=== PATIENT | female | born 1955 | race African-American/Black ===

== ENCOUNTER 2016-09-30 08:41 | Inpatient (IN) | payer MEDICARE, MEDICAID ==
[~2016-09-30] VITALS: Ht 165.1 cm; Wt 77.1 kg
[~2016-09-30 08:41] MED LIST: ABILIFY15 MG ORAL; ABILIFY30 MG ORAL; ACETAMINOPHEN325 M1 ORAL; AMLODIPINE BESYL5 MG ORAL; ATORVASTATIN CA40 MG ORAL; BENADRYL25 MG ORAL; CARBAMAZEPINE200 MG ORAL; COLACE100 MG ORAL; DESYREL100 MG ORAL; IBUPROFEN600 MG ORAL; LEVOTHYROXINE100 MCG ORAL; LIPITOR40 MG ORAL; LOVENOX10 MG SUBQ; NORCO 5-325 TA1 EACH ORAL; NORVASC5 MG ORAL; OXYCONTIN20 MG ORAL; QUETIAPINE FUMA50 MG ORAL; SEROQUEL25 MG ORAL; TEGRETOL200 MG ORAL; TRAZODONE HCL150 MG ORAL
[2016-09-30 09:00] VITALS: BP 132/73
[2016-09-30 09:32] LABS: BASOPHILS % (AUTO) 1.9 % (0.0-2.0); EOSINOPHILS % (AUTO) 5.8 % (0.0-3.0); LYMPHOCYTES % (AUTO) 39.4 % (20.0-45.0); MEAN CORPUSCULAR HEMOGLOBIN 31.8 PG (27.0-31.0); MEAN CORPUSCULAR HGB CONC 29.8 G/DL (32.0-36.0); MEAN CORPUSCULAR VOLUME 107 FL (80-99); MEAN PLATELET VOLUME 6.8 FL (6.5-10.1); MONOCYTES % (AUTO) 7.7 % (1.0-10.0); NEUTROPHILS % (AUTO) 45.2 % (45.0-75.0); PLATELET COUNT 141 K/UL (150-450); RED BLOOD COUNT 4.23 M/UL (4.20-5.40); RED CELL DISTRIBUTION WIDTH 14.9 % (11.6-14.8); WHITE BLOOD COUNT 4.9 K/UL (4.8-10.8)
--- NOTE | 2016-09-30 09:45 | Diagnostic Imaging Report ---
Indications: Chest pain Technique: Portable AP chest Findings: Comparison: 11/02/2014 Right lung volume loss, elevation of the apparent right hemidiaphragm persists. Right costophrenic angle now mildly blunted. Left lung and pleura remain clear. Heart size and pulmonary vasculature remain within normal limits. Right-sided hemodialysis catheter now in place. Left upper extremity intravascular stents and surgical clips now noted. IMPRESSION: Suggestion of development versus better visualization of small right pleural effusion versus thickening No other evidence of acute cardiopulmonary disease, unchanged Persistent right lung volume loss, nonspecific Interval hemodialysis catheter placement right chest wall Interval left upper extremity surgical clips and intravascular stent placements, likely relating to hemodialysis access, patency indeterminate
[2016-09-30 09:52] LABS: ALANINE AMINOTRANSFERASE 18 U/L (3-33); ALBUMIN/GLOBULIN RATIO 1.3 (1.0-2.7); ANION GAP 19 (5-15); ASPARTATE AMINO TRANSFERASE 36 U/L (5-40); CALCIUM 10.1 mg/dL (8.6-10.2); CARBON DIOXIDE 24 mEQ/L (20-30); CHLORIDE 101 mEQ/L (98-107); CREATININE 3.9 mg/dL (0.5-0.9); GLOMERULAR FILTRATION RATE 14.1 mL/min (>60); HEMOLYSIS 101; POTASSIUM 5.2 mEQ/L (3.4-4.9); SODIUM 144 mEQ/L (135-145); TOTAL PROTEIN 7.6 g/dL (6.6-8.7)
[2016-09-30 09:56] LABS: TROPONIN I < 0.30 ng/mL (<=0.30)
[2016-09-30] MEDS ORDERED: LACTULOSE20 GM/301 ORAL (10:07)
[2016-09-30] MEDS ORDERED: MILK OF MA400 MG/51 ORAL (10:07)
[2016-09-30] MEDS ORDERED: DEX4 GLUCO15 GM/59 M PO (10:07)
[2016-09-30] MEDS ORDERED: B COMPLEX WITH1 EACH ORAL (10:07)
[2016-09-30] MEDS ORDERED: INSULIN ASPART (10:07)
[2016-09-30] MEDS ORDERED: GLUCAGEN1 M1 IJ (10:07)
[2016-09-30] MEDS ORDERED: AMLODIPINE BESY10 MG ORAL (10:07)
[2016-09-30] MEDS ORDERED: MELATONIN 3 MG1 EAC1 PO (10:07)
[2016-09-30] MEDS ORDERED: CARBAMAZEPINE200 MG ORAL (10:07)
--- NOTE | 2016-09-30 10:26 | Emergency Room Report ---
History of Present Illness General Chief Complaint: Altered Mental Status Source: EMS Present Illness HPI 61-year-old female presents to ED for evaluation. Patient resides in complex at home. Per nursing staff patient is more altered and usual x1 day. However patient does have history of dementia and extensive psychiatric history. Patient is unable to provide any additional history at this time. No reported fevers or chills. No reported cough. No reported nausea or vomiting. PMD is Dr. Hanks. No other aggravating or relieving factors. No other associated symptoms Allergies: Coded Allergies: No Known Allergies (Unverified , 11/02/14) Patient History Past Medical History: DM, HTN, asthma, dementia, psych hx, renal disease, dialysis Past Surgical History: none Pertinent Family History: none Social History: Denies: alcohol use, drug use, smoking Now: No Immunizations: UTD Reviewed Nursing Documentation: PMH: Agreed, PSxH: Agreed Nursing Documentation-PMH Past Medical History Deferred: Pt Cognitively Impaired Past Medical History: No History, Except For Hx Hypertension: Yes Hx Pacemaker: No Hx Asthma: Yes Hx COPD: No Hx Diabetes: Yes Hx Cancer: No Hx Gastrointestinal Problems: No Hx Dialysis: Yes - MWF History Of Psychiatric Problem: Yes - schizophrenia depression anxiety Hx Neurological Problems: Yes - dementia Hx Cerebrovascular Accident: No Hx Seizures: No Review of Systems All Other Systems: negative except mentioned in HPI Physical Exam Vital Signs Date Time Temp Pulse Resp B/P Pulse Ox O2 Delivery O2 Flow Rate FiO2 09/30/16 08:43 97.0 86 16 121/79 96 Room Air Sp02 EP Interpretation: reviewed, normal General Appearance: no apparent distress, GCS 15, non-toxic, other - dementia Head: normocephalic, atraumatic Eyes: bilateral eye PERRL, bilateral eye normal inspection ENT: hearing grossly normal, normal pharynx, no angioedema, normal voice Neck: full range of motion, supple/symm/no masses Respiratory: chest non-tender, lungs clear, normal breath sounds, speaking full sentences, other - permacath in R chest Cardiovascular #1: regular rate, rhythm, no edema Cardiovascular #2: 2+ carotid (R), 2+ carotid (L), 2+ radial (R), 2+ radial (L) , 2+ dorsalis pedis (R), 2+ dorsalis pedis (L) Gastrointestinal: normal bowel sounds, non tender, soft, non-distended, no guarding, no rebound Rectal: deferred Genitourinary: normal inspection, no CVA tenderness Musculoskeletal: back normal, gait/station normal, normal range of motion, non- tender Neurologic: alert, motor strength/tone normal, sensory intact Psychiatric: other - dementia Reflexes: 3+ bicep (R), 3+ bicep (L), 3+ tricep (R), 3+ tricep (L), 3+ knee (R) , 3+ knee (L) Skin: normal color, no rash, warm/dry, well hydrated Lymphatic: no adenopathy Medical Decision Making Diagnostic Impression: Primary Impression: ESRD (end stage renal disease) on dialysis Additional Impression: Acute encephalopathy ER Course Hospital Course 61-year-old female presenting to ED with AMS. h/o ESRD Differential diagnoses include: Pneumonia, UTI, sepsis, dehydration, MT/ unstable angina Clinical course Patient placed on stretcher. On quality assurance monitor with stable vitals are ED course. After initial history and physical, I ordered labs, IV fluids, EKG, chest x-ray, blood cultures, UA. Labs - BUN/Cr elevated, K 5.2, no leukocytosis, troponins negative CXR - small R effusion, permacath in place EKG- sinus merlene, no ischemic changes Case discussed with Dr Hanks and they agreed to admit patient to their service for further care and support. Patient will be receiving dialysis today as per her schedule I feel this is a highly complex case requiring extensive working including EKG/ Rhythm strip, Xray/CT/US, Blood/urine lab work, repeat exams while in ED, and administration of strong opiates/narcotics for pain control, admission to hospital or close patient follow up. Diagnosis - acute encephalopathy, ESRD on dialysis Patient admitted to floor in serious condition Labs Test 09/30/16 07:40 09/30/16 07:50 White Blood Count 4.9 K/UL (4.8-10.8) Red Blood Count 4.23 M/UL (4.20-5.40) Hemoglobin 13.5 G/DL (12.0-16.0) Hematocrit 45.1 % (37.0-47.0) Mean Corpuscular Volume 107 FL (80-99) Mean Corpuscular Hemoglobin 31.8 PG (27.0-31.0) Mean Corpuscular Hemoglobin Concent 29.8 G/DL (32.0-36.0) Red Cell Distribution Width 14.9 % (11.6-14.8) Platelet Count 141 K/UL (150-450) Mean Platelet Volume 6.8 FL (6.5-10.1) Neutrophils (%) (Auto) 45.2 % (45.0-75.0) Lymphocytes (%) (Auto) 39.4 % (20.0-45.0) Monocytes (%) (Auto) 7.7 % (1.0-10.0) Eosinophils (%) (Auto) 5.8 % (0.0-3.0) Basophils (%) (Auto) 1.9 % (0.0-2.0) Sodium Level 144 mEQ/L (135-145) Potassium Level 5.2 mEQ/L (3.4-4.9) Chloride Level 101 mEQ/L (98-107) Carbon Dioxide Level 24 mEQ/L (20-30) Anion Gap 19 (5-15) Blood Urea Nitrogen 25 mg/dL (7-23) Creatinine 3.9 mg/dL (0.5-0.9) Estimat Glomerular Filtration Rate 14.1 mL/min (>60) Glucose Level 81 mg/dL (74-106) Lactic Acid Level 1.10 mmol/L (0.66-2.22) Calcium Level 10.1 mg/dL (8.6-10.2) Total Bilirubin 0.4 mg/dL (0.0-1.2) Aspartate Amino Transf (AST/SGOT) 36 U/L (5-40) Alanine Aminotransferase (ALT/SGPT) 18 U/L (3-33) Alkaline Phosphatase 74 U/L (35-104) Total Creatine Kinase 42 U/L (26-140) Total Protein 7.6 g/dL (6.6-8.7) Albumin 4.3 g/dL (3.5-5.2) Globulin 3.3 g/dL Albumin/Globulin Ratio 1.3 (1.0-2.7) Troponin I < 0.30 ng/mL (<=0.30) EKG Diagnostic Results Rate: bradycardiac Rhythm: NSR ST Segments: no acute changes ASA given to the pt in ED: No Rhythm Strip Diag. Results EP Interpretation: yes Rhythm: NSR, no PVC's, no ectopy Chest X-Ray Diagnostic Results EP Interpretation: No Findings: no consolidation, no effusion, no pneumothorax, no acute cardiopulmonary disease, other - permacath. R effusion Number of Views: 1 Last Vital Signs Date Time Temp Pulse Resp B/P Pulse Ox O2 Delivery O2 Flow Rate FiO2 09/30/16 09:00 98.5 53 16 132/73 100 Room Air Status: improved Disposition: ADMITTED INPATIENT Condition: Serious Referrals: PAULA JIANG (PCP) KENNEDY LONG M.D. Sep 30, 2016 10:26
[2016-09-30 10:58] LABS: CKMB < 1.5 ng/mL (< 3.8)
[2016-09-30 12:00] VITALS: BP 123/74
[2016-09-30] MEDS ORDERED: carBAMazepine 200mg tab ORAL ONE (13:00)
[2016-09-30] MEDS ORDERED: Lactulose 20gm/30ml UDC ORAL PRN (13:00)
[2016-09-30] MEDS ORDERED: Norco 5mg/325mg tab ORAL PRN (13:00)
[2016-09-30] MEDS: Enoxaparin 30mg Inj SUBQ SCH (13:00)
[2016-09-30] MEDS: TraZODone 50mg tab ORAL SCH ×2 (13:28→18:16)
[2016-09-30] MEDS: NovoLOG Insulin Flexpen SUBQ SCH ×2 (16:30→20:21)
[2016-09-30 17:00] VITALS: BP 139/81
[2016-09-30] MEDS: carBAMazepine 200mg tab ORAL SCH (18:16)
[2016-09-30 20:00] VITALS: BP 125/53
[2016-09-30] MEDS: Docusate 100mg cap ORAL SCH (20:24)
[2016-09-30] MEDS: oxyCONTIN 20mg tab ORAL SCH (20:25)
--- NOTE | 2016-09-30 20:38 | History and Physical Report ---
DATE OF ADMISSION: 09/30/2016 CHIEF COMPLAINT: Right flank pain and altered level of consciousness. HISTORY OF PRESENT ILLNESS: The patient is a 61-year-old female, who is on dialysis every Friday, Friday, and Friday. The patient was transferred by 911 to this hospital emergency department due to right flank pain. The nurse called me after the transfer. I saw the patient in the emergency department. The patient is demented and unable to give any further information. The patient cannot give any history. Due to the transfer to the emergency department, the patient missed her dialysis once a day. PAST MEDICAL HISTORY: 1. Organic brain syndrome. 2. End-stage renal failure. 3. Bipolar disorder. 4. Type 2 diabetes mellitus. 5. Hypertensive cardiovascular disease. 6. Chronic obstructive pulmonary disease. MEDICATIONS: Tylenol, amlodipine, Benadryl as needed, sodium docusate as needed, [place] as needed, NovoLog sliding scale, lactulose as needed, melatonin as needed, milk of magnesia as needed. FAMILY HISTORY: Unable to obtain due to the patient's confusion. SOCIAL HISTORY: Unable to obtain due to the patient's confusion. REVIEW OF SYSTEMS: Unable to obtain due to the patient's confusion. PHYSICAL EXAMINATION: GENERAL: This is an elderly female, who is in no acute distress. VITAL SIGNS: Blood pressure 123/74, respirations 18, pulse 59 regular, temperature 98.5, O2 saturation 100%. on room air. HEENT: The head is normocephalic and atraumatic. Pupils are equal, round, and reactive to light accommodation consensually. NECK: Supple. Trachea midline. There was no lymphadenopathy or thyromegaly. She has a right internal jugular PermCath. LUNGS: Clear to auscultation and percussion. HEART: Regular rate and rhythm without rubs, murmurs, or gallops. ABDOMEN: Soft. Bowel sounds are active. EXTREMITIES: No clubbing, cyanosis, or edema. NEUROLOGICAL: He is confused. There were no gross focal findings. The patient does recognize me, my name. LABORATORY AND ANCILLARY DATA: CBC within normal limits. Serum chemistry, potassium 5.2, sodium 144, BUN 25, creatinine 3.9. Troponin level is less than 0.3. Chest x-ray, small right pleural effusion otherwise no acute disease. Interval hemodialysis catheter placement of right chest wall. ASSESSMENT: 1. Organic brain syndrome. 2. End-stage renal failure. 3. Bipolar disorder. 4. Type 2 diabetes mellitus. 5. Hypertensive cardiovascular disease. 6. Chronic obstructive pulmonary disease. PLAN: 1. Hemodialysis today. 2. Possible discharge if the patient's condition improved mentally. Mely Rincon M.D. DR: Evie JOB#: [id number] CC:
[2016-09-30] MEDS ORDERED: Milk of Magnesia 30ml Ud ORAL PRN (21:00)
[2016-09-30 23:58] VITALS: BP 105/64
[2016-10-01] VITALS (18 sets, daily range): BP systolic 82–126; BP diastolic 41–75
[2016-10-01] MEDS: carBAMazepine 200mg tab ORAL SCH ×4 (00:06→18:38)
[2016-10-01] MEDS ORDERED: Heparin Sod 1000 units/ml 10ml IV SCH (06:00)
[2016-10-01] MEDS ORDERED: Heparin 5000 units/ml inj INJ SCH (06:00)
[2016-10-01] MEDS: NovoLOG Insulin Flexpen SUBQ SCH ×3 (06:30→16:30)
[2016-10-01 06:38] LABS: BASOPHILS % (AUTO) 1.8 % (0.0-2.0); EOSINOPHILS % (AUTO) 5.3 % (0.0-3.0); LYMPHOCYTES % (AUTO) 42.6 % (20.0-45.0); MEAN CORPUSCULAR HEMOGLOBIN 31.9 PG (27.0-31.0); MEAN CORPUSCULAR HGB CONC 29.9 G/DL (32.0-36.0); MEAN CORPUSCULAR VOLUME 107 FL (80-99); MEAN PLATELET VOLUME 5.2 FL (6.5-10.1); MONOCYTES % (AUTO) 6.5 % (1.0-10.0); NEUTROPHILS % (AUTO) 43.9 % (45.0-75.0); PLATELET COUNT 142 K/UL (150-450); RED BLOOD COUNT 4.48 M/UL (4.20-5.40); RED CELL DISTRIBUTION WIDTH 14.5 % (11.6-14.8); WHITE BLOOD COUNT 5.4 K/UL (4.8-10.8)
[2016-10-01 07:06] LABS: CALCIUM 9.8 mg/dL (8.6-10.2); CREATININE 2.1 mg/dL (0.5-0.9); GLOMERULAR FILTRATION RATE 28.8 mL/min (>60); POTASSIUM 2.9 mEQ/L (3.4-4.9)
[2016-10-01] MEDS: Docusate 100mg cap ORAL SCH (08:44)
[2016-10-01] MEDS: oxyCONTIN 20mg tab ORAL SCH (08:44)
[2016-10-01] MEDS: TraZODone 50mg tab ORAL SCH ×2 (08:45→18:38)
[2016-10-01] MEDS: Enoxaparin 30mg Inj SUBQ SCH (08:48)
--- NOTE | 2016-10-01 15:26 | Nephrology Progress Note ---
Assessment/Plan Plan AMS improving post HD. DC to SNF. Subjective Subjective More Alert. No c/o Objective Objective Last 24 Hour Vital Signs Date Time Temp Pulse Resp B/P Pulse Ox O2 Delivery O2 Flow Rate FiO2 10/01/16 12:38 97.9 51 19 98/68 95 Room Air 10/01/16 08:45 78 96/64 10/01/16 07:13 91 96/64 10/01/16 05:50 116 24 82/41 Room Air 10/01/16 05:35 111 24 96/64 Room Air 10/01/16 05:20 108 24 90/72 Room Air 10/01/16 05:05 102 24 90/69 Room Air 10/01/16 04:50 105 24 90/70 Room Air 10/01/16 04:35 104 24 95/69 Room Air 10/01/16 04:20 101 24 97/72 Room Air 10/01/16 04:05 82 24 97/68 Room Air 10/01/16 04:00 97.1 82 20 97/68 95 Room Air 10/01/16 03:50 78 96/64 Room Air 10/01/16 03:35 62 24 101/70 Room Air 10/01/16 03:20 55 24 105/71 Room Air 10/01/16 03:05 55 24 110/72 Room Air 10/01/16 02:50 98.3 55 24 126/75 Room Air 09/30/16 23:58 97.0 64 18 105/64 97 Room Air 09/30/16 20:00 97.7 61 20 125/53 96 Room Air 09/30/16 17:00 97.5 57 18 139/81 97 Room Air Intake and Output 09/30/16 10/01/16 19:00 07:00 Intake Total 0 ml Balance 0 ml Intake Oral 0 ml Laboratory Tests 10/01/16 05:00: White Blood Count 5.4, Red Blood Count 4.48, Hemoglobin 14.3, Hematocrit 47.8H, Mean Corpuscular Volume 107H, Mean Corpuscular Hemoglobin 31.9H, Mean Corpuscular Hemoglobin Concent 29.9L, Red Cell Distribution Width 14.5, Platelet Count 142L, Mean Platelet Volume 5.2L, Neutrophils (%) (Auto) 43.9L, Lymphocytes (%) (Auto) 42.6, Monocytes (%) (Auto) 6.5, Eosinophils (%) (Auto) 5.3H, Basophils (%) (Auto) 1.8, Sodium Level 137, Potassium Level 2.9L, Chloride Level 92L, Carbon Dioxide Level 22, Anion Gap 23H, Blood Urea Nitrogen 13, Creatinine 2.1H, Estimat Glomerular Filtration Rate 28.8, Glucose Level 75, Calcium Level 9.8 Height (Feet): 5 Height (Inches): 5.00 Weight (Pounds): 170 Objective Cv Rr Lungs CTA Abd SNT. BS+ E No CCE PAULA JIANG Oct 01, 2016 15:26
--- NOTE | 2016-10-02 23:38 | Cardiology Report ---
APPROVED REPORT EKG Measurement Heart [id number] Sinus bradycardia Otherwise normal ECG
--- NOTE | 2016-10-03 23:01 | Discharge Summary 2 SIG ---
DATE OF ADMISSION: 09/30/2016 DATE OF DISCHARGE: 10/01/2016 BRIEF HOSPITAL COURSE: The patient is a 61-year-old female, who is on dialysis every Friday, Friday, and Friday, was transferred via 911 to emergency department due to right flank pain. She has missed her dialysis and on x-ray showed small right pleural effusion. Creatinine was 3.9 and BUN was 25. She was given inpatient hemodialysis and was resumed on [facility] medications. Cultures were negative. Altered mental status improved post hemodialysis and the patient [facility]. FINAL DIAGNOSES: 1. Altered mental status/acute metabolic encephalopathy, improved post hemodialysis. 2. End-stage renal failure. 3. Organic brain syndrome. 4. Bipolar disorder. 5. Diabetes mellitus type 2. 6. Hypertensive cardiovascular disease. 7. Chronic obstructive pulmonary disease. Mely Rincon M.D. I have been assigned to dictate discharge summary on this account and I was not involved in the patient's management. Rosio Alvarado N.P. DR: CAROLA JOB#: [id number] CC:
== END 2016-10-01 21:15 | DRG 70 ==
LOC: EDBD 08:41 → EMR 09:07 → EDBEDREQ 09:20 → 4W 09:22 → EDBEDREQ 10:15
PROC: 5A1D00Z (ICD-10-PCS; principal; 2016-09-30)
DX: G93.40 Encephalopathy, unspecified (principal); N18.6 End stage renal disease; F03.90 Unspecified dementia, unspecified severity, without behavioral disturbance, psychotic disturbance, mood disturbance, and anxiety; I13.11 Hypertensive heart and chronic kidney disease without heart failure, with stage 5 chronic kidney disease, or end stage renal disease; Z99.2 Dependence on renal dialysis; J45.909 Unspecified asthma, uncomplicated; E11.9 Type 2 diabetes mellitus without complications; F20.9 Schizophrenia, unspecified; F41.9 Anxiety disorder, unspecified; F31.9 Bipolar disorder, unspecified; F09 Unspecified mental disorder due to known physiological condition; J44.9 Chronic obstructive pulmonary disease, unspecified; Z79.899 Other long term (current) drug therapy
CPT/HCPCS: 36415; 71010; 80048; 80053; 82550; 82553; 82962; 83605; 84484; 85025; 87040; 87081; 93005; J1815

== ENCOUNTER 2018-04-23 21:59 | Inpatient (IN) | payer MEDICARE, OTHER, MEDICAID ==
[~2018-04-23] VITALS: Ht 165.1 cm; Wt 77.1 kg
[~2018-04-23 21:59] MED LIST changes: +AMLODIPINE BESY10 MG ORAL; +B COMPLEX WITH1 EACH ORAL; +DEX4 GLUCO15 GM/59 M PO; +GLUCAGEN1 M1 IJ; +INSULIN ASPART; +LACTULOSE20 GM/301 ORAL; +MELATONIN 3 MG1 EAC1 PO; +MILK OF MA400 MG/51 ORAL
[2018-04-23 22:00] VITALS: BP 112/57
[2018-04-23] MEDS ORDERED: Vancomycin 1.5gm/D5W 250ml 250 ML IVPB ONE (22:00)
[2018-04-23] MEDS ORDERED: DEPAKOTE500 MG PO (22:42)
[2018-04-23] MEDS ORDERED: ELIQUIS2.5 MG PO (22:42)
[2018-04-23] MEDS ORDERED: Lidocaine 1% 10mg/ml/Epi 0.005mg/ml 30ml vial INJ ONE (22:45)
--- NOTE | 2018-04-23 22:46 | Emergency Room Report ---
History of Present Illness General Chief Complaint: Skin Rash/Abscess Source: EMS Present Illness HPI Patient is a 62-year-old female sent in by senior care after increased swelling to her right vulvarr area. Patient was noted to have some spontaneous drainage from the area. The patient was noted to have allergy to penicillin. Patient is chronically debilitated. She is noted to be nonverbal. Allergies: Coded Allergies: PENICILLINS (Unverified Allergy, Unknown, 04/23/18) Patient History Past Medical History: see triage record Reviewed Nursing Documentation: PMH: Agreed; PSxH: Agreed Nursing Documentation-PMH Past Medical History: No History, Except For Hx Hypertension: Yes Hx Pacemaker: No Hx Asthma: Yes Hx COPD: No Hx Diabetes: Yes - Type 2 Hx Cancer: No Hx Gastrointestinal Problems: No Hx Dialysis: Yes - AV fistula (left arm) - M, W, F; ESRD History Of Psychiatric Problem: Yes - Schizophrenia Hx Neurological Problems: Yes - dementia Hx Cerebrovascular Accident: No Hx Dementia: Yes Hx Seizures: Yes Hx Weakness: Yes Review of Systems All Other Systems: limited - by mental status Physical Exam Vital Signs Date Time Temp Pulse Resp B/P (MAP) Pulse Ox O2 Delivery O2 Flow Rate FiO2 04/23/18 21:27 97.2 71 20 112/57 Room Air 97.2 General Appearance: alert, Chronically Ill Head: normocephalic ENT: dry mucus membranes Neck: limited range of motion Respiratory: lungs clear Cardiovascular #1: edema Genitourinary: other - vulvar abscess with purulent drainage to right vulvar area Medical Decision Making Diagnostic Impression: Primary Impression: Abscess Additional Impressions: ESRD (end stage renal disease) Dementia ER Course Patient presented for skin rash. Differential diagnosis included was not limited to abscess, cellulitis, folliculitis, Fourniere's gangrene. Because of complexity of patient's case laboratory testing and imaging studies were ordered. Laboratory testing was notable for normal white count. The patient was noted to have abscess to the right lower abdomen. The this was incised and drained after sterile prep and drape. The patient had some purulent drainage. Patient was given IV antibiotics. Dr. Hanks was contacted for inpatient management due to primary care physician. Labs Test 04/23/18 22:30 White Blood Count 10.4 K/UL (4.8-10.8) Red Blood Count 3.44 M/UL (4.20-5.40) Hemoglobin 10.4 G/DL (12.0-16.0) Hematocrit 33.6 % (37.0-47.0) Mean Corpuscular Volume 98 FL (80-99) Mean Corpuscular Hemoglobin 30.2 PG (27.0-31.0) Mean Corpuscular Hemoglobin Concent 30.9 G/DL (32.0-36.0) Red Cell Distribution Width 12.3 % (11.6-14.8) Platelet Count 123 K/UL (150-450) Mean Platelet Volume 5.4 FL (6.5-10.1) Neutrophils (%) (Auto) 69.1 % (45.0-75.0) Lymphocytes (%) (Auto) 17.1 % (20.0-45.0) Monocytes (%) (Auto) 9.8 % (1.0-10.0) Eosinophils (%) (Auto) 3.3 % (0.0-3.0) Basophils (%) (Auto) 0.7 % (0.0-2.0) Sodium Level 140 MMOL/L (136-145) Potassium Level 4.8 MMOL/L (3.5-5.1) Chloride Level 104 MMOL/L (98-107) Carbon Dioxide Level 29 MMOL/L (21-32) Anion Gap 7 mmol/L (5-15) Blood Urea Nitrogen 28 mg/dL (7-18) Creatinine 3.8 MG/DL (0.55-1.30) Estimat Glomerular Filtration Rate 14.4 mL/min (>60) Glucose Level 92 MG/DL (74-106) Lactic Acid Level 1.80 mmol/L (0.4-2.0) Calcium Level 8.9 MG/DL (8.5-10.1) Total Bilirubin 0.3 MG/DL (0.2-1.0) Aspartate Amino Transf (AST/SGOT) 8 U/L (15-37) Alanine Aminotransferase (ALT/SGPT) 9 U/L (12-78) Alkaline Phosphatase 81 U/L (46-116) Total Creatine Kinase 25 U/L (26-308) Creatine Kinase MB < 0.5 NG/ML (0.0-3.6) Creatine Kinase MB Relative Index 2.0 Troponin I 0.000 ng/mL (0.000-0.056) Total Protein 6.8 G/DL (6.4-8.2) Albumin 2.5 G/DL (3.4-5.0) Globulin 4.3 g/dL Albumin/Globulin Ratio 0.6 (1.0-2.7) EKG Diagnostic Results Rate: normal - 87 Rhythm: NSR ST Segments: no acute changes Last Vital Signs Date Time Temp Pulse Resp B/P (MAP) Pulse Ox O2 Delivery O2 Flow Rate FiO2 04/23/18 21:27 97.2 71 20 112/57 Room Air 97.2 Status: improved Disposition: HOME, SELF-CARE Condition: Stable Dmitriy Ragland MD Apr 23, 2018 22:46
[2018-04-23] MEDS ORDERED: INSULIN LISPRO SUBQ (22:48)
[2018-04-23] MEDS ORDERED: GERI-KOT8.6 MG PO (22:48)
[2018-04-23] MEDS ORDERED: DOCUSATE SODIU250 MG ORAL (22:48)
[2018-04-23] MEDS ORDERED: LACTULOSE10 GM/153 PO (22:48)
[2018-04-23] MEDS ORDERED: RENVELA800 MG ORAL (22:51)
[2018-04-23] MEDS ORDERED: NEPHRO AID PO (22:51)
[2018-04-23 22:54] LABS: BASOPHILS % (AUTO) 0.7 % (0.0-2.0); EOSINOPHILS % (AUTO) 3.3 % (0.0-3.0); HEMATOCRIT 33.6 % (37.0-47.0); HEMOGLOBIN 10.4 G/DL (12.0-16.0); LYMPHOCYTES % (AUTO) 17.1 % (20.0-45.0); MEAN CORPUSCULAR VOLUME 98 FL (80-99); MONOCYTES % (AUTO) 9.8 % (1.0-10.0); NEUTROPHILS % (AUTO) 69.1 % (45.0-75.0); PLATELET COUNT 123 K/UL (150-450); RED BLOOD COUNT 3.44 M/UL (4.20-5.40); RED CELL DISTRIBUTION WIDTH 12.3 % (11.6-14.8); WHITE BLOOD COUNT 10.4 K/UL (4.8-10.8)
[2018-04-23 23:05] LABS: ANION GAP 7 mmol/L (5-15); BLOOD UREA NITROGEN 28 mg/dL (7-18); CALCIUM 8.9 MG/DL (8.5-10.1); CARBON DIOXIDE 29 MMOL/L (21-32); CHLORIDE 104 MMOL/L (98-107); CREATININE 3.8 MG/DL (0.55-1.30); POTASSIUM 4.8 MMOL/L (3.5-5.1); SODIUM 140 MMOL/L (136-145)
[2018-04-23 23:18] LABS: ALANINE AMINOTRANSFERASE 9 U/L (12-78); ALBUMIN 2.5 G/DL (3.4-5.0); ALBUMIN/GLOBULIN RATIO 0.6 (1.0-2.7); ALKALINE PHOSPHATASE 81 U/L (46-116); ASPARTATE AMINO TRANSFERASE 8 U/L (15-37); BILIRUBIN,TOTAL 0.3 MG/DL (0.2-1.0); CKMB < 0.5 NG/ML (0.0-3.6); CREATINE KINASE 25 U/L (26-308)
[2018-04-24] VITALS (15 sets, daily range): BP systolic 89–126; BP diastolic 67–90
[2018-04-24] MEDS ORDERED: Milk of Magnesia 30ml Ud ORAL PRN (04:00)
[2018-04-24] MEDS: NovoLOG Insulin Flexpen SUBQ SCH ×4 (06:30→21:00)
[2018-04-24] MEDS: Lactulose 20gm/30ml UDC ORAL SCH (08:37)
[2018-04-24] MEDS: Depakote 500mg tab ORAL SCH ×2 (08:38→22:42)
[2018-04-24] MEDS: carBAMazepine 200mg tab ORAL SCH (08:38)
[2018-04-24] MEDS: Nephrovite tab (Rena-Vite) ORAL SCH (08:39)
[2018-04-24] MEDS: Docusate 250mg cap ORAL SCH ×2 (08:39→18:00)
[2018-04-24] MEDS: Sennosides 8.6mg ORAL SCH ×2 (08:39→18:00)
[2018-04-24] MEDS: Eliquis 2.5mg tablet ORAL SCH ×2 (09:00→22:42)
--- NOTE | 2018-04-24 10:35 | Diagnostic Imaging Report ---
Indication: Dyspnea Comparison: 09/30/2016 A single view chest radiograph was obtained. Findings: Left upper extremity stent extending into the axillary vein noted. Cardiomegaly is present and stable. Lungs are clear. The bones are osteopenic. IMPRESSION: No acute cardiopulmonary disease
[2018-04-24 11:31] LABS: INR 0.9 (0.9-1.1)
[2018-04-24] MEDS ORDERED: LORazepam Inj 2mg/ml 1ml IV SCH (12:45)
--- NOTE | 2018-04-24 12:52 | Consultation ---
History of Present Illness General Date patient seen: Apr 24, 2018 Chief Complaint: Skin Rash/Abscess Present Illness HPI 62-year-old female sent in by retirement after increased swelling to her right vulvar area. The pt is severely agitated and confused. the pt refused the procedure and was combative. the pt unable to provide hx and unable to understand any info given about his medical condition. Allergies: Coded Allergies: PENICILLINS (Unverified Allergy, Unknown, 04/23/18) Medication History Scheduled Amlodipine Besylate (Norvasc), 5 MG ORAL DAILY Amlodipine Besylate* (Amlodipine Besylate*), 10 MG ORAL DAILY, (Reported) Apixaban (Eliquis), 2.5 MG PO EVERY 12 HOURS, (Reported) Aripiprazole* (Abilify*), 30 MG ORAL DAILY Atorvastatin Calcium* (Lipitor*), 40 MG ORAL BEDTIME Carbamazepine (Tegretol*), 200 MG ORAL FOUR TIMES A DAY Carbamazepine* (Carbamazepine*), 300 MG ORAL DAILY, (Reported) Divalproex Sodium (Depakote), 500 MG PO BID, (Reported) Docusate Sodium* (Colace*), 100 MG ORAL THREE TIMES A DAY Docusate Sodium* (Docusate Sodium*), 250 MG ORAL TWICE A DAY, (Reported) Enoxaparin* (Lovenox*), 30 MG SUBQ Q24H Lactulose (Lactulose), 30 GM PO DAILY, (Reported) Levothyroxine Sodium* (Levothyroxine Sodium*), 100 MCG ORAL DAILY@0630 Oxycodone Hcl Er* (Oxycontin*), 20 MG ORAL EVERY 12 HOURS Quetiapine Fumarate* (Seroquel*), 50 MG ORAL DAILY Sennosides (Jelena-Flora), 2 TAB PO TWICE A DAY, (Reported) Sevelamer Carbonate (Renvela), 800 MG ORAL THREE TIMES A DAY, (Reported) Trazodone Hcl (Desyrel), 150 MG ORAL BID Vitamin B Complex & Vit C No.3 (B Complex With Vitamin C), 1 TAB ORAL DAILY, ( Reported) [Nephro Aid], 1 TAB PO DAILY, (Reported) Scheduled PRN Acetaminophen* (Acetaminophen 325MG Tablet*), 650 MG ORAL EVERY 6 HOURS PRN for Mild Pain/Temp > 100.5 Dextrose (Dex4 Glucose), 15 GM PO for Hypoglycemia, (Reported) Diphenhydramine Hcl* (Benadryl*), 25 MG ORAL Q6H PRN for Itching Glucagon,Human Recombinant (Glucagen), 1 MG IJ for Hypoglycemia, (Reported) Hydrocodone Bit/Acetaminophen 5-325* ([place] 5-325*), 1 TAB ORAL Q4H PRN for Moderate Pain (Pain Scale 4-6) Lactulose (Lactulose*), 30 ML ORAL DAILY PRN for Constipation, (Reported) Magnesium Hydroxide* (Milk Of Magnesia*), 5 ML ORAL Q8HR PRN for Constipation, ( Reported) Melatonin/Pyridoxine HCl (B6) (Melatonin 3 mg Tablet), 1 EACH PO HS PRN for Insomnia, (Reported) Miscellaneous Medications [Insulin Lispro Soln], Unknown Dose SUBQ, (Reported) [Insulin asparte ss], (Reported) Patient History Limited by: medical condition History Provided By: Patient, Medical Record, PMD Healthcare decision maker Resuscitation status Full Code Advanced Directive on File Past Medical/Surgical History Past Medical/Surgical History: (1) Multiple injuries due to trauma (2) Fracture of left ankle (3) Altered mental status (4) Dementia (5) ESRD (end stage renal disease) (6) Abscess Review of Systems Psychiatric: Reports: prior hx, anxiety, depressed feelings, emotional problems Physical Exam General Appearance: alert, confused, agitated Last 24 Hour Vital Signs Date Time Temp Pulse Resp B/P (MAP) Pulse Ox O2 Delivery O2 Flow Rate FiO2 04/24/18 12:00 97.7 96 18 126/88 (101) 97 97.7 04/24/18 09:00 Room Air 04/24/18 08:58 96.8 83 18 121/90 (100) 98 96.8 04/24/18 08:00 90 04/24/18 04:00 81 04/24/18 04:00 98.4 88 20 102/77 (85) 98 98.4 04/24/18 01:47 Room Air 04/24/18 00:45 99.1 89 20 107/74 100 Room Air 99.1 04/24/18 00:45 99.1 92 20 107/74 100 Room Air 210.4 04/24/18 00:40 97.9 83 20 108/84 (92) 98 97.9 04/23/18 22:00 97.2 89 20 112/57 100 Room Air 97.2 04/23/18 21:27 97.2 71 20 112/57 Room Air 97.2 Intake and Output 04/23/18 04/24/18 19:00 07:00 Intake Total 250 ml Output Total 0 ml Balance 250 ml Intake Oral 0 ml IV Total 250 ml Output Urine Total 0 ml Laboratory Tests Test 04/23/18 22:30 04/24/18 10:30 White Blood Count 10.4 K/UL (4.8-10.8) Red Blood Count 3.44 M/UL (4.20-5.40) L Hemoglobin 10.4 G/DL (12.0-16.0) L Hematocrit 33.6 % (37.0-47.0) L Mean Corpuscular Volume 98 FL (80-99) Mean Corpuscular Hemoglobin 30.2 PG (27.0-31.0) Mean Corpuscular Hemoglobin Concent 30.9 G/DL (32.0-36.0) L Red Cell Distribution Width 12.3 % (11.6-14.8) Platelet Count 123 K/UL (150-450) L Mean Platelet Volume 5.4 FL (6.5-10.1) L Neutrophils (%) (Auto) 69.1 % (45.0-75.0) Lymphocytes (%) (Auto) 17.1 % (20.0-45.0) L Monocytes (%) (Auto) 9.8 % (1.0-10.0) Eosinophils (%) (Auto) 3.3 % (0.0-3.0) H Basophils (%) (Auto) 0.7 % (0.0-2.0) Sodium Level 140 MMOL/L (136-145) Potassium Level 4.8 MMOL/L (3.5-5.1) Chloride Level 104 MMOL/L (98-107) Carbon Dioxide Level 29 MMOL/L (21-32) Anion Gap 7 mmol/L (5-15) Blood Urea Nitrogen 28 mg/dL (7-18) H Creatinine 3.8 MG/DL (0.55-1.30) H Estimat Glomerular Filtration Rate 14.4 mL/min (>60) Glucose Level 92 MG/DL (74-106) Lactic Acid Level 1.80 mmol/L (0.4-2.0) Calcium Level 8.9 MG/DL (8.5-10.1) Total Bilirubin 0.3 MG/DL (0.2-1.0) Aspartate Amino Transf (AST/SGOT) 8 U/L (15-37) L Alanine Aminotransferase (ALT/SGPT) 9 U/L (12-78) L Alkaline Phosphatase 81 U/L (46-116) Total Creatine Kinase 25 U/L (26-308) L Creatine Kinase MB < 0.5 NG/ML (0.0-3.6) Creatine Kinase MB Relative Index 2.0 Troponin I 0.000 ng/mL (0.000-0.056) Total Protein 6.8 G/DL (6.4-8.2) Albumin 2.5 G/DL (3.4-5.0) L Globulin 4.3 g/dL Albumin/Globulin Ratio 0.6 (1.0-2.7) L Prothrombin Time 10.0 SEC (9.30-11.50) Prothromb Time International Ratio 0.9 (0.9-1.1) Activated Partial Thromboplast Time 30 SEC (23-33) Microbiology Date/Time Source Procedure Growth Status 04/24/18 00:00 Rectum Received Height (Feet): 5 Height (Inches): 5.00 Weight (Pounds): 144 Medications Current Medications Medications (Trade) Dose Ordered Sig/Kaleigh Route PRN Reason Start Time Stop Time Status Last Admin Dose Admin Acetaminophen (Tylenol) 650 mg Q6H PRN ORAL Mild Pain/Temp > 100.5 04/24/18 04:00 05/24/18 03:59 Apixaban (Eliquis) 2.5 mg Q12HR ORAL 04/24/18 09:00 05/24/18 08:59 Carbamazepine (TEGretol) 300 mg DAILY ORAL 04/24/18 09:00 05/24/18 08:59 04/24/18 08:38 Dextrose (Dextrose 50%) 25 ml Q1H PRN IV Hypoglycemia 04/24/18 04:15 Dextrose (Dextrose 50%) 50 ml Q1H PRN IV Hypoglycemia 04/24/18 04:15 Divalproex Sodium (Depakote) 500 mg EVERY 12 HOURS ORAL 9/21/18 09:00 05/24/18 08:59 04/24/18 08:38 Docusate Sodium (Colace) 250 mg BID ORAL 04/24/18 09:00 05/24/18 08:59 04/24/18 08:39 Heparin Sodium (Porcine) (Heparin Sod 1000 units/ml 10ml) 2,000 unit ONCE ONCE IV 04/24/18 23:15 04/24/18 23:16 Insulin Aspart (NovoLOG) BEFORE MEALS AND HS SUBQ 04/24/18 06:30 05/24/18 06:29 Lactulose (Cephulac) 30 gm DAILY ORAL 04/24/18 09:00 05/24/18 08:59 04/24/18 08:37 Magnesium Hydroxide (Mom) 30 ml HSPRN PRN ORAL Constipation 04/24/18 04:00 05/24/18 03:59 Sennosides (Senokot) 2 tab BID ORAL 04/24/18 09:00 05/24/18 08:59 04/24/18 08:39 Sevelamer Carbonate (Renvela) 800 mg THREE TIMES A DAY ORAL 04/24/18 09:00 05/24/18 08:59 04/24/18 08:38 Sodium Chloride 1,000 ml @ 500 mls/hr Q2H PRN IVLG sbp<90 during hd 04/24/18 23:09 05/24/18 23:08 Vancomycin HCl (Vanco rx to dose) 1 ea DAILY PRN MISC Per rx protocol 04/24/18 04:00 05/24/18 03:59 Vitamin B Complex/ Vit C/Folic Acid (Nephrovite) 1 tab DAILY ORAL 04/24/18 09:00 05/24/18 08:59 04/24/18 08:39 Assessment/Plan Problem List: (1) Encephalopathy due to metabolic factor or toxin SNOMED: 739222052 (2) Dementia ICD Codes: F03.90 - Unspecified dementia without behavioral disturbance SNOMED: 82643874 Assessment/Plan cont depakote ativan 2mg prior to procedure seroquel Jaguar Dominguez MD Apr 24, 2018 12:52
[2018-04-24] MEDS ORDERED: Lidocaine 1% Plain 30 ml INJ ONE (12:58)
[2018-04-24] MEDS ORDERED: Heparin 2000 units/Ns 1000ml 1,000 ML ONE (12:59)
--- NOTE | 2018-04-24 13:11 | Infectious Diseases Prog Note ---
Assessment/Plan Assessment/Plan Full consult dictated: A) 1) right inguinal/groin abscess 2) s/p I/D in ER 3) pmh noted 4) allergies - pcn P) 1) vancomycin and ciprofloxacin 2) check wound culture results 3) thank you Subjective Allergies: Coded Allergies: PENICILLINS (Unverified Allergy, Unknown, 04/23/18) Objective Vital Signs Last 24 Hour Vital Signs Date Time Temp Pulse Resp B/P (MAP) Pulse Ox O2 Delivery O2 Flow Rate FiO2 04/24/18 12:00 97.7 96 18 126/88 (101) 97 97.7 04/24/18 09:00 Room Air 04/24/18 08:58 96.8 83 18 121/90 (100) 98 96.8 04/24/18 08:00 90 04/24/18 04:00 81 04/24/18 04:00 98.4 88 20 102/77 (85) 98 98.4 04/24/18 01:47 Room Air 04/24/18 00:45 99.1 89 20 107/74 100 Room Air 99.1 04/24/18 00:45 99.1 92 20 107/74 100 Room Air 210.4 04/24/18 00:40 97.9 83 20 108/84 (92) 98 97.9 04/23/18 22:00 97.2 89 20 112/57 100 Room Air 97.2 04/23/18 21:27 97.2 71 20 112/57 Room Air 97.2 Height (Feet): 5 Height (Inches): 5.00 Weight (Pounds): 150 Microbiology Date/Time Source Procedure Growth Status 04/24/18 00:00 Rectum Received Laboratory Tests Test 04/23/18 22:30 04/24/18 10:30 White Blood Count 10.4 K/UL (4.8-10.8) Red Blood Count 3.44 M/UL (4.20-5.40) L Hemoglobin 10.4 G/DL (12.0-16.0) L Hematocrit 33.6 % (37.0-47.0) L Mean Corpuscular Volume 98 FL (80-99) Mean Corpuscular Hemoglobin 30.2 PG (27.0-31.0) Mean Corpuscular Hemoglobin Concent 30.9 G/DL (32.0-36.0) L Red Cell Distribution Width 12.3 % (11.6-14.8) Platelet Count 123 K/UL (150-450) L Mean Platelet Volume 5.4 FL (6.5-10.1) L Neutrophils (%) (Auto) 69.1 % (45.0-75.0) Lymphocytes (%) (Auto) 17.1 % (20.0-45.0) L Monocytes (%) (Auto) 9.8 % (1.0-10.0) Eosinophils (%) (Auto) 3.3 % (0.0-3.0) H Basophils (%) (Auto) 0.7 % (0.0-2.0) Sodium Level 140 MMOL/L (136-145) Potassium Level 4.8 MMOL/L (3.5-5.1) Chloride Level 104 MMOL/L (98-107) Carbon Dioxide Level 29 MMOL/L (21-32) Anion Gap 7 mmol/L (5-15) Blood Urea Nitrogen 28 mg/dL (7-18) H Creatinine 3.8 MG/DL (0.55-1.30) H Estimat Glomerular Filtration Rate 14.4 mL/min (>60) Glucose Level 92 MG/DL (74-106) Lactic Acid Level 1.80 mmol/L (0.4-2.0) Calcium Level 8.9 MG/DL (8.5-10.1) Total Bilirubin 0.3 MG/DL (0.2-1.0) Aspartate Amino Transf (AST/SGOT) 8 U/L (15-37) L Alanine Aminotransferase (ALT/SGPT) 9 U/L (12-78) L Alkaline Phosphatase 81 U/L (46-116) Total Creatine Kinase 25 U/L (26-308) L Creatine Kinase MB < 0.5 NG/ML (0.0-3.6) Creatine Kinase MB Relative Index 2.0 Troponin I 0.000 ng/mL (0.000-0.056) Total Protein 6.8 G/DL (6.4-8.2) Albumin 2.5 G/DL (3.4-5.0) L Globulin 4.3 g/dL Albumin/Globulin Ratio 0.6 (1.0-2.7) L Prothrombin Time 10.0 SEC (9.30-11.50) Prothromb Time International Ratio 0.9 (0.9-1.1) Activated Partial Thromboplast Time 30 SEC (23-33) Current Medications Medications (Trade) Dose Ordered Sig/Kaleigh Route PRN Reason Start Time Stop Time Status Last Admin Dose Admin Acetaminophen (Tylenol) 650 mg Q6H PRN ORAL Mild Pain/Temp > 100.5 04/24/18 04:00 05/24/18 03:59 Apixaban (Eliquis) 2.5 mg Q12HR ORAL 04/24/18 09:00 05/24/18 08:59 Carbamazepine (TEGretol) 300 mg DAILY ORAL 04/24/18 09:00 05/24/18 08:59 04/24/18 08:38 Dextrose (Dextrose 50%) 25 ml Q1H PRN IV Hypoglycemia 04/24/18 04:15 Dextrose (Dextrose 50%) 50 ml Q1H PRN IV Hypoglycemia 04/24/18 04:15 Divalproex Sodium (Depakote) 500 mg EVERY 12 HOURS ORAL 04/24/18 09:00 05/24/18 08:59 04/24/18 08:38 Docusate Sodium (Colace) 250 mg BID ORAL 04/24/18 09:00 05/24/18 08:59 04/24/18 08:39 Heparin Sodium (Porcine) (Heparin Sod 1000 units/ml 10ml) 2,000 unit ONCE ONCE IV 04/24/18 23:15 04/24/18 23:16 Insulin Aspart (NovoLOG) BEFORE MEALS AND HS SUBQ 04/24/18 06:30 05/24/18 06:29 Lactulose (Cephulac) 30 gm DAILY ORAL 04/24/18 09:00 05/24/18 08:59 04/24/18 08:37 Lorazepam (Ativan 2mg/ml 1ml) 2 mg ONCE IV 04/24/18 12:45 04/24/18 13:45 04/24/18 12:49 Magnesium Hydroxide (Mom) 30 ml HSPRN PRN ORAL Constipation 04/24/18 04:00 05/24/18 03:59 Quetiapine Fumarate (SEROquel) 25 mg Q6H PRN ORAL For Anxiety 04/24/18 13:00 05/24/18 12:59 Sennosides (Senokot) 2 tab BID ORAL 04/24/18 09:00 05/24/18 08:59 04/24/18 08:39 Sevelamer Carbonate (Renvela) 800 mg THREE TIMES A DAY ORAL 04/24/18 09:00 05/24/18 08:59 04/24/18 12:49 Sodium Chloride 1,000 ml @ 500 mls/hr Q2H PRN IVLG sbp<90 during hd 04/24/18 23:09 05/24/18 23:08 Vancomycin HCl (Vanco rx to dose) 1 ea DAILY PRN MISC Per rx protocol 04/24/18 04:00 05/24/18 03:59 Vitamin B Complex/ Vit C/Folic Acid (Nephrovite) 1 tab DAILY ORAL 04/24/18 09:00 05/24/18 08:59 04/24/18 08:39 Vanessa Davis MD Apr 24, 2018 13:11
--- NOTE | 2018-04-24 13:30 | Pre-Procedure Note/Attestation ---
Pre-Procedure Note/Attestation Complete Prior to Procedure Planned Procedure: right Procedure Narrative: right jugular vincent catheter for dialysis today Indications for Procedure Pre-Operative Diagnosis: requires immediate hemodialysis Attestation I attest that I discussed the nature of the procedure; its benefits; risks and complications; and alternatives (and the risks and benefits of such alternatives ), prior to the procedure, with the patient (or the patient's legal corporate representative). I attest that, if there was a reasonable possibility of needing a blood transfusion, the patient (or the patient's legal corporate representative) was given the [facility] standardized written summary, pursuant to the [place] Blood Safety Act ([place] Health and Safety Code # 1645, as amended). I attest that I re-evaluated the patient just prior to the surgery and that there has been no change in the patient's H&P, except as documented below: Herbert Lock MD Apr 24, 2018 13:30
--- NOTE | 2018-04-24 13:30 | History and Physical Report ---
DATE OF ADMISSION: 04/23/2018 CHIEF COMPLAINT: Pubic abscess. HISTORY OF PRESENT ILLNESS: This is a 62-year-old female who has a pubic abscess. The abscess was incised and drained in the ED by the ED physician and the patient is admitted for IV antibiotics. The patient is a very poor historian due to organic brain syndrome. PAST MEDICAL HISTORY: 1. End-stage renal failure. 2. Organic brain syndrome. 3. Type 2 diabetes mellitus. 4. Schizophrenia. 5. Seizure disorder. MEDICATIONS: Epogen on dialysis, Tylenol p.r.n., apixaban, Tegretol, Depakote, sodium docusate, insulin sliding scale, lactulose, melatonin, milk of magnesia, and Renvela. ALLERGIES: No known drug allergies. FAMILY HISTORY: Unable to obtain as the patient is very confused. SOCIAL HISTORY: Unable to obtain as the patient is very confused. REVIEW OF SYSTEMS: Unable to obtain as the patient is very confused. PHYSICAL EXAMINATION: GENERAL: This is an elderly female, who is in no acute distress. VITAL SIGNS: Blood pressure 102/77, pulse 80 and regular, respirations 18, and temperature 98.4, axillary. HEENT: Head is normocephalic and atraumatic. Pupils are equal, round, and reactive to light and accommodation consensually. NECK: Supple. Trachea midline. There was no lymphadenopathy or thyromegaly. LUNGS: Clear to auscultation and percussion. HEART: Regular rate and rhythm without rubs, murmurs, or gallops. ABDOMEN: Soft and nontender. Bowel sounds were active. There was a drain in the right vulvar area. EXTREMITIES: No clubbing, cyanosis, or edema. Left upper arm AV fistula has no thrill or bruit. NEUROLOGIC: She is confused. There were no gross focal findings. LABORATORY AND ANCILLARY DATA: CBC, hemoglobin 10.4 and platelet count 123,000. Serum chemistry and electrolytes within normal limits. BUN 28 and creatinine 3.8. ASSESSMENT: 1. Vulvar abscess, status post drainage. 2. Clotted hemodialysis access. 3. End-stage renal failure. 4. Organic brain syndrome. 5. Type 2 diabetes mellitus. 6. Schizophrenia. 7. Seizure disorder. PLAN: 1. Awaiting the vulvar drained abscess cultures. 1. Broad-spectrum IV antibiotics. 2. A temporary hemodialysis access to be done by Vascular Surgery. 3. Hemodialysis on her schedule Friday, Friday, Friday. 4. ID consult. Mely Rincon M.D. DR: EDISON JOB#: [id number] CC: [email or web address]
--- NOTE | 2018-04-24 13:50 | Consultation ---
History of Present Illness General Date patient seen: Apr 24, 2018 Chief Complaint: Skin Rash/Abscess Reason for Consultation: right pelvic abscess Present Illness HPI 62 year old female with multiple medical comorbidities who is a poor historian presented with pelvic abscess. I&D performed by ER physician. Significant surrounding cellulitis. Patient admitted for care and management. Surgery called to evaluate and assist with management. patient seen, chart reviewed, patient examined. labs reviewed. unsure of duration or prior episodes. Allergies: Coded Allergies: PENICILLINS (Unverified Allergy, Unknown, 04/23/18) Medication History Scheduled Amlodipine Besylate (Norvasc), 5 MG ORAL DAILY Amlodipine Besylate* (Amlodipine Besylate*), 10 MG ORAL DAILY, (Reported) Apixaban (Eliquis), 2.5 MG PO EVERY 12 HOURS, (Reported) Aripiprazole* (Abilify*), 30 MG ORAL DAILY Atorvastatin Calcium* (Lipitor*), 40 MG ORAL BEDTIME Carbamazepine (Tegretol*), 200 MG ORAL FOUR TIMES A DAY Carbamazepine* (Carbamazepine*), 300 MG ORAL DAILY, (Reported) Divalproex Sodium (Depakote), 500 MG PO BID, (Reported) Docusate Sodium* (Colace*), 100 MG ORAL THREE TIMES A DAY Docusate Sodium* (Docusate Sodium*), 250 MG ORAL TWICE A DAY, (Reported) Enoxaparin* (Lovenox*), 30 MG SUBQ Q24H Lactulose (Lactulose), 30 GM PO DAILY, (Reported) Levothyroxine Sodium* (Levothyroxine Sodium*), 100 MCG ORAL DAILY@0630 Oxycodone Hcl Er* (Oxycontin*), 20 MG ORAL EVERY 12 HOURS Quetiapine Fumarate* (Seroquel*), 50 MG ORAL DAILY Sennosides (Jelena-Flora), 2 TAB PO TWICE A DAY, (Reported) Sevelamer Carbonate (Renvela), 800 MG ORAL THREE TIMES A DAY, (Reported) Trazodone Hcl (Desyrel), 150 MG ORAL BID Vitamin B Complex & Vit C No.3 (B Complex With Vitamin C), 1 TAB ORAL DAILY, ( Reported) [Nephro Aid], 1 TAB PO DAILY, (Reported) Scheduled PRN Acetaminophen* (Acetaminophen 325MG Tablet*), 650 MG ORAL EVERY 6 HOURS PRN for Mild Pain/Temp > 100.5 Dextrose (Dex4 Glucose), 15 GM PO for Hypoglycemia, (Reported) Diphenhydramine Hcl* (Benadryl*), 25 MG ORAL Q6H PRN for Itching Glucagon,Human Recombinant (Glucagen), 1 MG IJ for Hypoglycemia, (Reported) Hydrocodone Bit/Acetaminophen 5-325* ([place] 5-325*), 1 TAB ORAL Q4H PRN for Moderate Pain (Pain Scale 4-6) Lactulose (Lactulose*), 30 ML ORAL DAILY PRN for Constipation, (Reported) Magnesium Hydroxide* (Milk Of Magnesia*), 5 ML ORAL Q8HR PRN for Constipation, ( Reported) Melatonin/Pyridoxine HCl (B6) (Melatonin 3 mg Tablet), 1 EACH PO HS PRN for Insomnia, (Reported) Miscellaneous Medications [Insulin Lispro Soln], Unknown Dose SUBQ, (Reported) [Insulin asparte ss], (Reported) Patient History Limited by: medical condition History Provided By: Medical Record, PMD Healthcare decision maker Resuscitation status Full Code Advanced Directive on File Past Medical/Surgical History Past Medical/Surgical History: (1) Dementia (2) ESRD (end stage renal disease) (3) Abscess (4) Altered mental status (5) Fracture of left ankle (6) Multiple injuries due to trauma (7) Encephalopathy due to metabolic factor or toxin Review of Systems All Other Systems: negative except mentioned in HPI Physical Exam General Appearance: no apparent distress Lines, tubes and drains: peripheral HEENT: mucous membranes moist Neck: normal inspection Respiratory/Chest: normal breath sounds, no respiratory distress, no accessory muscle use Cardiovascular/Chest: normal rate, regular rhythm Abdomen: soft, no organomegaly, no mass Extremities: normal inspection Skin Exam: other - cellulitis and prior I&D site of right pelvic abscess noted. see photos Neurologic: alert Last 24 Hour Vital Signs Date Time Temp Pulse Resp B/P (MAP) Pulse Ox O2 Delivery O2 Flow Rate FiO2 04/24/18 13:39 97.7 96 18 04/24/18 13:35 79 21 105/73 (84) 99 04/24/18 12:00 97.7 96 18 126/88 (101) 97 97.7 04/24/18 09:00 Room Air 04/24/18 08:58 96.8 83 18 121/90 (100) 98 96.8 04/24/18 08:00 90 04/24/18 04:00 81 04/24/18 04:00 98.4 88 20 102/77 (85) 98 98.4 04/24/18 01:47 Room Air 04/24/18 00:45 99.1 89 20 107/74 100 Room Air 99.1 04/24/18 00:45 99.1 92 20 107/74 100 Room Air 210.4 04/24/18 00:40 97.9 83 20 108/84 (92) 98 97.9 04/23/18 22:00 97.2 89 20 112/57 100 Room Air 97.2 04/23/18 21:27 97.2 71 20 112/57 Room Air 97.2 Intake and Output 04/23/18 04/24/18 19:00 07:00 Intake Total 250 ml Output Total 0 ml Balance 250 ml Intake Oral 0 ml IV Total 250 ml Output Urine Total 0 ml Laboratory Tests Test 04/23/18 22:30 04/24/18 10:30 White Blood Count 10.4 K/UL (4.8-10.8) Red Blood Count 3.44 M/UL (4.20-5.40) L Hemoglobin 10.4 G/DL (12.0-16.0) L Hematocrit 33.6 % (37.0-47.0) L Mean Corpuscular Volume 98 FL (80-99) Mean Corpuscular Hemoglobin 30.2 PG (27.0-31.0) Mean Corpuscular Hemoglobin Concent 30.9 G/DL (32.0-36.0) L Red Cell Distribution Width 12.3 % (11.6-14.8) Platelet Count 123 K/UL (150-450) L Mean Platelet Volume 5.4 FL (6.5-10.1) L Neutrophils (%) (Auto) 69.1 % (45.0-75.0) Lymphocytes (%) (Auto) 17.1 % (20.0-45.0) L Monocytes (%) (Auto) 9.8 % (1.0-10.0) Eosinophils (%) (Auto) 3.3 % (0.0-3.0) H Basophils (%) (Auto) 0.7 % (0.0-2.0) Sodium Level 140 MMOL/L (136-145) Potassium Level 4.8 MMOL/L (3.5-5.1) Chloride Level 104 MMOL/L (98-107) Carbon Dioxide Level 29 MMOL/L (21-32) Anion Gap 7 mmol/L (5-15) Blood Urea Nitrogen 28 mg/dL (7-18) H Creatinine 3.8 MG/DL (0.55-1.30) H Estimat Glomerular Filtration Rate 14.4 mL/min (>60) Glucose Level 92 MG/DL (74-106) Lactic Acid Level 1.80 mmol/L (0.4-2.0) Calcium Level 8.9 MG/DL (8.5-10.1) Total Bilirubin 0.3 MG/DL (0.2-1.0) Aspartate Amino Transf (AST/SGOT) 8 U/L (15-37) L Alanine Aminotransferase (ALT/SGPT) 9 U/L (12-78) L Alkaline Phosphatase 81 U/L (46-116) Total Creatine Kinase 25 U/L (26-308) L Creatine Kinase MB < 0.5 NG/ML (0.0-3.6) Creatine Kinase MB Relative Index 2.0 Troponin I 0.000 ng/mL (0.000-0.056) Total Protein 6.8 G/DL (6.4-8.2) Albumin 2.5 G/DL (3.4-5.0) L Globulin 4.3 g/dL Albumin/Globulin Ratio 0.6 (1.0-2.7) L Prothrombin Time 10.0 SEC (9.30-11.50) Prothromb Time International Ratio 0.9 (0.9-1.1) Activated Partial Thromboplast Time 30 SEC (23-33) Microbiology Date/Time Source Procedure Growth Status 04/24/18 00:00 Rectum Received Height (Feet): 5 Height (Inches): 5.00 Weight (Pounds): 150 Medications Current Medications Medications (Trade) Dose Ordered Sig/Kaleigh Route PRN Reason Start Time Stop Time Status Last Admin Dose Admin Acetaminophen (Tylenol) 650 mg Q6H PRN ORAL Mild Pain/Temp > 100.5 04/24/18 04:00 05/24/18 03:59 Apixaban (Eliquis) 2.5 mg Q12HR ORAL 04/24/18 09:00 05/24/18 08:59 Carbamazepine (TEGretol) 300 mg DAILY ORAL 04/24/18 09:00 05/24/18 08:59 04/24/18 08:38 Ciprofloxacin 100 ml @ 100 mls/hr Q12HR IV 04/24/18 14:30 05/01/18 14:29 Dextrose (Dextrose 50%) 25 ml Q1H PRN IV Hypoglycemia 04/24/18 04:15 Dextrose (Dextrose 50%) 50 ml Q1H PRN IV Hypoglycemia 04/24/18 04:15 Divalproex Sodium (Depakote) 500 mg EVERY 12 HOURS ORAL 04/24/18 09:00 05/24/18 08:59 04/24/18 08:38 Docusate Sodium (Colace) 250 mg BID ORAL 04/24/18 09:00 05/24/18 08:59 04/24/18 08:39 Heparin Sodium (Porcine) (Heparin Sod 1000 units/ml 10ml) 2,000 unit ONCE ONCE IV 04/24/18 23:15 04/24/18 23:16 Insulin Aspart (NovoLOG) BEFORE MEALS AND HS SUBQ 04/24/18 06:30 05/24/18 06:29 Lactulose (Cephulac) 30 gm DAILY ORAL 04/24/18 09:00 05/24/18 08:59 04/24/18 08:37 Magnesium Hydroxide (Mom) 30 ml HSPRN PRN ORAL Constipation 04/24/18 04:00 05/24/18 03:59 Quetiapine Fumarate (SEROquel) 25 mg Q6H PRN ORAL For Anxiety 04/24/18 13:00 05/24/18 12:59 Sennosides (Senokot) 2 tab BID ORAL 04/24/18 09:00 05/24/18 08:59 04/24/18 08:39 Sevelamer Carbonate (Renvela) 800 mg THREE TIMES A DAY ORAL 04/24/18 09:00 05/24/18 08:59 04/24/18 12:49 Sodium Chloride 1,000 ml @ 500 mls/hr Q2H PRN IVLG sbp<90 during hd 04/24/18 23:09 05/24/18 23:08 Vancomycin HCl (Vanco rx to dose) 1 ea DAILY PRN MISC Per rx protocol 04/24/18 04:00 05/24/18 03:59 Vitamin B Complex/ Vit C/Folic Acid (Nephrovite) 1 tab DAILY ORAL 04/24/18 09:00 05/24/18 08:59 04/24/18 08:39 Assessment/Plan Problem List: (1) Abscess Assessment & Plan: pelvic abscess around perineum/ labia with surrounding cellulitis. seems chronic. s/p I&D. cultures taken -ABX as per ID -trend labs -f/u cultures currently does not need further drainage or debridement. unlikely necrotizing infection. will monitor and assist with care. if worsening or another abscess develops will need more formal I&D. thank you ICD Codes: L02.91 - Cutaneous abscess, unspecified SNOMED: [id number] Status: stable [email or web address] bairesya Apr 24, 2018 13:50
[2018-04-24] MEDS ORDERED: Heparin Sod 1000 units/ml 10ml ONE (13:51)
--- NOTE | 2018-04-24 15:02 | Cardiology Report ---
APPROVED REPORT EKG Measurement Heart [id number] Normal sinus rhythm Nonspecific ST abnormality Abnormal ECG
--- NOTE | 2018-04-24 16:13 | Diagnostic Imaging Report ---
Indication: Patient requires hemodialysis. Findings: After the indications, procedure, risks, complications, and alternatives of the procedure were explained, written informed consent was obtained. The neck was prepped with alcohol. All elements of maximal sterile barrier technique were followed including usage of a cap, mask, sterile gown, sterile gloves, hand hygiene and a large sterile sheet. 1% lidocaine was used to anesthetize the skin. Sonographic evaluation was performed demonstrating a patent and compressible right jugular vein. Access was obtained under real-time ultrasound guidance using an 18 gauge needle and a digital image was saved in archive. An 0.035 wire was then advanced into the vein. Needle exchanged for a dilator. A temporary hemodialysis catheter was then advanced over the wire. Wire was removed. Catheter was secured to the skin using 2-0 Prolene suture. Both ports aspirate and flush easily. Fluoroscopic imaging was utilized to negotiate the 035 wire into position. Final position of the hemodialysis catheter was confirmed by fluoroscopy. Total fluoroscopic time 0.2 minutes The catheter is cleared for use. Impression: Successful placement of right jugular hemodialysis catheter.
[2018-04-24] MEDS ORDERED: Heparin Sod 1000 units/ml 10ml IV SCH (22:00)
[2018-04-25] VITALS: BP 111/73
[2018-04-25 04:00] VITALS: BP 109/72
[2018-04-25] MEDS: NovoLOG Insulin Flexpen SUBQ SCH ×4 (06:30→21:00)
[2018-04-25 07:37] LABS: BASOPHILS % (AUTO) 0.5 % (0.0-2.0); EOSINOPHILS % (AUTO) 5.2 % (0.0-3.0); HEMATOCRIT 29.6 % (37.0-47.0); HEMOGLOBIN 9.2 G/DL (12.0-16.0); LYMPHOCYTES % (AUTO) 23.8 % (20.0-45.0); MEAN CORPUSCULAR VOLUME 98 FL (80-99); MONOCYTES % (AUTO) 8.9 % (1.0-10.0); NEUTROPHILS % (AUTO) 61.6 % (45.0-75.0); PLATELET COUNT 159 K/UL (150-450); RED BLOOD COUNT 3.02 M/UL (4.20-5.40); RED CELL DISTRIBUTION WIDTH 12.5 % (11.6-14.8); WHITE BLOOD COUNT 6.9 K/UL (4.8-10.8)
[2018-04-25 07:56] LABS: ANION GAP 9 mmol/L (5-15); BLOOD UREA NITROGEN 27 mg/dL (7-18); CALCIUM 8.7 MG/DL (8.5-10.1); CARBON DIOXIDE 25 MMOL/L (21-32); CHLORIDE 105 MMOL/L (98-107); CREATININE 3.5 MG/DL (0.55-1.30); POTASSIUM 4.7 MMOL/L (3.5-5.1); SODIUM 139 MMOL/L (136-145)
[2018-04-25 08:00] VITALS: BP 74/52
[2018-04-25] MEDS: Docusate 250mg cap ORAL SCH ×2 (09:26→18:00)
[2018-04-25] MEDS: Eliquis 2.5mg tablet ORAL SCH ×2 (09:26→22:09)
[2018-04-25] MEDS: Nephrovite tab (Rena-Vite) ORAL SCH (09:26)
[2018-04-25] MEDS: Depakote 500mg tab ORAL SCH ×2 (09:26→22:09)
[2018-04-25] MEDS: Sennosides 8.6mg ORAL SCH ×2 (09:27→18:00)
[2018-04-25] MEDS: Lactulose 20gm/30ml UDC ORAL SCH ×2 (09:28→09:30)
[2018-04-25] MEDS: carBAMazepine 200mg tab ORAL SCH (09:28)
--- NOTE | 2018-04-25 11:12 | General Surgery Progress Note ---
General Surgery-Progress Note Subjective Additional Comments no acute events. doing well. right IJ HD cath placed. no n/v/f/c. Objective Last 24 Hour Vital Signs Date Time Temp Pulse Resp B/P (MAP) Pulse Ox O2 Delivery O2 Flow Rate FiO2 04/25/18 09:00 Room Air 04/25/18 08:00 98.2 63 18 74/52 (59) 96 98.2 04/25/18 08:00 58 04/25/18 04:00 67 04/25/18 04:00 98.8 61 17 109/72 (84) 97 98.8 04/25/18 00:00 86 04/25/18 00:00 98.5 82 18 111/73 (86) 97 98.5 04/24/18 21:00 Room Air 04/24/18 20:00 98.4 71 18 119/81 (94) 98 98.4 04/24/18 20:00 82 04/24/18 16:00 72 04/24/18 16:00 96.8 82 17 121/84 (96) 100 96.8 04/24/18 14:04 83 19 98/74 (82) 99 04/24/18 14:00 83 19 89/67 (74) 99 04/24/18 13:55 83 19 104/77 (86) 98 04/24/18 13:50 83 19 98/71 (80) 99 04/24/18 13:45 84 21 91/67 (75) 99 04/24/18 13:40 85 21 98/73 (81) 99 04/24/18 13:39 97.7 96 18 04/24/18 13:35 79 21 105/73 (84) 99 04/24/18 12:00 93 04/24/18 12:00 97.7 96 18 126/88 (101) 97 97.7 I&O Intake and Output 04/24/18 04/25/18 19:00 07:00 Intake Total 840 ml 100 ml Balance 840 ml 100 ml Intake Oral 840 ml IV Total 100 ml # Voids 2 1 Dressing: saturated Wound: clean Drains: none Cardiovascular: RSR Respiratory: clear Abdomen: soft, flat, non-tender, present bowel sounds Extremities: no tenderness, no cyanosis Laboratory Tests Test 04/24/18 19:45 04/25/18 06:05 Random Vancomycin Level 19.1 ug/mL White Blood Count 6.9 K/UL (4.8-10.8) Red Blood Count 3.02 M/UL (4.20-5.40) L Hemoglobin 9.2 G/DL (12.0-16.0) L Hematocrit 29.6 % (37.0-47.0) L Mean Corpuscular Volume 98 FL (80-99) Mean Corpuscular Hemoglobin 30.5 PG (27.0-31.0) Mean Corpuscular Hemoglobin Concent 31.1 G/DL (32.0-36.0) L Red Cell Distribution Width 12.5 % (11.6-14.8) Platelet Count 159 K/UL (150-450) Mean Platelet Volume 5.6 FL (6.5-10.1) L Neutrophils (%) (Auto) 61.6 % (45.0-75.0) Lymphocytes (%) (Auto) 23.8 % (20.0-45.0) Monocytes (%) (Auto) 8.9 % (1.0-10.0) Eosinophils (%) (Auto) 5.2 % (0.0-3.0) H Basophils (%) (Auto) 0.5 % (0.0-2.0) Sodium Level 139 MMOL/L (136-145) Potassium Level 4.7 MMOL/L (3.5-5.1) Chloride Level 105 MMOL/L (98-107) Carbon Dioxide Level 25 MMOL/L (21-32) Anion Gap 9 mmol/L (5-15) Blood Urea Nitrogen 27 mg/dL (7-18) H Creatinine 3.5 MG/DL (0.55-1.30) H Estimat Glomerular Filtration Rate 15.9 mL/min (>60) Glucose Level 71 MG/DL (74-106) L Calcium Level 8.7 MG/DL (8.5-10.1) Plan Problems: (1) Abscess Assessment & Plan: pelvic abscess around perineum/ labia with surrounding cellulitis. seems chronic. s/p I&D. cultures taken wound seems improved today. minimal serous drainage from I&D site. no further fluctuance noted. cellulitis improved -ABX as per ID -f/u cultures currently does not need further drainage or debridement. unlikely necrotizing infection. will monitor and assist with care. if worsening or another abscess develops will need more formal I&D. thank you Herson Walter Apr 25, 2018 11:12
--- NOTE | 2018-04-25 11:59 | Nephrology Progress Note ---
Assessment/Plan Plan s/p Pelvic Abscess I+ D + on IV Abx. ID following. GS folowing. Clotted HD AVF. s/p Rt. EZ Cooley. Needs CRISTI AVF thrombectomy. ESRD HD MWF. Subjective Subjective No new c/o Objective Objective Last 24 Hour Vital Signs Date Time Temp Pulse Resp B/P (MAP) Pulse Ox O2 Delivery O2 Flow Rate FiO2 04/25/18 09:00 Room Air 04/25/18 08:00 98.2 63 18 74/52 (59) 96 98.2 04/25/18 08:00 58 04/25/18 04:00 67 04/25/18 04:00 98.8 61 17 109/72 (84) 97 98.8 04/25/18 00:00 86 04/25/18 00:00 98.5 82 18 111/73 (86) 97 98.5 04/24/18 21:00 Room Air 04/24/18 20:00 98.4 71 18 119/81 (94) 98 98.4 04/24/18 20:00 82 04/24/18 16:00 72 04/24/18 16:00 96.8 82 17 121/84 (96) 100 96.8 04/24/18 14:04 83 19 98/74 (82) 99 04/24/18 14:00 83 19 89/67 (74) 99 04/24/18 13:55 83 19 104/77 (86) 98 04/24/18 13:50 83 19 98/71 (80) 99 04/24/18 13:45 84 21 91/67 (75) 99 04/24/18 13:40 85 21 98/73 (81) 99 04/24/18 13:39 97.7 96 18 04/24/18 13:35 79 21 105/73 (84) 99 04/24/18 12:00 93 04/24/18 12:00 97.7 96 18 126/88 (101) 97 97.7 Intake and Output 04/24/18 04/25/18 19:00 07:00 Intake Total 840 ml 100 ml Balance 840 ml 100 ml Intake Oral 840 ml IV Total 100 ml # Voids 2 1 Laboratory Tests 04/24/18 19:45: Random Vancomycin Level 19.1 04/25/18 06:05: White Blood Count 6.9, Red Blood Count 3.02L, Hemoglobin 9.2L, Hematocrit 29.6L , Mean Corpuscular Volume 98, Mean Corpuscular Hemoglobin 30.5, Mean Corpuscular Hemoglobin Concent 31.1L, Red Cell Distribution Width 12.5, Platelet Count 159, Mean Platelet Volume 5.6L, Neutrophils (%) (Auto) 61.6, Lymphocytes (%) (Auto) 23.8, Monocytes (%) (Auto) 8.9, Eosinophils (%) (Auto) 5.2H, Basophils (%) (Auto) 0.5, Sodium Level 139, Potassium Level 4.7, Chloride Level 105, Carbon Dioxide Level 25, Anion Gap 9, Blood Urea Nitrogen 27H, Creatinine 3.5H, Estimat Glomerular Filtration Rate 15.9, Glucose Level 71L, Calcium Level 8.7 Height (Feet): 5 Height (Inches): 5.00 Weight (Pounds): 160 Objective Confused. Rt. IJ Yasir in. CV RR Lungs CTA ABD SNT. BS + E No CCE Mely Rincon MD Apr 25, 2018 11:59
[2018-04-25 12:00] VITALS: BP 93/66
[2018-04-25 16:00] VITALS: BP 90/59
[2018-04-25 20:00] VITALS: BP 102/67
--- NOTE | 2018-04-25 22:50 | Infectious Diseases Prog Note ---
Assessment/Plan Assessment/Plan Full consult dictated: A) 1) right inguinal/groin abscess 2) s/p I/D in ER 3) pmh noted 4) allergies - pcn P) 1) vancomycin and ciprofloxacin 2) check wound culture results 3) surgery f/u Subjective Allergies: Coded Allergies: PENICILLINS (Unverified Allergy, Unknown, 04/23/18) Objective Vital Signs Last 24 Hour Vital Signs Date Time Temp Pulse Resp B/P (MAP) Pulse Ox O2 Delivery O2 Flow Rate FiO2 04/25/18 20:00 97.9 57 20 102/67 (79) 99 97.9 04/25/18 16:00 98.3 85 18 90/59 (69) 95 98.3 04/25/18 15:16 58 04/25/18 12:00 98.3 59 18 93/66 (75) 94 98.3 04/25/18 12:00 60 04/25/18 09:00 Room Air 04/25/18 08:00 98.2 63 18 74/52 (59) 96 98.2 04/25/18 08:00 58 04/25/18 04:00 67 04/25/18 04:00 98.8 61 17 109/72 (84) 97 98.8 04/25/18 00:00 86 04/25/18 00:00 98.5 82 18 111/73 (86) 97 98.5 Height (Feet): 5 Height (Inches): 5.00 Weight (Pounds): 160 Microbiology Date/Time Source Procedure Growth Status 04/23/18 22:35 Blood Blood Culture - Preliminary NO GROWTH AFTER 24 HOURS Resulted 04/23/18 22:20 Blood Blood Culture - Preliminary NO GROWTH AFTER 24 HOURS Resulted 04/24/18 15:00 Wound Gram Stain - Final Resulted 04/24/18 15:00 Wound Wound Culture - Preliminary NO GROWTH Resulted 04/24/18 00:00 Rectum Received Laboratory Tests Test 04/25/18 06:05 White Blood Count 6.9 K/UL (4.8-10.8) Red Blood Count 3.02 M/UL (4.20-5.40) L Hemoglobin 9.2 G/DL (12.0-16.0) L Hematocrit 29.6 % (37.0-47.0) L Mean Corpuscular Volume 98 FL (80-99) Mean Corpuscular Hemoglobin 30.5 PG (27.0-31.0) Mean Corpuscular Hemoglobin Concent 31.1 G/DL (32.0-36.0) L Red Cell Distribution Width 12.5 % (11.6-14.8) Platelet Count 159 K/UL (150-450) Mean Platelet Volume 5.6 FL (6.5-10.1) L Neutrophils (%) (Auto) 61.6 % (45.0-75.0) Lymphocytes (%) (Auto) 23.8 % (20.0-45.0) Monocytes (%) (Auto) 8.9 % (1.0-10.0) Eosinophils (%) (Auto) 5.2 % (0.0-3.0) H Basophils (%) (Auto) 0.5 % (0.0-2.0) Sodium Level 139 MMOL/L (136-145) Potassium Level 4.7 MMOL/L (3.5-5.1) Chloride Level 105 MMOL/L (98-107) Carbon Dioxide Level 25 MMOL/L (21-32) Anion Gap 9 mmol/L (5-15) Blood Urea Nitrogen 27 mg/dL (7-18) H Creatinine 3.5 MG/DL (0.55-1.30) H Estimat Glomerular Filtration Rate 15.9 mL/min (>60) Glucose Level 71 MG/DL (74-106) L Calcium Level 8.7 MG/DL (8.5-10.1) Current Medications Medications (Trade) Dose Ordered Sig/Kaleigh Route PRN Reason Start Time Stop Time Status Last Admin Dose Admin Acetaminophen (Tylenol) 650 mg Q6H PRN ORAL Mild Pain/Temp > 100.5 04/24/18 04:00 05/24/18 03:59 Apixaban (Eliquis) 2.5 mg Q12HR ORAL 04/24/18 09:00 05/24/18 08:59 04/25/18 22:09 Carbamazepine (TEGretol) 300 mg DAILY ORAL 04/24/18 09:00 05/24/18 08:59 04/25/18 09:28 Ciprofloxacin 100 ml @ 100 mls/hr Q24H IV 04/25/18 21:00 05/02/18 20:59 04/25/18 22:09 Dextrose (Dextrose 50%) 25 ml Q1H PRN IV Hypoglycemia 04/24/18 04:15 Dextrose (Dextrose 50%) 50 ml Q1H PRN IV Hypoglycemia 04/24/18 04:15 Divalproex Sodium (Depakote) 500 mg EVERY 12 HOURS ORAL 04/24/18 09:00 05/24/18 08:59 04/25/18 22:09 Docusate Sodium (Colace) 250 mg BID ORAL 04/24/18 09:00 05/24/18 08:59 04/25/18 09:26 Epoetin Allan (Procrit (for ESRD on dialysis)) 3,000 units FRI-FRI-FRI SUBQ 04/27/18 21:00 05/27/18 20:59 Insulin Aspart (NovoLOG) BEFORE MEALS AND HS SUBQ 04/24/18 06:30 05/24/18 06:29 Lactulose (Cephulac) 30 gm DAILY ORAL 04/24/18 09:00 05/24/18 08:59 04/24/18 08:37 Magnesium Hydroxide (Mom) 30 ml HSPRN PRN ORAL Constipation 04/24/18 04:00 05/24/18 03:59 Quetiapine Fumarate (SEROquel) 25 mg Q6H PRN ORAL For Anxiety 04/24/18 13:00 05/24/18 12:59 Sennosides (Senokot) 2 tab BID ORAL 04/24/18 09:00 05/24/18 08:59 04/25/18 09:27 Sevelamer Carbonate (Renvela) 800 mg THREE TIMES A DAY ORAL 04/24/18 09:00 05/24/18 08:59 04/25/18 09:27 Sodium Chloride 1,000 ml @ 500 mls/hr Q2H PRN IVLG sbp<90 during hd 04/24/18 23:09 05/24/18 23:08 Vancomycin HCl (Vanco rx to dose) 1 ea DAILY PRN MISC Per rx protocol 04/24/18 04:00 05/24/18 03:59 Vitamin B Complex/ Vit C/Folic Acid (Nephrovite) 1 tab DAILY ORAL 04/24/18 09:00 05/24/18 08:59 04/25/18 09:26 Vanessa Davis MD Apr 25, 2018 22:50
[2018-04-26] VITALS: BP 122/64
--- NOTE | 2018-04-26 02:15 | Consultation ---
DATE OF CONSULTATION: 04/25/2018 INFECTIOUS DISEASE CONSULTATION CONSULTING PHYSICIAN: Vanessa Davis M.D. ATTENDING PHYSICIAN: Mely Rincon M.D. REFERRING PHYSICIAN: Mely Rincon M.D. REASON FOR CONSULTATION: Right inguinal/groin labia, perineal pelvic abscess, and cellulitis. CHIEF COMPLAINT: The patient's chief complaint coming into the hospital is right inguinal/groin/perineal/labia pelvic abscess. HISTORY OF PRESENT ILLNESS: This is a 62-year-old female, who has a history of end-stage renal disease, on hemodialysis. The patient had an abscess in the right inguinal groin area. The patient had incision and drainage done in the emergency room. Wound culture was obtained. The patient also has cellulitis surrounding the abscess. Infectious Disease consultation is requested for antibiotic management. I saw the patient and placed her on Cipro and vancomycin. Wound cultures are negative to date. The patient is also being followed by surgery. The patient will be continued on vancomycin and Cipro for the abscess in the right inguinal groin area. MAR was noted. Orders were noted. Notes and records were reviewed. The patient is nonverbal. She has history of organic brain syndrome and is not a very good historian at this time and also history of schizophrenia. At this point, she is not a good historian, mostly nonverbal. PAST MEDICAL HISTORY: The patient has a past medical history of the following: The patient has a past medical history of end-stage renal disease, history of hemodialysis, history of anemia, history or organic brain syndrome, history of schizophrenia, history of type 2 diabetes, history of seizure disorder, and questionable history of hypertension. She has history of AV fistula, dementia also, and seizures. No history of CVA however. History of asthma. It looks like, she does have history of hypertension. MEDICATIONS: Upon reviewing the MAR, she is on the following medications: She is on Epogen, ciprofloxacin, vancomycin, Seroquel, Eliquis, carbamazepine, divalproex, docusate, Senokot, Colace, lactulose, Cipro, Renvela, Nephro-Edita, NovoLog, insulin, acetaminophen, and magnesium hydroxide. Other medications prior to admission include apixaban, Tegretol, Depakote, sodium docusate, insulin, lactose, melatonin, milk of magnesium, and Renvela. ALLERGIES: Include penicillin antibiotics. SOCIAL HISTORY: Per the records, there is no mention of smoking, alcohol, or drug abuse. FAMILY HISTORY: Noncontributory. Per the records, there is no mention of exposure to tuberculosis or cancer. REVIEW OF SYSTEMS: CONSTITUTIONAL: The patient has generalized fatigue and weakness. Opens her eyes, but is nonverbal. No fevers. No pressors. HEAD AND NECK: No obvious head pain or neck pain. PULMONARY: No congestion or shortness of breath. CARDIAC: No chest pain or pressors. GASTROINTESTINAL: No nausea, vomiting, or diarrhea. GENITOURINARY: She has no White. She is on hemodialysis. SKIN: No rashes. EXTREMITY: No extremity pain. NEUROLOGIC: No seizures. Otherwise, review of systems is limited. No mention of night sweats or weight loss or pressors. PHYSICAL EXAMINATION: VITAL SIGNS: Temperature is 97.9, pulse rate is 67, respiratory rate 20, blood pressure 102/67, and saturation is 99%. GENERAL: Alert and nonverbal. HEAD AND NECK: Oral exam, no thrush. Eye exam, no icterus. NECK: Supple. Normocephalic. LUNGS: Clear bilaterally. No rhonchi or rales. HEART: Regular. No gallop or murmur. ABDOMEN: Soft. Positive bowel sounds. Nontender. SKIN: No rash. MUSCULOSKELETAL: No effusion. Legs are without cellulitis. PERIPHERAL VASCULAR: No cyanosis or gangrene. GENITOURINARY: No White. Hemodialysis patient. Her right inguinal and groin area had an abscess status post drainage with surrounding cellulitis noted and some swelling noted. This is in the right pelvic, inguinal, perineal, possible pubic area, but mostly I would describe groin inguinal area and also perineal and possible labia area. LINE SITES: Without phlebitis. NEUROLOGIC: Weakness and responsive. Opens eyes, nonverbal. LABORATORY AND DIAGNOSTIC DATA: Laboratory data is as follows: White count 6.9, hemoglobin 9.2, and platelet count is 159,000. Creatinine is 3.5. LFTs were noted. Wound culture of the right groin is negative to date. Blood cultures are negative to date. Chest x-ray showed no acute disease. No acute cardiopulmonary disease. ASSESSMENT/PLAN: 1. The patient has a right inguinal/groin/perineal/labia and pelvic abscess. The patient is status post incision and drainage of the abscess. The patient has cellulitis. Continue vancomycin and Cipro. The patient is being followed by surgery. At this time, no further intervention. Continue vancomycin and Cipro for now. Check final wound culture. 2. End-stage renal disease, on hemodialysis. 3. Organic brain syndrome. 4. Schizophrenia. 5. Diabetes type 2. 6. Hypertension. 7. Blood pressure and blood sugar treatment per primary. 8. Seizure disorder. 9. Nonverbal. 10. AV fistula, on hemodialysis and end-stage renal disease. 11. Dementia. 12. Weakness. 13. Asthma. 14. Past medical history is as noted. 15. No known drug allergies. 16. Allergies to penicillin. 17. Family history is noncontributory. 18. Social history is negative. 19. MAR is noted. 20. Case was discussed with RN. 21. Continue treatment per primary consultants. 22. Notes and records were noted. Orders were entered. 23. Continue treatment per Dr. Rincon and surgery. Vanessa Davis M.D. DR: MIRI JOB#: [id number] CC:
[2018-04-26 03:51] VITALS: BP 118/71
[2018-04-26] MEDS: NovoLOG Insulin Flexpen SUBQ SCH ×4 (06:09→21:00)
[2018-04-26 08:00] VITALS: BP 90/64
[2018-04-26 08:10] LABS: BASOPHILS % (AUTO) 0.7 % (0.0-2.0); HEMATOCRIT 30.9 % (37.0-47.0); HEMOGLOBIN 9.9 G/DL (12.0-16.0); LYMPHOCYTES % (AUTO) 25.1 % (20.0-45.0); MEAN CORPUSCULAR VOLUME 98 FL (80-99); MONOCYTES % (AUTO) 9.2 % (1.0-10.0); NEUTROPHILS % (AUTO) 58.9 % (45.0-75.0); PLATELET COUNT 171 K/UL (150-450); RED BLOOD COUNT 3.15 M/UL (4.20-5.40); RED CELL DISTRIBUTION WIDTH 13.3 % (11.6-14.8); WHITE BLOOD COUNT 6.6 K/UL (4.8-10.8)
[2018-04-26] MEDS: Depakote 500mg tab ORAL SCH ×2 (08:23→22:57)
[2018-04-26] MEDS: Nephrovite tab (Rena-Vite) ORAL SCH (08:23)
[2018-04-26] MEDS: carBAMazepine 200mg tab ORAL SCH (08:24)
[2018-04-26] MEDS: Eliquis 2.5mg tablet ORAL SCH ×2 (08:24→22:57)
[2018-04-26] MEDS: Lactulose 20gm/30ml UDC ORAL SCH (08:33)
[2018-04-26] MEDS: Sennosides 8.6mg ORAL SCH ×2 (08:34→17:56)
[2018-04-26] MEDS: Docusate 250mg cap ORAL SCH ×2 (08:34→17:56)
[2018-04-26 08:35] LABS: ANION GAP 9 mmol/L (5-15); BLOOD UREA NITROGEN 44 mg/dL (7-18); CALCIUM 8.5 MG/DL (8.5-10.1); CARBON DIOXIDE 24 MMOL/L (21-32); CHLORIDE 105 MMOL/L (98-107); CREATININE 4.4 MG/DL (0.55-1.30); POTASSIUM 5.1 MMOL/L (3.5-5.1); SODIUM 138 MMOL/L (136-145)
--- NOTE | 2018-04-26 09:03 | Nephrology Progress Note ---
Assessment/Plan Plan s/p Pelvic Abscess I+ D + on IV Abx. ID following. GS folowing. Clotted HD AVF. s/p Rt. EZ Cooley. Needs CRISTI AVF thrombectomy. ESRD HD MWF. Subjective Subjective No new c/o. Very poor appetite. Objective Objective Last 24 Hour Vital Signs Date Time Temp Pulse Resp B/P (MAP) Pulse Ox O2 Delivery O2 Flow Rate FiO2 04/26/18 08:00 97.5 64 18 90/64 (73) 99 97.5 04/26/18 04:00 57 04/26/18 03:51 97.3 83 28 118/71 (87) 100 97.3 04/26/18 00:00 97.2 52 20 122/64 (83) 100 97.2 04/26/18 00:00 53 04/25/18 21:00 Room Air 04/25/18 20:00 97.9 57 20 102/67 (79) 99 97.9 04/25/18 20:00 56 04/25/18 16:00 98.3 85 18 90/59 (69) 95 98.3 04/25/18 15:16 58 04/25/18 12:00 98.3 59 18 93/66 (75) 94 98.3 04/25/18 12:00 60 Intake and Output 04/25/18 04/26/18 19:00 07:00 # Voids 4 Laboratory Tests 04/26/18 06:40: White Blood Count 6.6, Red Blood Count 3.15L, Hemoglobin 9.9L, Hematocrit 30.9L , Mean Corpuscular Volume 98, Mean Corpuscular Hemoglobin 31.4H, Mean Corpuscular Hemoglobin Concent 31.9L, Red Cell Distribution Width 13.3, Platelet Count 171, Mean Platelet Volume 6.1L, Neutrophils (%) (Auto) 58.9, Lymphocytes (%) (Auto) 25.1, Monocytes (%) (Auto) 9.2, Eosinophils (%) (Auto) 6.0H, Basophils (%) (Auto) 0.7, Sodium Level 138, Potassium Level 5.1, Chloride Level 105, Carbon Dioxide Level 24, Anion Gap 9, Blood Urea Nitrogen 44H, Creatinine 4.4H, Estimat Glomerular Filtration Rate 12.2, Glucose Level 74, Calcium Level 8.5 Height (Feet): 5 Height (Inches): 5.00 Weight (Pounds): 160 Objective Confused. Rt. IJ Yasir in. CV RR Lungs CTA ABD SNT. BS + E No CCE Mely Rincon MD Apr 26, 2018 09:03
--- NOTE | 2018-04-26 11:47 | General Surgery Progress Note ---
General Surgery-Progress Note Subjective Symptoms: improved Additional Comments wound improved. cellulitis improved. overall improving. Objective Last 24 Hour Vital Signs Date Time Temp Pulse Resp B/P (MAP) Pulse Ox O2 Delivery O2 Flow Rate FiO2 04/26/18 08:00 97.5 64 18 90/64 (73) 99 97.5 04/26/18 08:00 64 04/26/18 04:00 57 04/26/18 03:51 97.3 83 28 118/71 (87) 100 97.3 04/26/18 00:00 97.2 52 20 122/64 (83) 100 97.2 04/26/18 00:00 53 04/25/18 21:00 Room Air 04/25/18 20:00 97.9 57 20 102/67 (79) 99 97.9 04/25/18 20:00 56 04/25/18 16:00 98.3 85 18 90/59 (69) 95 98.3 04/25/18 15:16 58 04/25/18 12:00 98.3 59 18 93/66 (75) 94 98.3 04/25/18 12:00 60 I&O Intake and Output 04/25/18 04/26/18 19:00 07:00 # Voids 4 Dressing: saturated Wound: clean Drains: none Cardiovascular: RSR Respiratory: clear Abdomen: soft, flat, non-tender, present bowel sounds Extremities: other Laboratory Tests Test 04/26/18 06:40 White Blood Count 6.6 K/UL (4.8-10.8) Red Blood Count 3.15 M/UL (4.20-5.40) L Hemoglobin 9.9 G/DL (12.0-16.0) L Hematocrit 30.9 % (37.0-47.0) L Mean Corpuscular Volume 98 FL (80-99) Mean Corpuscular Hemoglobin 31.4 PG (27.0-31.0) H Mean Corpuscular Hemoglobin Concent 31.9 G/DL (32.0-36.0) L Red Cell Distribution Width 13.3 % (11.6-14.8) Platelet Count 171 K/UL (150-450) Mean Platelet Volume 6.1 FL (6.5-10.1) L Neutrophils (%) (Auto) 58.9 % (45.0-75.0) Lymphocytes (%) (Auto) 25.1 % (20.0-45.0) Monocytes (%) (Auto) 9.2 % (1.0-10.0) Eosinophils (%) (Auto) 6.0 % (0.0-3.0) H Basophils (%) (Auto) 0.7 % (0.0-2.0) Sodium Level 138 MMOL/L (136-145) Potassium Level 5.1 MMOL/L (3.5-5.1) Chloride Level 105 MMOL/L (98-107) Carbon Dioxide Level 24 MMOL/L (21-32) Anion Gap 9 mmol/L (5-15) Blood Urea Nitrogen 44 mg/dL (7-18) H Creatinine 4.4 MG/DL (0.55-1.30) H Estimat Glomerular Filtration Rate 12.2 mL/min (>60) Glucose Level 74 MG/DL (74-106) Calcium Level 8.5 MG/DL (8.5-10.1) Plan Problems: (1) Abscess Assessment & Plan: pelvic abscess around perineum/ labia with surrounding cellulitis. seems chronic. s/p I&D. cultures taken wound improved. minimal serous drainage from I&D site. no further fluctuance noted. cellulitis much improved -ABX as per ID -f/u cultures currently does not need further drainage or debridement. unlikely necrotizing infection. will monitor and assist with care. if worsening or another abscess develops will need more formal I&D. thank you Herson Walter Apr 26, 2018 11:47
[2018-04-26 12:00] VITALS: BP 93/63
[2018-04-26 16:00] VITALS: BP 99/63
--- NOTE | 2018-04-26 19:48 | General Progress Note ---
Progress Note Progress Note Patient seen and examined Consult dictated # [id number] Jaya Plunkett MD Apr 26, 2018 19:48
[2018-04-26 20:00] VITALS: BP 117/80
[2018-04-27] VITALS: BP 113/54
[2018-04-27 04:00] VITALS: BP 124/86
[2018-04-27] MEDS: NovoLOG Insulin Flexpen SUBQ SCH ×4 (06:09→21:00)
[2018-04-27 08:00] VITALS: BP 135/84
[2018-04-27] MEDS: Lactulose 20gm/30ml UDC ORAL SCH ×2 (08:15→08:35)
[2018-04-27] MEDS: Nephrovite tab (Rena-Vite) ORAL SCH ×2 (08:15→08:35)
[2018-04-27] MEDS: Sennosides 8.6mg ORAL SCH ×4 (08:15→17:26)
[2018-04-27] MEDS: Docusate 250mg cap ORAL SCH ×3 (08:16→17:26)
[2018-04-27] MEDS: carBAMazepine 200mg tab ORAL SCH ×2 (08:16→08:36)
[2018-04-27] MEDS: Depakote 500mg tab ORAL SCH ×3 (08:28→20:31)
[2018-04-27] MEDS: Eliquis 2.5mg tablet ORAL SCH ×2 (08:29→20:32)
[2018-04-27 09:09] LABS: ANION GAP 11 mmol/L (5-15); BLOOD UREA NITROGEN 66 mg/dL (7-18); CALCIUM 8.4 MG/DL (8.5-10.1); CARBON DIOXIDE 22 MMOL/L (21-32); CHLORIDE 105 MMOL/L (98-107); POTASSIUM 4.9 MMOL/L (3.5-5.1); SODIUM 138 MMOL/L (136-145)
[2018-04-27] MEDS ORDERED: Heparin 1000 units/ml 1ml Vial INJ PRN (09:15)
[2018-04-27] MEDS ORDERED: Heparin Sod 1000 units/ml 10ml IV PRN (09:15)
--- NOTE | 2018-04-27 10:03 | Nephrology Progress Note ---
Assessment/Plan Plan s/p Pelvic Abscess I+ D + on IV Abx. ID following. GS folowing. Clotted HD AVF. To get a PermCath today. Needs CRISTI AVF thrombectomy. Has left arm blisters. AVF will be done as an outpatient. PRERNA Plunkett. ESRD HD MWF. Hope to DC to SNF tomorrow. Subjective Subjective No new c/o. Very poor appetite. On HD now. Stable run. Using Rt. EZ Cooley. Objective Objective Last 24 Hour Vital Signs Date Time Temp Pulse Resp B/P (MAP) Pulse Ox O2 Delivery O2 Flow Rate FiO2 04/27/18 09:00 Room Air 04/27/18 08:00 97.6 74 18 135/84 (101) 100 97.6 04/27/18 04:00 99 04/27/18 04:00 97.7 90 20 124/86 (99) 98 97.7 04/27/18 00:00 66 04/27/18 00:00 97.3 67 20 113/54 (73) 94 97.3 04/26/18 21:00 Room Air 04/26/18 20:00 98.2 80 20 117/80 (92) 94 98.2 04/26/18 20:00 76 04/26/18 16:00 97.5 87 18 99/63 (75) 98 97.5 04/26/18 16:00 75 04/26/18 12:00 98.5 70 18 93/63 (73) 100 98.5 04/26/18 12:00 65 Intake and Output 04/26/18 04/27/18 19:00 07:00 Intake Total 840 ml Output Total 850 ml Balance 840 ml -850 ml Intake Oral 840 ml Output Urine Total 850 ml # Voids 1 Laboratory Tests 04/27/18 06:25: Prothrombin Time 10.4, Prothromb Time International Ratio 1.0, Activated Partial Thromboplast Time 30, Sodium Level 138, Potassium Level 4.9, Chloride Level 105, Carbon Dioxide Level 22, Anion Gap 11, Blood Urea Nitrogen 66H, Creatinine 5.0H, Estimat Glomerular Filtration Rate 10.5, Glucose Level 79, Calcium Level 8.4L Height (Feet): 5 Height (Inches): 5.00 Weight (Pounds): 172 Objective Confused. Rt. EZ Cooley in. CV RR Lungs CTA ABD SNT. BS + E No CCE. CRISTI old AVF area blisters noted! Mely Rincon MD Apr 27, 2018 10:03
[2018-04-27 11:55] VITALS: BP 148/96
--- NOTE | 2018-04-27 12:55 | General Surgery Progress Note ---
General Surgery-Progress Note Subjective Symptoms: improved Additional Comments looking well. receiving HD Objective Last 24 Hour Vital Signs Date Time Temp Pulse Resp B/P (MAP) Pulse Ox O2 Delivery O2 Flow Rate FiO2 04/27/18 11:55 97.9 116 20 148/96 (113) 100 97.9 04/27/18 09:00 Room Air 04/27/18 08:00 79 04/27/18 08:00 97.6 74 18 135/84 (101) 100 97.6 04/27/18 04:00 99 04/27/18 04:00 97.7 90 20 124/86 (99) 98 97.7 04/27/18 00:00 66 04/27/18 00:00 97.3 67 20 113/54 (73) 94 97.3 04/26/18 21:00 Room Air 04/26/18 20:00 98.2 80 20 117/80 (92) 94 98.2 04/26/18 20:00 76 04/26/18 16:00 97.5 87 18 99/63 (75) 98 97.5 04/26/18 16:00 75 I&O Intake and Output 04/26/18 04/27/18 19:00 07:00 Intake Total 840 ml Output Total 850 ml Balance 840 ml -850 ml Intake Oral 840 ml Output Urine Total 850 ml # Voids 1 Dressing: saturated Wound: clean Drains: none Cardiovascular: RSR Respiratory: clear Abdomen: soft, flat, present bowel sounds Extremities: no cyanosis Laboratory Tests Test 04/27/18 06:25 Prothrombin Time 10.4 SEC (9.30-11.50) Prothromb Time International Ratio 1.0 (0.9-1.1) Activated Partial Thromboplast Time 30 SEC (23-33) Sodium Level 138 MMOL/L (136-145) Potassium Level 4.9 MMOL/L (3.5-5.1) Chloride Level 105 MMOL/L (98-107) Carbon Dioxide Level 22 MMOL/L (21-32) Anion Gap 11 mmol/L (5-15) Blood Urea Nitrogen 66 mg/dL (7-18) H Creatinine 5.0 MG/DL (0.55-1.30) H Estimat Glomerular Filtration Rate 10.5 mL/min (>60) Glucose Level 79 MG/DL (74-106) Calcium Level 8.4 MG/DL (8.5-10.1) L Plan Problems: (1) Abscess Assessment & Plan: pelvic abscess around perineum/ labia with surrounding cellulitis. seems chronic. s/p I&D. cultures taken wound improved. minimal serous drainage from I&D site. no further fluctuance noted. cellulitis much improved -ABX as per ID -f/u cultures currently does not need further drainage or debridement. unlikely necrotizing infection. will monitor and assist with care. if worsening or another abscess develops will need more formal I&D. thank you Herson Walter Apr 27, 2018 12:55
[2018-04-27 16:00] VITALS: BP 137/97
--- NOTE | 2018-04-27 19:00 | Consultation ---
DATE OF CONSULTATION: 04/26/2018 VASCULAR SURGERY CONSULT CONSULTING PHYSICIAN: Baldev Walker M.D. REFERRING PHYSICIAN: Mely Rincon M.D. REASON FOR CONSULTATION: Thrombosed left arm AV graft. HISTORY OF PRESENT ILLNESS: The patient is a 62-year-old female who presented with right inguinal, perineum and pelvic swelling and abscess, status post drainage by General Surgery. The patient is demented with schizophrenia, psychosis, has been on dialysis through left arm AV graft. Her AV graft has been thrombosed. She is currently on dialysis through the right IJ temporary Yasir catheter. All the history is obtained from the medical records. PAST MEDICAL HISTORY: As above. History of end-stage renal disease, on hemodialysis, anemia, organic brain syndrome, schizophrenia, dementia, diabetes mellitus, seizure disorder, hypertension, stroke, nonambulatory, and left arm AV graft. MEDICATIONS: See attached MAR. ALLERGIES: Penicillin. SOCIAL HISTORY: Unobtainable. FAMILY HISTORY: Unobtainable. REVIEW OF SYSTEMS: Unobtainable due to altered mental status and nonverbal. PHYSICAL EXAMINATION: VITAL SIGNS: She is afebrile at 97 degrees, heart rate is 67, blood pressure is 102/67, respirations 20, and saturation 99%. GENERAL: She is nonverbal. She has a left arm AV graft with excellent thrill. There is some dry skin lesions over her shunt. There is no erythema. She has a right internal jugular vein Yasir catheter. LUNGS: Clear to auscultation. HEART: Regular rate and rhythm. ABDOMEN: Soft non tender EXTREMITIES: Feet are warm. She has intact femoralpulses and absent pop and pedal pulses. LABORATORY AND DIAGNOSTIC DATA: Lab is reviewed. WBC of 6.9, hemoglobin 9.2, and platelet count 169,000. . Blood cultures are negative. IMPRESSION: 1. Thrombosed left arm AV graft with skin lesions overlying her thrombosed shunt. 2. Hx of right groin wound, status post drainage. 3. Nonambulatory. 4. Dementia. 5. Organic brain syndrome. 6. Schizophrenia. 7. Diabetes mellitus. 8. Hypertension. 9. assisted resident. PLAN AND RECOMMENDATION: 1. The patient will need a tunneled [id number] for hemodialysis access therapy. 2. Antibiotics per ID Service. 3. Right groin inguinal wound. Follow up per General Surgery. 4. We will schedule the patient for a left arm AV shunt thrombectomy in about 2 to 3 weeks' time as an outpatient once her skin lesion has healed. The above was discussed at length with the patient's nurse. Baldev Walker M.D. DR: CHRISTOPHER JOB#: [id number] CC: Mely Rincon M.D.; Fax#: [phone] BALDEV WALKER M.D. ; FAX#: [phone] [facility]ITALMaria Elena
--- NOTE | 2018-04-27 19:03 | Infectious Diseases Prog Note ---
Assessment/Plan Assessment/Plan ASSESSMENT/PLAN: 1. right inguinal/groin/perineum/labia/pelvic abscess and cellulitis - vancomycin and ciprofloxacin x one week - s/p I/D - clinically improved - surgery f/u - wound culture with stack matcher/nf - c/w contaminant/colonizer - blood cultures negative - stable for HD catheter if needed - can use oral doxy plus cipro for remainder of antibiotic course abscess. The patient is status post incision and drainage of the abscess. The patient has cellulitis. Continue vancomycin and Cipro. The patient is being followed by surgery. At this time, no further intervention. Continue vancomycin and Cipro for now. Check final wound culture. 2. End-stage renal disease, on hemodialysis. 3. Organic brain syndrome. 4. Schizophrenia. 5. Diabetes type 2. 6. Hypertension. 7. Blood pressure and blood sugar treatment per primary. 8. Seizure disorder. 9. Nonverbal. 10. AV fistula, on hemodialysis and end-stage renal disease. 11. Dementia. 12. Weakness. 13. Asthma. 14. Past medical history is as noted. 15. No known drug allergies. 16. Allergies to penicillin. 17. Family history is noncontributory. 18. Social history is negative. 19. MAR is noted. 20. Case was discussed with RN. 21. Continue treatment per primary consultants. 22. Notes and records were noted. Orders were entered. 23. Continue treatment per Dr. Rincon and surgery. Subjective Constitutional: Denies: fever HEENT: Denies: congestion Respiratory: Denies: shortness of breath Cardiovascular: Denies: chest pain Gastrointestinal/Abdominal: Denies: nausea, vomiting, diarrhea Genitourinary: Reports: other - no vega Neurologic: Denies: headache Psychiatric: Denies: depression Skin: Denies: rash Hematologic: Denies: bleeding Musculoskeletal: Denies: pain Allergies: Coded Allergies: PENICILLINS (Unverified Allergy, Unknown, 04/23/18) Objective Vital Signs Last 24 Hour Vital Signs Date Time Temp Pulse Resp B/P (MAP) Pulse Ox O2 Delivery O2 Flow Rate FiO2 04/27/18 16:00 71 04/27/18 16:00 98.4 87 18 137/97 (110) 97 98.4 04/27/18 12:00 75 04/27/18 11:55 97.9 116 20 148/96 (113) 100 97.9 04/27/18 09:00 Room Air 04/27/18 08:00 79 04/27/18 08:00 97.6 74 18 135/84 (101) 100 97.6 04/27/18 04:00 99 04/27/18 04:00 97.7 90 20 124/86 (99) 98 97.7 04/27/18 00:00 66 04/27/18 00:00 97.3 67 20 113/54 (73) 94 97.3 04/26/18 21:00 Room Air 04/26/18 20:00 98.2 80 20 117/80 (92) 94 98.2 04/26/18 20:00 76 Height (Feet): 5 Height (Inches): 5.00 Weight (Pounds): 172 General Appearance: no acute distress, other - alert, non-verbal HEENT: normocephalic, atraumatic, anicteric, mucous membranes moist Respiratory/Chest: lungs clear, normal breath sounds, no respiratory distress, no accessory muscle use Cardiovascular: normal rate, regular rhythm, no gallop/murmur, no JVD Abdomen: normal bowel sounds, soft, non tender, no organomegaly, non distended Genitourinary: other - no vega, right inguinal/perineum with less cellulitis and no drainage noted Extremities: no cyanosis Skin: no rash Neurologic/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 Complete 04/24/18 00:00 Rectum - Final NO CARBAPENEM-RESISTANT ENTEROBACTERI... Complete Labs Test 04/24/18 19:45 04/25/18 06:05 04/26/18 06:40 04/27/18 06:25 Random Vancomycin Level 19.1 ug/mL White Blood Count 6.9 K/UL (4.8-10.8) 6.6 K/UL (4.8-10.8) Red Blood Count 3.02 M/UL (4.20-5.40) 3.15 M/UL (4.20-5.40) Hemoglobin 9.2 G/DL (12.0-16.0) 9.9 G/DL (12.0-16.0) Hematocrit 29.6 % (37.0-47.0) 30.9 % (37.0-47.0) Mean Corpuscular Volume 98 FL (80-99) 98 FL (80-99) Mean Corpuscular Hemoglobin 30.5 PG (27.0-31.0) 31.4 PG (27.0-31.0) Mean Corpuscular Hemoglobin Concent 31.1 G/DL (32.0-36.0) 31.9 G/DL (32.0-36.0) Red Cell Distribution Width 12.5 % (11.6-14.8) 13.3 % (11.6-14.8) Platelet Count 159 K/UL (150-450) 171 K/UL (150-450) Mean Platelet Volume 5.6 FL (6.5-10.1) 6.1 FL (6.5-10.1) Neutrophils (%) (Auto) 61.6 % (45.0-75.0) 58.9 % (45.0-75.0) Lymphocytes (%) (Auto) 23.8 % (20.0-45.0) 25.1 % (20.0-45.0) Monocytes (%) (Auto) 8.9 % (1.0-10.0) 9.2 % (1.0-10.0) Eosinophils (%) (Auto) 5.2 % (0.0-3.0) 6.0 % (0.0-3.0) Basophils (%) (Auto) 0.5 % (0.0-2.0) 0.7 % (0.0-2.0) Sodium Level 139 MMOL/L (136-145) 138 MMOL/L (136-145) 138 MMOL/L (136-145) Potassium Level 4.7 MMOL/L (3.5-5.1) 5.1 MMOL/L (3.5-5.1) 4.9 MMOL/L (3.5-5.1) Chloride Level 105 MMOL/L (98-107) 105 MMOL/L (98-107) 105 MMOL/L (98-107) Carbon Dioxide Level 25 MMOL/L (21-32) 24 MMOL/L (21-32) 22 MMOL/L (21-32) Anion Gap 9 mmol/L (5-15) 9 mmol/L (5-15) 11 mmol/L (5-15) Blood Urea Nitrogen 27 mg/dL (7-18) 44 mg/dL (7-18) 66 mg/dL (7-18) Creatinine 3.5 MG/DL (0.55-1.30) 4.4 MG/DL (0.55-1.30) 5.0 MG/DL (0.55-1.30) Estimat Glomerular Filtration Rate 15.9 mL/min (>60) 12.2 mL/min (>60) 10.5 mL/min (>60) Glucose Level 71 MG/DL (74-106) 74 MG/DL (74-106) 79 MG/DL (74-106) Calcium Level 8.7 MG/DL (8.5-10.1) 8.5 MG/DL (8.5-10.1) 8.4 MG/DL (8.5-10.1) Prothrombin Time 10.4 SEC (9.30-11.50) Prothromb Time International Ratio 1.0 (0.9-1.1) Activated Partial Thromboplast Time 30 SEC (23-33) Laboratory Tests Test 04/27/18 06:25 Prothrombin Time 10.4 SEC (9.30-11.50) Prothromb Time International Ratio 1.0 (0.9-1.1) Activated Partial Thromboplast Time 30 SEC (23-33) Sodium Level 138 MMOL/L (136-145) Potassium Level 4.9 MMOL/L (3.5-5.1) Chloride Level 105 MMOL/L (98-107) Carbon Dioxide Level 22 MMOL/L (21-32) Anion Gap 11 mmol/L (5-15) Blood Urea Nitrogen 66 mg/dL (7-18) H Creatinine 5.0 MG/DL (0.55-1.30) H Estimat Glomerular Filtration Rate 10.5 mL/min (>60) Glucose Level 79 MG/DL (74-106) Calcium Level 8.4 MG/DL (8.5-10.1) L Current Medications Medications (Trade) Dose Ordered Sig/Kaleigh Route PRN Reason Start Time Stop Time Status Last Admin Dose Admin Acetaminophen (Tylenol) 650 mg Q6H PRN ORAL Mild Pain/Temp > 100.5 04/24/18 04:00 05/24/18 03:59 Apixaban (Eliquis) 2.5 mg Q12HR ORAL 04/24/18 09:00 05/24/18 08:59 04/26/18 22:57 Carbamazepine (TEGretol) 300 mg DAILY ORAL 04/24/18 09:00 05/24/18 08:59 04/26/18 08:24 Ciprofloxacin 100 ml @ 100 mls/hr Q24H IV 04/25/18 21:00 05/02/18 20:59 04/26/18 23:02 Dextrose (Dextrose 50%) 25 ml Q1H PRN IV Hypoglycemia 04/24/18 04:15 Dextrose (Dextrose 50%) 50 ml Q1H PRN IV Hypoglycemia 04/24/18 04:15 Divalproex Sodium (Depakote) 500 mg EVERY 12 HOURS ORAL 04/24/18 09:00 05/24/18 08:59 04/26/18 22:57 Docusate Sodium (Colace) 250 mg BID ORAL 04/24/18 09:00 05/24/18 08:59 04/27/18 17:26 Epoetin Allan (Procrit (for ESRD on dialysis)) 3,000 units FRI-FRI-FRI SUBQ 04/27/18 21:00 05/27/18 20:59 Heparin Sodium (Porcine) (Heparin Sod 1000 units/ml 10ml) 2,000 unit ONCE PRN IV DIALYSIS 04/27/18 09:15 04/27/18 23:59 Heparin Sodium (Porcine) (Heparin) 1,000 unit POSTHD PRN INJ DIALYSIS 04/27/18 09:15 04/27/18 23:59 Insulin Aspart (NovoLOG) BEFORE MEALS AND HS SUBQ 04/24/18 06:30 05/24/18 06:29 Lactulose (Cephulac) 30 gm DAILY ORAL 04/24/18 09:00 05/24/18 08:59 04/24/18 08:37 Magnesium Hydroxide (Mom) 30 ml HSPRN PRN ORAL Constipation 04/24/18 04:00 05/24/18 03:59 Quetiapine Fumarate (SEROquel) 25 mg Q6H PRN ORAL For Anxiety 04/24/18 13:00 05/24/18 12:59 Sennosides (Senokot) 2 tab BID ORAL 04/24/18 09:00 05/24/18 08:59 04/27/18 17:26 Sevelamer Carbonate (Renvela) 800 mg THREE TIMES A DAY ORAL 04/24/18 09:00 05/24/18 08:59 04/27/18 17:26 Sodium Chloride 1,000 ml @ 500 mls/hr Q2H PRN IVLG sbp<90 during hd 04/27/18 09:03 05/27/18 09:02 Vancomycin HCl (Vanco rx to dose) 1 ea DAILY PRN MISC Per rx protocol 04/24/18 04:00 05/24/18 03:59 Vitamin B Complex/ Vit C/Folic Acid (Nephrovite) 1 tab DAILY ORAL 04/24/18 09:00 05/24/18 08:59 04/26/18 08:23 Vanessa Davis MD Apr 27, 2018 19:03
[2018-04-27 20:00] VITALS: BP 141/102
[2018-04-27] MEDS ORDERED: Epogen (for ESRD on dialysis) SUBQ SCH (21:00)
[2018-04-28] VITALS (18 sets, daily range): BP systolic 117–145; BP diastolic 88–108
[2018-04-28] MEDS: NovoLOG Insulin Flexpen SUBQ SCH ×3 (06:30→16:30)
[2018-04-28 07:18] LABS: BASOPHILS % (AUTO) 1.2 % (0.0-2.0); EOSINOPHILS % (AUTO) 1.8 % (0.0-3.0); HEMATOCRIT 36.8 % (37.0-47.0); HEMOGLOBIN 11.8 G/DL (12.0-16.0); LYMPHOCYTES % (AUTO) 17.1 % (20.0-45.0); MEAN CORPUSCULAR VOLUME 97 FL (80-99); MONOCYTES % (AUTO) 9.6 % (1.0-10.0); NEUTROPHILS % (AUTO) 70.3 % (45.0-75.0); PLATELET COUNT 204 K/UL (150-450); RED CELL DISTRIBUTION WIDTH 12.9 % (11.6-14.8); WHITE BLOOD COUNT 9.1 K/UL (4.8-10.8)
[2018-04-28 07:49] LABS: ANION GAP 14 mmol/L (5-15); BLOOD UREA NITROGEN 51 mg/dL (7-18); CALCIUM 9.2 MG/DL (8.5-10.1); CARBON DIOXIDE 21 MMOL/L (21-32); CHLORIDE 108 MMOL/L (98-107); CREATININE 4.5 MG/DL (0.55-1.30); POTASSIUM 4.8 MMOL/L (3.5-5.1); SODIUM 143 MMOL/L (136-145)
--- NOTE | 2018-04-28 08:53 | General Surgery Progress Note ---
General Surgery-Progress Note Subjective Symptoms: improved Additional Comments no acute events. cellulitis improving Objective Last 24 Hour Vital Signs Date Time Temp Pulse Resp B/P (MAP) Pulse Ox O2 Delivery O2 Flow Rate FiO2 04/28/18 08:00 98.6 94 18 135/100 (112) 97 98.6 04/28/18 04:00 106 04/28/18 04:00 97.8 11 20 138/100 (113) 97 97.8 04/28/18 00:00 98.2 114 20 133/96 (108) 96 98.2 04/28/18 00:00 110 04/27/18 21:00 Room Air 04/27/18 20:00 97.5 104 20 141/102 (115) 96 97.5 04/27/18 20:00 104 04/27/18 16:00 71 04/27/18 16:00 98.4 87 18 137/97 (110) 97 98.4 04/27/18 12:00 75 04/27/18 11:55 97.9 116 20 148/96 (113) 100 97.9 04/27/18 09:00 Room Air I&O Intake and Output 04/27/18 04/28/18 19:00 07:00 Intake Total 100 ml Output Total 500 ml Balance -500 ml 100 ml IV Total 100 ml Output Urine Total 500 ml # Bowel Movements 1 Dressing: saturated Wound: clean Drains: none Cardiovascular: RSR Respiratory: clear Abdomen: soft, flat, present bowel sounds Extremities: no cyanosis Laboratory Tests Test 04/28/18 05:35 White Blood Count 9.1 K/UL (4.8-10.8) Red Blood Count 3.80 M/UL (4.20-5.40) L Hemoglobin 11.8 G/DL (12.0-16.0) L Hematocrit 36.8 % (37.0-47.0) L Mean Corpuscular Volume 97 FL (80-99) Mean Corpuscular Hemoglobin 31.0 PG (27.0-31.0) Mean Corpuscular Hemoglobin Concent 32.0 G/DL (32.0-36.0) Red Cell Distribution Width 12.9 % (11.6-14.8) Platelet Count 204 K/UL (150-450) Mean Platelet Volume 5.4 FL (6.5-10.1) L Neutrophils (%) (Auto) 70.3 % (45.0-75.0) Lymphocytes (%) (Auto) 17.1 % (20.0-45.0) L Monocytes (%) (Auto) 9.6 % (1.0-10.0) Eosinophils (%) (Auto) 1.8 % (0.0-3.0) Basophils (%) (Auto) 1.2 % (0.0-2.0) Sodium Level 143 MMOL/L (136-145) Potassium Level 4.8 MMOL/L (3.5-5.1) Chloride Level 108 MMOL/L (98-107) H Carbon Dioxide Level 21 MMOL/L (21-32) Anion Gap 14 mmol/L (5-15) Blood Urea Nitrogen 51 mg/dL (7-18) H Creatinine 4.5 MG/DL (0.55-1.30) H Estimat Glomerular Filtration Rate 12.0 mL/min (>60) Glucose Level 102 MG/DL (74-106) Calcium Level 9.2 MG/DL (8.5-10.1) Random Vancomycin Level 9.4 ug/mL Plan Problems: (1) Abscess Assessment & Plan: pelvic abscess around perineum/ labia with surrounding cellulitis. s/p I&D. cultures taken wound improved. minimal serous drainage from I&D site. no further fluctuance noted. cellulitis much improved GRAM STAIN Final GRAM STAIN RESULT FEW WHITE BLOOD CELLS NO ORGANISMS SEEN WOUND CULTURE Final Organism 1 STAPHYLOCOCCUS SP COAG NEG GROWTH: 1+ SENSITIVITY NOT INDICATED Organism 2 USUAL SKIN JOHNATHAN GROWTH: 1+ -ABX as per ID -dressings prn -keep site clean currently does not need further drainage or debridement. unlikely necrotizing infection. will monitor and assist with care. if worsening or another abscess develops will need more formal I&D. thank you Herson Walter Apr 28, 2018 08:53
[2018-04-28] MEDS: Lactulose 20gm/30ml UDC ORAL SCH (09:21)
[2018-04-28] MEDS: Nephrovite tab (Rena-Vite) ORAL SCH (09:24)
[2018-04-28] MEDS: Sennosides 8.6mg ORAL SCH ×2 (09:24→18:00)
[2018-04-28] MEDS: Docusate 250mg cap ORAL SCH ×2 (09:24→18:00)
[2018-04-28] MEDS: Depakote 500mg tab ORAL SCH (09:25)
[2018-04-28] MEDS: Eliquis 2.5mg tablet ORAL SCH (09:26)
[2018-04-28] MEDS: carBAMazepine 200mg tab ORAL SCH (09:26)
--- NOTE | 2018-04-28 10:56 | Nephrology Progress Note ---
Assessment/Plan Plan s/p Pelvic Abscess I+ D + on IV Abx. ID following. GS following. Clotted HD AVF. To get a PermCath today. Needs CRISTI AVF thrombectomy. Has left arm blisters. AVF will be done as an outpatient. PRERNA Plunkett. ESRD HD MWF. Hope to DC to SNF today after PermCath. Subjective Subjective No new c/o. Very poor appetite. On HD now. Stable run. Using Rt. EZ Cooley. Objective Objective Last 24 Hour Vital Signs Date Time Temp Pulse Resp B/P (MAP) Pulse Ox O2 Delivery O2 Flow Rate FiO2 04/28/18 08:00 98.6 94 18 135/100 (112) 97 98.6 04/28/18 04:00 106 04/28/18 04:00 97.8 11 20 138/100 (113) 97 97.8 04/28/18 00:00 98.2 114 20 133/96 (108) 96 98.2 04/28/18 00:00 110 04/27/18 21:00 Room Air 04/27/18 20:00 97.5 104 20 141/102 (115) 96 97.5 04/27/18 20:00 104 04/27/18 16:00 71 04/27/18 16:00 98.4 87 18 137/97 (110) 97 98.4 04/27/18 12:00 75 04/27/18 11:55 97.9 116 20 148/96 (113) 100 97.9 Intake and Output 04/27/18 04/28/18 19:00 07:00 Intake Total 100 ml Output Total 500 ml Balance -500 ml 100 ml IV Total 100 ml Output Urine Total 500 ml # Bowel Movements 1 Laboratory Tests 04/28/18 05:35: White Blood Count 9.1, Red Blood Count 3.80L, Hemoglobin 11.8L, Hematocrit 36.8L , Mean Corpuscular Volume 97, Mean Corpuscular Hemoglobin 31.0, Mean Corpuscular Hemoglobin Concent 32.0, Red Cell Distribution Width 12.9, Platelet Count 204, Mean Platelet Volume 5.4L, Neutrophils (%) (Auto) 70.3, Lymphocytes ( %) (Auto) 17.1L, Monocytes (%) (Auto) 9.6, Eosinophils (%) (Auto) 1.8, Basophils (%) (Auto) 1.2, Sodium Level 143, Potassium Level 4.8, Chloride Level 108H, Carbon Dioxide Level 21, Anion Gap 14, Blood Urea Nitrogen 51H, Creatinine 4.5H, Estimat Glomerular Filtration Rate 12.0, Glucose Level 102, Calcium Level 9.2, Random Vancomycin Level 9.4 Height (Feet): 5 Height (Inches): 5.00 Weight (Pounds): 170 Objective Confused. Rt. IJ Yasir in. CV RR Lungs CTA ABD SNT. BS + E No CCE. CRISTI old AVF area blisters noted! Mely Rincon MD Apr 28, 2018 10:56
[2018-04-28] MEDS ORDERED: Vancomycin 1250mg/D5W 250ml IVPB SCH (11:00)
[2018-04-28] MEDS ORDERED: Lidocaine 2% 20mg/ml/Epi 0.005mg/ml 20ml vial INJ PRN (13:30)
[2018-04-28] MEDS ORDERED: Heparin 2000 units/Ns 1000ml IV PRN (13:30)
--- NOTE | 2018-04-28 13:59 | Pre-Procedure Note/Attestation ---
Pre-Procedure Note/Attestation Complete Prior to Procedure Planned Procedure: not applicable Procedure Narrative: Permacath Indications for Procedure Pre-Operative Diagnosis: ESRD Attestation I attest that I discussed the nature of the procedure; its benefits; risks and complications; and alternatives (and the risks and benefits of such alternatives ), prior to the procedure, with the patient (or the patient's legal medical field representative). I attest that, if there was a reasonable possibility of needing a blood transfusion, the patient (or the patient's legal medical field representative) was given the [facility] standardized written summary, pursuant to the Rhett Minburn Blood Safety Act ([place] Health and Safety Code # 1645, as amended). I attest that I re-evaluated the patient just prior to the surgery and that there has been no change in the patient's H&P, except as documented below: Discussed by phone with pt's. brother at [id number] Anders Kapoor MD Apr 28, 2018 13:59
[2018-04-28] MEDS ORDERED: Heparin Sod 1000 units/ml 10ml ONE (14:21)
--- NOTE | 2018-04-28 15:50 | Brief Operative Note ---
Immediate Post Operative Note Operative Note Pre-op Diagnosis: ESRD Procedure: R IJV PERMACATH Post-op Diagnosis: same as pre-op Findings: consistent w/pre-op dx studies Surgeon: Manuela KAPOOR Anesthesia: local Specimen: none Complications: none Condition: stable Fluids: none Implant(s) used?: Yes - BioFlo tunneled catheter Anders Kapoor MD Apr 28, 2018 15:50
--- NOTE | 2018-04-28 16:44 | Diagnostic Imaging Report ---
Indications: Needs long-term dialysis access Technique: Total sterile technique, including sterile probe cover and sterile gel, sterile gloves, hand hygiene, hat, mask,, sterile gown, large sterile drape, and preparation with 2% chlorhexidine utilized. Local anesthesia with 1% lidocaine. Ultrasound documented thrombosed right internal jugular vein. Attempts made at accessing the external jugular vein, but this vessel is too small. It was elected not to access the left side, due to the presence of a functioning fistula on the left. Therefore, it was elected to access the occluded internal jugular vein, as the thrombosis was presumably acute. Under real-time ultrasound guidance, puncture right internal jugular vein using 21-gauge micropuncture needle, passage 0.018 guidewire, exchange for 4 Romansh micropuncture introducer. The guidewire was used to measure the appropriate catheter length, and was removed. The sheath was left in place. The subcutaneous tract was then anesthetized with 1% lidocaine. A chest dermatotomy was made . The tunneling device was used to pull a 14.5 Romansh 19 cm BioFlo catheter through the subcutaneous tunnel to the neck dermatotomy. A guidewire was passed through the neck introducer into the inferior vena cava, and serial dilators were passed over it, followed by the introduction of a 14.5 Romansh peel-away sheath. The catheter was then introduced into the sheath, the peel-away sheath was removed. Digital radiograph documents satisfactory catheter tip position in the high right atrium, no kinking at the insertion site. Both catheter ports aspirated and flushed. Catheter was fixed to the skin. Patient tolerated procedure well without immediate complication. Total fluoroscopy time 0.9 minutes. Total dose area product 30 dGycm2 Total number of images-one Comparison: None. Findings: Completion radiograph documents satisfactory position and course of the catheter, catheter tip at the high right atrium. Impression: Successful placement of right transjugular tunneled dialysis catheter, as described above
--- NOTE | 2018-05-01 10:37 | Discharge Summary ---
Discharge Summary Discharge Summary _ DATE OF ADMISSION: 04/23/2018 DATE OF DISCHARGE: 04/28/2018 REASON FOR ADMISSION: 62 years old female, resident of senior living [facility], with past medical history of hypertension, diabetes mellitus, seizure disorder, dementia, schizophrenia, organic brain syndrome, end-stage renal disease, on hemodialysis , was sent from the [facility] for evaluation due to pubic abscess. Upon evaluation vital signs were stable, no fever. Noted clotted hemodialysis access. WBC 10.4, hemoglobin 10.4 hematocrit 33.6 . Lactic acid 1.8. Troponin negative . EKG revealed normal sinus rhythm. BUN 28 , creatinine 3.8, consistent with known history of end-stage renal disease. Chest x-ray revealed no acute cardiopulmonary pathology. The abscess was incised and drained in emergency department by emergency room physician. Patient admitted with diagnoses of vulvar abscess, status post incision and drainage, clotted hemodialysis access, end-stage renal failure on hemodialysis, organic brain syndrome, type 2 diabetes mellitus, schizophrenia, seizure disorder. CONSULTANTS: ID specialist Dr. Davis surgery Dr. Walter psychiatrist Dr. Palmer Vascular surgeon dr Plunkett [facility] COURSE: Patient admitted and started on empiric antibiotics. Infectious disease doctor closely followed. Blood culture were negative. Wound culture revealed Staphylococcus coagulase-negative. Patient undergone on 04/24 placement of non-tunneled temporally right jugular hemodialysis catheter by interventional radiology. Hemodialysis was provided as per supervisor powder and primer canning orders with close monitoring of volumes and enal parameters. Surgeon closely followed. Wound care provided as per surgeon recommendations. According to surgeon, no need for further drainage or debridement, unlikely necrotizing infection. Continue with wound care at the facility. Antibiotic continued. No fever no leukocytosis. Vascular surgeon seen and evaluated patient. patient undergone on 04/28 placement of right permanent transjugular hemodialysis catheter. Per vascular surgeon patient will need in 2-3 weeks left arm AV shunt thrombectomy as outpatient. Seizure precaution maintained. Antiseizure medication with Depakote and Tegretol were continued. No seizure activity while in the hospital. Psychiatrist seen and evaluated patient, and diagnosed patient with encephalopathy secondary to metabolic factor or toxin and dementia. Psychiatric medication regimen was optimized as per psychiatrist recommendations. Supportive care provided. Bowel regimen instituted. Pain management was addressed as needed. Blood sugar was managed with sliding scale of insulin as needed. Patient clinically improved and was stable for transfer back to senior living facility for continuation of care FINAL DIAGNOSES: Pelvic abscess around perineum/labia with surrounding cellulitis Status post incision and drainage Clotted hemodialysis catheter Status post insertion of permanent tunneled right transjugular hemodialysis catheter End-stage renal disease , on hemodialysis Encephalopathy , secondary to metabolic factors or toxemia Organic brain syndrome Dementia Type 2 diabetes mellitus Seizure disorder Schizophrenia DISCHARGE MEDICATIONS: See Medication Reconciliation list. DISCHARGE INSTRUCTIONS: Patient was discharged to the senior living facility. Follow up with medical doctor at the facility. I have been assigned to dictate discharge summary for this account. I was not involved in the patient's management. Rosa Brambila NP May 01, 2018 10:37
== END 2018-04-28 19:30 | DRG 746 ==
LOC: EDBD 21:59 → EMR 22:30 → 2E 23:37 → EDBEDREQ 23:53
PROC: 0U9MXZZ Drainage of Vulva, External Approach (ICD-10-PCS; principal; 2018-04-23)
PROC: 5A1D70Z Performance of Urinary Filtration, Intermittent, Less than 6 Hours Per Day (ICD-10-PCS; 2018-04-24)
PROC: 05HM33Z Insertion of Infusion Device into Right Internal Jugular Vein, Percutaneous Approach (ICD-10-PCS; 2018-04-24)
PROC: 02H633Z Insertion of Infusion Device into Right Atrium, Percutaneous Approach (ICD-10-PCS; 2018-04-28)
PROC: 0JH63XZ Insertion of Tunneled Vascular Access Device into Chest Subcutaneous Tissue and Fascia, Percutaneous Approach (ICD-10-PCS; 2018-04-28)
DX: N76.4 Abscess of vulva (principal); N18.6 End stage renal disease; G93.49 Other encephalopathy; L03.315 Cellulitis of perineum; I12.0 Hypertensive chronic kidney disease with stage 5 chronic kidney disease or end stage renal disease; T82.868A Thrombosis due to vascular prosthetic devices, implants and grafts, initial encounter; Y84.8 Other medical procedures as the cause of abnormal reaction of the patient, or of later complication, without mention of misadventure at the time of the procedure; E11.22 Type 2 diabetes mellitus with diabetic chronic kidney disease; Z99.2 Dependence on renal dialysis; F09 Unspecified mental disorder due to known physiological condition; F03.90 Unspecified dementia, unspecified severity, without behavioral disturbance, psychotic disturbance, mood disturbance, and anxiety; G40.909 Epilepsy, unspecified, not intractable, without status epilepticus; F20.9 Schizophrenia, unspecified; Z88.0 Allergy status to penicillin; Z79.01 Long term (current) use of anticoagulants; Y83.8 Other surgical procedures as the cause of abnormal reaction of the patient, or of later complication, without mention of misadventure at the time of the procedure; J45.909 Unspecified asthma, uncomplicated; Z79.4 Long term (current) use of insulin
CPT/HCPCS: 10060; 36415; 36569; 71045; 76000; 76937; 80048; 80053; 80202; 82550; 82553; 82962; 83605; 84484; 85025; 85610; 85730; 87040; 87070; 87081; 87205; 93005; 96365; 99285; J1815

== ENCOUNTER 2018-09-22 22:00 | Inpatient (IN) | payer MEDICARE, MEDICAID ==
[~2018-09-22] VITALS: Ht 165.1 cm; Wt 72.1 kg
[~2018-09-22 22:00] MED LIST changes: +DEPAKOTE500 MG PO; +DOCUSATE SODIU250 MG ORAL; +ELIQUIS2.5 MG PO; +GERI-KOT8.6 MG PO; +INSULIN LISPRO SUBQ; +LACTULOSE10 GM/153 PO; +NEPHRO AID PO; +RENVELA800 MG ORAL
[2018-09-22 22:24] VITALS: BP 118/76
--- NOTE | 2018-09-22 22:30 | NUR ---
ED Nurse Note: pt was brought in by apa c/o of weight loss of 6lbs x 2 weeks, per ems. per has failure to thrive x 2 weeks. pt is alert and oriented times 1. pt is non verbal. pt is non ambulatory. skin is intact. pt pupiles are round and reactive to light and accomodating. stapples noted upper R arm. pt fistula is located on upper R arm. bruit and thrill noted. vital signs are stable.
--- NOTE | 2018-09-22 22:30 | NUR ---
ED Nurse Note: Dialysis access located on R upper chest.
--- NOTE | 2018-09-22 22:48 | Emergency Room Report ---
History of Present Illness General Chief Complaint: General Complaint Source: Medical Record, EMS Present Illness HPI Is a 63-year-old female with multiple medical problem including renal failure on hemodialysis. She presents with chief complaint of abnormal lab and failure to thrive. Per fci, patient is not eating and has weight loss in the last couple weeks. No nausea no vomiting. No fever chills. History is limited because patient is nonverbal. Is no focal deficit. No bleeding. Allergies: Coded Allergies: PENICILLINS (Unverified Allergy, Unknown, 04/23/18) Patient History Past Medical History: see triage record, old chart reviewed, HTN, renal disease , dialysis Past Surgical History: other Pertinent Family History: none Social History: Denies: smoking Last Menstrual Period: unable to determine Now: No Immunizations: other Reviewed Nursing Documentation: PMH: Agreed; PSxH: Agreed Nursing Documentation-PMH Hx Cardiac Problems: Yes - Disorder of Phosphorus metabolism Hx Hypertension: Yes Hx Pacemaker: No Hx Asthma: Yes Hx COPD: No Hx Diabetes: Yes Hx Cancer: No Hx Gastrointestinal Problems: Yes - Constipation Hx Dialysis: Yes - AV fistula (left arm) - M, W, F; ESRD Hx Neurological Problems: Yes - dementia Hx Cerebrovascular Accident: No Hx Dementia: Yes Hx Seizures: Yes Hx Weakness: Yes Review of Systems Constitutional: Reports: malaise, weakness Eye: Denies: eye pain, blurred vision ENT: Denies: ear pain, nose congestion, throat swelling Respiratory: Denies: cough, shortness of breath Cardiovascular: Denies: chest pain, palpitations Gastrointestinal: Denies: abdominal pain, diarrhea, nausea, vomiting Musculoskeletal: Denies: back pain, joint pain Skin: Denies: rash Neurological: Denies: headache, numbness Endocrine: Denies: increased thirst, increased urine Hematologic/Lymphatic: Denies: easy bruising All Other Systems: limited - Secondary to patient condition Physical Exam Vital Signs Date Time Temp Pulse Resp B/P (MAP) Pulse Ox O2 Delivery O2 Flow Rate FiO2 09/22/18 22:05 98.4 73 18 118/76 98 Room Air vitals normal Sp02 EP Interpretation: reviewed, normal General Appearance: well appearing, no apparent distress, alert Head: normocephalic, atraumatic Eyes: bilateral eye PERRL, bilateral eye EOMI ENT: hearing grossly normal, normal pharynx Neck: full range of motion, supple, no meningismus Respiratory: chest non-tender, lungs clear, normal breath sounds Cardiovascular #1: regular rate, rhythm, no murmur Gastrointestinal: normal bowel sounds, non tender, no mass, no organomegaly, no bruit, non-distended Musculoskeletal: back normal, normal range of motion Neurologic: grossly normal Psychiatric: mood/affect normal Skin: warm/dry Medical Decision Making Diagnostic Impression: Primary Impression: Failure to thrive in adult Additional Impression: Weakness generalized ER Course Patient presents with jaw is weakness and failure to thrive. She has a 10 pound weight loss in the last couple weeks. She will be admitted for further workup and may be a feeding tube. I discussed the case with who will admit. Lab Results Impression labs unremarkable EKG Diagnostic Results Rate: normal Rhythm: NSR ST Segments: no acute changes Rhythm Strip Diag. Results EP Interpretation: yes Rate: 70 Rhythm: NSR, no PVC's, no ectopy Chest X-Ray Diagnostic Results Chest X-Ray Diagnostic Results : Chest X-Ray Ordered: Yes # of Views/Limited/Complete: 1 View Indication: Other - Weakness Interpretation: no consolidation, no effusion, no pneumothorax, no acute cardiopulmonary disease Impression: No acute disease Electronically Signed by: Aly Gutierrez MD Last Vital Signs Date Time Temp Pulse Resp B/P (MAP) Pulse Ox O2 Delivery O2 Flow Rate FiO2 09/22/18 22:05 98.4 73 18 118/76 98 Room Air Status: improved Disposition: ADMITTED INPATIENT Condition: Serious Aly Gutierrez MD Sep 22, 2018 22:48
[2018-09-22 23:01] LABS: BASOPHILS % (AUTO) 1.4 % (0.0-2.0); EOSINOPHILS % (AUTO) 5.6 % (0.0-3.0); HEMATOCRIT 32.2 % (37.0-47.0); HEMOGLOBIN 9.7 G/DL (12.0-16.0); LYMPHOCYTES % (AUTO) 30.9 % (20.0-45.0); MEAN CORPUSCULAR VOLUME 104 FL (80-99); MONOCYTES % (AUTO) 7.2 % (1.0-10.0); NEUTROPHILS % (AUTO) 54.9 % (45.0-75.0); PLATELET COUNT 200 K/UL (150-450); RED BLOOD COUNT 3.11 M/UL (4.20-5.40); RED CELL DISTRIBUTION WIDTH 15.2 % (11.6-14.8)
[2018-09-22 23:21] LABS: ANION GAP 9 mmol/L (5-15); BLOOD UREA NITROGEN 21 mg/dL (7-18); CALCIUM 8.9 MG/DL (8.5-10.1); CARBON DIOXIDE 30 MMOL/L (21-32); CHLORIDE 108 MMOL/L (98-107); CREATININE 4.2 MG/DL (0.55-1.30); SODIUM 147 MMOL/L (136-145)
[2018-09-22 23:26] LABS: ALANINE AMINOTRANSFERASE 15 U/L (12-78); ALBUMIN 3.1 G/DL (3.4-5.0); ALBUMIN/GLOBULIN RATIO 0.8 (1.0-2.7); ALKALINE PHOSPHATASE 84 U/L (46-116); ASPARTATE AMINO TRANSFERASE 13 U/L (15-37); BILIRUBIN,TOTAL 0.2 MG/DL (0.2-1.0)
[2018-09-23] VITALS (7 sets, daily range): BP systolic 105–129; BP diastolic 66–84
--- NOTE | 2018-09-23 01:12 | NUR ---
ED Nurse Note: pt report given to LAMONT MCDONALD from med surg. all pertinant information is reported such as vital signs , pt stats and condition. vital signs are stable. pt is stable for transfer. pt transfered with all belongings.
[2018-09-23] MEDS ORDERED: Norco 5mg/325mg tab ORAL PRN (02:30)
--- NOTE | 2018-09-23 02:30 | NUR ---
NURSE NOTES: Pt is lying supine in stable condition, in no acute distress VSS. Bed locked in lowest position, side rails up x3, fall precautions and seizure precautions in place. IV site intact, left AC, healed sacral ulcer. fistula R posterior upper arm with burton, Right chest dialysis cath. Call light in reach with patient.
--- NOTE | 2018-09-23 02:55 | NUR ---
NURSE NOTES: Called Dr Rincon to receive admission orders. Med recon done. Pt is lying supine in stable condition, in no acute distress VSS. Bed locked in lowest position, side rails up x3, fall precautions and seizure precautions in place. IV site intact, left AC, healed sacral ulcer. fistula R posterior upper arm with burton, Right chest dialysis cath.
[2018-09-23] MEDS: NovoLOG Insulin Flexpen SUBQ SCH ×4 (06:30→21:00)
--- NOTE | 2018-09-23 07:41 | NUR ---
NURSE NOTES: Patient alert x1, non verbal; on room air, no sign of distress and shortness of breath; no sign of chest pain; patient scheduled fo dialysis with [facility], will follow up on that; dialysis port on the Right Upper chest; fistula on right back wedger; bed alarm on, side rails padded; patient on [facility], nursing assistants teacher Emily aware; IV LAC flushes well. Call light within reach; will keep monitoring.
--- NOTE | 2018-09-23 07:42 | NUR ---
HAND-OFF: Report given to HARRY Fish.
[2018-09-23] MEDS: Depakote 500mg tab ORAL SCH (08:54)
[2018-09-23] MEDS: Docusate 250mg cap ORAL SCH ×2 (08:55→17:18)
[2018-09-23] MEDS: carBAMazepine 200mg tab ORAL SCH (08:55)
[2018-09-23] MEDS: Eliquis 2.5mg tablet ORAL SCH ×2 (08:55→21:54)
[2018-09-23] MEDS: Vitamin D 1000 IU Tab ORAL SCH (08:56)
--- NOTE | 2018-09-23 09:34 | NUR ---
SWALLOW/SPEECH THERAPY NOTE: SEE SWALLOW EVAL IN ST CARE ACTIVITY SECTION. REFERRED BY DR JIANG FOR SWALLOW EVAL DYSPHAGIA RISK FACTORS FOR THIS 63 Y.O. AA FEMALE: ADMITTED YESTERDAY WITH FTT, POOR EATING FOR COUPLE OF WEEKS AND 10 LB WT LOSS ? FEEDING TUBE NEEDED PER ER MD, GEN WEAKNESS, LUNGS ARE CLEAR (RECENT CXR AND PRIOR BUT IS SOB), RELEVANT MEDS: INSULIN (DM2), LORAZEPAM, TEGRETOL, PANTOPROZOLE) PER RN, NOT ON PSYCH MEDS NOW NO PSYCH CONSULT EITHER HAS ESRD FROM CHRONIC LITHIUM INTAKE H/O GERD (ON PROTONIX AT SNF), OBS, DEMENTIA, SZ D/O, PSYCH (MENTAL D/O, SCHIZOPHRENIA, BIPOLAR, DEPRESSION, ANXIETY), RESP D/O, MULTIPLE INJURY SECONDARY TO TRAUMA 11/2014,CKD, ESRD WITH HD DUE TO CHRONIC LITHIUM INTAKE, CARDIAC D/O,L ORIF. PER POLST OK TO HAVE LT FEEDING TUBE IF NEEDS AT SNF ON A RENAL REG TEXTURE DIET AND THIN LIQUIDS AND ON THIS TYPE OF DIET NOW (NO INTAKE RECORDED). NO RD REPORT TO DATE BUT ON A CALORIE COUNT INTAKE VARIABLY POOR AND VERY SLOW. SOME SELF-FEEDING. PER RN NO OVERT S/S OF ASP WITH MEALS AND CRUSHED MEDS. PATIENT ALERT BUT NOT SPEAKING, WILL SMILE. ON ROOM AIR WITH GOOD SATS AND RR. PUREED TSP, CUP/STRAW SEQUENTIAL WITH WATER, AND BITE OF HARD SCRAMBLED EGG. INITIAL IMPRESSIONS: S/S OF AT LEAST A MILD TO POSSIBLY MODERATE ORAL PREP AND OROPHARYNGEAL DYSPHAGIA WITH MILD-MOD INCREASE IN ORAL PREP AND OROPHARYNGEAL TRANSIT TIMES (MILD WITH LIQUID/PUREED AND MOD WITH CHEWABLE SOFT SOLID). COULD NOT ASSESS LIP/TONGUE/VOLUNTARY COUGH WELL DUE TO POOR FOLLOWING DIRECTIONS. NO SPONTANEOUS COUGH OBSERVED. L LABIAL ASYMMETRY AT REST AND TONGUE TREMOR SEEN AT REST. L UPPER LIP TWITCHING NOTED. TAKES LONGER 15 SECONDS WITH MASTICATED SOFT SOLID. DIFFICULT TO INSPECT ORAL CAVITY (HAS GOOD DENTITION) BUT WON'T OPEN MOUTH (GIVEN LIQUID WASH TO MAKE SURE FOOD CLEARED). FAIR HYOLARYNGEAL EXCURSION ON MOST SWALLOWS AND SOMETIMES HAS DELAYED SECOND SWALLOWS FOR LIQUIDS VIA CUP/STRAW AND PUREED. NO S/S OF OVERT ASPIRATION WITH THIN LIQUIDS (SEQUENTIAL SIPS VIA CUP/STRAW) ON ANA SWALLOW PROTOCOL BUT DID NOT SWALLOW ENTIRE 3 OUNCES REQUESTED (LIKELY DUE TO NOT FOLLOWING COMMANDS). SILENT ASPIRATION RISK PRESENT DUE TO OBS DEMENTIA BUT LUNGS CLEAR (NOW AND ON PRIOR CXR) AND HAS BEEN ON THIN LIQUIDS FOR A LONG TIME. POOR INTAKE 25-50% MAY BENEFIT FROM FEEDING MAY HAVE POOR INITIATION. RECOMMENDATIONS: CONSIDER MOD BARIUM SWALLOW STUDY IP OR OP IF DC TO FURTHER ASSESS SWALLOW, DETERMINE SILENT ASP RISK/ETIOLOGY, AND ATTEMPT TRIAL TX TECHNIQUES IF PO GIVEN FOR QUALITY OF LIFE, CONSIDER CONTINUING WITH PO BUT DOWNGRADING HER TO [facility] SOFT GROUND DIET AND THIN LIQUIDS WITH POSTED ASP AND REFLUX PRECAUTIONS WITH 1 TO 1 FEEDING. EDUCATED/TRAINED STAFF (CONNIE MCDONALD) IN POSTED ASP PREC. CONTINUE WITH DYSPHAGIA MANAGEMENT AND TX COG-COM EVAL/TX REGARDING OBS COM TIPS FOR HOSPITAL SETTING CONSIDER PSYCH EVAL SINCE PT HAS A LOT OF PSYCH ISSUES AND NOT CURRENTLY ON ANY PSYCH MEDS. Addendum: 09/23/18 at 0941 by LALITA DAHL LIME BURNER CONSIDER HIGH DARÍO SUP PER RD AND REC FOR DIET TYPE. WILL DISCUSS WITH MD AND FAMILY IF NONORAL FEEDINGS ARE CONSIDERED. PATIENT DOES HAVE DEMENTIA AND SHOULD ALSO BE CONSIDERED FOR CONTINUING WITH AT LEAST SOME PO FOR AT COMFORT FEEDING AND QUALITY OF LIFE. Addendum: 09/23/18 at 0956 by LALITA ENZMANN LIME BURNER PER HER BROTHER, HE DOES NOT WANT ANY NONORAL FEEDINGS AND HE WANTS HER TO EAT/DRINK FOR QUALITY OF LIFE, DOES WANT A PSYCH CONSULT REGARDING MEDICATIONS Addendum: 09/23/18 at 1009 by LALITA DAHL LIME BURNER SPOKE WITH DR JIANG ABOUT BROTHER NOT WANTING A PEG AND NEED FOR PSYCH CONSULT AND VIDEO. WILL TALK WITH HIM LATER TODAY.
--- NOTE | 2018-09-23 10:44 | Diagnostic Imaging Report ---
Indication: Shortness of Technique: One view of the chest Comparison: 04/23/2018 Findings: The lungs and pleural spaces are clear. Surgical skin burton are seen in the right arm. Interim placement of a tunneled dialysis catheter via the right internal jugular vein. Venous stents are seen in the left axilla and subclavian vein. Impression: No acute process. Findings as noted
--- NOTE | 2018-09-23 11:04 | GI Initial Consult Note ---
History of Present Illness General Date patient seen: Sep 23, 2018 Time patient seen: 11:01 Reason for Hospitalization: General Complaint Referring physician: SATNAM Reason for Consultation: PEG evaluation Present Illness HPI Is a 63-year-old female with multiple medical problem including renal failure on hemodialysis. She presents with chief complaint of abnormal lab and failure to thrive. Per shelter, patient is not eating and has weight loss in the last couple weeks. No nausea no vomiting. No fever chills. History is limited because patient is nonverbal. Is no focal deficit. No bleeding. GI consulted for PEG evaluation. ROS limited, patient is nonverbal. Patient seen, awake alert without any signs of apparent distress no active nausea or vomiting nor diarrhea reported. The patient is currently undergoing a calorie count to see if nutritional needs are met. Per RN report, the son is refusing PEG placement at this time. Labs reviewed, the patient presents with macrocytic anemia and elevated creatinine levels. Unknown history of endoscopic colonoscopy. Home Meds Active Scripts Trazodone Hcl (DESYREL) 100 Mg Tab, 150 MG ORAL BID for 30 Days, TAB Prov:Mely Rincon MD 11/07/14 Quetiapine Fumarate* (SEROQUEL*) 25 Mg Tab, 50 MG ORAL DAILY for 30 Days, TAB Prov:Mely Rincon MD 11/07/14 Oxycodone Hcl Er* (OXYCONTIN*) 20 Mg Tabcr, 20 MG ORAL EVERY 12 HOURS for 30 Days, TAB Prov:Mely Rincon MD 11/07/14 Levothyroxine Sodium* (LEVOTHYROXINE SODIUM*) 100 Mcg Tab, 100 MCG ORAL DAILY@ 0630 for 30 Days, TAB Prov:Mely Rincon MD 11/07/14 Hydrocodone Bit/Acetaminophen 5-325* (NORCO 5-325*) 1 Tab Tab, 1 TAB ORAL Q4H PRN for Moderate Pain (Pain Scale 4-6) for 30 Days, TAB Prov:Mely Rincon MD 11/07/14 Enoxaparin* (LOVENOX*) 30 Mg/0.3 Ml Inj, 30 MG SUBQ Q24H for 30 Days, AMP Prov:Mely Rincon MD 11/07/14 Docusate Sodium* (COLACE*) 100 Mg Cap, 100 MG ORAL THREE TIMES A DAY for 30 Days , CAP Prov:Mely Rincon MD 11/07/14 Diphenhydramine Hcl* (BENADRYL*) 25 Mg Cap, 25 MG ORAL Q6H PRN for Itching for 30 Days, CAP Prov:Mely Rincon MD 11/07/14 Carbamazepine (TEGRETOL*) 200 Mg Tab, 200 MG ORAL FOUR TIMES A DAY for 30 Days, TAB Prov:Mely Rincon MD 11/07/14 Atorvastatin Calcium* (LIPITOR*) 40 Mg Tablet, 40 MG ORAL BEDTIME for 30 Days, TAB Prov:Mely Rincon MD 11/07/14 Aripiprazole* (ABILIFY*) 15 Mg Tab, 30 MG ORAL DAILY for 30 Days, TAB Prov:Mely Rincon MD 11/07/14 Amlodipine Besylate (Norvasc) 5 Mg Tab, 5 MG ORAL DAILY for 30 Days, TAB Prov:Mely Rincon MD 11/07/14 Acetaminophen* (ACETAMINOPHEN 325MG TABLET*) 325 Mg Tab, 650 MG ORAL EVERY 6 HOURS PRN for Mild Pain/Temp > 100.5 for 30 Days, TAB Prov:Mely Rincon MD 11/07/14 Reported Medications Sevelamer Carbonate (Renvela) 800 Mg Tablet, 800 MG ORAL THREE TIMES A DAY, TAB 04/23/18 [Nephro Aid] No Conflict Check, 1 TAB PO DAILY 04/23/18 Lactulose (LACTULOSE) 10 Gm/15 Ml Solution, 30 GM PO DAILY 04/23/18 [Insulin Lispro Soln] No Conflict Check, SUBQ 04/23/18 Sennosides (Jelena-Flora) 8.6 Mg Tablet, 2 TAB PO TWICE A DAY, TAB 04/23/18 Docusate Sodium* (DOCUSATE SODIUM*) 250 Mg Capsule, 250 MG ORAL TWICE A DAY, CAP 04/23/18 Divalproex Sodium (Depakote) 500 Mg Tablet.dr, 500 MG PO DAILY, TAB 04/23/18 Apixaban (ELIQUIS) 2.5 Mg Tablet, 2.5 MG PO EVERY 12 HOURS, TAB 04/23/18 Magnesium Hydroxide* (MILK OF MAGNESIA*) 400 Mg/5 Ml Oral.susp, 5 ML ORAL Q8HR PRN for Constipation, ML 09/30/16 Melatonin/Pyridoxine HCl (B6) (Melatonin 3 mg Tablet) 1 Each Tablet, 1 EACH PO HS PRN for Insomnia, TAB 09/30/16 Lactulose (LACTULOSE*) 20 Gm/30 Ml Solution, 30 ML ORAL DAILY PRN for Constipation, ML 0 Refills 09/30/16 [Insulin asparte ss] No Conflict Check 09/30/16 Glucagon,Human Recombinant (Glucagen) 1 Mg Vial, 1 MG IJ PRN for Hypoglycemia, KIT 09/30/16 Dextrose (DEX4 GLUCOSE) 15 Gm/59 Ml Liquid, 15 GM PO PRN for Hypoglycemia, ML 09/30/16 Carbamazepine* (CARBAMAZEPINE*) 200 Mg Tablet, 300 MG ORAL DAILY, TAB 09/30/16 Vitamin B Complex & Vit C No.3 (B COMPLEX WITH VITAMIN C) 1 Each Capsule, 1 TAB ORAL DAILY, #30 TAB 0 Refills 09/30/16 Amlodipine Besylate* (AMLODIPINE BESYLATE*) 10 Mg Tablet, 10 MG ORAL DAILY, TAB 09/30/16 Med list reviewed/reconciled: Yes Allergies: Coded Allergies: PENICILLINS (Unverified Allergy, Unknown, 04/23/18) Patient History Limited by: medical condition History Provided By: Medical Record PMH Narrative Past Medical History: see triage record, old chart reviewed, HTN, renal disease , dialysis Past Surgical History: other Pertinent Family History: none Social History: Denies: smoking Last Menstrual Period: unable to determine Now: No Immunizations: other Reviewed Nursing Documentation: PMH: Agreed; PSxH: Agreed Nursing Documentation-PMH Hx Cardiac Problems: Yes - Disorder of Phosphorus metabolism Hx Hypertension: Yes Hx Pacemaker: No Hx Asthma: Yes Hx COPD: No Hx Diabetes: Yes Hx Cancer: No Hx Gastrointestinal Problems: Yes - Constipation Hx Dialysis: Yes - AV fistula (left arm) - M, W, F; ESRD Hx Neurological Problems: Yes - dementia Hx Cerebrovascular Accident: No Hx Dementia: Yes Hx Seizures: Yes Hx Weakness: Yes Review of Systems All Other Systems: limited Physical Exam Vital Signs Date Time Temp Pulse Resp B/P (MAP) Pulse Ox O2 Delivery O2 Flow Rate FiO2 09/22/18 22:05 98.4 73 18 118/76 98 Room Air 09/22/18 22:24 99 Sp02 EP Interpretation: reviewed, normal Labs Laboratory Tests Test 09/22/18 22:40 White Blood Count 8.0 K/UL (4.8-10.8) Red Blood Count 3.11 M/UL (4.20-5.40) L Hemoglobin 9.7 G/DL (12.0-16.0) L Hematocrit 32.2 % (37.0-47.0) L Mean Corpuscular Volume 104 FL (80-99) H Mean Corpuscular Hemoglobin 31.3 PG (27.0-31.0) H Mean Corpuscular Hemoglobin Concent 30.2 G/DL (32.0-36.0) L Red Cell Distribution Width 15.2 % (11.6-14.8) H Platelet Count 200 K/UL (150-450) Mean Platelet Volume 5.7 FL (6.5-10.1) L Neutrophils (%) (Auto) 54.9 % (45.0-75.0) Lymphocytes (%) (Auto) 30.9 % (20.0-45.0) Monocytes (%) (Auto) 7.2 % (1.0-10.0) Eosinophils (%) (Auto) 5.6 % (0.0-3.0) H Basophils (%) (Auto) 1.4 % (0.0-2.0) Sodium Level 147 MMOL/L (136-145) H Potassium Level 4.0 MMOL/L (3.5-5.1) Chloride Level 108 MMOL/L (98-107) H Carbon Dioxide Level 30 MMOL/L (21-32) Anion Gap 9 mmol/L (5-15) Blood Urea Nitrogen 21 mg/dL (7-18) H Creatinine 4.2 MG/DL (0.55-1.30) H Estimat Glomerular Filtration Rate 12.8 mL/min (>60) Glucose Level 100 MG/DL (74-106) Calcium Level 8.9 MG/DL (8.5-10.1) Total Bilirubin 0.2 MG/DL (0.2-1.0) Aspartate Amino Transf (AST/SGOT) 13 U/L (15-37) L Alanine Aminotransferase (ALT/SGPT) 15 U/L (12-78) Alkaline Phosphatase 84 U/L (46-116) Troponin I 0.000 ng/mL (0.000-0.056) Total Protein 7.2 G/DL (6.4-8.2) Albumin 3.1 G/DL (3.4-5.0) L Globulin 4.1 g/dL Albumin/Globulin Ratio 0.8 (1.0-2.7) L General Appearance: well appearing, no apparent distress, alert Head: normocephalic EENT: PERRL/EOMI, normal ENT inspection Neck: supple Respiratory: normal breath sounds, no respiratory distress Cardiovascular: normal rate Gastrointestinal: normal inspection, non tender, soft, normal bowel sounds, non -distended Rectal: deferred Genitourinary: no CVA tenderness Musculoskeletal: normal inspection, back normal Neurologic: alert, responsive Skin: normal inspection, normal color, no rash, warm/dry, palpation normal, well hydrated Lymphatic: normal inspection, no adenopathy Current Medications Current Medications Medications (Trade) Dose Ordered Sig/Kaleigh Route PRN Reason Start Time Stop Time Status Last Admin Dose Admin Acetaminophen (Tylenol) 650 mg Q6H PRN ORAL Mild Pain/Temp > 100.5 09/23/18 02:30 10/23/18 02:29 Acetaminophen/ Hydrocodone Bitart ([place] 5/325) 1 tab Q4H PRN ORAL Moderate Pain (Pain Scale 4-6) 09/23/18 02:30 09/30/18 02:29 Amlodipine Besylate (Norvasc) 10 mg DAILY ORAL 09/23/18 09:00 10/23/18 08:59 Apixaban (Eliquis) 2.5 mg EVERY 12 HOURS ORAL 09/23/18 09:00 10/23/18 08:59 09/23/18 08:55 Atorvastatin Calcium (Lipitor) 40 mg BEDTIME ORAL 09/23/18 21:00 10/23/18 20:59 Carbamazepine (TEGretol) 300 mg DAILY ORAL 09/23/18 09:00 10/23/18 08:59 09/23/18 08:55 Dextrose (Dextrose 50%) 25 ml Q30M PRN IV Hypoglycemia 09/23/18 02:30 10/23/18 02:29 Dextrose (Dextrose 50%) 50 ml Q30M PRN IV Hypoglycemia 09/23/18 02:30 10/23/18 02:29 Diphenhydramine HCl (Benadryl) 25 mg Q6H PRN ORAL Itching 09/23/18 02:30 10/23/18 02:29 Divalproex Sodium (Depakote) 500 mg DAILY ORAL 09/23/18 09:00 10/23/18 08:59 09/23/18 08:54 Docusate Sodium (Colace) 250 mg TWICE A DAY ORAL 09/23/18 09:00 10/23/18 08:59 09/23/18 08:55 Insulin Aspart (NovoLOG) BEFORE MEALS AND HS SUBQ 09/23/18 06:30 10/23/18 06:29 Levothyroxine Sodium (Synthroid) 100 mcg DAILY@0630 ORAL 09/23/18 06:30 10/23/18 06:29 09/23/18 06:53 Sevelamer Carbonate (Renvela) 800 mg THREE TIMES A DAY ORAL 09/23/18 09:00 10/23/18 08:59 Sodium Chloride 1,000 ml @ 500 mls/hr Q2H PRN IVLG sbp<90 during hd 09/23/18 07:48 09/23/18 23:59 Vitamin D (Vitamin D) 1,000 intlu DAILY ORAL 09/23/18 09:00 10/23/18 08:59 09/23/18 08:56 GI: Plan Problems: (1) Severe malnutrition (2) Dehydration (3) Failure to thrive in adult (4) Altered mental status (5) Weakness generalized Plan We will schedule PEG at son agrees. Follow-up speech therapy evaluation. Continue calorie count anemia work up OB stool r/o GI bleed monitor H&H, prn transfusions bowel regime ppi fu labs Discussed with Dr. Bates. Thank you for this patient referral, we will follow. The patient was seen and examined at bedside and all new and available data was reviewed in the patients chart. I agree with the above findings, impression and plan. (Patient seen earlier today. Signature stamp does not reflect patient encounter time.). - MD Bredna Roach,[facility] [employer] CONSULTANT Sep 23, 2018 11:04
--- NOTE | 2018-09-23 11:45 | NUR ---
NURSE NOTES: OB Stool ordered, sign posted at the bed side and container to collet stool at bed side. maintenance assistant Emily notified.
--- NOTE | 2018-09-23 12:23 | NUR ---
NURSE NOTES: I called Dr Mckinley regarding patient's sacral un-stageable pressure ulcer to get an order for wound care consult. Waiting for order.
--- NOTE | 2018-09-23 12:43 | NUR ---
NURSE NOTES: Patient getting dialysis, will keep monitoring.
--- NOTE | 2018-09-23 13:39 | NUR ---
RD ASSESSMENT & RECOMMENDATIONS SEE CARE ACTIVITY FOR COMPLETE ASSESSMENT DAILY ESTIMATED NEEDS: Needs based on ESRD+HD, wound/ 63.6kg 25-30 kcals/kg 2216-9760 total kcals 1.25-1.8 g protein/kg 79-114 g total protein 20-22 mL/kg 2279-5140 total fluid mLs NUTRITION DIAGNOSIS: * Increased kcal/prot needs R/T wound healing, renal dysfunction as evidenced by unstageable wound @ sacrum, ESRD dx, on HD, admitted w/ FTT dx. * Swallowing difficulty R/T dysphagia as evidenced by NURSE SANE recommends [facility] soft ground texture diet at this time. CURRENT DIET:RENAL, mech soft ground PO DIET RECOMMENDATIONS: RENAL/ texture per NURSE SANE ADDITIONAL RECOMMENDATIONS: * Re-calibrated bedscale wt for accurate CBW- w/ added SPR mattress * Wound healing: Add Nephrovite x 1, Orion 1pkt BID * Follow up w/ calorie count x 72 hrs (started 09/23 B) * Add Nepro 1 tetra mino BID w/ breakfast and dinner * Encourage PO intake @ all meals * Check A1C for eval of glycemic control- h/o DM
--- NOTE | 2018-09-23 15:10 | NUR ---
NURSE NOTES:Pt presents on admission with Unstageable pressure injury Sacrum.Wound indurated with dark center but unable to fully assess base of wound secondary to shape and epibole along borders (L)3.8cm x (W)1cm .Pt also verbalized tenderness when minimally palpated.An area of hyperpigmentation from previous wound L buttocks .Both heels are dry,Blanchable with scattered brown pigmentations. Recommendations:Apply Moisture Barrier to Sacrum .Cover with Optifoam drsg .Change every 3 days and prn. Apply Cavilon Skin Barrier to both heels.Cover with Optifoam drsg .Change every 7 days and prn. APM/JOHN mattress. Reposition at least every 2 hours or as tolerated. Off-load heels with pillow.
--- NOTE | 2018-09-23 15:51 | Cardiology Report ---
APPROVED REPORT EKG Measurement Heart [id number] MD [id number] Normal sinus rhythm Normal ECG
--- NOTE | 2018-09-23 16:42 | NUR ---
HEAVY FORGING MACHINE OPERATORCRM FUNCTIONAL ANALYST [address]ALE [facility]IB[facility] TO ER CC WEIGHT LOSS OF 6LBS SI: FAILURE TO THRIVE T. 98.5 HR 73 RR 18 B/P 118/76 RA 98% NA 147 BUN 21 CR 4.2 IS: H/L INSERTED ADMITTED TO MED/SURG @ 5602 MED/SURG STATUS DCP [facility]
--- NOTE | 2018-09-23 17:45 | History and Physical Report ---
DATE OF ADMISSION: 09/22/2018 CHIEF COMPLAINT: Failure to thrive, anorexia, and weight loss. HISTORY OF PRESENT ILLNESS: This is a 63-year-old female from [facility] who for the last several weeks has been losing more than 10 pound and developed hypoproteinemia. The patient admitted for further evaluation and management. PAST MEDICAL HISTORY: 1. End-stage renal failure. 2. Type 2 diabetes mellitus. 3. Hypothyroidism. 4. Psychosis. 5. Hypertension. 6. Seizure disorder. 7. Encephalopathy. 8. End-stage renal failure. 9. Hypertensive cardiovascular disease. MEDICATIONS: 1. Tylenol p.r.n. 2. Amlodipine. 3. Eliquis . 4. Abilify. 5. Atorvastatin. 6. Carbamazepine. 7. Benadryl. 8. Depakote. 9. Sodium docusate. 10. Lovenox. 11. Lactulose. 12. Synthroid. 13. Milk of magnesia. 14. Melatonin. 15. OxyContin. 16. Senna. ALLERGIES: No known allergies. REVIEW OF SYSTEMS: Unable to obtain. PHYSICAL EXAMINATION: GENERAL: This is an elderly female, who is in no acute distress. VITAL SIGNS: Blood pressure 125/66, pulse 70 and regular, respirations 20, and temperature 98. HEENT: Head is normocephalic and atraumatic. Pupils are equal, round, and reactive to light accommodation consensually. NECK: Supple. Trachea midline. There was no lymphadenopathy or thyromegaly. LUNGS: Clear to auscultation and percussion. HEART: Regular rate and rhythm without rubs, murmurs, or gallops. ABDOMEN: Soft and nontender. Bowel sounds were active. CHEST: Left internal jugular PermCath. NEUROLOGIC: She is alert, but confused. There were no gross focal findings. LABORATORY AND ANCILLARY DATA: Hemoglobin 9.7, otherwise CBC within normal limits. Chemistry, sodium 147, potassium 4, BUN 21, creatinine 4.2, albumin is 3.1. Chest x-ray, no acute cadiovascular disease. ASSESSMENT: 1. Failure to thrive. 2. Anorexia. 3. Protein-calorie malnutrition. PLAN: The patient failed all attempts to increase her calorie and protein intake. She needs to gastrostomy tube. I will discuss with the patient's brother. Mely Rincon M.D. DR: Evie JOB#: [id number] CC: [email or web address]
--- NOTE | 2018-09-23 19:43 | NUR ---
HAND-OFF: Report given to MikRN,HARRY Monroy.
--- NOTE | 2018-09-23 20:31 | NUR ---
NURSE NOTES: Pt received in no acute distress. resting in supine position. Bed was lowest position, wheels locked, side rails up x3. Seizure- siderails padded, fall and aspiration precautions in place- HOB elevated 40 degrees. Call light within reach. Pt advised to press call li Addendum: 09/23/18 at 2034 by Cherry Gordillo RN NURSE NOTES: Pt received in no acute distress. resting in supine position. Bed was lowest position, wheels locked, side rails up x3. Seizure- side rails padded, fall and aspiration precautions in place- HOB elevated 40 degrees. Call light within reach. Pt advised to press call light if she needs assistance.
--- NOTE | 2018-09-23 21:35 | Consultation ---
History of Present Illness General Chief Complaint: General Complaint Referring physician: SATNAM Reason for Consultation: PEG evaluation Present Illness HPI 63-year-old female with hx of mmp and paranoid thoughts from [facility] who for the last several weeks has been losing more than 10 pound. the pt is paranoid and uncooperative and yelling. the pt is delusional and has hx of schizophrenia. The pt is refusing meds and not eating. Allergies: Coded Allergies: PENICILLINS (Unverified Allergy, Unknown, 04/23/18) Medication History Scheduled Amlodipine Besylate (Norvasc), 5 MG ORAL DAILY Amlodipine Besylate* (Amlodipine Besylate*), 10 MG ORAL DAILY, (Reported) Apixaban (Eliquis), 2.5 MG PO EVERY 12 HOURS, (Reported) Aripiprazole* (Abilify*), 30 MG ORAL DAILY Atorvastatin Calcium* (Lipitor*), 40 MG ORAL BEDTIME Carbamazepine (Tegretol*), 200 MG ORAL FOUR TIMES A DAY Carbamazepine* (Carbamazepine*), 300 MG ORAL DAILY, (Reported) Divalproex Sodium (Depakote), 500 MG PO DAILY, (Reported) Docusate Sodium* (Colace*), 100 MG ORAL THREE TIMES A DAY Docusate Sodium* (Docusate Sodium*), 250 MG ORAL TWICE A DAY, (Reported) Enoxaparin* (Lovenox*), 30 MG SUBQ Q24H Lactulose (Lactulose), 30 GM PO DAILY, (Reported) Levothyroxine Sodium* (Levothyroxine Sodium*), 100 MCG ORAL DAILY@0630 Oxycodone Hcl Er* (Oxycontin*), 20 MG ORAL EVERY 12 HOURS Quetiapine Fumarate* (Seroquel*), 50 MG ORAL DAILY Sennosides (Jelena-Flora), 2 TAB PO TWICE A DAY, (Reported) Sevelamer Carbonate (Renvela), 800 MG ORAL THREE TIMES A DAY, (Reported) Trazodone Hcl (Desyrel), 150 MG ORAL BID Vitamin B Complex & Vit C No.3 (B Complex With Vitamin C), 1 TAB ORAL DAILY, ( Reported) [Nephro Aid], 1 TAB PO DAILY, (Reported) Scheduled PRN Acetaminophen* (Acetaminophen 325MG Tablet*), 650 MG ORAL EVERY 6 HOURS PRN for Mild Pain/Temp > 100.5 Dextrose (Dex4 Glucose), 15 GM PO for Hypoglycemia, (Reported) Diphenhydramine Hcl* (Benadryl*), 25 MG ORAL Q6H PRN for Itching Glucagon,Human Recombinant (Glucagen), 1 MG IJ for Hypoglycemia, (Reported) Hydrocodone Bit/Acetaminophen 5-325* ([place] 5-325*), 1 TAB ORAL Q4H PRN for Moderate Pain (Pain Scale 4-6) Lactulose (Lactulose*), 30 ML ORAL DAILY PRN for Constipation, (Reported) Magnesium Hydroxide* (Milk Of Magnesia*), 5 ML ORAL Q8HR PRN for Constipation, ( Reported) Melatonin/Pyridoxine HCl (B6) (Melatonin 3 mg Tablet), 1 EACH PO HS PRN for Insomnia, (Reported) Miscellaneous Medications [Insulin Lispro Soln], Unknown Dose SUBQ, (Reported) [Insulin asparte ss], (Reported) Patient History Healthcare decision maker Resuscitation status Advanced Directive on File Review of Systems Psychiatric: Reports: prior hx, anxiety, depressed feelings, emotional problems , hallucinations Physical Exam General Appearance: WD/WN, no apparent distress, alert, confused, agitated Last 24 Hour Vital Signs Date Time Temp Pulse Resp B/P (MAP) Pulse Ox O2 Delivery O2 Flow Rate FiO2 09/23/18 20:00 97.7 86 18 129/84 (99) 98 09/23/18 16:00 98.7 82 19 105/70 (82) 100 09/23/18 12:00 98.0 70 18 125/66 (85) 98 09/23/18 11:00 Room Air 09/23/18 10:12 Room Air 09/23/18 08:00 98.5 66 19 117/70 (86) 98 09/23/18 04:00 97.3 65 16 122/72 (89) 99 09/23/18 03:07 Room Air 09/23/18 01:10 98.4 65 14 112/69 99 Room Air 99 71 09/23/18 01:01 98.4 65 14 112/69 99 Room Air 99 09/23/18 00:07 98.4 67 15 111/67 98 Room Air 99 09/22/18 22:24 73 18 Room Air 99 09/22/18 22:24 98.4 71 18 118/76 98 Room Air 99 09/22/18 22:05 98.4 73 18 118/76 98 Room Air Intake and Output 09/22/18 09/23/18 19:00 07:00 Intake Total 100 ml Balance 100 ml Intake Oral 100 ml Laboratory Tests Test 09/22/18 22:40 White Blood Count 8.0 K/UL (4.8-10.8) Red Blood Count 3.11 M/UL (4.20-5.40) L Hemoglobin 9.7 G/DL (12.0-16.0) L Hematocrit 32.2 % (37.0-47.0) L Mean Corpuscular Volume 104 FL (80-99) H Mean Corpuscular Hemoglobin 31.3 PG (27.0-31.0) H Mean Corpuscular Hemoglobin Concent 30.2 G/DL (32.0-36.0) L Red Cell Distribution Width 15.2 % (11.6-14.8) H Platelet Count 200 K/UL (150-450) Mean Platelet Volume 5.7 FL (6.5-10.1) L Neutrophils (%) (Auto) 54.9 % (45.0-75.0) Lymphocytes (%) (Auto) 30.9 % (20.0-45.0) Monocytes (%) (Auto) 7.2 % (1.0-10.0) Eosinophils (%) (Auto) 5.6 % (0.0-3.0) H Basophils (%) (Auto) 1.4 % (0.0-2.0) Sodium Level 147 MMOL/L (136-145) H Potassium Level 4.0 MMOL/L (3.5-5.1) Chloride Level 108 MMOL/L (98-107) H Carbon Dioxide Level 30 MMOL/L (21-32) Anion Gap 9 mmol/L (5-15) Blood Urea Nitrogen 21 mg/dL (7-18) H Creatinine 4.2 MG/DL (0.55-1.30) H Estimat Glomerular Filtration Rate 12.8 mL/min (>60) Glucose Level 100 MG/DL (74-106) Calcium Level 8.9 MG/DL (8.5-10.1) Total Bilirubin 0.2 MG/DL (0.2-1.0) Aspartate Amino Transf (AST/SGOT) 13 U/L (15-37) L Alanine Aminotransferase (ALT/SGPT) 15 U/L (12-78) Alkaline Phosphatase 84 U/L (46-116) Troponin I 0.000 ng/mL (0.000-0.056) Total Protein 7.2 G/DL (6.4-8.2) Albumin 3.1 G/DL (3.4-5.0) L Globulin 4.1 g/dL Albumin/Globulin Ratio 0.8 (1.0-2.7) L Microbiology Date/Time Source Procedure Growth Status 09/23/18 00:44 Rectum Received Height (Feet): 5 Height (Inches): 5.00 Weight (Pounds): 160 Medications Current Medications Medications (Trade) Dose Ordered Sig/Kaleigh Route PRN Reason Start Time Stop Time Status Last Admin Dose Admin Acetaminophen (Tylenol) 650 mg Q6H PRN ORAL Mild Pain/Temp > 100.5 09/23/18 02:30 10/23/18 02:29 Acetaminophen/ Hydrocodone Bitart ([place] 5/325) 1 tab Q4H PRN ORAL Moderate Pain (Pain Scale 4-6) 09/23/18 02:30 09/30/18 02:29 Amlodipine Besylate (Norvasc) 10 mg DAILY ORAL 09/23/18 09:00 10/23/18 08:59 Apixaban (Eliquis) 2.5 mg EVERY 12 HOURS ORAL 09/23/18 09:00 10/23/18 08:59 09/23/18 08:55 Atorvastatin Calcium (Lipitor) 40 mg BEDTIME ORAL 09/23/18 21:00 10/23/18 20:59 Carbamazepine (TEGretol) 300 mg DAILY ORAL 09/23/18 09:00 10/23/18 08:59 09/23/18 08:55 Dextrose (Dextrose 50%) 25 ml Q30M PRN IV Hypoglycemia 09/23/18 02:30 10/23/18 02:29 Dextrose (Dextrose 50%) 50 ml Q30M PRN IV Hypoglycemia 09/23/18 02:30 10/23/18 02:29 Diphenhydramine HCl (Benadryl) 25 mg Q6H PRN ORAL Itching 09/23/18 02:30 10/23/18 02:29 Divalproex Sodium (Depakote) 500 mg DAILY ORAL 09/23/18 09:00 10/23/18 08:59 09/23/18 08:54 Docusate Sodium (Colace) 250 mg TWICE A DAY ORAL 09/23/18 09:00 10/23/18 08:59 09/23/18 17:18 Insulin Aspart (NovoLOG) BEFORE MEALS AND HS SUBQ 09/23/18 06:30 10/23/18 06:29 Levothyroxine Sodium (Synthroid) 100 mcg DAILY@0630 ORAL 09/23/18 06:30 10/23/18 06:29 09/23/18 06:53 Sevelamer Carbonate (Renvela) 800 mg THREE TIMES A DAY ORAL 09/23/18 09:00 10/23/18 08:59 09/23/18 17:18 Sodium Chloride 1,000 ml @ 500 mls/hr Q2H PRN IVLG sbp<90 during hd 09/23/18 07:48 09/23/18 23:59 Vitamin D (Vitamin D) 1,000 intlu DAILY ORAL 09/23/18 09:00 10/23/18 08:59 09/23/18 08:56 Assessment/Plan Problem List: (1) MDD (major depressive disorder), recurrent episode, moderate ICD Codes: F33.1 - Major depressive disorder, recurrent, moderate SNOMED: 30825268, 968597244 (2) Psychotic disorder ICD Codes: F29 - Unspecified psychosis not due to a substance or known physiological condition SNOMED: 55400936 (3) Encephalopathy due to metabolic factor or toxin SNOMED: 424242008 (4) Failure to thrive in adult ICD Codes: R62.7 - Adult failure to thrive SNOMED: 509458270 Assessment/Plan resume psych meds the pt lacks capacity to make decisions. provided ro/Jaguar Munguia MD Sep 23, 2018 21:35
[2018-09-23] MEDS: Atorvastatin 20mg tab ORAL SCH (21:53)
--- NOTE | 2018-09-23 23:38 | NUR ---
NURSE NOTES: For pt daily weight must subtract 10 kg for the weight of SCD and other machines attached. Otherwise appears to be a 20 lb difference from yesterday. Please correct.
[2018-09-24] VITALS: BP 108/63
[2018-09-24 04:08] VITALS: BP 110/73
[2018-09-24] MEDS: NovoLOG Insulin Flexpen SUBQ SCH ×4 (05:45→21:41)
--- NOTE | 2018-09-24 05:54 | NUR ---
NURSE NOTES: Pt refused synthroid after med was opened and crushed. She clenched her teeth and refused to open her mouth.
--- NOTE | 2018-09-24 07:30 | NUR ---
NURSE NOTES: Patient awake, confused; on room air, no sign of shortness of breath and no sign of chest pain; fistula on the upper right inner hand and also on the left upper hand; patient on SP mattress; dressing dry and intact on sacral and both heels; dialysis port on the right upper chest, dressing dry and intact; OB stool collected by PM nurse, will follow up on the result; patient refused SCD. Will check blood sugar as scheduled and will give insulin as ordered. Bed at lowest position, side rails padded for seizure percussion, breaks engaged. Will keep monitoring.
--- NOTE | 2018-09-24 07:32 | NUR ---
HAND-OFF: Report given to HARRY Fish.
[2018-09-24 08:00] VITALS: BP 116/84
[2018-09-24 08:05] LABS: BASOPHILS % (AUTO) 0.9 % (0.0-2.0); EOSINOPHILS % (AUTO) 5.4 % (0.0-3.0); HEMATOCRIT 31.1 % (37.0-47.0); HEMOGLOBIN 9.7 G/DL (12.0-16.0); LYMPHOCYTES % (AUTO) 24.7 % (20.0-45.0); MEAN CORPUSCULAR VOLUME 102 FL (80-99); MONOCYTES % (AUTO) 7.5 % (1.0-10.0); NEUTROPHILS % (AUTO) 61.6 % (45.0-75.0); PLATELET COUNT 185 K/UL (150-450); RED BLOOD COUNT 3.06 M/UL (4.20-5.40); RED CELL DISTRIBUTION WIDTH 14.9 % (11.6-14.8); WHITE BLOOD COUNT 7.8 K/UL (4.8-10.8)
[2018-09-24 08:58] LABS: ANION GAP 9 mmol/L (5-15); BLOOD UREA NITROGEN 16 mg/dL (7-18); CALCIUM 8.9 MG/DL (8.5-10.1); CARBON DIOXIDE 28 MMOL/L (21-32); CHLORIDE 103 MMOL/L (98-107); CREATININE 3.5 MG/DL (0.55-1.30); POTASSIUM 4.1 MMOL/L (3.5-5.1); SODIUM 140 MMOL/L (136-145)
[2018-09-24] MEDS: Docusate 250mg cap ORAL SCH ×3 (09:00→17:12)
[2018-09-24] MEDS: carBAMazepine 200mg tab ORAL SCH ×2 (09:00→09:01)
[2018-09-24] MEDS: Eliquis 2.5mg tablet ORAL SCH ×3 (09:00→21:00)
[2018-09-24] MEDS: Vitamin D 1000 IU Tab ORAL SCH ×2 (09:00→09:01)
[2018-09-24] MEDS: Depakote 500mg tab ORAL SCH ×2 (09:00→09:02)
--- NOTE | 2018-09-24 09:14 | NUR ---
NURSE NOTES: Patient refused all her moring medication after meds were opened and crushed and prepared.
[2018-09-24 09:56] LABS: % IRON SATURATION 62 % (15-50); IRON 77 ug/dL (50-175); TOTAL IRON BINDING CAPACITY 124 ug/dL (250-450)
--- NOTE | 2018-09-24 10:16 | Nephrology Progress Note ---
Assessment/Plan Plan PEG today. DW pt's brother. HD tomorrow. Subjective Subjective Confused, nonverbal. Objective Objective Last 24 Hour Vital Signs Date Time Temp Pulse Resp B/P (MAP) Pulse Ox O2 Delivery O2 Flow Rate FiO2 09/24/18 09:00 Room Air 09/24/18 08:00 98.8 94 18 116/84 (95) 97 09/24/18 04:08 98.6 78 19 110/73 (85) 100 09/24/18 00:00 97.9 72 19 108/63 (78) 100 09/23/18 21:00 Room Air 09/23/18 20:00 97.7 86 18 129/84 (99) 98 09/23/18 16:00 98.7 82 19 105/70 (82) 100 09/23/18 12:00 98.0 70 18 125/66 (85) 98 09/23/18 11:00 Room Air Intake and Output 09/23/18 09/24/18 19:00 07:00 Intake Total 290 ml 240 ml Output Total 100 ml Balance 190 ml 240 ml Intake Oral 290 ml 240 ml Output Urine Total 100 ml # Voids 3 2 # Bowel Movements 2 1 Laboratory Tests 09/24/18 05:43: White Blood Count 7.8, Red Blood Count 3.06L, Hemoglobin 9.7L, Hematocrit 31.1L , Mean Corpuscular Volume 102H, Mean Corpuscular Hemoglobin 31.7H, Mean Corpuscular Hemoglobin Concent 31.2L, Red Cell Distribution Width 14.9H, Platelet Count 185, Mean Platelet Volume 5.7L, Neutrophils (%) (Auto) 61.6, Lymphocytes (%) (Auto) 24.7, Monocytes (%) (Auto) 7.5, Eosinophils (%) (Auto) 5.4H, Basophils (%) (Auto) 0.9, Reticulocyte Count [Pending], Prothrombin Time 10.8, Prothromb Time International Ratio 1.0, Activated Partial Thromboplast Time 27, Sodium Level 140, Potassium Level 4.1, Chloride Level 103, Carbon Dioxide Level 28, Anion Gap 9, Blood Urea Nitrogen 16, Creatinine 3.5H, Estimat Glomerular Filtration Rate 15.9, Glucose Level 74, Calcium Level 8.9, Iron Level 77, Total Iron Binding Capacity 124L, Percent Iron Saturation 62H, Unsaturated Iron Binding 47L, Ferritin [Pending], Carcinoembryonic Antigen [ Pending], Vitamin B12 Level 563, Folate 23.8, Thyroid Stimulating Hormone (TSH) 1.148, Free Thyroxine 0.95 09/24/18 06:00: Stool Occult Blood [Pending] Height (Feet): 5 Height (Inches): 5.00 Weight (Pounds): 140 Objective CV RR Lungs CTA LIJ PermCath PARKER AVF + bruit Abd SNT BS + E no CCE Mely Rincon MD Sep 24, 2018 10:16
[2018-09-24 10:35] LABS: FERRITIN < 2000 NG/ML (8-388)
--- NOTE | 2018-09-24 10:59 | NUR ---
NURSE NOTES: Patient scheduled to get dialysis for 09/25/18 with [facility]. I called and spoke with Mita.
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
[2018-09-24 12:00] VITALS: BP 108/61
--- NOTE | 2018-09-24 12:52 | General Progress Note ---
Assessment/Plan Problem List: (1) MDD (major depressive disorder), recurrent episode, moderate ICD Codes: F33.1 - Major depressive disorder, recurrent, moderate SNOMED: 67029293, 223487610 (2) Psychotic disorder ICD Codes: F29 - Unspecified psychosis not due to a substance or known physiological condition SNOMED: 81247510 Status: unchanged Assessment/Plan Risperdal 2mg po qhs Prozac 20mg qam provided ro/st Subjective Allergies: Coded Allergies: PENICILLINS (Unverified Allergy, Unknown, 04/23/18) Objective Last 24 Hour Vital Signs Date Time Temp Pulse Resp B/P (MAP) Pulse Ox O2 Delivery O2 Flow Rate FiO2 09/24/18 09:00 Room Air 09/24/18 08:00 98.8 94 18 116/84 (95) 97 09/24/18 04:08 98.6 78 19 110/73 (85) 100 09/24/18 00:00 97.9 72 19 108/63 (78) 100 09/23/18 21:00 Room Air 09/23/18 20:00 97.7 86 18 129/84 (99) 98 09/23/18 16:00 98.7 82 19 105/70 (82) 100 Intake and Output 09/23/18 09/24/18 19:00 07:00 Intake Total 290 ml 240 ml Output Total 100 ml Balance 190 ml 240 ml Intake Oral 290 ml 240 ml Output Urine Total 100 ml # Voids 3 2 # Bowel Movements 2 1 Laboratory Tests 09/24/18 05:43: White Blood Count 7.8, Red Blood Count 3.06L, Hemoglobin 9.7L, Hematocrit 31.1L , Mean Corpuscular Volume 102H, Mean Corpuscular Hemoglobin 31.7H, Mean Corpuscular Hemoglobin Concent 31.2L, Red Cell Distribution Width 14.9H, Platelet Count 185, Mean Platelet Volume 5.7L, Neutrophils (%) (Auto) 61.6, Lymphocytes (%) (Auto) 24.7, Monocytes (%) (Auto) 7.5, Eosinophils (%) (Auto) 5.4H, Basophils (%) (Auto) 0.9, Reticulocyte Count 1.3, Prothrombin Time 10.8, Prothromb Time International Ratio 1.0, Activated Partial Thromboplast Time 27, Sodium Level 140, Potassium Level 4.1, Chloride Level 103, Carbon Dioxide Level 28, Anion Gap 9, Blood Urea Nitrogen 16, Creatinine 3.5H, Estimat Glomerular Filtration Rate 15.9, Glucose Level 74, Calcium Level 8.9, Iron Level 77, Total Iron Binding Capacity 124L, Percent Iron Saturation 62H, Unsaturated Iron Binding 47L, Ferritin < 2000H, Carcinoembryonic Antigen [Pending], Vitamin B12 Level 563, Folate 23.8, Thyroid Stimulating Hormone (TSH) 1.148, Free Thyroxine 0.95 09/24/18 06:00: Stool Occult Blood Positive Height (Feet): 5 Height (Inches): 5.00 Weight (Pounds): 140 Jaguar Palmer MD Sep 24, 2018 12:52
--- NOTE | 2018-09-24 13:55 | NUR ---
NURSE NOTES: Consent received over the phone from the patient's brother Rolo Quintero, for the EGD with possible biopsy and/or percutaneous Endoscopic Gastrostomy on file.
--- NOTE | 2018-09-24 14:34 | Consultation ---
History of Present Illness General Date patient seen: Sep 24, 2018 Reason for Hospitalization: General Complaint Present Illness HPI 63 year old pleasant female currently admitted for medical care and management. on admission noted to have abnormal sacral decubitus wound. surgery called to evaluate and assist with care / management. patient seen, chart reviewed, patient examined. states she is doing okay. Allergies: Coded Allergies: PENICILLINS (Unverified Allergy, Unknown, 04/23/18) Medication History Scheduled Amlodipine Besylate (Norvasc), 5 MG ORAL DAILY Amlodipine Besylate* (Amlodipine Besylate*), 10 MG ORAL DAILY, (Reported) Apixaban (Eliquis), 2.5 MG PO EVERY 12 HOURS, (Reported) Aripiprazole* (Abilify*), 30 MG ORAL DAILY Atorvastatin Calcium* (Lipitor*), 40 MG ORAL BEDTIME Carbamazepine (Tegretol*), 200 MG ORAL FOUR TIMES A DAY Carbamazepine* (Carbamazepine*), 300 MG ORAL DAILY, (Reported) Divalproex Sodium (Depakote), 500 MG PO DAILY, (Reported) Docusate Sodium* (Colace*), 100 MG ORAL THREE TIMES A DAY Docusate Sodium* (Docusate Sodium*), 250 MG ORAL TWICE A DAY, (Reported) Enoxaparin* (Lovenox*), 30 MG SUBQ Q24H Lactulose (Lactulose), 30 GM PO DAILY, (Reported) Levothyroxine Sodium* (Levothyroxine Sodium*), 100 MCG ORAL DAILY@0630 Oxycodone Hcl Er* (Oxycontin*), 20 MG ORAL EVERY 12 HOURS Quetiapine Fumarate* (Seroquel*), 50 MG ORAL DAILY Sennosides (Jelena-Flora), 2 TAB PO TWICE A DAY, (Reported) Sevelamer Carbonate (Renvela), 800 MG ORAL THREE TIMES A DAY, (Reported) Trazodone Hcl (Desyrel), 150 MG ORAL BID Vitamin B Complex & Vit C No.3 (B Complex With Vitamin C), 1 TAB ORAL DAILY, ( Reported) [Nephro Aid], 1 TAB PO DAILY, (Reported) Scheduled PRN Acetaminophen* (Acetaminophen 325MG Tablet*), 650 MG ORAL EVERY 6 HOURS PRN for Mild Pain/Temp > 100.5 Dextrose (Dex4 Glucose), 15 GM PO for Hypoglycemia, (Reported) Diphenhydramine Hcl* (Benadryl*), 25 MG ORAL Q6H PRN for Itching Glucagon,Human Recombinant (Glucagen), 1 MG IJ for Hypoglycemia, (Reported) Hydrocodone Bit/Acetaminophen 5-325* ([place] 5-325*), 1 TAB ORAL Q4H PRN for Moderate Pain (Pain Scale 4-6) Lactulose (Lactulose*), 30 ML ORAL DAILY PRN for Constipation, (Reported) Magnesium Hydroxide* (Milk Of Magnesia*), 5 ML ORAL Q8HR PRN for Constipation, ( Reported) Melatonin/Pyridoxine HCl (B6) (Melatonin 3 mg Tablet), 1 EACH PO HS PRN for Insomnia, (Reported) Miscellaneous Medications [Insulin Lispro Soln], Unknown Dose SUBQ, (Reported) [Insulin asparte ss], (Reported) Patient History Limited by: medical condition History Provided By: Patient, Medical Record, PMD Healthcare decision maker Resuscitation status Advanced Directive on File Past Medical/Surgical History Past Medical/Surgical History: (1) Abscess (2) Fracture of left ankle (3) Dehydration (4) Weakness generalized (5) Altered mental status (6) Severe malnutrition (7) Failure to thrive in adult (8) Encephalopathy due to metabolic factor or toxin (9) Multiple injuries due to trauma (10) Psychotic disorder (11) MDD (major depressive disorder), recurrent episode, moderate Review of Systems Review of Symptoms General ROS: no weight loss or fever Psychological ROS: no depression or mood changes, no memory loss Ophthalmic ROS: no visual changes or eye irritation ENT ROS: no nasal congestion, hearing loss, dizziness Allergy and Immunology ROS: no allergic symptoms or urticaria Hematological and Lymphatic ROS: no swollen glands, unusual bleeding or bruising Endocrine ROS: no polyuria, polydipsia, weight changes, temperature intolerance Respiratory ROS: no cough, shortness of breath, or wheezing Cardiovascular ROS: no chest pain or dyspnea on exertion Gastrointestinal ROS: denies abdominal pain, bright red blood in stool. Musculoskeletal ROS: no myalgias or arthralgias Neurological ROS: no TIA or stroke symptoms Dermatological ROS: no new or changing skin lesions, rashes or pruritis Physical Exam Physical Exam General appearance: alert, cooperative, no distress, appears stated age Head: Normocephalic, without obvious abnormality, atraumatic Eyes: conjunctivae/corneas clear. PERRL, EOM's intact. Fundi benign Throat: Lips, mucosa, and tongue normal. Teeth and gums normal Neck: supple, symmetrical, trachea midline, no adenopathy, thyroid: not enlarged, symmetric, no tenderness/mass/nodules, no carotid bruit and no JVD Lungs: clear to auscultation bilaterally Heart: regular rate and rhythm, S1, S2 normal, no murmur, click, rub or gallop Abdomen: soft, non-tender. Bowel sounds normal. No masses, no organomegaly Extremities: extremities normal, atraumatic, no cyanosis or edema Pulses: 2+ and symmetric Skin: Skin color, texture, turgor normal. No rashes or lesions Neurologic: Grossly normal Last 24 Hour Vital Signs Date Time Temp Pulse Resp B/P (MAP) Pulse Ox O2 Delivery O2 Flow Rate FiO2 09/24/18 12:00 97.9 80 18 108/61 (77) 99 09/24/18 09:00 Room Air 09/24/18 08:00 98.8 94 18 116/84 (95) 97 09/24/18 04:08 98.6 78 19 110/73 (85) 100 09/24/18 00:00 97.9 72 19 108/63 (78) 100 09/23/18 21:00 Room Air 09/23/18 20:00 97.7 86 18 129/84 (99) 98 09/23/18 16:00 98.7 82 19 105/70 (82) 100 Intake and Output 09/23/18 09/24/18 19:00 07:00 Intake Total 290 ml 240 ml Output Total 100 ml Balance 190 ml 240 ml Intake Oral 290 ml 240 ml Output Urine Total 100 ml # Voids 3 2 # Bowel Movements 2 1 Laboratory Tests Test 09/24/18 05:43 09/24/18 06:00 White Blood Count 7.8 K/UL (4.8-10.8) Red Blood Count 3.06 M/UL (4.20-5.40) L Hemoglobin 9.7 G/DL (12.0-16.0) L Hematocrit 31.1 % (37.0-47.0) L Mean Corpuscular Volume 102 FL (80-99) H Mean Corpuscular Hemoglobin 31.7 PG (27.0-31.0) H Mean Corpuscular Hemoglobin Concent 31.2 G/DL (32.0-36.0) L Red Cell Distribution Width 14.9 % (11.6-14.8) H Platelet Count 185 K/UL (150-450) Mean Platelet Volume 5.7 FL (6.5-10.1) L Neutrophils (%) (Auto) 61.6 % (45.0-75.0) Lymphocytes (%) (Auto) 24.7 % (20.0-45.0) Monocytes (%) (Auto) 7.5 % (1.0-10.0) Eosinophils (%) (Auto) 5.4 % (0.0-3.0) H Basophils (%) (Auto) 0.9 % (0.0-2.0) Reticulocyte Count 1.3 % (0.0-2.0) Prothrombin Time 10.8 SEC (9.30-11.50) Prothromb Time International Ratio 1.0 (0.9-1.1) Activated Partial Thromboplast Time 27 SEC (23-33) Sodium Level 140 MMOL/L (136-145) Potassium Level 4.1 MMOL/L (3.5-5.1) Chloride Level 103 MMOL/L (98-107) Carbon Dioxide Level 28 MMOL/L (21-32) Anion Gap 9 mmol/L (5-15) Blood Urea Nitrogen 16 mg/dL (7-18) Creatinine 3.5 MG/DL (0.55-1.30) H Estimat Glomerular Filtration Rate 15.9 mL/min (>60) Glucose Level 74 MG/DL (74-106) Calcium Level 8.9 MG/DL (8.5-10.1) Iron Level 77 ug/dL (50-175) Total Iron Binding Capacity 124 ug/dL (250-450) L Percent Iron Saturation 62 % (15-50) H Unsaturated Iron Binding 47 ug/dL (112-346) L Ferritin < 2000 NG/ML (8-388) H Carcinoembryonic Antigen Pending Vitamin B12 Level 563 PG/ML (193-986) Folate 23.8 NG/ML (8.6-58.9) Thyroid Stimulating Hormone (TSH) 1.148 uiU/mL (0.358-3.740) Free Thyroxine 0.95 NG/DL (0.76-1.46) Stool Occult Blood Positive (NEGATIVE) Height (Feet): 5 Height (Inches): 5.00 Weight (Pounds): 140 Medications Current Medications Medications (Trade) Dose Ordered Sig/Kaleigh Route PRN Reason Start Time Stop Time Status Last Admin Dose Admin Acetaminophen (Tylenol) 650 mg Q6H PRN ORAL Mild Pain/Temp > 100.5 09/23/18 02:30 10/23/18 02:29 Acetaminophen/ Hydrocodone Bitart ([place] 5/325) 1 tab Q4H PRN ORAL Moderate Pain (Pain Scale 4-6) 09/23/18 02:30 09/30/18 02:29 Amlodipine Besylate (Norvasc) 10 mg DAILY ORAL 09/23/18 09:00 10/23/18 08:59 Apixaban (Eliquis) 2.5 mg EVERY 12 HOURS ORAL 09/23/18 09:00 10/23/18 08:59 09/23/18 21:54 Atorvastatin Calcium (Lipitor) 40 mg BEDTIME ORAL 09/23/18 21:00 10/23/18 20:59 09/23/18 21:53 Carbamazepine (TEGretol) 300 mg DAILY ORAL 09/23/18 09:00 10/23/18 08:59 09/23/18 08:55 Ciprofloxacin 200 ml @ 200 mls/hr ONCE PRN IV 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 CARPET 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 TO GI 09/25/18 08:00 09/25/18 18:00 Dextrose (Dextrose 50%) 25 ml Q30M PRN IV Hypoglycemia 09/23/18 02:30 10/23/18 02:29 Dextrose (Dextrose 50%) 50 ml Q30M PRN IV Hypoglycemia 09/23/18 02:30 10/23/18 02:29 Diphenhydramine HCl (Benadryl) 25 mg Q6H PRN ORAL Itching 09/23/18 02:30 10/23/18 02:29 Divalproex Sodium (Depakote) 500 mg DAILY ORAL 09/23/18 09:00 10/23/18 08:59 09/23/18 08:54 Docusate Sodium (Colace) 250 mg TWICE A DAY ORAL 09/23/18 09:00 10/23/18 08:59 09/23/18 17:18 Escitalopram Oxalate (Lexapro) 10 mg DAILY ORAL 09/25/18 09:00 10/25/18 08:59 Heparin Sodium (Porcine) (Heparin) 1,000 unit POSTHD INJ 09/25/18 08:00 09/25/18 18:00 Insulin Aspart (NovoLOG) BEFORE MEALS AND HS SUBQ 09/23/18 06:30 10/23/18 06:29 Levothyroxine Sodium (Synthroid) 100 mcg DAILY@0630 ORAL 09/23/18 06:30 10/23/18 06:29 09/23/18 06:53 Risperidone (RisperDAL) 2 mg BEDTIME ORAL 09/24/18 21:00 10/24/18 20:59 Sevelamer Carbonate (Renvela) 800 mg THREE TIMES A DAY ORAL 09/23/18 09:00 10/23/18 08:59 09/24/18 12:13 Sodium Chloride 1,000 ml @ 500 mls/hr Q2H PRN IVLG sbp<90 during hd 09/25/18 08:00 09/25/18 18:00 Vitamin D (Vitamin D) 1,000 intlu DAILY ORAL 09/23/18 09:00 10/23/18 08:59 09/23/18 08:56 Assessment/Plan Problem List: (1) Sacral decubitus ulcer Assessment & Plan: Pt presents on admission with Unstageable pressure injury Sacrum. Wound indurated with dark center but unable to fully assess base of wound secondary to shape and epibole along borders (L)3.8cm x (W)1cm . Pt also verbalized tenderness when minimally palpated. An area of hyperpigmentation from previous wound L buttocks. Both heels are dry, Blanchable with scattered brown pigmentations. Tx Plan: Apply Moisture Barrier to Sacrum .Cover with Optifoam drsg .Change every 3 days and prn. Apply Cavilon Skin Barrier to both heels.Cover with Optifoam drsg .Change every 7 days and prn. APM/JOHN mattress. Reposition at least every 2 hours or as tolerated. Off-load heels with pillow. ICD Codes: L89.159 - Pressure ulcer of sacral region, unspecified stage SNOMED: 322810730 (2) Failure to thrive in adult Assessment & Plan: recommend feeding access as she is not taking enough po intake to meet caloric needs wounds need nutritional optimization to heal PEG per GI thank you ICD Codes: R62.7 - Adult failure to thrive SNOMED: 287753040 (3) Severe malnutrition Assessment & Plan: feeding access tube feeds nutritional optimization nutrition consult ICD Codes: E43 - Unspecified severe protein-calorie malnutrition SNOMED: 56489249 Herson Walter Sep 24, 2018 14:34
[2018-09-24 16:00] VITALS: BP 126/78
--- NOTE | 2018-09-24 19:19 | NUR ---
HAND-OFF: Report given to HARRY Houser.
--- NOTE | 2018-09-24 19:27 | NUR ---
NURSE NOTES: Patient in bed, awake, unable to make needs known. Alert x 1 to name. Skin is warm and dry to touch. Noted with sacral dressing. Bed in low and locked position. Provided safe environment. No s/s of pain or discomfort at the moment. Noted with IV site. Respiration is even and unlabored. Abdomen is soft and non distended. Call light is at bedside. Will continue plan of care.
[2018-09-24 20:00] VITALS: BP 153/81
[2018-09-24] MEDS: Atorvastatin 20mg tab ORAL SCH (21:00)
--- NOTE | 2018-09-24 21:42 | NUR ---
NURSE NOTES: Patient in bed, refusing to take any apple sauce. attempted to reorient patient. Patient refused PO medication.
[2018-09-25] VITALS (12 sets, daily range): BP systolic 74–142; BP diastolic 62–88
[2018-09-25] MEDS: NovoLOG Insulin Flexpen SUBQ SCH ×4 (05:48→21:44)
--- NOTE | 2018-09-25 06:58 | NUR ---
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 INformed charge nurse.
--- NOTE | 2018-09-25 07:09 | NUR ---
HAND-OFF: Report given to HARRY Renteria.
[2018-09-25 07:13] LABS: BASOPHILS % (AUTO) 1.2 % (0.0-2.0); EOSINOPHILS % (AUTO) 4.2 % (0.0-3.0); HEMATOCRIT 31.1 % (37.0-47.0); HEMOGLOBIN 9.6 G/DL (12.0-16.0); LYMPHOCYTES % (AUTO) 20.8 % (20.0-45.0); MEAN CORPUSCULAR VOLUME 102 FL (80-99); MONOCYTES % (AUTO) 7.4 % (1.0-10.0); NEUTROPHILS % (AUTO) 66.4 % (45.0-75.0); PLATELET COUNT 196 K/UL (150-450); RED BLOOD COUNT 3.05 M/UL (4.20-5.40); RED CELL DISTRIBUTION WIDTH 15.3 % (11.6-14.8); WHITE BLOOD COUNT 8.3 K/UL (4.8-10.8)
--- NOTE | 2018-09-25 07:30 | NUR ---
NURSE NOTES: Received pt from HARRY HERRERA. Pt is awake and nonverbal .pt is in RA. No SOB or acute respiratory distress noted. Pt has intact iv access LAC 20G SL. Pt is NPO due to EGD. pt is in seizure precautions. all needs attended, bed is locked and is in the lowest position. call light within easy reach. will continue to monitor.
[2018-09-25] MEDS ORDERED: Heparin 1000 units/ml 1ml Vial INJ SCH (08:00)
[2018-09-25 08:02] LABS: ANION GAP 8 mmol/L (5-15); BLOOD UREA NITROGEN 33 mg/dL (7-18); CALCIUM 9.4 MG/DL (8.5-10.1); CARBON DIOXIDE 27 MMOL/L (21-32); CHLORIDE 104 MMOL/L (98-107); CREATININE 4.5 MG/DL (0.55-1.30); PHOSPHORUS 3.9 MG/DL (2.5-4.9); POTASSIUM 4.3 MMOL/L (3.5-5.1); SODIUM 139 MMOL/L (136-145)
--- NOTE | 2018-09-25 08:06 | NUR ---
NURSE NOTES: pt is positive for VRE rectum. called Dr cheung left massage waiting to call back. will continue to monitor.
[2018-09-25] MEDS ORDERED: NS 500ML IVPB ONE (08:52)
[2018-09-25] MEDS ORDERED: Propofol 200mg/20ml IV ONE (09:00)
--- NOTE | 2018-09-25 09:00 | Anethesia Preoperative Eval ---
Anesthesia Pre-op PMH/ROS General Date of Evaluation: Sep 25, 2018 Time of Evaluation: 08:51 Anesthesiologist: Renata Gómez CRNA ASA Score: ASA 3 Mallampati Score Class I : Soft palate, uvula, fauces, pillars visible Class II: Soft palate, uvula, fauces visible Class III: Soft palate, base of uvula visible Class IV: Only hard plate visible Mallampati Classification: Class II Surgeon: Paulo Diagnosis: Failure to thrive, dehydration Surgical Procedure: PEG placement Anesthesia History: none Family History: no anesthesia problems Allergies: Coded Allergies: PENICILLINS (Unverified Allergy, Unknown, 04/23/18) Medications: see eMAR Patient NPO?: Yes NPO Date: Sep 25, 2018 NPO Time: 00:00 Past Medical History Cardiovascular: Reports: HTN, CAD; Denies: UT, valve dz, arrhythmia, other Gastrointestinal/Genitourinary: Reports: GERD, ESRD; Denies: CRI, other Neurologic/Psychiatric: Reports: depression/anxiety, other - seizure disorder, encephalopathy Endocrine: Reports: hypothyroidism; Denies: DM, steroids, other HEENT: Denies: cataract (L), cataract (R), glaucoma, MI'KMAQ (L), MI'KMAQ (R), other Hematology/Immune: Reports: anemia; Denies: DVT, bleeding disorder, other Musculoskeletal/Integumentary: Reports: other - decubitus ulcer, LEFT ankle fracure; Denies: OA, RA, DJD, DDD, edema PMH Narrative: as above PSxH Narrative: see H & P Anesthesia Pre-op Phys. Exam Physician Exam Last Vital Signs Date Time Temp Pulse Resp B/P (MAP) Pulse Ox O2 Delivery O2 Flow Rate FiO2 09/25/18 08:00 98.4 88 17 120/74 (89) 98 09/24/18 20:17 Room Air 09/23/18 01:10 99 Constitutional: NAD Neurologic: CN 2-12 intact Cardiovascular: RRR Respiratory: CTA Gastrointestinal: S/NT/ND Airway Exam Mallampati Score: Class II MO: full Teeth: missing, intact Dentures: no upper, no lower Anesthesia Pre-op A/P Labs Hematology Test 09/25/18 06:40 White Blood Count 8.3 K/UL (4.8-10.8) Red Blood Count 3.05 M/UL (4.20-5.40) L Hemoglobin 9.6 G/DL (12.0-16.0) L Hematocrit 31.1 % (37.0-47.0) L Mean Corpuscular Volume 102 FL (80-99) H Mean Corpuscular Hemoglobin 31.6 PG (27.0-31.0) H Mean Corpuscular Hemoglobin Concent 31.0 G/DL (32.0-36.0) L Red Cell Distribution Width 15.3 % (11.6-14.8) H Platelet Count 196 K/UL (150-450) Mean Platelet Volume 5.9 FL (6.5-10.1) L Neutrophils (%) (Auto) 66.4 % (45.0-75.0) Lymphocytes (%) (Auto) 20.8 % (20.0-45.0) Monocytes (%) (Auto) 7.4 % (1.0-10.0) Eosinophils (%) (Auto) 4.2 % (0.0-3.0) H Basophils (%) (Auto) 1.2 % (0.0-2.0) Coagulation Test 09/25/18 06:40 Prothrombin Time 10.5 SEC (9.30-11.50) Prothromb Time International Ratio 1.0 (0.9-1.1) Activated Partial Thromboplast Time 20 SEC (23-33) L Chemistry Test 09/24/18 09:15 09/25/18 06:40 Carcinoembryonic Antigen Pending Sodium Level 139 MMOL/L (136-145) Potassium Level 4.3 MMOL/L (3.5-5.1) Chloride Level 104 MMOL/L (98-107) Carbon Dioxide Level 27 MMOL/L (21-32) Anion Gap 8 mmol/L (5-15) Blood Urea Nitrogen 33 mg/dL (7-18) H Creatinine 4.5 MG/DL (0.55-1.30) H Estimat Glomerular Filtration Rate 11.9 mL/min (>60) Glucose Level 80 MG/DL (74-106) Calcium Level 9.4 MG/DL (8.5-10.1) Phosphorus Level 3.9 MG/DL (2.5-4.9) Studies Pre-op Studies: EKG - NSR Risk Assessment & Plan Assessment: ASA 3, ok to proceed Plan: MAC Status Change Before Surgery: No Pre-Antibiotics Drug: Cipro by RN, see MAR Time Given: 09:00 Renata Gómez CRNA Sep 25, 2018 09:00
--- NOTE | 2018-09-25 09:03 | Pre-Procedure Note/Attestation ---
Pre-Procedure Note/Attestation Complete Prior to Procedure Planned Procedure: not applicable Procedure Narrative: egd/peg Indications for Procedure Pre-Operative Diagnosis: dysphagia, FTT Attestation I attest that I discussed the nature of the procedure; its benefits; risks and complications; and alternatives (and the risks and benefits of such alternatives ), prior to the procedure, with the patient (or the patient's legal customer contact representative). I attest that, if there was a reasonable possibility of needing a blood transfusion, the patient (or the patient's legal customer contact representative) was given the [facility] standardized written summary, pursuant to the Rhett Anna Blood Safety Act ([place] Health and Safety Code # 1645, as amended). I attest that I re-evaluated the patient just prior to the surgery and that there has been no change in the patient's H&P, except as documented below: Jerrell Bates MD Sep 25, 2018 09:03
--- NOTE | 2018-09-25 09:28 | Endoscopy Procedure Note ---
Endoscopy Procedure Note General Indication for Procedure: FTT Procedures Performed: EGD, PEG Operative Findings/Diagnosis: same Specimen: yes Pt Tolerated Procedure Well: Yes Estimated Blood Loss: none Anesthesia Anesthesiologist: diana Anesthesia: MAC Inserted Devices Implant(s) used?: No GI Core Measures 50 yrs or older w/o bx or poly: Not Applicable 10yrs. F/U not recommended: Not Applicable Jerrell Bates MD Sep 25, 2018 09:28
--- NOTE | 2018-09-25 09:39 | Immediate Post-Op Evaluation ---
Immediate Post-Op Evalulation Immediate Post-Op Evalulation Procedure: PEG insertion Date of Evaluation: Sep 25, 2018 Time of Evaluation: 09:31 IV Fluids: 0.9 NS 50 ml Blood Pressure Systolic: 119 Blood Pressure Diastolic: 73 Pulse Rate: 78 Respiratory Rate: 20 O2 Sat by Pulse Oximetry: 100 Temperature (Fahrenheit): 97.3 Pain Score (1-10): 0 Nausea: No Vomiting: No Complications none Patient Status: reacts, patent Hydration Status: adequate Drug: cipro by RN, see RACHEL Given Within 1 Hr of Incision: Yes Time Given: 09:00 Renata Gómez CRNA Sep 25, 2018 09:39
--- NOTE | 2018-09-25 11:00 | NUR ---
NURSE NOTES: pt left unit at 0930 for EGD and came back at 1045. pt is stable, pt has g tube, dressing is intact. will continue to monitor.
--- NOTE | 2018-09-25 11:30 | NUR ---
NURSE NOTES: Dr cheung visited pt , he is aware about VRE RECTUM no new order. g tube change dressing done. will continue to monitor.
--- NOTE | 2018-09-25 11:37 | Nephrology Progress Note ---
Assessment/Plan Plan Start using PEG. aWAITING hd. Subjective Subjective Confused, nonverbal. Post PEG. Objective Objective Last 24 Hour Vital Signs Date Time Temp Pulse Resp B/P (MAP) Pulse Ox O2 Delivery O2 Flow Rate FiO2 09/25/18 10:30 72 15 74/75 97 Room Air 09/25/18 10:05 97.0 73 16 126/75 98 Room Air 09/25/18 09:50 74 17 127/72 100 Room Air 09/25/18 09:40 76 18 131/73 100 Nasal Cannula 3 09/25/18 09:39 78 20 100 09/25/18 09:35 73 15 126/72 100 Nasal Cannula 3 09/25/18 09:31 97.3 74 16 123/76 100 Nasal Cannula 3 09/25/18 09:00 Room Air 09/25/18 08:00 98.4 88 17 120/74 (89) 98 09/25/18 04:00 98.6 90 16 124/77 (93) 97 09/25/18 00:00 98.4 100 18 142/78 (99) 97 09/24/18 20:17 Room Air 09/24/18 20:00 98.8 88 18 153/81 (105) 98 09/24/18 16:00 98.8 88 19 126/78 (94) 100 09/24/18 12:00 97.9 80 18 108/61 (77) 99 Intake and Output 09/24/18 09/25/18 19:00 07:00 Intake Total 480 ml Output Total 460 ml Balance 480 ml -460 ml Intake Oral 480 ml Output Urine Total 460 ml # Voids 1 # Bowel Movements 2 Laboratory Tests 09/25/18 06:40: White Blood Count 8.3, Red Blood Count 3.05L, Hemoglobin 9.6L, Hematocrit 31.1L , Mean Corpuscular Volume 102H, Mean Corpuscular Hemoglobin 31.6H, Mean Corpuscular Hemoglobin Concent 31.0L, Red Cell Distribution Width 15.3H, Platelet Count 196, Mean Platelet Volume 5.9L, Neutrophils (%) (Auto) 66.4, Lymphocytes (%) (Auto) 20.8, Monocytes (%) (Auto) 7.4, Eosinophils (%) (Auto) 4.2H, Basophils (%) (Auto) 1.2, Prothrombin Time 10.5, Prothromb Time International Ratio 1.0, Activated Partial Thromboplast Time 20L, Sodium Level 139, Potassium Level 4.3, Chloride Level 104, Carbon Dioxide Level 27, Anion Gap 8, Blood Urea Nitrogen 33H, Creatinine 4.5H, Estimat Glomerular Filtration Rate 11.9, Glucose Level 80, Calcium Level 9.4, Phosphorus Level 3.9 Height (Feet): 5 Height (Inches): 5.00 Weight (Pounds): 140 Objective CV RR Lungs CTA LIJ PermCath PARKER AVF + bruit Abd SNT BS +. New PEG in. E no CCE Mely Rincon MD Sep 25, 2018 11:37
--- NOTE | 2018-09-25 12:45 | General Progress Note ---
Assessment/Plan Problem List: (1) MDD (major depressive disorder), recurrent episode, moderate ICD Codes: F33.1 - Major depressive disorder, recurrent, moderate SNOMED: 79327968, [id number] (2) Psychotic disorder ICD Codes: F29 - Unspecified psychosis not due to a substance or known physiological condition SNOMED: [id number] Status: stable Assessment/Plan Risperdal 2mg po qhs Prozac 20mg qam provided ro/st Subjective Neurologic/Psychiatric: Reports: anxiety, depressed, emotional problems Allergies: Coded Allergies: PENICILLINS (Unverified Allergy, Unknown, 04/23/18) Subjective the pts daughter was in the room and still believes that her sister is poising her. per daughter the pt has paranoid thoughts and anxiety compliant with meds Objective Last 24 Hour Vital Signs Date Time Temp Pulse Resp B/P (MAP) Pulse Ox O2 Delivery O2 Flow Rate FiO2 09/25/18 11:30 97.8 71 18 138/88 (105) 99 09/25/18 10:30 72 15 74/75 97 Room Air 09/25/18 10:05 97.0 73 16 126/75 98 Room Air 09/25/18 09:50 74 17 127/72 100 Room Air 09/25/18 09:40 76 18 131/73 100 Nasal Cannula 3 09/25/18 09:39 78 20 100 09/25/18 09:35 73 15 126/72 100 Nasal Cannula 3 09/25/18 09:31 97.3 74 16 123/76 100 Nasal Cannula 3 09/25/18 09:00 Room Air 09/25/18 08:00 98.4 88 17 120/74 (89) 98 09/25/18 04:00 98.6 90 16 124/77 (93) 97 09/25/18 00:00 98.4 100 18 142/78 (99) 97 09/24/18 20:17 Room Air 09/24/18 20:00 98.8 88 18 153/81 (105) 98 09/24/18 16:00 98.8 88 19 126/78 (94) 100 Intake and Output 09/24/18 09/25/18 19:00 07:00 Intake Total 480 ml Output Total 460 ml Balance 480 ml -460 ml Intake Oral 480 ml Output Urine Total 460 ml # Voids 1 # Bowel Movements 2 Laboratory Tests 09/25/18 06:40: White Blood Count 8.3, Red Blood Count 3.05L, Hemoglobin 9.6L, Hematocrit 31.1L , Mean Corpuscular Volume 102H, Mean Corpuscular Hemoglobin 31.6H, Mean Corpuscular Hemoglobin Concent 31.0L, Red Cell Distribution Width 15.3H, Platelet Count 196, Mean Platelet Volume 5.9L, Neutrophils (%) (Auto) 66.4, Lymphocytes (%) (Auto) 20.8, Monocytes (%) (Auto) 7.4, Eosinophils (%) (Auto) 4.2H, Basophils (%) (Auto) 1.2, Prothrombin Time 10.5, Prothromb Time International Ratio 1.0, Activated Partial Thromboplast Time 20L, Sodium Level 139, Potassium Level 4.3, Chloride Level 104, Carbon Dioxide Level 27, Anion Gap 8, Blood Urea Nitrogen 33H, Creatinine 4.5H, Estimat Glomerular Filtration Rate 11.9, Glucose Level 80, Calcium Level 9.4, Phosphorus Level 3.9 Height (Feet): 5 Height (Inches): 5.00 Weight (Pounds): 140 General Appearance: WD/WN, no apparent distress, alert Neurologic: oriented x 3, responsive, depressed affect Jaguar Palmer MD Sep 25, 2018 12:45
[2018-09-25] MEDS: Docusate 250mg cap ORAL SCH ×2 (12:52→17:22)
[2018-09-25] MEDS: carBAMazepine 200mg tab ORAL SCH (12:53)
[2018-09-25] MEDS: Vitamin D 1000 IU Tab ORAL SCH (12:53)
[2018-09-25] MEDS: Depakote 500mg tab ORAL SCH (12:53)
[2018-09-25] MEDS: Eliquis 2.5mg tablet ORAL SCH ×2 (12:53→21:33)
--- NOTE | 2018-09-25 14:04 | 48 Hour Post Anesthesia Eval ---
Post Anesthesia Evaluation Procedure: PEG insertion Date of Evaluation: Sep 25, 2018 Time of Evaluation: 14:02 Blood Pressure Systolic: 133 0: 88 Pulse Rate: 71 Respiratory Rate: 18 Temperature (Fahrenheit): 97.8 O2 Sat by Pulse Oximetry: 99 Airway: patent Nausea: No Vomiting: No Pain Intensity: 0 Hydration Status: adequate Cardiopulmonary Status: stable Mental Status/LOC: patient returned to baseline Follow-up Care/Observations: per hospitalist Post-Anesthesia Complications: none Follow-up care needed: N/A Renata Gómez CRNA Sep 25, 2018 14:04
--- NOTE | 2018-09-25 15:15 | Procedure Note ---
DATE OF PROCEDURE: 09/25/2018 SURGEON: Jerrell Bates M.D. PROCEDURE: Upper endoscopy with PEG placement. ANESTHESIA: Per Renata NELSON. INSTRUMENT: Olympus adult flexible upper endoscope. INDICATION: Failure to thrive. REASON FOR PROCEDURE: The procedure, risks, benefits, and possible consequences, including hemorrhage, aspiration, perforation and infection, and alternative treatments, were explained to the patient/legal guardian by Dr. Jerrell Bates and the patient/legal guardian understood and accepted these risks. PROCEDURE IN DETAIL: After informed consent was obtained and the patient was adequately sedated, Olympus upper endoscope was advanced from the mouth into the second portion of duodenum and retroflexion was performed in the stomach. The patient has some diffuse gastritis. Random biopsy from antrum was obtained to rule out H. pylori infection. Then, under endoscopic guidance and under sterile condition, a 20-Beninese pull type of G-tube was successfully placed in the epigastric area. The distance from the tip of the tube to skin was about 2 cm in size. The patient tolerated the procedure very well without any complication. SUMMARY OF FINDINGS: 1. Gastritis, status post biopsy. 2. Status post successful PEG placement. RECOMMENDATION: 1. Abdominal binder. 2. Elevate the head of the bed at all times. 3. G-tube flush. 4. G-tube care. 5. Start tube feeding later today. 6. The patient received a dose of Cipro prior to this procedure. Jerrell Bates M.D. DR: MARK JOB#: [id number] CC:
--- NOTE | 2018-09-25 15:17 | Surgery Progress Note ---
Surgery Progress Note Subjective Symptoms: improved Objective Last 24 Hour Vital Signs Date Time Temp Pulse Resp B/P (MAP) Pulse Ox O2 Delivery O2 Flow Rate FiO2 09/25/18 14:04 71 18 99 09/25/18 12:53 71 138/88 09/25/18 11:30 97.8 71 18 138/88 (105) 99 09/25/18 10:30 72 15 74/75 97 Room Air 09/25/18 10:05 97.0 73 16 126/75 98 Room Air 09/25/18 09:50 74 17 127/72 100 Room Air 09/25/18 09:40 76 18 131/73 100 Nasal Cannula 3 09/25/18 09:39 78 20 100 09/25/18 09:35 73 15 126/72 100 Nasal Cannula 3 09/25/18 09:31 97.3 74 16 123/76 100 Nasal Cannula 3 09/25/18 09:00 Room Air 09/25/18 08:00 98.4 88 17 120/74 (89) 98 09/25/18 04:00 98.6 90 16 124/77 (93) 97 09/25/18 00:00 98.4 100 18 142/78 (99) 97 09/24/18 20:17 Room Air 09/24/18 20:00 98.8 88 18 153/81 (105) 98 09/24/18 16:00 98.8 88 19 126/78 (94) 100 I&O Intake and Output 09/24/18 09/25/18 19:00 07:00 Intake Total 480 ml Output Total 460 ml Balance 480 ml -460 ml Intake Oral 480 ml Output Urine Total 460 ml # Voids 1 # Bowel Movements 2 Dressing: other Wound: other Drains: other Cardiovascular: RSR Respiratory: clear Abdomen: soft, flat, present bowel sounds Extremities: other Laboratory Tests Test 09/25/18 06:40 White Blood Count 8.3 K/UL (4.8-10.8) Red Blood Count 3.05 M/UL (4.20-5.40) L Hemoglobin 9.6 G/DL (12.0-16.0) L Hematocrit 31.1 % (37.0-47.0) L Mean Corpuscular Volume 102 FL (80-99) H Mean Corpuscular Hemoglobin 31.6 PG (27.0-31.0) H Mean Corpuscular Hemoglobin Concent 31.0 G/DL (32.0-36.0) L Red Cell Distribution Width 15.3 % (11.6-14.8) H Platelet Count 196 K/UL (150-450) Mean Platelet Volume 5.9 FL (6.5-10.1) L Neutrophils (%) (Auto) 66.4 % (45.0-75.0) Lymphocytes (%) (Auto) 20.8 % (20.0-45.0) Monocytes (%) (Auto) 7.4 % (1.0-10.0) Eosinophils (%) (Auto) 4.2 % (0.0-3.0) H Basophils (%) (Auto) 1.2 % (0.0-2.0) Prothrombin Time 10.5 SEC (9.30-11.50) Prothromb Time International Ratio 1.0 (0.9-1.1) Activated Partial Thromboplast Time 20 SEC (23-33) L Sodium Level 139 MMOL/L (136-145) Potassium Level 4.3 MMOL/L (3.5-5.1) Chloride Level 104 MMOL/L (98-107) Carbon Dioxide Level 27 MMOL/L (21-32) Anion Gap 8 mmol/L (5-15) Blood Urea Nitrogen 33 mg/dL (7-18) H Creatinine 4.5 MG/DL (0.55-1.30) H Estimat Glomerular Filtration Rate 11.9 mL/min (>60) Glucose Level 80 MG/DL (74-106) Calcium Level 9.4 MG/DL (8.5-10.1) Phosphorus Level 3.9 MG/DL (2.5-4.9) Plan Problems: (1) Sacral decubitus ulcer Assessment & Plan: Pt presents on admission with Unstageable pressure injury Sacrum. Wound indurated with dark center but unable to fully assess base of wound secondary to shape and epibole along borders (L)3.8cm x (W)1cm . Pt also verbalized tenderness when minimally palpated. An area of hyperpigmentation from previous wound L buttocks. Both heels are dry, Blanchable with scattered brown pigmentations. Tx Plan: Apply Moisture Barrier to Sacrum .Cover with Optifoam drsg .Change every 3 days and prn. Apply Cavilon Skin Barrier to both heels.Cover with Optifoam drsg .Change every 7 days and prn. APM/JOHN mattress. Reposition at least every 2 hours or as tolerated. Off-load heels with pillow. (2) Failure to thrive in adult Assessment & Plan: recommend feeding access as she is not taking enough po intake to meet caloric needs wounds need nutritional optimization to heal PEG per GI thank you (3) Severe malnutrition Assessment & Plan: feeding access tube feeds nutritional optimization nutrition consult Herson Walter Sep 25, 2018 15:17
--- NOTE | 2018-09-25 18:00 | NUR ---
NURSE NOTES: Dialysis started at 1500 and finished at 1800 with 2lit out put. pt is stable. V/S stable. will continue to monitor.
--- NOTE | 2018-09-25 19:25 | NUR ---
HAND-OFF: Report given to OEI.
--- NOTE | 2018-09-25 19:51 | NUR ---
CASE MANAGEMENT: REVIEW SI: FAILURE TO THRIVE . DEHYDRATION . MALNUTRITION PEG PLACEMENT 09/25 T 97.4 HR 87 RR 18 BP 74/75 SAT 97% ROOM AIR H/H 9.6/31.1 BUN 33 CR 4.5 IS: NS IVF BOLUS X1 ELEQUIS PO Q12HR GT FEEDING NEPRO @40ML/HR MED/SURG STATUS DCP: PATIENT IS FROM [facility]
[2018-09-25] MEDS: Atorvastatin 20mg tab ORAL SCH (21:33)
--- NOTE | 2018-09-25 22:30 | NUR ---
NURSE NOTES: sacral wound care provided. Bilateral heels dressing dry, intact. On air mattress and pillows under bilateral lower legs to off-load heels. Patient being turned Q2hr, and HOB kept high to prevent aspiration, as pt receives G-tube feeding.
[2018-09-26] VITALS: BP 92/60
[2018-09-26 04:00] VITALS: BP 90/60
[2018-09-26] MEDS: NovoLOG Insulin Flexpen SUBQ SCH ×4 (06:06→20:41)
--- NOTE | 2018-09-26 06:06 | NUR ---
NURSE NOTES: accucheck = 135 mg/DL, not given coverage as it starts at 140 mg/DL.
[2018-09-26 06:57] LABS: BASOPHILS % (AUTO) 0.5 % (0.0-2.0); EOSINOPHILS % (AUTO) 1.1 % (0.0-3.0); HEMOGLOBIN 9.3 G/DL (12.0-16.0); MEAN CORPUSCULAR VOLUME 101 FL (80-99); MONOCYTES % (AUTO) 6.9 % (1.0-10.0); NEUTROPHILS % (AUTO) 80.6 % (45.0-75.0); PLATELET COUNT 165 K/UL (150-450); RED BLOOD COUNT 2.96 M/UL (4.20-5.40); RED CELL DISTRIBUTION WIDTH 14.7 % (11.6-14.8); WHITE BLOOD COUNT 14.7 K/UL (4.8-10.8)
[2018-09-26 07:00] LABS: ANION GAP 5 mmol/L (5-15); BLOOD UREA NITROGEN 29 mg/dL (7-18); CALCIUM 9.2 MG/DL (8.5-10.1); CARBON DIOXIDE 30 MMOL/L (21-32); CHLORIDE 101 MMOL/L (98-107); CREATININE 3.9 MG/DL (0.55-1.30); POTASSIUM 3.8 MMOL/L (3.5-5.1); SODIUM 136 MMOL/L (136-145)
--- NOTE | 2018-09-26 07:17 | NUR ---
HAND-OFF: Report given to HARRY Chaudhary.
--- NOTE | 2018-09-26 07:55 | NUR ---
NURSE NOTES: Received patient on bed, awake. Iv site intact and patent. Gtube intact and patent. Purewick in place. Bed in low and locked position, call light in reach. No signs of respiratory distress or pain. Room board updated, will continue to monitor.
[2018-09-26 08:00] VITALS: BP 89/59
[2018-09-26] MEDS ORDERED: Docusate 100mg/10ml Liq GT SCH (09:30)
[2018-09-26] MEDS: Eliquis 2.5mg tablet ORAL SCH ×2 (09:36→20:37)
[2018-09-26] MEDS: Vitamin D 1000 IU Tab ORAL SCH (09:36)
[2018-09-26] MEDS: carBAMazepine 200mg tab ORAL SCH (09:36)
[2018-09-26] MEDS: Depakote 500mg tab ORAL SCH (09:37)
--- NOTE | 2018-09-26 10:48 | NUR ---
RD ASSESSMENT & RECOMMENDATIONS SEE CARE ACTIVITY FOR COMPLETE ASSESSMENT DAILY ESTIMATED NEEDS: Needs based on ESRD+HD, wound/ 63.6kg 25-30 kcals/kg 6330-8513 total kcals 1.25-1.8 g protein/kg 79-114 g total protein 20-22 mL/kg 5528-3411 total fluid mLs NUTRITION DIAGNOSIS: * Increased kcal/prot needs R/T wound healing, renal dysfunction as evidenced by unstageable wound @ sacrum, ESRD dx, on HD. * Swallowing difficulty R/T dysphagia as evidenced by s/p PEG placement, on GT feeding. CURRENT DIET:NPO CURRENT TF:Nepro @ 40ml/hr x 22 hrs ENTERAL NUTRITION RECOMMENDATIONS: Nepro @ 45ml/hr x 22 hrs to provide 990ml, 1782kcal, 80g prot 720ml free water * Increase goal rate to 45ml/hr x 22 hrs * Hold 1 hr before and after Synthroid med * HOB over 30 degrees/ water flush per MD ADDITIONAL RECOMMENDATIONS: * Re-calibrated bedscale wt for accurate CBW- w/ added SPR mattress * Wound healing: Add Orion 1pkt BID * Check A1C for eval of glycemic control- h/o DM * Monitor BGs for need for hypoglycemic agents- h/o DM * Monitor lytes closely, replete as needed * Check A1C for eval of glycemic control- h/o DM
--- NOTE | 2018-09-26 10:53 | NUR ---
NURSE NOTES: Notified MD Rincon of low blood pressure this morning at 0800 vitals. Awaiting any new orders.
--- NOTE | 2018-09-26 11:03 | Nephrology Progress Note ---
Assessment/Plan Plan Hypotensive - check med list. See orders. Septic WBC elevated - started IVF. To [facility]. ID Consult. Start using PEG. Subjective Subjective More Confused!nonverbal. Post PEG. Objective Objective Last 24 Hour Vital Signs Date Time Temp Pulse Resp B/P (MAP) Pulse Ox O2 Delivery O2 Flow Rate FiO2 09/26/18 09:37 89 89/59 09/26/18 09:00 Room Air 09/26/18 08:00 97.3 89 18 89/59 (69) 99 09/26/18 04:00 98.5 93 16 90/60 (70) 96 09/26/18 00:00 98.2 71 18 92/60 (71) 97 09/25/18 21:00 Room Air 09/25/18 20:00 98.7 98 19 95/62 (73) 96 09/25/18 16:00 97.4 87 18 116/75 (89) 94 09/25/18 14:04 71 18 99 09/25/18 12:53 71 138/88 09/25/18 11:30 97.8 71 18 138/88 (105) 99 Intake and Output 09/25/18 09/26/18 18:59 06:59 Intake Total 3550 ml 520 ml Output Total 0 ml Balance 3550 ml 520 ml Intake Oral 3240 ml Free Water 100 ml IV Total 200 ml Tube Feeding 110 ml 420 ml Estimated Blood Loss 0 ml # Voids 18 # Bowel Movements 5 Laboratory Tests 09/26/18 05:45: White Blood Count 14.7#H, Red Blood Count 2.96L, Hemoglobin 9.3L, Hematocrit 30.0L, Mean Corpuscular Volume 101H, Mean Corpuscular Hemoglobin 31.5H, Mean Corpuscular Hemoglobin Concent 31.1L, Red Cell Distribution Width 14.7, Platelet Count 165, Mean Platelet Volume 5.6L, Neutrophils (%) (Auto) 80.6H, Lymphocytes (%) (Auto) 11.0L, Monocytes (%) (Auto) 6.9, Eosinophils (%) (Auto) 1.1, Basophils (%) (Auto) 0.5, Sodium Level 136, Potassium Level 3.8, Chloride Level 101, Carbon Dioxide Level 30, Anion Gap 5, Blood Urea Nitrogen 29H, Creatinine 3.9H, Estimat Glomerular Filtration Rate 14.1, Glucose Level 144H, Calcium Level 9.2 Height (Feet): 5 Height (Inches): 5.00 Weight (Pounds): 165 Objective CV RR Lungs CTA LIJ PermCath PARKER AVF + bruit Abd SNT BS +. New PEG in. E no CCE Mely Rincon MD Sep 26, 2018 11:03
--- NOTE | 2018-09-26 11:06 | NUR ---
NURSE NOTES: Notified dry house operator of transfer order. No signs of acute distress at this time, BP still low. MD made aware beds are full but they are working on securing one for patient.
--- NOTE | 2018-09-26 11:35 | NUR ---
CASE MANAGEMENT: REVIEW SI: FAILURE TO THRIVE . DEHYDRATION . MALNUTRITION PEG PLACEMENT 09/25 T 97.3 HR 89 RR 18 BP 89/59 SAT 96% ROOM AIR WBC 14.7 H/H 9.3/30.0 BUN 29 CR 3.9 IS: ELEQUIS PO Q12HR NS IVF @ 50ML/HR NOVOLOG SQ AC/HS GT FEEDING NEPRO @40ML/HR MED/SURG STATUS DCP: PATIENT IS FROM [facility]
--- NOTE | 2018-09-26 11:49 | Diagnostic Imaging Report ---
EXAM: XR Chest, 1 View CLINICAL HISTORY: Shortness of breath TECHNIQUE: Frontal view of the chest. COMPARISON: Chest x-ray dated 09/22/18 FINDINGS: Lungs: Mildly prominent interstitial markings. The lungs are otherwise clear without focal consolidation. Pleural space: Unremarkable. The costophrenic angles are sharp. No visible pneumothorax. Heart: Unremarkable. No cardiomegaly. Mediastinum: Unremarkable. Bones/joints: Unremarkable. Soft tissues: Radiodense burton present clips overlying the proximal right arm. Vasculature: Vascular stents again noted in the left axilla and subclavian vein regions. Tubes, lines and devices: Stable positioning of the right IJ dialysis catheter with its tip in the region of the right atrium. IMPRESSION: Mildly prominent interstitial markings. This is nonspecific but may suggest mild pulmonary vascular congestion or mild interstitial edema. No focal consolidation.
[2018-09-26 12:00] VITALS: BP 88/63
[2018-09-26] MEDS ORDERED: Cefepime HCl 1 GM in D5W 55 ML IVPB SCH (13:30)
[2018-09-26] MEDS ORDERED: Vancomycin 1250mg/D5W 275ml IVPB ONE ×2 (14:00→16:30)
--- NOTE | 2018-09-26 14:01 | Surgery Progress Note ---
Surgery Progress Note Subjective Additional Comments leukocytosis. labs noted. micro noted Objective Last 24 Hour Vital Signs Date Time Temp Pulse Resp B/P (MAP) Pulse Ox O2 Delivery O2 Flow Rate FiO2 09/26/18 12:00 98.4 92 18 88/63 (71) 100 09/26/18 09:37 89 89/59 09/26/18 09:00 Room Air 09/26/18 08:00 97.3 89 18 89/59 (69) 99 09/26/18 04:00 98.5 93 16 90/60 (70) 96 09/26/18 00:00 98.2 71 18 92/60 (71) 97 09/25/18 21:00 Room Air 09/25/18 20:00 98.7 98 19 95/62 (73) 96 09/25/18 16:00 97.4 87 18 116/75 (89) 94 09/25/18 14:04 71 18 99 I&O Intake and Output 09/25/18 09/26/18 19:00 07:00 Intake Total 3580 ml 490 ml Output Total 0 ml Balance 3580 ml 490 ml Intake Oral 3240 ml Free Water 100 ml IV Total 200 ml Tube Feeding 140 ml 390 ml Estimated Blood Loss 0 ml # Voids 18 # Bowel Movements 5 Dressing: other Wound: other Drains: other Cardiovascular: RSR Respiratory: clear Abdomen: soft, non-tender, non-distended Extremities: other Laboratory Tests Test 09/26/18 05:45 White Blood Count 14.7 K/UL (4.8-10.8) #H Red Blood Count 2.96 M/UL (4.20-5.40) L Hemoglobin 9.3 G/DL (12.0-16.0) L Hematocrit 30.0 % (37.0-47.0) L Mean Corpuscular Volume 101 FL (80-99) H Mean Corpuscular Hemoglobin 31.5 PG (27.0-31.0) H Mean Corpuscular Hemoglobin Concent 31.1 G/DL (32.0-36.0) L Red Cell Distribution Width 14.7 % (11.6-14.8) Platelet Count 165 K/UL (150-450) Mean Platelet Volume 5.6 FL (6.5-10.1) L Neutrophils (%) (Auto) 80.6 % (45.0-75.0) H Lymphocytes (%) (Auto) 11.0 % (20.0-45.0) L Monocytes (%) (Auto) 6.9 % (1.0-10.0) Eosinophils (%) (Auto) 1.1 % (0.0-3.0) Basophils (%) (Auto) 0.5 % (0.0-2.0) Sodium Level 136 MMOL/L (136-145) Potassium Level 3.8 MMOL/L (3.5-5.1) Chloride Level 101 MMOL/L (98-107) Carbon Dioxide Level 30 MMOL/L (21-32) Anion Gap 5 mmol/L (5-15) Blood Urea Nitrogen 29 mg/dL (7-18) H Creatinine 3.9 MG/DL (0.55-1.30) H Estimat Glomerular Filtration Rate 14.1 mL/min (>60) Glucose Level 144 MG/DL (74-106) H Calcium Level 9.2 MG/DL (8.5-10.1) Plan Problems: (1) Sacral decubitus ulcer Assessment & Plan: Pt presents on admission with Unstageable pressure injury Sacrum. Wound indurated with dark center but unable to fully assess base of wound secondary to shape and epibole along borders (L)3.8cm x (W)1cm . Pt also verbalized tenderness when minimally palpated. An area of hyperpigmentation from previous wound L buttocks. Both heels are dry, Blanchable with scattered brown pigmentations. Tx Plan: Apply Moisture Barrier to Sacrum .Cover with Optifoam drsg .Change every 3 days and prn. Apply Cavilon Skin Barrier to both heels.Cover with Optifoam drsg .Change every 7 days and prn. APM/JOHN mattress. Reposition at least every 2 hours or as tolerated. Off-load heels with pillow. (2) Failure to thrive in adult Assessment & Plan: recommend feeding access as she is not taking enough po intake to meet caloric needs wounds need nutritional optimization to heal okay to use peg nutritional consult cont feeds thank you (3) Severe malnutrition Assessment & Plan: feeding access tube feeds nutritional optimization nutrition consult Herson Walter Sep 26, 2018 14:01
--- NOTE | 2018-09-26 15:30 | Consultation ---
DATE OF CONSULTATION: 09/26/2018 INFECTIOUS DISEASES CONSULTATION CONSULTING PHYSICIAN: Tha Dalal M.D. REFERRING PHYSICIAN: Mely Rincon M.D. REASON FOR CONSULTATION: Aspiration pneumonia. HISTORY OF PRESENTING ILLNESS: This is a 63-year-old lady with history of diabetes, hypertension, renal failure, hypothyroidism, seizure disorder, who comes in with hyponatremia and now there is a concern for aspiration pneumonia and an Infectious Diseases consultation has been obtained for antibiotics. PAST MEDICAL HISTORY: 1. History of diabetes. 2. Hypertension. 3. Seizure disorder. 4. Renal failure. 5. Hypothyroidism. 6. Encephalopathy. SOCIAL HISTORY: Unknown. FAMILY HISTORY: Unknown. REVIEW OF SYSTEMS: Unable to obtain currently. MEDICATIONS: As an inpatient, the patient is on docusate, Lexapro, Risperdal, atorvastatin, Eliquis, Tegretol, Depakote, Renvela, vitamin D, Synthroid, insulin, Tylenol, Benadryl. ALLERGIES: She is allergic to penicillin. PHYSICAL EXAMINATION: VITAL SIGNS: Temperature of 97.3, T-max of 98.7, pulse of 89, respiratory rate of 18, blood pressure 89/59, O2 saturation of 99%. HEENT: Pupils equally reactive to light and accommodation. Mouth appears clean without thrush. NECK: Supple. No adenopathy. No JVD. CARDIOVASCULAR SYSTEM: Regular rate and rhythm. No murmurs. LUNGS: Clear to auscultation bilaterally. No crackles. No wheezes. ABDOMEN: Soft and nontender. G-tube site appears clean. EXTREMITIES: No cyanosis, no clubbing, no edema. SKIN: Right subclavian catheter noted. LABORATORY AND DIAGNOSTIC DATA: White count of 14.7, hemoglobin 9.3, hematocrit 30, MCV 101, platelet count of 165,000; neutrophils of 80%. Sodium 136, potassium 3.8, chloride 101, bicarbonate 30, BUN 29, creatinine 3.9, glucose 144, calcium 9.2. total bilirubin 0.2, AST 13, ALT 15, alkaline phosphatase 84. Total protein 7.2, albumin 3.1. Rectal swab was positive for VRE. Nasal swab was negative for MRSA. Blood cultures are negative. Chest x-ray is showing no acute process. ASSESSMENT: 1. This is a 63-year-old lady with history of diabetes, hypertension, and renal failure, on dialysis, who came in with hyponatremia and is now found to have elevated leukocytosis. We would be concerned regarding aspiration pneumonia or sepsis as a possibility. 2. Rule out sepsis as a possibility. 3. Increasing leukocytosis. 4. Diabetes. 5. Hypertension. 6. Renal failure. PLAN: 1. We will order blood cultures. 2. We will order sputum for Gram stain and culture. 3. We will start the patient on vancomycin and cefepime. 4. We will follow up cultures and adjust antibiotics accordingly. I would like to thank Dr. Rincon for this consultation. Tha Dalal M.D. DR: Alejo JOB#: [id number] CC: Mely Rincon M.D.
--- NOTE | 2018-09-26 15:45 | NUR ---
NURSE NOTES: patient transferred to [facility] room 239-1. Report given.
[2018-09-26 16:00] VITALS: BP 114/67
[2018-09-26] MEDS: Docusate 100mg/10ml Liq GT SCH (18:34)
--- NOTE | 2018-09-26 18:41 | General Progress Note ---
Assessment/Plan Assessment/Plan Assessment (1) Severe malnutrition (2) Dehydration (3) Failure to thrive in adult (4) Altered mental status (5) Weakness generalized Plan GT care GT feeds anemia work up OB stool r/o GI bleed monitor H&H, prn transfusions bowel regimen ppi fu labs Subjective Allergies: Coded Allergies: PENICILLINS (Unverified Allergy, Unknown, 04/23/18) Subjective seen earlier in am s/p PEG non communicative Objective Last 24 Hour Vital Signs Date Time Temp Pulse Resp B/P (MAP) Pulse Ox O2 Delivery O2 Flow Rate FiO2 09/26/18 16:00 Nasal Cannula 2.0 09/26/18 16:00 98.1 96 20 114/67 (83) 100 09/26/18 12:00 98.4 92 18 88/63 (71) 100 09/26/18 09:37 89 89/59 09/26/18 09:00 Room Air 09/26/18 08:00 97.3 89 18 89/59 (69) 99 09/26/18 04:00 98.5 93 16 90/60 (70) 96 09/26/18 00:00 98.2 71 18 92/60 (71) 97 09/25/18 21:00 Room Air 09/25/18 20:00 98.7 98 19 95/62 (73) 96 Intake and Output 09/25/18 09/26/18 19:00 07:00 Intake Total 3580 ml 490 ml Output Total 0 ml Balance 3580 ml 490 ml Intake Oral 3240 ml Free Water 100 ml IV Total 200 ml Tube Feeding 140 ml 390 ml Estimated Blood Loss 0 ml # Voids 18 # Bowel Movements 5 Laboratory Tests 09/26/18 05:45: White Blood Count 14.7#H, Red Blood Count 2.96L, Hemoglobin 9.3L, Hematocrit 30.0L, Mean Corpuscular Volume 101H, Mean Corpuscular Hemoglobin 31.5H, Mean Corpuscular Hemoglobin Concent 31.1L, Red Cell Distribution Width 14.7, Platelet Count 165, Mean Platelet Volume 5.6L, Neutrophils (%) (Auto) 80.6H, Lymphocytes (%) (Auto) 11.0L, Monocytes (%) (Auto) 6.9, Eosinophils (%) (Auto) 1.1, Basophils (%) (Auto) 0.5, Sodium Level 136, Potassium Level 3.8, Chloride Level 101, Carbon Dioxide Level 30, Anion Gap 5, Blood Urea Nitrogen 29H, Creatinine 3.9H, Estimat Glomerular Filtration Rate 14.1, Glucose Level 144H, Calcium Level 9.2 Height (Feet): 5 Height (Inches): 5.00 Weight (Pounds): 167 Objective Elderly AA woman non communicative NCAT supple CTA RR abd soft , (+) PEG no edema Dangelo Schrader MD Sep 26, 2018 18:41
--- NOTE | 2018-09-26 19:15 | NUR ---
NURSE NOTES: Received report from Karyn Kovacs RN. Patient is awake in bed, A/O x1. Sinus rhythm on water aerobics instructor. No s/s of acute distress noted. Saturating well on 2L O2 via nasal cannula. Receiving Nepro @ 40 cc/hr via GT and tolerating well. Purewick catheter in place and set to suction. Left AC 22g IV, intact and patent, running NS @ 50 cc/hr. Right permicath noted. Bed locked in lowest position with padded side rails up x3. Call light left within reach. Will continue to monitor.
[2018-09-26 20:00] VITALS: BP 102/68
[2018-09-26] MEDS: Atorvastatin 20mg tab ORAL SCH (20:36)
[2018-09-26] MEDS: Dyna-Hex 2% Top Sol 2oz TOPIC SCH (20:36)
[2018-09-27] VITALS: BP 100/56
[2018-09-27 04:00] VITALS: BP 100/65
[2018-09-27] MEDS: NovoLOG Insulin Flexpen SUBQ SCH ×4 (06:22→21:00)
--- NOTE | 2018-09-27 07:20 | NUR ---
HAND-OFF: Report given to Bessie Zeng RN.
--- NOTE | 2018-09-27 07:21 | NUR ---
NURSE NOTES: Received patient from HARRY Leggett. Patient VS stable at this time with no sign of acute distress. Patient nonverbal at this time. Patient reported to speak occasionally but only says "no". Patient opens eyes and tracks at this time but makes no effort to respond. Patient resting comfortably at this time. Patient showing SR on the monitor at this time. Patient on 3L NC at this time with oxygen saturation of 96%. patient has a right chest permicath at this time. Patient has a right upper arm AV shunt and a left upper arm old AV shunt. Patient has a L AC 22G PIV that is patent, asymptomatic, and running NS at 50mL/hr at this time. Patient has a newly inserted G tube that is patent, asymptomatic and clamped at this time. Patient received synthroid at 0630. Feeding to be resumed at 0730. Patient has Nepro at 40mL/hr at this time. Patient is tolerating feeding with no residual at this time. Patient is anuric at this time. Patient blood sugar is stable at this time. Patient has no current labs drawn this morning. Will follow up. Patient bed in low position with bed alarm on and call light in reach at this time.
[2018-09-27 08:00] VITALS: BP 103/69
[2018-09-27] MEDS ORDERED: Depakote 500mg tab ORAL SCH (09:00)
--- NOTE | 2018-09-27 09:00 | NUR ---
NURSE NOTES: Patient's daily weight was measured by taking the SCD pump and SPR mattress pump off of the end of the bed and subtracting the weight of the mattress and the pillows from the total bed-scale weight. The result is 144lb.
[2018-09-27] MEDS: Docusate 100mg/10ml Liq GT SCH ×2 (09:08→17:54)
[2018-09-27] MEDS: Vitamin D 1000 IU Tab ORAL SCH (09:08)
[2018-09-27] MEDS: Eliquis 2.5mg tablet ORAL SCH ×2 (09:08→20:45)
[2018-09-27] MEDS: carBAMazepine 200mg tab ORAL SCH (09:09)
[2018-09-27] MEDS: Renvela 800mg Pkt GT SCH ×3 (09:40→17:54)
[2018-09-27] MEDS: Depakote 125mg Sprinkles GT SCH (10:01)
--- NOTE | 2018-09-27 10:21 | Infectious Diseases Prog Note ---
Assessment/Plan Assessment/Plan A; Leukocytosis ESRD on HD DM HPN FTT s/p GT VRE colonization P: Continue Cefepime & Vancomycin F/U CBC Subjective ROS Limited/Unobtainable: Yes Constitutional: Reports: no symptoms Allergies: Coded Allergies: PENICILLINS (Unverified Allergy, Unknown, 04/23/18) Objective Vital Signs Last 24 Hour Vital Signs Date Time Temp Pulse Resp B/P (MAP) Pulse Ox O2 Delivery O2 Flow Rate FiO2 09/27/18 08:00 81 09/27/18 07:57 Nasal Cannula 2.0 09/27/18 04:00 Nasal Cannula 2.0 09/27/18 04:00 98.1 80 20 100/65 (77) 100 09/27/18 03:33 78 09/27/18 00:00 Nasal Cannula 2.0 09/27/18 00:00 97.5 82 20 100/56 (71) 100 09/26/18 23:41 83 09/26/18 20:00 Nasal Cannula 2.0 09/26/18 20:00 98.2 80 26 102/68 (79) 100 09/26/18 19:42 82 09/26/18 16:00 79 09/26/18 16:00 Nasal Cannula 2.0 09/26/18 16:00 98.1 96 20 114/67 (83) 100 09/26/18 12:00 98.4 92 18 88/63 (71) 100 Height (Feet): 5 Height (Inches): 5.00 Weight (Pounds): 167 General Appearance: no acute distress HEENT: mucous membranes moist Respiratory/Chest: lungs clear Cardiovascular: normal rate, other - Permacath Abdomen: soft, non tender, other - GT feeding Extremities: no edema Skin: ulcers, other - sacral Neurologic/Psychiatric: other - opens eyes Laboratory Tests Test 09/27/18 04:45 Random Vancomycin Level 20.1 ug/mL Current Medications Medications (Trade) Dose Ordered Sig/Kaleigh Route PRN Reason Start Time Stop Time Status Last Admin Dose Admin Acetaminophen (Tylenol) 650 mg Q6H PRN ORAL Mild Pain/Temp > 100.5 09/26/18 16:00 10/23/18 15:59 Apixaban (Eliquis) 2.5 mg EVERY 12 HOURS ORAL 09/26/18 21:00 10/23/18 08:59 09/27/18 09:08 Atorvastatin Calcium (Lipitor) 40 mg BEDTIME ORAL 09/26/18 21:00 10/23/18 20:59 09/26/18 20:36 Carbamazepine (TEGretol) 300 mg DAILY ORAL 09/27/18 09:00 10/23/18 08:59 09/27/18 09:09 Cefepime HCl 1 gm/ Dextrose 55 ml @ 110 mls/hr Q24H IVPB 09/27/18 13:30 10/03/18 13:29 Chlorhexidine Gluconate (Marilyn-Hex 2%) 1 applic DAILY@2000 TOPIC 09/26/18 20:00 10/26/18 19:59 09/26/18 20:36 Dextrose (Dextrose 50%) 25 ml Q30M PRN IV Hypoglycemia 09/26/18 16:30 10/23/18 02:29 Dextrose (Dextrose 50%) 50 ml Q30M PRN IV Hypoglycemia 09/26/18 16:30 10/23/18 02:29 Diphenhydramine HCl (Benadryl) 25 mg Q6H PRN ORAL Itching 09/26/18 16:00 10/23/18 15:59 Divalproex Sodium (Depakote Sprinkles) 500 mg DAILY GT 09/27/18 09:30 10/27/18 09:29 09/27/18 10:01 Docusate Sodium (Colace) 250 mg TWICE A DAY GT 09/26/18 18:00 10/26/18 09:29 09/27/18 09:08 Escitalopram Oxalate (Lexapro) 10 mg DAILY ORAL 09/27/18 09:00 10/25/18 08:59 09/27/18 09:10 Insulin Aspart (NovoLOG) BEFORE MEALS AND HS SUBQ 09/26/18 16:30 10/23/18 06:29 Levothyroxine Sodium (Synthroid) 100 mcg DAILY@0630 ORAL 09/27/18 06:30 10/23/18 06:29 09/27/18 06:23 Risperidone (RisperDAL) 2 mg BEDTIME ORAL 09/26/18 21:00 10/24/18 20:59 09/26/18 20:37 Sevelamer Carbonate (Renvela) 800 mg THREE TIMES A DAY GT 09/27/18 09:00 10/27/18 08:59 09/27/18 09:40 Sodium Chloride 1,000 ml @ 50 mls/hr Q20H IV 09/26/18 16:00 10/26/18 11:29 09/26/18 16:47 Vancomycin HCl (Vanco rx to dose) 1 ea DAILY PRN MISC Per rx protocol 09/27/18 09:00 10/26/18 11:44 Vitamin D (Vitamin D) 1,000 intlu DAILY ORAL 09/27/18 09:00 10/23/18 08:59 09/27/18 09:08 Jose Orona MD Sep 27, 2018 10:21
--- NOTE | 2018-09-27 11:09 | Nephrology Progress Note ---
Assessment/Plan Plan Less Hypotensive. Septic WBC elevated - started IVF. DC IVD. Start using PEG. ESRD HD MWF Subjective Subjective In ANDRES. Less confused. Objective Objective Last 24 Hour Vital Signs Date Time Temp Pulse Resp B/P (MAP) Pulse Ox O2 Delivery O2 Flow Rate FiO2 09/27/18 08:00 97.9 77 24 103/69 (80) 100 09/27/18 08:00 81 09/27/18 07:57 Nasal Cannula 2.0 09/27/18 04:00 Nasal Cannula 2.0 09/27/18 04:00 98.1 80 20 100/65 (77) 100 09/27/18 03:33 78 09/27/18 00:00 Nasal Cannula 2.0 09/27/18 00:00 97.5 82 20 100/56 (71) 100 09/26/18 23:41 83 09/26/18 20:00 Nasal Cannula 2.0 09/26/18 20:00 98.2 80 26 102/68 (79) 100 09/26/18 19:42 82 09/26/18 16:00 79 09/26/18 16:00 Nasal Cannula 2.0 09/26/18 16:00 98.1 96 20 114/67 (83) 100 09/26/18 12:00 98.4 92 18 88/63 (71) 100 Intake and Output 09/26/18 09/27/18 18:59 06:59 Intake Total 815 ml 1150 ml Balance 815 ml 1150 ml Free Water 150 ml 110 ml IV Total 425 ml 600 ml Tube Feeding 240 ml 440 ml Laboratory Tests 09/27/18 04:45: Random Vancomycin Level 20.1 Height (Feet): 5 Height (Inches): 5.00 Weight (Pounds): 144 Objective CV RR Lungs CTA LIJ PermCath PARKER AVF + bruit Abd SNT BS +. New PEG in. E no CCE Mely Rincon MD Sep 27, 2018 11:09
--- NOTE | 2018-09-27 11:45 | NUR ---
NURSE NOTES: Called [facility] to notify them of dialysis scheduled for 09/28/18 between 0600 and 1800.
[2018-09-27 12:00] VITALS: BP 120/64
[2018-09-27] MEDS ORDERED: Cefepime HCl 1 GM in D5W 55 ML IVPB SCH (13:30)
--- NOTE | 2018-09-27 13:53 | Surgery Progress Note ---
Surgery Progress Note Subjective Additional Comments no acute events. doing well. Objective Last 24 Hour Vital Signs Date Time Temp Pulse Resp B/P (MAP) Pulse Ox O2 Delivery O2 Flow Rate FiO2 09/27/18 12:00 Nasal Cannula 2.0 09/27/18 12:00 98.1 83 20 120/64 (82) 100 09/27/18 08:00 97.9 77 24 103/69 (80) 100 09/27/18 08:00 81 09/27/18 07:57 Nasal Cannula 2.0 09/27/18 04:00 Nasal Cannula 2.0 09/27/18 04:00 98.1 80 20 100/65 (77) 100 09/27/18 03:33 78 09/27/18 00:00 Nasal Cannula 2.0 09/27/18 00:00 97.5 82 20 100/56 (71) 100 09/26/18 23:41 83 09/26/18 20:00 Nasal Cannula 2.0 09/26/18 20:00 98.2 80 26 102/68 (79) 100 09/26/18 19:42 82 09/26/18 16:00 79 09/26/18 16:00 Nasal Cannula 2.0 09/26/18 16:00 98.1 96 20 114/67 (83) 100 I&O Intake and Output 09/26/18 09/27/18 18:59 06:59 Intake Total 815 ml 1150 ml Balance 815 ml 1150 ml Free Water 150 ml 110 ml IV Total 425 ml 600 ml Tube Feeding 240 ml 440 ml Dressing: other Wound: other Drains: other Cardiovascular: RSR Respiratory: clear, decreased breath sounds Abdomen: soft, present bowel sounds, non-distended Extremities: other Laboratory Tests Test 09/27/18 04:45 Random Vancomycin Level 20.1 ug/mL Plan Problems: (1) Sacral decubitus ulcer Assessment & Plan: Pt presents on admission with Unstageable pressure injury Sacrum. Wound indurated with dark center but unable to fully assess base of wound secondary to shape and epibole along borders (L)3.8cm x (W)1cm . Pt also verbalized tenderness when minimally palpated. An area of hyperpigmentation from previous wound L buttocks. Both heels are dry, Blanchable with scattered brown pigmentations. Tx Plan: Apply Moisture Barrier to Sacrum .Cover with Optifoam drsg .Change every 3 days and prn. Apply Cavilon Skin Barrier to both heels.Cover with Optifoam drsg .Change every 7 days and prn. APM/JOHN mattress. Reposition at least every 2 hours or as tolerated. Off-load heels with pillow. (2) Failure to thrive in adult Assessment & Plan: recommend feeding access as she is not taking enough po intake to meet caloric needs wounds need nutritional optimization to heal okay to use peg nutritional consult cont feeds thank you (3) Severe malnutrition Assessment & Plan: feeding access tube feeds nutritional optimization nutrition consult Herson Walter Sep 27, 2018 13:53
--- NOTE | 2018-09-27 15:13 | General Progress Note ---
Assessment/Plan Assessment/Plan Assessment (1) Severe malnutrition (2) Dehydration (3) Failure to thrive in adult (4) Altered mental status (5) Weakness generalized Plan GT care GT feeds anemia work up - OB (+) Stool per Dr Bates monitor H&H, prn transfusions bowel regimen ppi fu labs Subjective Allergies: Coded Allergies: PENICILLINS (Unverified Allergy, Unknown, 04/23/18) Subjective seen earlier in am s/p PEG non communicative Objective Last 24 Hour Vital Signs Date Time Temp Pulse Resp B/P (MAP) Pulse Ox O2 Delivery O2 Flow Rate FiO2 09/27/18 12:00 Nasal Cannula 2.0 09/27/18 12:00 98.1 83 20 120/64 (82) 100 09/27/18 12:00 84 09/27/18 08:00 97.9 77 24 103/69 (80) 100 09/27/18 08:00 81 09/27/18 07:57 Nasal Cannula 2.0 09/27/18 04:00 Nasal Cannula 2.0 09/27/18 04:00 98.1 80 20 100/65 (77) 100 09/27/18 03:33 78 09/27/18 00:00 Nasal Cannula 2.0 09/27/18 00:00 97.5 82 20 100/56 (71) 100 09/26/18 23:41 83 09/26/18 20:00 Nasal Cannula 2.0 09/26/18 20:00 98.2 80 26 102/68 (79) 100 09/26/18 19:42 82 09/26/18 16:00 79 09/26/18 16:00 Nasal Cannula 2.0 09/26/18 16:00 98.1 96 20 114/67 (83) 100 Intake and Output 09/26/18 09/27/18 18:59 06:59 Intake Total 815 ml 1150 ml Balance 815 ml 1150 ml Free Water 150 ml 110 ml IV Total 425 ml 600 ml Tube Feeding 240 ml 440 ml Laboratory Tests 09/27/18 04:45: Random Vancomycin Level 20.1 Height (Feet): 5 Height (Inches): 5.00 Weight (Pounds): 144 Objective Elderly AA woman non communicative NCAT supple CTA RR abd soft , (+) PEG no edema Dangelo Schrader MD Sep 27, 2018 15:13
[2018-09-27 16:00] VITALS: BP 129/81
--- NOTE | 2018-09-27 18:55 | NUR ---
HAND-OFF: Report given to HARRY Morales. Patient VS stable at this time with no sign of acute distress.
--- NOTE | 2018-09-27 19:30 | NUR ---
NURSE NOTES: Recvd.Awake quiet in Bed aphasic does'nt follows command with good eye contact.Resp.unlabored P.Ox-100% on 2L/NC inh.See V/S.Scope SR rare ectopy.Gt-Feeding in progress,HD Patient,AVF (R)upper arm Pos.thrill/Bruit.Perma Cath (R) SC intact.Kaleigh.For poss.HD am [facility] aware.Pos. chg.Made comfortable.
[2018-09-27] MEDS: Dyna-Hex 2% Top Sol 2oz TOPIC SCH (19:51)
[2018-09-27 20:00] VITALS: BP 96/60
[2018-09-27] MEDS: Atorvastatin 20mg tab ORAL SCH (20:45)
[2018-09-28] VITALS: BP 90/55
--- NOTE | 2018-09-28 00:10 | NUR ---
NURSE NOTES: Repositioned,Kept comfortable.See V/S.Scope rhythm same.No Distress.Cont.monitoring.
[2018-09-28] MEDS ORDERED: Heparin 1000 units/ml 1ml Vial INJ SCH (00:30)
[2018-09-28 04:00] VITALS: BP 96/56
--- NOTE | 2018-09-28 04:20 | NUR ---
NURSE NOTES: Pos.chg q2hrs.Tiara Downing chg.Blood drawn for cbc/bmp and phos.spec.to lab.Kevyn.GT-Feeding.Kaleigh.for Poss.HD this am.
[2018-09-28 04:45] LABS: HEMATOCRIT 24.5 % (37.0-47.0); HEMOGLOBIN 7.5 G/DL (12.0-16.0); MEAN CORPUSCULAR VOLUME 102 FL (80-99); PLATELET COUNT 148 K/UL (150-450); RED CELL DISTRIBUTION WIDTH 14.4 % (11.6-14.8); WHITE BLOOD COUNT 9.1 K/UL (4.8-10.8)
[2018-09-28 05:18] LABS: ANION GAP 6 mmol/L (5-15); BLOOD UREA NITROGEN 47 mg/dL (7-18); CALCIUM 8.8 MG/DL (8.5-10.1); CARBON DIOXIDE 30 MMOL/L (21-32); CHLORIDE 103 MMOL/L (98-107); CREATININE 4.9 MG/DL (0.55-1.30); PHOSPHORUS 3.2 MG/DL (2.5-4.9); POTASSIUM 3.7 MMOL/L (3.5-5.1); SODIUM 139 MMOL/L (136-145)
[2018-09-28] MEDS: NovoLOG Insulin Flexpen SUBQ SCH ×4 (06:30→20:51)
--- NOTE | 2018-09-28 07:30 | NUR ---
HAND-OFF: Report given to HARRY NICOLE.
--- NOTE | 2018-09-28 07:30 | NUR ---
NURSE NOTES: Received bedside report from HARRY arana.Patient stable ,nonverbal,no s/s of pain,no respiratory distress noted,SR on athletic monitor, 2 LN/C. GT running with Nepro @ 40 ml/hr,flush 50 ml q6 hrs. BS active in all quadrants,IV asymptomatic,intact on L f/arm 22G SL,bed secured,call light within a reach.Will continue to monitor.
[2018-09-28 08:00] VITALS: BP 101/61
[2018-09-28] MEDS: Vitamin D 1000 IU Tab ORAL SCH (09:00)
[2018-09-28] MEDS: Renvela 800mg Pkt GT SCH ×3 (09:00→17:26)
[2018-09-28] MEDS: Eliquis 2.5mg tablet ORAL SCH ×2 (09:00→20:50)
[2018-09-28] MEDS: carBAMazepine 200mg tab ORAL SCH (09:00)
[2018-09-28] MEDS: Docusate 100mg/10ml Liq GT SCH ×2 (09:00→17:26)
[2018-09-28] MEDS: Depakote 125mg Sprinkles GT SCH (09:00)
--- NOTE | 2018-09-28 09:30 | NUR ---
NURSE NOTES: CALLED MD JIANG REGARDING IF TRANSFUSION WAS WANTED DURING H.D TREATMENT. AWAITING CALL BACK.
--- NOTE | 2018-09-28 09:40 | NUR ---
NURSE NOTES: RECEIVED CALL FROM MD JIANG, H/H 7.5/24.5. NO NEED TO TRANSFUSE.
--- NOTE | 2018-09-28 09:41 | NUR ---
NURSE NOTES: Shanda RN HERE TO DO DIALYSIS. PT IN NO ACUTE DISTRESS
--- NOTE | 2018-09-28 11:17 | Nephrology Progress Note ---
Assessment/Plan Plan Normotensive. Septic WBC elevated - started IVF. DC IVF. Start using PEG. ESRD HD MWF. To Med Surg. Subjective Subjective In ANDRES. Less confused. On HD now. Stable run. Objective Objective Last 24 Hour Vital Signs Date Time Temp Pulse Resp B/P (MAP) Pulse Ox O2 Delivery O2 Flow Rate FiO2 09/28/18 08:00 Nasal Cannula 2.0 09/28/18 08:00 97.8 82 16 101/61 (74) 100 09/28/18 08:00 94 09/28/18 04:00 98.2 96 20 96/56 (69) 96 09/28/18 04:00 Nasal Cannula 2.0 09/28/18 04:00 94 09/28/18 00:00 99.1 99 22 90/55 (67) 100 09/28/18 00:00 Nasal Cannula 2.0 09/28/18 00:00 102 09/27/18 20:00 92 09/27/18 20:00 Nasal Cannula 2.0 09/27/18 20:00 98.2 92 24 96/60 (72) 100 09/27/18 16:00 Nasal Cannula 2.0 09/27/18 16:00 83 09/27/18 16:00 98.2 81 20 129/81 (97) 100 09/27/18 12:00 Nasal Cannula 2.0 09/27/18 12:00 98.1 83 20 120/64 (82) 100 09/27/18 12:00 84 Intake and Output 09/27/18 09/28/18 19:00 07:00 Intake Total 995 ml 610 ml Balance 995 ml 610 ml Free Water 300 ml 130 ml IV Total 255 ml Tube Feeding 440 ml 480 ml # Voids 2 Laboratory Tests 09/28/18 02:50: White Blood Count 9.1, Red Blood Count 2.40L, Hemoglobin 7.5L, Hematocrit 24.5L , Mean Corpuscular Volume 102H, Mean Corpuscular Hemoglobin 31.3H, Mean Corpuscular Hemoglobin Concent 30.6L, Red Cell Distribution Width 14.4, Platelet Count 148L, Mean Platelet Volume 5.6L, Neutrophils (%) (Auto) , Lymphocytes (%) (Auto) , Monocytes (%) (Auto) , Eosinophils (%) (Auto) , Basophils (%) (Auto) , Differential Total Cells Counted 100, Neutrophils % ( Manual) 79H, Lymphocytes % (Manual) 17L, Monocytes % (Manual) 4, Eosinophils % ( Manual) 0, Basophils % (Manual) 0, Band Neutrophils 0, Platelet Estimate DecreasedL, Platelet Morphology Normal, Hypochromasia 1+, Anisocytosis , Macrocytosis 1+, Sodium Level 139, Potassium Level 3.7, Chloride Level 103, Carbon Dioxide Level 30, Anion Gap 6, Blood Urea Nitrogen 47H, Creatinine 4.9H, Estimat Glomerular Filtration Rate 10.8, Glucose Level 100, Calcium Level 8.8, Phosphorus Level 3.2 Height (Feet): 5 Height (Inches): 5.00 Weight (Pounds): 144 Objective CV RR Lungs CTA LIJ PermCath PARKER AVF + bruit Abd SNT BS +. New PEG in. E no CCE Mely Rincon MD Sep 28, 2018 11:17
[2018-09-28] MEDS ORDERED: NOVOLOG100 UNITS1 SUBQ (11:28)
[2018-09-28] MEDS ORDERED: ACETAMINOPHEN325 M1 ORAL (11:28)
[2018-09-28] MEDS ORDERED: LIPITOR20 MG ORAL (11:28)
[2018-09-28] MEDS ORDERED: RISPERDAL2 MG ORAL (11:28)
[2018-09-28] MEDS ORDERED: HIBICLENS118 ML TOPIC (11:28)
[2018-09-28] MEDS ORDERED: SYNTHROID100 MCG ORAL (11:28)
[2018-09-28] MEDS ORDERED: DEPAKOTE SPRIN125 M1 GT (11:28)
[2018-09-28] MEDS ORDERED: VITAMIN D1000 UNI1 ORAL (11:28)
[2018-09-28] MEDS ORDERED: LEXAPRO10 MG ORAL (11:28)
[2018-09-28] MEDS ORDERED: ELIQUIS2.5 MG ORAL (11:28)
[2018-09-28] MEDS ORDERED: COLACE100 MG/10 GT (11:28)
--- NOTE | 2018-09-28 11:59 | General Progress Note ---
Assessment/Plan Problem List: (1) MDD (major depressive disorder), recurrent episode, moderate ICD Codes: F33.1 - Major depressive disorder, recurrent, moderate SNOMED: 23778729, 938465536 (2) Psychotic disorder ICD Codes: F29 - Unspecified psychosis not due to a substance or known physiological condition SNOMED: 19768448 (3) Encephalopathy due to metabolic factor or toxin SNOMED: 844844310 (4) Failure to thrive in adult ICD Codes: R62.7 - Adult failure to thrive SNOMED: 686225981 Assessment/Plan cont Risperdal the pt lacks capacity to make decisions. provided ro/st Subjective Neurologic/Psychiatric: Reports: anxiety Allergies: Coded Allergies: PENICILLINS (Unverified Allergy, Unknown, 04/23/18) Subjective the pt cont to be confuse and paranoid no agitation receiving her psych meds Objective Last 24 Hour Vital Signs Date Time Temp Pulse Resp B/P (MAP) Pulse Ox O2 Delivery O2 Flow Rate FiO2 09/28/18 08:00 Nasal Cannula 2.0 09/28/18 08:00 97.8 82 16 101/61 (74) 100 09/28/18 08:00 94 09/28/18 04:00 98.2 96 20 96/56 (69) 96 09/28/18 04:00 Nasal Cannula 2.0 09/28/18 04:00 94 09/28/18 00:00 99.1 99 22 90/55 (67) 100 09/28/18 00:00 Nasal Cannula 2.0 09/28/18 00:00 102 09/27/18 20:00 92 09/27/18 20:00 Nasal Cannula 2.0 09/27/18 20:00 98.2 92 24 96/60 (72) 100 09/27/18 16:00 Nasal Cannula 2.0 09/27/18 16:00 83 09/27/18 16:00 98.2 81 20 129/81 (97) 100 09/27/18 12:00 Nasal Cannula 2.0 09/27/18 12:00 98.1 83 20 120/64 (82) 100 09/27/18 12:00 84 Intake and Output 09/27/18 09/28/18 18:59 06:59 Intake Total 1045 ml 610 ml Balance 1045 ml 610 ml Free Water 300 ml 130 ml IV Total 305 ml Tube Feeding 440 ml 480 ml # Voids 2 Laboratory Tests 09/28/18 02:50: White Blood Count 9.1, Red Blood Count 2.40L, Hemoglobin 7.5L, Hematocrit 24.5L , Mean Corpuscular Volume 102H, Mean Corpuscular Hemoglobin 31.3H, Mean Corpuscular Hemoglobin Concent 30.6L, Red Cell Distribution Width 14.4, Platelet Count 148L, Mean Platelet Volume 5.6L, Neutrophils (%) (Auto) , Lymphocytes (%) (Auto) , Monocytes (%) (Auto) , Eosinophils (%) (Auto) , Basophils (%) (Auto) , Differential Total Cells Counted 100, Neutrophils % ( Manual) 79H, Lymphocytes % (Manual) 17L, Monocytes % (Manual) 4, Eosinophils % ( Manual) 0, Basophils % (Manual) 0, Band Neutrophils 0, Platelet Estimate DecreasedL, Platelet Morphology Normal, Hypochromasia 1+, Anisocytosis , Macrocytosis 1+, Sodium Level 139, Potassium Level 3.7, Chloride Level 103, Carbon Dioxide Level 30, Anion Gap 6, Blood Urea Nitrogen 47H, Creatinine 4.9H, Estimat Glomerular Filtration Rate 10.8, Glucose Level 100, Calcium Level 8.8, Phosphorus Level 3.2 Height (Feet): 5 Height (Inches): 5.00 Weight (Pounds): 144 General Appearance: WD/WN, no apparent distress, alert Neurologic: depressed affect Jaguar Palmer MD Sep 28, 2018 11:58
[2018-09-28 12:00] VITALS: BP 106/56
--- NOTE | 2018-09-28 12:17 | Infectious Diseases Prog Note ---
Assessment/Plan Assessment/Plan A; Leukocytosis resolved ESRD on HD DM HPN FTT s/p GT VRE colonization P: Discontinue Cefepime & Vancomycin Observe off antibiotic Subjective ROS Limited/Unobtainable: Yes Allergies: Coded Allergies: PENICILLINS (Unverified Allergy, Unknown, 04/23/18) Objective Vital Signs Last 24 Hour Vital Signs Date Time Temp Pulse Resp B/P (MAP) Pulse Ox O2 Delivery O2 Flow Rate FiO2 09/28/18 08:00 Nasal Cannula 2.0 09/28/18 08:00 97.8 82 16 101/61 (74) 100 09/28/18 08:00 94 09/28/18 04:00 98.2 96 20 96/56 (69) 96 09/28/18 04:00 Nasal Cannula 2.0 09/28/18 04:00 94 09/28/18 00:00 99.1 99 22 90/55 (67) 100 09/28/18 00:00 Nasal Cannula 2.0 09/28/18 00:00 102 09/27/18 20:00 92 09/27/18 20:00 Nasal Cannula 2.0 09/27/18 20:00 98.2 92 24 96/60 (72) 100 09/27/18 16:00 Nasal Cannula 2.0 09/27/18 16:00 83 09/27/18 16:00 98.2 81 20 129/81 (97) 100 Height (Feet): 5 Height (Inches): 5.00 Weight (Pounds): 144 General Appearance: no acute distress HEENT: mucous membranes moist Respiratory/Chest: lungs clear Cardiovascular: normal rate, other - R permacath Abdomen: soft, non tender, other - GT feeding Extremities: no edema Neurologic/Psychiatric: alert, other - opens eyes Musculoskeletal: atrophy Microbiology Date/Time Source Procedure Growth Status 09/26/18 18:00 Blood Blood Culture - Preliminary NO GROWTH AFTER 24 HOURS Resulted 09/27/18 05:30 Sputum Gram Stain Pending Resulted 09/27/18 05:30 Sputum Sputum Culture - Preliminary NORMAL UPPER RESPIRATORY JOHNATHAN AT 24 ... Resulted Laboratory Tests Test 09/28/18 02:50 White Blood Count 9.1 K/UL (4.8-10.8) Red Blood Count 2.40 M/UL (4.20-5.40) L Hemoglobin 7.5 G/DL (12.0-16.0) L Hematocrit 24.5 % (37.0-47.0) L Mean Corpuscular Volume 102 FL (80-99) H Mean Corpuscular Hemoglobin 31.3 PG (27.0-31.0) H Mean Corpuscular Hemoglobin Concent 30.6 G/DL (32.0-36.0) L Red Cell Distribution Width 14.4 % (11.6-14.8) Platelet Count 148 K/UL (150-450) L Mean Platelet Volume 5.6 FL (6.5-10.1) L Neutrophils (%) (Auto) % (45.0-75.0) Lymphocytes (%) (Auto) % (20.0-45.0) Monocytes (%) (Auto) % (1.0-10.0) Eosinophils (%) (Auto) % (0.0-3.0) Basophils (%) (Auto) % (0.0-2.0) Differential Total Cells Counted 100 Neutrophils % (Manual) 79 % (45-75) H Lymphocytes % (Manual) 17 % (20-45) L Monocytes % (Manual) 4 % (1-10) Eosinophils % (Manual) 0 % (0-3) Basophils % (Manual) 0 % (0-2) Band Neutrophils 0 % (0-8) Platelet Estimate Decreased L Platelet Morphology Normal Hypochromasia 1+ Anisocytosis Macrocytosis 1+ Sodium Level 139 MMOL/L (136-145) Potassium Level 3.7 MMOL/L (3.5-5.1) Chloride Level 103 MMOL/L (98-107) Carbon Dioxide Level 30 MMOL/L (21-32) Anion Gap 6 mmol/L (5-15) Blood Urea Nitrogen 47 mg/dL (7-18) H Creatinine 4.9 MG/DL (0.55-1.30) H Estimat Glomerular Filtration Rate 10.8 mL/min (>60) Glucose Level 100 MG/DL (74-106) Calcium Level 8.8 MG/DL (8.5-10.1) Phosphorus Level 3.2 MG/DL (2.5-4.9) Current Medications Medications (Trade) Dose Ordered Sig/Kaleigh Route PRN Reason Start Time Stop Time Status Last Admin Dose Admin Acetaminophen (Tylenol) 650 mg Q6H PRN ORAL Mild Pain/Temp > 100.5 09/26/18 16:00 10/23/18 15:59 Apixaban (Eliquis) 2.5 mg EVERY 12 HOURS ORAL 09/26/18 21:00 10/23/18 08:59 09/27/18 20:45 Atorvastatin Calcium (Lipitor) 40 mg BEDTIME ORAL 09/26/18 21:00 10/23/18 20:59 09/27/18 20:45 Carbamazepine (TEGretol) 300 mg DAILY ORAL 09/27/18 09:00 10/23/18 08:59 09/27/18 09:09 Cefepime HCl 1 gm/ Dextrose 55 ml @ 110 mls/hr Q24H IVPB 09/27/18 13:30 10/03/18 13:29 09/27/18 12:53 Chlorhexidine Gluconate (Marilyn-Hex 2%) 1 applic DAILY@2000 TOPIC 09/26/18 20:00 10/26/18 19:59 09/27/18 19:51 Dextrose (Dextrose 50%) 25 ml Q30M PRN IV Hypoglycemia 09/26/18 16:30 10/23/18 02:29 Dextrose (Dextrose 50%) 50 ml Q30M PRN IV Hypoglycemia 09/26/18 16:30 10/23/18 02:29 Diphenhydramine HCl (Benadryl) 25 mg Q6H PRN ORAL Itching 09/26/18 16:00 10/23/18 15:59 Divalproex Sodium (Depakote Sprinkles) 500 mg DAILY GT 09/27/18 09:30 10/27/18 09:29 09/27/18 10:01 Docusate Sodium (Colace) 250 mg TWICE A DAY GT 09/26/18 18:00 10/26/18 09:29 09/27/18 17:54 Escitalopram Oxalate (Lexapro) 10 mg DAILY ORAL 09/27/18 09:00 10/25/18 08:59 09/27/18 09:10 Heparin Sodium (Porcine) (Heparin) 1,000 unit POSTHD INJ 09/28/18 00:30 09/28/18 23:59 Insulin Aspart (NovoLOG) BEFORE MEALS AND HS SUBQ 09/26/18 16:30 10/23/18 06:29 Levothyroxine Sodium (Synthroid) 100 mcg DAILY@0630 ORAL 09/27/18 06:30 10/23/18 06:29 09/28/18 06:39 Risperidone (RisperDAL) 2 mg BEDTIME ORAL 09/26/18 21:00 10/24/18 20:59 09/27/18 20:46 Sevelamer Carbonate (Renvela) 800 mg THREE TIMES A DAY GT 09/27/18 09:00 10/27/18 08:59 09/27/18 17:54 Sodium Chloride 1,000 ml @ 500 mls/hr Q2H PRN IVLG sbp<90 during hd 09/28/18 06:00 09/28/18 23:59 Vancomycin HCl (Vanco rx to dose) 1 ea DAILY PRN MISC Per rx protocol 09/27/18 09:00 10/26/18 11:44 Vancomycin HCl 1 gm/Dextrose 275 ml @ 183.708 mls/hr ONCE ONCE IVPB 09/28/18 18:00 09/28/18 19:29 Vitamin D (Vitamin D) 1,000 intlu DAILY ORAL 09/27/18 09:00 10/23/18 08:59 09/27/18 09:08 Jose Orona MD Sep 28, 2018 12:17
--- NOTE | 2018-09-28 14:11 | GI Progress Note ---
Assessment/Plan Problems: (1) Severe malnutrition ICD Codes: E43 - Unspecified severe protein-calorie malnutrition SNOMED: 92689762 (2) Failure to thrive in adult ICD Codes: R62.7 - Adult failure to thrive SNOMED: 249096637 (3) Weakness generalized ICD Codes: R53.1 - Weakness SNOMED: 80550612 (4) Dehydration ICD Codes: E86.0 - Dehydration SNOMED: 31109292 (5) Encephalopathy due to metabolic factor or toxin SNOMED: 452014377 (6) Multiple injuries due to trauma ICD Codes: T07 - Unspecified multiple injuries SNOMED: 893524557 (7) Altered mental status ICD Codes: R41.82 - Altered mental status, unspecified SNOMED: 362550997 Status: stable Status Narrative Discussed with Dr. Bates. Assessment/Plan s/p PEG GT care GT feeds anemia work up - OB (+) Stool per Dr Bates monitor H&H, prn transfusions bowel regimen ppi fu labs The patient was seen and examined at bedside and all new and available data was reviewed in the patients chart. I agree with the above findings, impression and plan. (Patient seen earlier today. Signature stamp does not reflect patient encounter time.). - Jerrell Bates MD Subjective Subjective limited Objective Last 24 Hour Vital Signs Date Time Temp Pulse Resp B/P (MAP) Pulse Ox O2 Delivery O2 Flow Rate FiO2 09/28/18 08:00 Nasal Cannula 2.0 09/28/18 08:00 97.8 82 16 101/61 (74) 100 09/28/18 08:00 94 09/28/18 04:00 98.2 96 20 96/56 (69) 96 09/28/18 04:00 Nasal Cannula 2.0 09/28/18 04:00 94 09/28/18 00:00 99.1 99 22 90/55 (67) 100 09/28/18 00:00 Nasal Cannula 2.0 09/28/18 00:00 102 09/27/18 20:00 92 09/27/18 20:00 Nasal Cannula 2.0 09/27/18 20:00 98.2 92 24 96/60 (72) 100 09/27/18 16:00 Nasal Cannula 2.0 09/27/18 16:00 83 09/27/18 16:00 98.2 81 20 129/81 (97) 100 Intake and Output 09/27/18 09/28/18 18:59 06:59 Intake Total 1045 ml 610 ml Balance 1045 ml 610 ml Free Water 300 ml 130 ml IV Total 305 ml Tube Feeding 440 ml 480 ml # Voids 2 Laboratory Tests Test 09/28/18 02:50 White Blood Count 9.1 K/UL (4.8-10.8) Red Blood Count 2.40 M/UL (4.20-5.40) L Hemoglobin 7.5 G/DL (12.0-16.0) L Hematocrit 24.5 % (37.0-47.0) L Mean Corpuscular Volume 102 FL (80-99) H Mean Corpuscular Hemoglobin 31.3 PG (27.0-31.0) H Mean Corpuscular Hemoglobin Concent 30.6 G/DL (32.0-36.0) L Red Cell Distribution Width 14.4 % (11.6-14.8) Platelet Count 148 K/UL (150-450) L Mean Platelet Volume 5.6 FL (6.5-10.1) L Neutrophils (%) (Auto) % (45.0-75.0) Lymphocytes (%) (Auto) % (20.0-45.0) Monocytes (%) (Auto) % (1.0-10.0) Eosinophils (%) (Auto) % (0.0-3.0) Basophils (%) (Auto) % (0.0-2.0) Differential Total Cells Counted 100 Neutrophils % (Manual) 79 % (45-75) H Lymphocytes % (Manual) 17 % (20-45) L Monocytes % (Manual) 4 % (1-10) Eosinophils % (Manual) 0 % (0-3) Basophils % (Manual) 0 % (0-2) Band Neutrophils 0 % (0-8) Platelet Estimate Decreased L Platelet Morphology Normal Hypochromasia 1+ Anisocytosis Macrocytosis 1+ Sodium Level 139 MMOL/L (136-145) Potassium Level 3.7 MMOL/L (3.5-5.1) Chloride Level 103 MMOL/L (98-107) Carbon Dioxide Level 30 MMOL/L (21-32) Anion Gap 6 mmol/L (5-15) Blood Urea Nitrogen 47 mg/dL (7-18) H Creatinine 4.9 MG/DL (0.55-1.30) H Estimat Glomerular Filtration Rate 10.8 mL/min (>60) Glucose Level 100 MG/DL (74-106) Calcium Level 8.8 MG/DL (8.5-10.1) Phosphorus Level 3.2 MG/DL (2.5-4.9) Height (Feet): 5 Height (Inches): 5.00 Weight (Pounds): 144 General Appearance: WD/WN, no apparent distress, alert Cardiovascular: normal rate Respiratory/Chest: normal breath sounds, no respiratory distress Abdominal Exam: normal bowel sounds, non tender, soft, GT site - c/d/i Extremities: normal range of motion, non-tender Objective refusing to eat refusing medications Anastasia Gutierrez NP Sep 28, 2018 14:10
--- NOTE | 2018-09-28 14:44 | Surgery Progress Note ---
Surgery Progress Note Subjective Additional Comments leukocytosis resolved. unchanged. Objective Last 24 Hour Vital Signs Date Time Temp Pulse Resp B/P (MAP) Pulse Ox O2 Delivery O2 Flow Rate FiO2 09/28/18 12:00 Nasal Cannula 2.0 09/28/18 08:00 Nasal Cannula 2.0 09/28/18 08:00 97.8 82 16 101/61 (74) 100 09/28/18 08:00 94 09/28/18 04:00 98.2 96 20 96/56 (69) 96 09/28/18 04:00 Nasal Cannula 2.0 09/28/18 04:00 94 09/28/18 00:00 99.1 99 22 90/55 (67) 100 09/28/18 00:00 Nasal Cannula 2.0 09/28/18 00:00 102 09/27/18 20:00 92 09/27/18 20:00 Nasal Cannula 2.0 09/27/18 20:00 98.2 92 24 96/60 (72) 100 09/27/18 16:00 Nasal Cannula 2.0 09/27/18 16:00 83 09/27/18 16:00 98.2 81 20 129/81 (97) 100 I&O Intake and Output 09/27/18 09/28/18 18:59 06:59 Intake Total 1045 ml 610 ml Balance 1045 ml 610 ml Free Water 300 ml 130 ml IV Total 305 ml Tube Feeding 440 ml 480 ml # Voids 2 Dressing: other Wound: other Drains: other Cardiovascular: RSR, other Respiratory: clear, decreased breath sounds Abdomen: soft, non-distended Extremities: other Laboratory Tests Test 09/28/18 02:50 White Blood Count 9.1 K/UL (4.8-10.8) Red Blood Count 2.40 M/UL (4.20-5.40) L Hemoglobin 7.5 G/DL (12.0-16.0) L Hematocrit 24.5 % (37.0-47.0) L Mean Corpuscular Volume 102 FL (80-99) H Mean Corpuscular Hemoglobin 31.3 PG (27.0-31.0) H Mean Corpuscular Hemoglobin Concent 30.6 G/DL (32.0-36.0) L Red Cell Distribution Width 14.4 % (11.6-14.8) Platelet Count 148 K/UL (150-450) L Mean Platelet Volume 5.6 FL (6.5-10.1) L Neutrophils (%) (Auto) % (45.0-75.0) Lymphocytes (%) (Auto) % (20.0-45.0) Monocytes (%) (Auto) % (1.0-10.0) Eosinophils (%) (Auto) % (0.0-3.0) Basophils (%) (Auto) % (0.0-2.0) Differential Total Cells Counted 100 Neutrophils % (Manual) 79 % (45-75) H Lymphocytes % (Manual) 17 % (20-45) L Monocytes % (Manual) 4 % (1-10) Eosinophils % (Manual) 0 % (0-3) Basophils % (Manual) 0 % (0-2) Band Neutrophils 0 % (0-8) Platelet Estimate Decreased L Platelet Morphology Normal Hypochromasia 1+ Anisocytosis Macrocytosis 1+ Sodium Level 139 MMOL/L (136-145) Potassium Level 3.7 MMOL/L (3.5-5.1) Chloride Level 103 MMOL/L (98-107) Carbon Dioxide Level 30 MMOL/L (21-32) Anion Gap 6 mmol/L (5-15) Blood Urea Nitrogen 47 mg/dL (7-18) H Creatinine 4.9 MG/DL (0.55-1.30) H Estimat Glomerular Filtration Rate 10.8 mL/min (>60) Glucose Level 100 MG/DL (74-106) Calcium Level 8.8 MG/DL (8.5-10.1) Phosphorus Level 3.2 MG/DL (2.5-4.9) Plan Problems: (1) Sacral decubitus ulcer Assessment & Plan: Pt presents on admission with Unstageable pressure injury Sacrum. Wound indurated with dark center but unable to fully assess base of wound secondary to shape and epibole along borders (L)3.8cm x (W)1cm . Pt also verbalized tenderness when minimally palpated. An area of hyperpigmentation from previous wound L buttocks. Both heels are dry, Blanchable with scattered brown pigmentations. Tx Plan: Apply Moisture Barrier to Sacrum .Cover with Optifoam drsg .Change every 3 days and prn. Apply Cavilon Skin Barrier to both heels.Cover with Optifoam drsg .Change every 7 days and prn. APM/JOHN mattress. Reposition at least every 2 hours or as tolerated. Off-load heels with pillow. (2) Failure to thrive in adult Assessment & Plan: recommend feeding access as she is not taking enough po intake to meet caloric needs wounds need nutritional optimization to heal okay to use peg nutritional consult cont feeds thank you (3) Severe malnutrition Assessment & Plan: feeding access tube feeds nutritional optimization nutrition consult Herson Walter Sep 28, 2018 14:44
[2018-09-28 16:00] VITALS: BP 113/58
[2018-09-28] MEDS ORDERED: Vancomycin 1gm/D5W 275ml IVPB ONE ×2 (18:00)
--- NOTE | 2018-09-28 19:15 | NUR ---
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
--- NOTE | 2018-09-28 19:45 | NUR ---
CASE MANAGEMENT: REVIEW SI: FAILURE TO THRIVE . DEHYDRATION . MALNUTRITION PEG PLACEMENT 09/25 T 99.1 HR 102 RR 24 BP 90/55 SAT 96% NC/2L H/H 7.5/24.5 BUN 47 CR 4.9 IS: ELEQUIS PO Q12HR NS IVF @ 50ML/HR NOVOLOG SQ AC/HS GT FEEDING NEPRO @40ML/HR MED/SURG STATUS DCP: PATIENT IS FROM [facility]
--- NOTE | 2018-09-28 19:54 | NUR ---
CASE MANAGEMENT: DCPNOTE DC ORDER NOTED PATIENT REFERRED BACK TO [facility] [phone] WILL FOLLOW UP Addendum: 09/28/18 at 2009 by DEVIN MEZA CM ROOM ASSIGNMENT [id number] SKILLED
[2018-09-28 20:00] VITALS: BP 109/55
[2018-09-28] MEDS: Dyna-Hex 2% Top Sol 2oz TOPIC SCH (20:50)
[2018-09-28] MEDS: Atorvastatin 20mg tab ORAL SCH (20:50)
[2018-09-29] VITALS: BP 119/60
[2018-09-29 04:00] VITALS: BP 126/69
[2018-09-29] MEDS: NovoLOG Insulin Flexpen SUBQ SCH ×4 (06:18→20:49)
[2018-09-29 07:04] LABS: ANION GAP 6 mmol/L (5-15); BLOOD UREA NITROGEN 38 mg/dL (7-18); CARBON DIOXIDE 29 MMOL/L (21-32); CHLORIDE 103 MMOL/L (98-107); CREATININE 3.8 MG/DL (0.55-1.30); POTASSIUM 4.1 MMOL/L (3.5-5.1); SODIUM 138 MMOL/L (136-145)
[2018-09-29 07:22] LABS: HEMATOCRIT 25.8 % (37.0-47.0); HEMOGLOBIN 7.9 G/DL (12.0-16.0); MEAN CORPUSCULAR VOLUME 105 FL (80-99); PLATELET COUNT 154 K/UL (150-450); RED BLOOD COUNT 2.47 M/UL (4.20-5.40); RED CELL DISTRIBUTION WIDTH 14.9 % (11.6-14.8); WHITE BLOOD COUNT 9.1 K/UL (4.8-10.8)
--- NOTE | 2018-09-29 07:26 | NUR ---
NURSE NOTES: Received report from Marika MCDONALD. Pt is asleep in bed, awakens to name/voice, nonverbal currently, although per report, pt is able to communicate simple words. No signs/symptoms of pain or discomfort noted. On 2L of oxygen via nasal cannula. GT in place, infusing Nepro 1.8 at 40ml/hr, tolerating well with no residual, and no episodes of nausea/vomiting. Skin is intact, with redness at sacral area, optifoam in place, dry/intact, will reassess and change as needed during my shift. Pt had dialysis yesterday, 2L out, still able to urinate small amount, external catheter in place, draining small amount of clear/dark yellow urine. Bilateral SCDs in place on lower extremities, on pressure relieving mattress. Pt is placed on fall, aspiration and seizure precautions: side rails padded, suction set up at bedside, head of bed at 30degrees, bed in lowest position, three side rails up, brakes engaged, alarm on. Per report, pt was severely bradycardic yesterday after dialysis, today HR is fluctuating from 50-60's. Will continue to monitor pt and follow plan of care per MD orders and protocol.
--- NOTE | 2018-09-29 07:26 | NUR ---
HAND-OFF: Report given to HARRY Boyer.Patient stable.
[2018-09-29 08:00] VITALS: BP 96/64
[2018-09-29] MEDS: Docusate 100mg/10ml Liq GT SCH ×3 (08:27→17:59)
[2018-09-29] MEDS: Vitamin D 1000 IU Tab ORAL SCH (08:28)
[2018-09-29] MEDS: carBAMazepine 200mg tab ORAL SCH (08:28)
[2018-09-29] MEDS: Depakote 125mg Sprinkles GT SCH (08:28)
[2018-09-29] MEDS: Eliquis 2.5mg tablet ORAL SCH ×2 (08:29→20:49)
[2018-09-29] MEDS: Renvela 800mg Pkt GT SCH ×3 (08:29→18:00)
--- NOTE | 2018-09-29 10:31 | Infectious Diseases Prog Note ---
Assessment/Plan Assessment/Plan antibiotics : none A 1. leucocytosis resolved 2. diabetes mellitus 3, hypertension 4. renal failure on dialysis 5. rectal VRE colonization P 1. continue off antibiotics Subjective ROS Limited/Unobtainable: Yes Allergies: Coded Allergies: PENICILLINS (Unverified Allergy, Unknown, 04/23/18) Objective Vital Signs Last 24 Hour Vital Signs Date Time Temp Pulse Resp B/P (MAP) Pulse Ox O2 Delivery O2 Flow Rate FiO2 09/29/18 05:07 99.4 09/29/18 04:00 98.4 69 20 126/69 (88) 100 09/29/18 04:00 Nasal Cannula 2.0 09/29/18 03:37 65 09/29/18 00:00 98.1 76 20 119/60 (79) 100 09/29/18 00:00 Nasal Cannula 2.0 09/28/18 23:28 73 09/28/18 20:00 Nasal Cannula 2.0 09/28/18 20:00 98.1 68 20 109/55 (73) 100 09/28/18 19:42 73 09/28/18 16:00 73 09/28/18 16:00 98.1 75 20 113/58 (76) 100 09/28/18 16:00 Nasal Cannula 2.0 09/28/18 12:00 Nasal Cannula 2.0 09/28/18 12:00 85 09/28/18 12:00 98.1 77 20 106/56 (73) 97 Height (Feet): 5 Height (Inches): 5.00 Weight (Pounds): 146 Respiratory/Chest: lungs clear Cardiovascular: normal rate, regular rhythm, no gallop/murmur Abdomen: soft, non tender, other - GT Extremities: no edema Microbiology Date/Time Source Procedure Growth Status 09/26/18 18:00 Blood Blood Culture - Preliminary NO GROWTH AFTER 48 HOURS Resulted 09/27/18 05:30 Sputum Gram Stain - Final Complete 09/27/18 05:30 Sputum Sputum Culture - Final NORMAL UPPER RESPIRATORY JOHNATHAN PRESENT Complete Laboratory Tests Test 09/29/18 05:20 White Blood Count 9.1 K/UL (4.8-10.8) Red Blood Count 2.47 M/UL (4.20-5.40) L Hemoglobin 7.9 G/DL (12.0-16.0) L Hematocrit 25.8 % (37.0-47.0) L Mean Corpuscular Volume 105 FL (80-99) H Mean Corpuscular Hemoglobin 31.8 PG (27.0-31.0) H Mean Corpuscular Hemoglobin Concent 30.4 G/DL (32.0-36.0) L Red Cell Distribution Width 14.9 % (11.6-14.8) H Platelet Count 154 K/UL (150-450) Mean Platelet Volume 5.6 FL (6.5-10.1) L Neutrophils (%) (Auto) % (45.0-75.0) Lymphocytes (%) (Auto) % (20.0-45.0) Monocytes (%) (Auto) % (1.0-10.0) Eosinophils (%) (Auto) % (0.0-3.0) Basophils (%) (Auto) % (0.0-2.0) Neutrophils % (Manual) Pending Lymphocytes % (Manual) Pending Platelet Estimate Pending Platelet Morphology Pending Sodium Level 138 MMOL/L (136-145) Potassium Level 4.1 MMOL/L (3.5-5.1) Chloride Level 103 MMOL/L (98-107) Carbon Dioxide Level 29 MMOL/L (21-32) Anion Gap 6 mmol/L (5-15) Blood Urea Nitrogen 38 mg/dL (7-18) H Creatinine 3.8 MG/DL (0.55-1.30) H Estimat Glomerular Filtration Rate 14.4 mL/min (>60) Glucose Level 90 MG/DL (74-106) Calcium Level 9.0 MG/DL (8.5-10.1) Current Medications Medications (Trade) Dose Ordered Sig/Kaleigh Route PRN Reason Start Time Stop Time Status Last Admin Dose Admin Acetaminophen (Tylenol) 650 mg Q6H PRN ORAL Mild Pain/Temp > 100.5 09/26/18 16:00 10/23/18 15:59 09/29/18 04:37 Apixaban (Eliquis) 2.5 mg EVERY 12 HOURS ORAL 09/26/18 21:00 10/23/18 08:59 09/29/18 08:29 Atorvastatin Calcium (Lipitor) 40 mg BEDTIME ORAL 09/26/18 21:00 10/23/18 20:59 09/28/18 20:50 Carbamazepine (TEGretol) 300 mg DAILY ORAL 09/27/18 09:00 10/23/18 08:59 09/29/18 08:28 Chlorhexidine Gluconate (Marilyn-Hex 2%) 1 applic DAILY@2000 TOPIC 09/26/18 20:00 10/26/18 19:59 09/28/18 20:50 Dextrose (Dextrose 50%) 25 ml Q30M PRN IV Hypoglycemia 09/26/18 16:30 10/23/18 02:29 Dextrose (Dextrose 50%) 50 ml Q30M PRN IV Hypoglycemia 09/26/18 16:30 10/23/18 02:29 Diphenhydramine HCl (Benadryl) 25 mg Q6H PRN ORAL Itching 09/26/18 16:00 10/23/18 15:59 Divalproex Sodium (Depakote Sprinkles) 500 mg DAILY GT 09/27/18 09:30 10/27/18 09:29 09/29/18 08:28 Docusate Sodium (Colace) 250 mg TWICE A DAY GT 09/26/18 18:00 10/26/18 09:29 09/29/18 08:27 Escitalopram Oxalate (Lexapro) 10 mg DAILY ORAL 09/27/18 09:00 10/25/18 08:59 09/29/18 08:28 Insulin Aspart (NovoLOG) BEFORE MEALS AND HS SUBQ 09/26/18 16:30 10/23/18 06:29 Levothyroxine Sodium (Synthroid) 100 mcg DAILY@0630 ORAL 09/27/18 06:30 10/23/18 06:29 09/29/18 06:18 Risperidone (RisperDAL) 2 mg BEDTIME ORAL 09/26/18 21:00 10/24/18 20:59 09/28/18 20:50 Sevelamer Carbonate (Renvela) 800 mg THREE TIMES A DAY GT 09/27/18 09:00 10/27/18 08:59 09/29/18 08:29 Vitamin D (Vitamin D) 1,000 intlu DAILY ORAL 09/27/18 09:00 10/23/18 08:59 09/29/18 08:28 Tha Dalal MD Sep 29, 2018 10:31
--- NOTE | 2018-09-29 11:10 | GI Progress Note ---
Assessment/Plan Problems: (1) Severe malnutrition ICD Codes: E43 - Unspecified severe protein-calorie malnutrition SNOMED: 28138895 (2) Failure to thrive in adult ICD Codes: R62.7 - Adult failure to thrive SNOMED: 797630982 (3) Weakness generalized ICD Codes: R53.1 - Weakness SNOMED: 90238934 (4) Dehydration ICD Codes: E86.0 - Dehydration SNOMED: 87088807 (5) Encephalopathy due to metabolic factor or toxin SNOMED: 659634675 (6) Multiple injuries due to trauma ICD Codes: T07 - Unspecified multiple injuries SNOMED: 834555922 (7) Altered mental status ICD Codes: R41.82 - Altered mental status, unspecified SNOMED: 301689351 Status: stable Status Narrative Discussed with Dr. Bates Assessment/Plan s/p PEG GT care GT feeds monitor H&H, prn transfusions bowel regimen ppi fu labs The patient was seen and examined at bedside and all new and available data was reviewed in the patients chart. I agree with the above findings, impression and plan. (Patient seen earlier today. Signature stamp does not reflect patient encounter time.). - Jerrell Bates MD Subjective Subjective limited Objective Last 24 Hour Vital Signs Date Time Temp Pulse Resp B/P (MAP) Pulse Ox O2 Delivery O2 Flow Rate FiO2 09/29/18 05:07 99.4 09/29/18 04:00 98.4 69 20 126/69 (88) 100 09/29/18 04:00 Nasal Cannula 2.0 09/29/18 03:37 65 09/29/18 00:00 98.1 76 20 119/60 (79) 100 09/29/18 00:00 Nasal Cannula 2.0 09/28/18 23:28 73 09/28/18 20:00 Nasal Cannula 2.0 09/28/18 20:00 98.1 68 20 109/55 (73) 100 09/28/18 19:42 73 09/28/18 16:00 73 09/28/18 16:00 98.1 75 20 113/58 (76) 100 09/28/18 16:00 Nasal Cannula 2.0 09/28/18 12:00 Nasal Cannula 2.0 09/28/18 12:00 85 09/28/18 12:00 98.1 77 20 106/56 (73) 97 Intake and Output 09/28/18 09/29/18 19:00 07:00 Intake Total 130 ml 460 ml Output Total 200 ml Balance 130 ml 260 ml Free Water 50 ml 100 ml Tube Feeding 80 ml 360 ml Output Urine Total 200 ml # Voids 3 Laboratory Tests Test 09/29/18 05:20 White Blood Count 9.1 K/UL (4.8-10.8) Red Blood Count 2.47 M/UL (4.20-5.40) L Hemoglobin 7.9 G/DL (12.0-16.0) L Hematocrit 25.8 % (37.0-47.0) L Mean Corpuscular Volume 105 FL (80-99) H Mean Corpuscular Hemoglobin 31.8 PG (27.0-31.0) H Mean Corpuscular Hemoglobin Concent 30.4 G/DL (32.0-36.0) L Red Cell Distribution Width 14.9 % (11.6-14.8) H Platelet Count 154 K/UL (150-450) Mean Platelet Volume 5.6 FL (6.5-10.1) L Neutrophils (%) (Auto) % (45.0-75.0) Lymphocytes (%) (Auto) % (20.0-45.0) Monocytes (%) (Auto) % (1.0-10.0) Eosinophils (%) (Auto) % (0.0-3.0) Basophils (%) (Auto) % (0.0-2.0) Differential Total Cells Counted 100 Neutrophils % (Manual) 65 % (45-75) Lymphocytes % (Manual) 18 % (20-45) L Monocytes % (Manual) 8 % (1-10) Eosinophils % (Manual) 8 % (0-3) H Basophils % (Manual) 0 % (0-2) Myelocytes % 1 % (0-0) H Band Neutrophils 0 % (0-8) Platelet Estimate Adequate Platelet Morphology Normal Macrocytosis 1+ Sodium Level 138 MMOL/L (136-145) Potassium Level 4.1 MMOL/L (3.5-5.1) Chloride Level 103 MMOL/L (98-107) Carbon Dioxide Level 29 MMOL/L (21-32) Anion Gap 6 mmol/L (5-15) Blood Urea Nitrogen 38 mg/dL (7-18) H Creatinine 3.8 MG/DL (0.55-1.30) H Estimat Glomerular Filtration Rate 14.4 mL/min (>60) Glucose Level 90 MG/DL (74-106) Calcium Level 9.0 MG/DL (8.5-10.1) Height (Feet): 5 Height (Inches): 5.00 Weight (Pounds): 146 General Appearance: no apparent distress Cardiovascular: normal rate Respiratory/Chest: normal breath sounds Abdominal Exam: GT site - Clean dry and intact Objective refusing to eat refusing medications Anastasia Gutierrez NP Sep 29, 2018 11:09
[2018-09-29 12:00] VITALS: BP 90/57
--- NOTE | 2018-09-29 12:04 | General Progress Note ---
Assessment/Plan Problem List: (1) MDD (major depressive disorder), recurrent episode, moderate ICD Codes: F33.1 - Major depressive disorder, recurrent, moderate SNOMED: 82140237, 873582756 (2) Psychotic disorder ICD Codes: F29 - Unspecified psychosis not due to a substance or known physiological condition SNOMED: 34199920 (3) Encephalopathy due to metabolic factor or toxin SNOMED: 686103377 (4) Failure to thrive in adult ICD Codes: R62.7 - Adult failure to thrive SNOMED: 236898523 Status: stable Assessment/Plan Risperdal 4mg po qhs the pt lacks capacity to make decisions. provided ro/st Subjective Neurologic/Psychiatric: Reports: anxiety, depressed Allergies: Coded Allergies: PENICILLINS (Unverified Allergy, Unknown, 04/23/18) Subjective the pt cont to be confuse and paranoid selective mutism compliant with meds Objective Last 24 Hour Vital Signs Date Time Temp Pulse Resp B/P (MAP) Pulse Ox O2 Delivery O2 Flow Rate FiO2 09/29/18 08:00 98.5 59 26 96/64 (75) 98 09/29/18 08:00 Nasal Cannula 2.0 09/29/18 07:40 61 09/29/18 05:07 99.4 09/29/18 04:00 98.4 69 20 126/69 (88) 100 09/29/18 04:00 Nasal Cannula 2.0 09/29/18 03:37 65 09/29/18 00:00 98.1 76 20 119/60 (79) 100 09/29/18 00:00 Nasal Cannula 2.0 09/28/18 23:28 73 09/28/18 20:00 Nasal Cannula 2.0 09/28/18 20:00 98.1 68 20 109/55 (73) 100 09/28/18 19:42 73 09/28/18 16:00 73 09/28/18 16:00 98.1 75 20 113/58 (76) 100 09/28/18 16:00 Nasal Cannula 2.0 Intake and Output 09/28/18 09/29/18 19:00 07:00 Intake Total 130 ml 460 ml Output Total 200 ml Balance 130 ml 260 ml Free Water 50 ml 100 ml Tube Feeding 80 ml 360 ml Output Urine Total 200 ml # Voids 3 Laboratory Tests 09/29/18 05:20: White Blood Count 9.1, Red Blood Count 2.47L, Hemoglobin 7.9L, Hematocrit 25.8L , Mean Corpuscular Volume 105H, Mean Corpuscular Hemoglobin 31.8H, Mean Corpuscular Hemoglobin Concent 30.4L, Red Cell Distribution Width 14.9H, Platelet Count 154, Mean Platelet Volume 5.6L, Neutrophils (%) (Auto) , Lymphocytes (%) (Auto) , Monocytes (%) (Auto) , Eosinophils (%) (Auto) , Basophils (%) (Auto) , Differential Total Cells Counted 100, Neutrophils % ( Manual) 65, Lymphocytes % (Manual) 18L, Monocytes % (Manual) 8, Eosinophils % ( Manual) 8H, Basophils % (Manual) 0, Myelocytes % 1H, Band Neutrophils 0, Platelet Estimate Adequate, Platelet Morphology Normal, Macrocytosis 1+, Sodium Level 138, Potassium Level 4.1, Chloride Level 103, Carbon Dioxide Level 29, Anion Gap 6, Blood Urea Nitrogen 38H, Creatinine 3.8H, Estimat Glomerular Filtration Rate 14.4, Glucose Level 90, Calcium Level 9.0 Height (Feet): 5 Height (Inches): 5.00 Weight (Pounds): 146 General Appearance: WD/WN, no apparent distress, alert, confused Jaguar Palmer MD Sep 29, 2018 12:04
--- NOTE | 2018-09-29 13:19 | NUR ---
RD ASSESSMENT & RECOMMENDATIONS SEE CARE ACTIVITY FOR COMPLETE ASSESSMENT DAILY ESTIMATED NEEDS: Needs based on ESRD+HD, wound/ 63.6kg 25-30 kcals/kg 6316-8146 total kcals 1.25-1.8 g protein/kg 79-114 g total protein 20-22 mL/kg 4675-6801 total fluid mLs NUTRITION DIAGNOSIS: * Increased kcal/prot needs R/T wound healing, renal dysfunction as evidenced by unstageable wound @ sacrum, ESRD dx, on HD. * Swallowing difficulty R/T dysphagia as evidenced by s/p PEG placement, on GT feeding. CURRENT TF:Nepro @ 40ml/hr x 22 hrs ENTERAL NUTRITION RECOMMENDATIONS: Nepro @ 45ml/hr x 22 hrs to provide 990ml, 1782kcal, 80g prot 720ml free water * Increase goal rate to 45ml/hr x 22 hrs * Hold 1 hr before and after Synthroid med * HOB over 30 degrees/ water flush per MD ADDITIONAL RECOMMENDATIONS: * Re-calibrated bedscale wt for accurate CBW- w/ added SPR mattress * Wound healing: Add Orion 1pkt BID * Monitor BGs for need for hypoglycemic agents- h/o DM * Monitor lytes closely, replete as needed . .
--- NOTE | 2018-09-29 13:28 | Nephrology Progress Note ---
Assessment/Plan Plan SBP 90. Unexplained! Foul smelling stool. R/O C. Dif Colitis! Hypotensive! Unstable yet! ESRD HD MWF. Subjective Subjective In ANDRES. "frozen expression" Objective Objective Last 24 Hour Vital Signs Date Time Temp Pulse Resp B/P (MAP) Pulse Ox O2 Delivery O2 Flow Rate FiO2 09/29/18 12:00 98.7 66 24 90/57 (68) 100 09/29/18 12:00 Nasal Cannula 2.0 09/29/18 08:00 98.5 59 26 96/64 (75) 98 09/29/18 08:00 Nasal Cannula 2.0 09/29/18 07:40 61 09/29/18 05:07 99.4 09/29/18 04:00 98.4 69 20 126/69 (88) 100 09/29/18 04:00 Nasal Cannula 2.0 09/29/18 03:37 65 09/29/18 00:00 98.1 76 20 119/60 (79) 100 09/29/18 00:00 Nasal Cannula 2.0 09/28/18 23:28 73 09/28/18 20:00 Nasal Cannula 2.0 09/28/18 20:00 98.1 68 20 109/55 (73) 100 09/28/18 19:42 73 09/28/18 16:00 73 09/28/18 16:00 98.1 75 20 113/58 (76) 100 09/28/18 16:00 Nasal Cannula 2.0 Intake and Output 09/28/18 09/29/18 19:00 07:00 Intake Total 130 ml 460 ml Output Total 200 ml Balance 130 ml 260 ml Free Water 50 ml 100 ml Tube Feeding 80 ml 360 ml Output Urine Total 200 ml # Voids 3 Laboratory Tests 09/29/18 05:20: White Blood Count 9.1, Red Blood Count 2.47L, Hemoglobin 7.9L, Hematocrit 25.8L , Mean Corpuscular Volume 105H, Mean Corpuscular Hemoglobin 31.8H, Mean Corpuscular Hemoglobin Concent 30.4L, Red Cell Distribution Width 14.9H, Platelet Count 154, Mean Platelet Volume 5.6L, Neutrophils (%) (Auto) , Lymphocytes (%) (Auto) , Monocytes (%) (Auto) , Eosinophils (%) (Auto) , Basophils (%) (Auto) , Differential Total Cells Counted 100, Neutrophils % ( Manual) 65, Lymphocytes % (Manual) 18L, Monocytes % (Manual) 8, Eosinophils % ( Manual) 8H, Basophils % (Manual) 0, Myelocytes % 1H, Band Neutrophils 0, Platelet Estimate Adequate, Platelet Morphology Normal, Macrocytosis 1+, Sodium Level 138, Potassium Level 4.1, Chloride Level 103, Carbon Dioxide Level 29, Anion Gap 6, Blood Urea Nitrogen 38H, Creatinine 3.8H, Estimat Glomerular Filtration Rate 14.4, Glucose Level 90, Calcium Level 9.0 Height (Feet): 5 Height (Inches): 5.00 Weight (Pounds): 167 Objective CV RR Lungs CTA LIJ PermCath PARKER AVF + bruit Abd SNT BS +. New PEG in. E no CCE Mely Rincon MD Sep 29, 2018 13:28
--- NOTE | 2018-09-29 13:37 | Surgery Progress Note ---
Surgery Progress Note Subjective Additional Comments labs noted. c diff pending. Objective Last 24 Hour Vital Signs Date Time Temp Pulse Resp B/P (MAP) Pulse Ox O2 Delivery O2 Flow Rate FiO2 09/29/18 12:00 98.7 66 24 90/57 (68) 100 09/29/18 12:00 Nasal Cannula 2.0 09/29/18 08:00 98.5 59 26 96/64 (75) 98 09/29/18 08:00 Nasal Cannula 2.0 09/29/18 07:40 61 09/29/18 05:07 99.4 09/29/18 04:00 98.4 69 20 126/69 (88) 100 09/29/18 04:00 Nasal Cannula 2.0 09/29/18 03:37 65 09/29/18 00:00 98.1 76 20 119/60 (79) 100 09/29/18 00:00 Nasal Cannula 2.0 09/28/18 23:28 73 09/28/18 20:00 Nasal Cannula 2.0 09/28/18 20:00 98.1 68 20 109/55 (73) 100 09/28/18 19:42 73 09/28/18 16:00 73 09/28/18 16:00 98.1 75 20 113/58 (76) 100 09/28/18 16:00 Nasal Cannula 2.0 I&O Intake and Output 09/28/18 09/29/18 19:00 07:00 Intake Total 130 ml 460 ml Output Total 200 ml Balance 130 ml 260 ml Free Water 50 ml 100 ml Tube Feeding 80 ml 360 ml Output Urine Total 200 ml # Voids 3 Dressing: other Wound: other Drains: other Cardiovascular: RSR Respiratory: clear Abdomen: soft, present bowel sounds Extremities: other Laboratory Tests Test 09/29/18 05:20 White Blood Count 9.1 K/UL (4.8-10.8) Red Blood Count 2.47 M/UL (4.20-5.40) L Hemoglobin 7.9 G/DL (12.0-16.0) L Hematocrit 25.8 % (37.0-47.0) L Mean Corpuscular Volume 105 FL (80-99) H Mean Corpuscular Hemoglobin 31.8 PG (27.0-31.0) H Mean Corpuscular Hemoglobin Concent 30.4 G/DL (32.0-36.0) L Red Cell Distribution Width 14.9 % (11.6-14.8) H Platelet Count 154 K/UL (150-450) Mean Platelet Volume 5.6 FL (6.5-10.1) L Neutrophils (%) (Auto) % (45.0-75.0) Lymphocytes (%) (Auto) % (20.0-45.0) Monocytes (%) (Auto) % (1.0-10.0) Eosinophils (%) (Auto) % (0.0-3.0) Basophils (%) (Auto) % (0.0-2.0) Differential Total Cells Counted 100 Neutrophils % (Manual) 65 % (45-75) Lymphocytes % (Manual) 18 % (20-45) L Monocytes % (Manual) 8 % (1-10) Eosinophils % (Manual) 8 % (0-3) H Basophils % (Manual) 0 % (0-2) Myelocytes % 1 % (0-0) H Band Neutrophils 0 % (0-8) Platelet Estimate Adequate Platelet Morphology Normal Macrocytosis 1+ Sodium Level 138 MMOL/L (136-145) Potassium Level 4.1 MMOL/L (3.5-5.1) Chloride Level 103 MMOL/L (98-107) Carbon Dioxide Level 29 MMOL/L (21-32) Anion Gap 6 mmol/L (5-15) Blood Urea Nitrogen 38 mg/dL (7-18) H Creatinine 3.8 MG/DL (0.55-1.30) H Estimat Glomerular Filtration Rate 14.4 mL/min (>60) Glucose Level 90 MG/DL (74-106) Calcium Level 9.0 MG/DL (8.5-10.1) Plan Problems: (1) Sacral decubitus ulcer Assessment & Plan: Pt presents on admission with Unstageable pressure injury Sacrum. Wound indurated with dark center but unable to fully assess base of wound secondary to shape and epibole along borders (L)3.8cm x (W)1cm . Pt also verbalized tenderness when minimally palpated. An area of hyperpigmentation from previous wound L buttocks. Both heels are dry, Blanchable with scattered brown pigmentations. Tx Plan: Apply Moisture Barrier to Sacrum .Cover with Optifoam drsg .Change every 3 days and prn. Apply Cavilon Skin Barrier to both heels.Cover with Optifoam drsg .Change every 7 days and prn. APM/JOHN mattress. Reposition at least every 2 hours or as tolerated. Off-load heels with pillow. (2) Failure to thrive in adult Assessment & Plan: recommend feeding access as she is not taking enough po intake to meet caloric needs wounds need nutritional optimization to heal okay to use peg nutritional consult cont feeds thank you (3) Severe malnutrition Assessment & Plan: DAILY ESTIMATED NEEDS: Needs based on ESRD+HD, wound/ 63.6kg 25-30 kcals/kg 6834-2017 total kcals 1.25-1.8 g protein/kg 79-114 g total protein 20-22 mL/kg 1782-7838 total fluid mLs NUTRITION DIAGNOSIS: * Increased kcal/prot needs R/T wound healing, renal dysfunction as evidenced by unstageable wound @ sacrum, ESRD dx, on HD. * Swallowing difficulty R/T dysphagia as evidenced by s/p PEG placement, on GT feeding. CURRENT TF:Nepro @ 40ml/hr x 22 hrs ENTERAL NUTRITION RECOMMENDATIONS: Nepro @ 45ml/hr x 22 hrs to provide 990ml, 1782kcal, 80g prot 720ml free water * Increase goal rate to 45ml/hr x 22 hrs * Hold 1 hr before and after Synthroid med * HOB over 30 degrees/ water flush per MD ADDITIONAL RECOMMENDATIONS: * Re-calibrated bedscale wt for accurate CBW- w/ added SPR mattress * Wound healing: Add Orion 1pkt BID * Monitor BGs for need for hypoglycemic agents- h/o DM * Monitor lytes closely, replete as needed Herson Walter Sep 29, 2018 13:37
--- NOTE | 2018-09-29 13:51 | NUR ---
NURSE NOTES: [facility] contacted and spoke to Itzel regarding pt's scheduled dialysis treatment for tomorrow 09/29/18. Documented in dialysis log. Addendum: 09/29/18 at 1532 by MAL GARNER RN CORRECTION TO PREVIOUS NOTE: DIALYSIS IS SCHEDULED FOR 09/30/2018. CONFIRMED WITH [facility]. SPOKE WITH ITZEL.
[2018-09-29 16:00] VITALS: BP 93/58
--- NOTE | 2018-09-29 17:51 | NUR ---
NURSE NOTES: Order received for STAT C-Diff collect, however, pt has not had BM in the afternoon during my shift.
--- NOTE | 2018-09-29 19:35 | NUR ---
NURSE NOTES: Received report from Cecy Levy RN. Patient is awake in bed. No s/s of acute distress noted. Sinus rhythm on cardiac nurse practitioner. Saturating well on 2L O2 via nasal cannula. Receiving Nepro @ 40 cc/hr via GT and tolerating well. Purewick catheter in place and suctioning well. Right upper arm AV shunt, left upper arm AV shunt, and right permicath noted. Left forearm 22g IV TKO, intact and patent. Bed locked in lowest position with padded side rails up x3. Call light left within reach. Will continue to monitor.
--- NOTE | 2018-09-29 19:47 | NUR ---
HAND-OFF: Report given to Que MCDONALD. Pt is resting in bed in stable condition. Endorsed plan of care, including order for STAT C-Diff collect, however no BM this afternoon during my shift.
[2018-09-29 20:00] VITALS: BP 121/61
[2018-09-29] MEDS: Atorvastatin 20mg tab ORAL SCH (20:48)
[2018-09-29] MEDS: Dyna-Hex 2% Top Sol 2oz TOPIC SCH (20:48)
[2018-09-29] MEDS ORDERED: Metoclopramide 10mg/2ml Inj IVP PRN (22:00)
--- NOTE | 2018-09-29 22:03 | NUR ---
NURSE NOTES: Gastric residual >100 cc for more than 1 hour. Allen ASSISTANT NURSE MANAGER made aware. New order received. Noted and carried out. Will continue to hold GT feeding until residual < 100cc.
[2018-09-29] MEDS: Metoclopramide 10mg/2ml Inj IVP SCH (22:30)
[2018-09-30] VITALS: BP 121/59
[2018-09-30 04:00] VITALS: BP 120/58
[2018-09-30 06:14] LABS: HEMATOCRIT 26.9 % (37.0-47.0); HEMOGLOBIN 7.8 G/DL (12.0-16.0); MEAN CORPUSCULAR VOLUME 104 FL (80-99); PLATELET COUNT 166 K/UL (150-450); RED BLOOD COUNT 2.58 M/UL (4.20-5.40); RED CELL DISTRIBUTION WIDTH 14.4 % (11.6-14.8); WHITE BLOOD COUNT 10.3 K/UL (4.8-10.8)
[2018-09-30] MEDS: Metoclopramide 10mg/2ml Inj IVP SCH (06:24)
[2018-09-30] MEDS: NovoLOG Insulin Flexpen SUBQ SCH ×3 (06:25→16:15)
[2018-09-30 06:29] LABS: ANION GAP 8 mmol/L (5-15); BLOOD UREA NITROGEN 49 mg/dL (7-18); CALCIUM 9.1 MG/DL (8.5-10.1); CARBON DIOXIDE 27 MMOL/L (21-32); CHLORIDE 102 MMOL/L (98-107); CREATININE 4.1 MG/DL (0.55-1.30); POTASSIUM 3.9 MMOL/L (3.5-5.1); SODIUM 137 MMOL/L (136-145)
[2018-09-30] MEDS ORDERED: Metoclopramide 10mg/2ml Inj IVP PRN (06:45)
--- NOTE | 2018-09-30 07:20 | NUR ---
HAND-OFF: Report given to Thierry Gerard RN.
[2018-09-30 08:00] VITALS: BP 116/62
--- NOTE | 2018-09-30 08:00 | NUR ---
NURSE NOTES: Received report from HARRY Lima. Pt is asleep in bed, awakens to name/voice. No signs/symptoms of pain or discomfort noted. On 2L of oxygen via nasal cannula. GT in place, infusing Nepro 1.8 at 40ml/hr, tolerating well with no residual, and no episodes of nausea/vomiting. Skin is intact, with redness at sacral area, optifoam in place, dry/intact, will reassess and change as needed during my shift. Pt had dialysis yesterday, 2L out, still able to urinate small amount, external catheter in place, draining small amount of clear/dark yellow urine. Bilateral SCDs in place on lower extremities, on pressure relieving mattress. Pt is placed on fall, aspiration and seizure precautions: side rails padded, suction set up at bedside, head of bed at 30degrees, bed in lowest position, three side rails up, brakes engaged, alarm on. HD scheduled for today. Will continue to monitor pt and follow plan of care per MD orders and protocol.
--- NOTE | 2018-09-30 08:38 | NUR ---
NURSE NOTES:WOUND CARE FOLLOW-UP NOTES:sacral wound resolving base of wound is pale pink and dry (L)1.3cm x (W)0.4cm .dark skin tone periwound without induration. L buttocks wound resolved .Both heels are callused without erythema, with scattered brown pigmentations noted to both heels . No new skin concerns noted.
[2018-09-30] MEDS: Depakote 125mg Sprinkles GT SCH (09:00)
[2018-09-30] MEDS: Renvela 800mg Pkt GT SCH ×2 (09:00→13:00)
[2018-09-30] MEDS: Docusate 100mg/10ml Liq GT SCH (09:00)
[2018-09-30] MEDS: Vitamin D 1000 IU Tab ORAL SCH (09:00)
[2018-09-30] MEDS: carBAMazepine 200mg tab ORAL SCH (09:00)
[2018-09-30] MEDS: Eliquis 2.5mg tablet ORAL SCH (09:00)
--- NOTE | 2018-09-30 09:46 | Infectious Diseases Prog Note ---
Assessment/Plan Assessment/Plan antibiotics : none A 1. leucocytosis resolved 2. diabetes mellitus 3, hypertension 4. renal failure on dialysis 5. rectal VRE colonization P 1. continue off antibiotics Subjective ROS Limited/Unobtainable: Yes Allergies: Coded Allergies: PENICILLINS (Unverified Allergy, Unknown, 04/23/18) Objective Vital Signs Last 24 Hour Vital Signs Date Time Temp Pulse Resp B/P (MAP) Pulse Ox O2 Delivery O2 Flow Rate FiO2 09/30/18 04:00 97.7 69 20 120/58 (78) 100 09/30/18 04:00 Nasal Cannula 2.0 09/30/18 03:25 72 09/30/18 00:00 98.3 80 20 121/59 (79) 99 09/30/18 00:00 Nasal Cannula 2.0 09/29/18 23:30 78 09/29/18 20:00 79 09/29/18 20:00 98.3 77 20 121/61 (81) 100 09/29/18 20:00 Nasal Cannula 2.0 09/29/18 16:00 72 09/29/18 16:00 Nasal Cannula 2.0 09/29/18 16:00 98.2 72 24 93/58 (70) 100 09/29/18 12:00 68 09/29/18 12:00 98.7 66 24 90/57 (68) 100 09/29/18 12:00 Nasal Cannula 2.0 Height (Feet): 5 Height (Inches): 5.00 Weight (Pounds): 168 Respiratory/Chest: lungs clear Cardiovascular: normal rate, regular rhythm, no gallop/murmur Abdomen: soft, non tender, other - GT Extremities: no edema, other - right subclavian Laboratory Tests Test 09/30/18 04:55 White Blood Count 10.3 K/UL (4.8-10.8) Red Blood Count 2.58 M/UL (4.20-5.40) L Hemoglobin 7.8 G/DL (12.0-16.0) L Hematocrit 26.9 % (37.0-47.0) L Mean Corpuscular Volume 104 FL (80-99) H Mean Corpuscular Hemoglobin 30.4 PG (27.0-31.0) Mean Corpuscular Hemoglobin Concent 29.2 G/DL (32.0-36.0) L Red Cell Distribution Width 14.4 % (11.6-14.8) Platelet Count 166 K/UL (150-450) Mean Platelet Volume 5.4 FL (6.5-10.1) L Neutrophils (%) (Auto) % (45.0-75.0) Lymphocytes (%) (Auto) % (20.0-45.0) Monocytes (%) (Auto) % (1.0-10.0) Eosinophils (%) (Auto) % (0.0-3.0) Basophils (%) (Auto) % (0.0-2.0) Differential Total Cells Counted 100 Neutrophils % (Manual) 76 % (45-75) H Lymphocytes % (Manual) 19 % (20-45) L Monocytes % (Manual) 2 % (1-10) Eosinophils % (Manual) 3 % (0-3) Basophils % (Manual) 0 % (0-2) Band Neutrophils 0 % (0-8) Platelet Estimate Adequate Platelet Morphology Normal Macrocytosis 1+ Tear Drop Cells Rare Ovalocytes 1+ Amanda Cells Occasional Sodium Level 137 MMOL/L (136-145) Potassium Level 3.9 MMOL/L (3.5-5.1) Chloride Level 102 MMOL/L (98-107) Carbon Dioxide Level 27 MMOL/L (21-32) Anion Gap 8 mmol/L (5-15) Blood Urea Nitrogen 49 mg/dL (7-18) H Creatinine 4.1 MG/DL (0.55-1.30) H Estimat Glomerular Filtration Rate 13.2 mL/min (>60) Glucose Level 95 MG/DL (74-106) Calcium Level 9.1 MG/DL (8.5-10.1) Phosphorus Level 3.1 MG/DL (2.5-4.9) Current Medications Medications (Trade) Dose Ordered Sig/Kaleigh Route PRN Reason Start Time Stop Time Status Last Admin Dose Admin Acetaminophen (Tylenol) 650 mg Q6H PRN ORAL Mild Pain/Temp > 100.5 09/26/18 16:00 10/23/18 15:59 09/29/18 04:37 Apixaban (Eliquis) 2.5 mg EVERY 12 HOURS ORAL 09/26/18 21:00 10/23/18 08:59 09/30/18 09:00 Atorvastatin Calcium (Lipitor) 40 mg BEDTIME ORAL 09/26/18 21:00 10/23/18 20:59 09/29/18 20:48 Carbamazepine (TEGretol) 300 mg DAILY ORAL 09/27/18 09:00 10/23/18 08:59 09/30/18 09:00 Chlorhexidine Gluconate (Marilyn-Hex 2%) 1 applic DAILY@2000 TOPIC 09/26/18 20:00 10/26/18 19:59 09/29/18 20:48 Dextrose (Dextrose 50%) 25 ml Q30M PRN IV Hypoglycemia 09/26/18 16:30 10/23/18 02:29 Dextrose (Dextrose 50%) 50 ml Q30M PRN IV Hypoglycemia 09/26/18 16:30 10/23/18 02:29 Diphenhydramine HCl (Benadryl) 25 mg Q6H PRN ORAL Itching 09/26/18 16:00 10/23/18 15:59 Divalproex Sodium (Depakote Sprinkles) 500 mg DAILY GT 09/27/18 09:30 10/27/18 09:29 09/30/18 09:00 Docusate Sodium (Colace) 250 mg TWICE A DAY GT 09/26/18 18:00 10/26/18 09:29 09/30/18 09:00 Escitalopram Oxalate (Lexapro) 10 mg DAILY ORAL 09/27/18 09:00 10/25/18 08:59 09/30/18 09:00 Insulin Aspart (NovoLOG) BEFORE MEALS AND HS SUBQ 09/26/18 16:30 10/23/18 06:29 Levothyroxine Sodium (Synthroid) 100 mcg DAILY@0630 ORAL 09/27/18 06:30 10/23/18 06:29 09/30/18 06:24 Metoclopramide HCl (Reglan) 10 mg Q8H PRN IVP Abdominal cramps 09/30/18 06:45 10/29/18 21:59 Risperidone (RisperDAL) 4 mg BEDTIME ORAL 09/29/18 21:00 10/29/18 20:59 09/29/18 20:48 Sevelamer Carbonate (Renvela) 800 mg THREE TIMES A DAY GT 09/27/18 09:00 10/27/18 08:59 09/30/18 09:00 Sodium Chloride 1,000 ml @ 500 mls/hr Q2H PRN IVLG sbp<90 during hd 09/30/18 13:28 09/30/18 23:59 Vitamin D (Vitamin D) 1,000 intlu DAILY ORAL 09/27/18 09:00 10/23/18 08:59 09/30/18 09:00 Tha Dalal MD Sep 30, 2018 09:46
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
[2018-09-30 12:00] VITALS: BP 131/59
--- NOTE | 2018-09-30 12:16 | General Progress Note ---
Assessment/Plan Problem List: (1) MDD (major depressive disorder), recurrent episode, moderate ICD Codes: F33.1 - Major depressive disorder, recurrent, moderate SNOMED: 57289654, 798595405 (2) Psychotic disorder ICD Codes: F29 - Unspecified psychosis not due to a substance or known physiological condition SNOMED: 38332097 (3) Encephalopathy due to metabolic factor or toxin SNOMED: 730085593 (4) Failure to thrive in adult ICD Codes: R62.7 - Adult failure to thrive SNOMED: 752982553 Status: stable Assessment/Plan Risperdal 4mg po qhs the pt lacks capacity to make decisions. provided ro/st Subjective Neurologic/Psychiatric: Reports: anxiety Allergies: Coded Allergies: PENICILLINS (Unverified Allergy, Unknown, 04/23/18) Subjective the pt cont to be confuse and delusional the pt not refusing care compliant with meds Objective Last 24 Hour Vital Signs Date Time Temp Pulse Resp B/P (MAP) Pulse Ox O2 Delivery O2 Flow Rate FiO2 09/30/18 08:00 98.0 71 20 116/62 (80) 100 09/30/18 08:00 77 09/30/18 08:00 Nasal Cannula 2.0 09/30/18 04:00 97.7 69 20 120/58 (78) 100 09/30/18 04:00 Nasal Cannula 2.0 09/30/18 03:25 72 09/30/18 00:00 98.3 80 20 121/59 (79) 99 09/30/18 00:00 Nasal Cannula 2.0 09/29/18 23:30 78 09/29/18 20:00 79 09/29/18 20:00 98.3 77 20 121/61 (81) 100 09/29/18 20:00 Nasal Cannula 2.0 09/29/18 16:00 72 09/29/18 16:00 Nasal Cannula 2.0 09/29/18 16:00 98.2 72 24 93/58 (70) 100 Intake and Output 09/29/18 09/30/18 19:00 07:00 Intake Total 530 ml 210 ml Output Total 100 ml 100 ml Balance 430 ml 110 ml Intake Oral 400 ml Free Water 50 ml 50 ml Tube Feeding 80 ml 160 ml Output Urine Total 100 ml 100 ml Laboratory Tests 09/30/18 04:55: White Blood Count 10.3, Red Blood Count 2.58L, Hemoglobin 7.8L, Hematocrit 26.9L , Mean Corpuscular Volume 104H, Mean Corpuscular Hemoglobin 30.4, Mean Corpuscular Hemoglobin Concent 29.2L, Red Cell Distribution Width 14.4, Platelet Count 166, Mean Platelet Volume 5.4L, Neutrophils (%) (Auto) , Lymphocytes (%) (Auto) , Monocytes (%) (Auto) , Eosinophils (%) (Auto) , Basophils (%) (Auto) , Differential Total Cells Counted 100, Neutrophils % ( Manual) 76H, Lymphocytes % (Manual) 19L, Monocytes % (Manual) 2, Eosinophils % ( Manual) 3, Basophils % (Manual) 0, Band Neutrophils 0, Platelet Estimate Adequate, Platelet Morphology Normal, Macrocytosis 1+, Tear Drop Cells Rare, Ovalocytes 1+, Dutton Cells Occasional, Sodium Level 137, Potassium Level 3.9, Chloride Level 102, Carbon Dioxide Level 27, Anion Gap 8, Blood Urea Nitrogen 49H, Creatinine 4.1H, Estimat Glomerular Filtration Rate 13.2, Glucose Level 95 , Calcium Level 9.1, Phosphorus Level 3.1 Height (Feet): 5 Height (Inches): 5.00 Weight (Pounds): 159 General Appearance: WD/WN, no apparent distress, alert, confused Jaguar Palmer MD Sep 30, 2018 12:16
--- NOTE | 2018-09-30 14:21 | Surgery Progress Note ---
Surgery Progress Note Subjective Symptoms: improved Additional Comments no acute events. labs noted. micro noted. Objective Last 24 Hour Vital Signs Date Time Temp Pulse Resp B/P (MAP) Pulse Ox O2 Delivery O2 Flow Rate FiO2 09/30/18 08:00 98.0 71 20 116/62 (80) 100 09/30/18 08:00 77 09/30/18 08:00 Nasal Cannula 2.0 09/30/18 04:00 97.7 69 20 120/58 (78) 100 09/30/18 04:00 Nasal Cannula 2.0 09/30/18 03:25 72 09/30/18 00:00 98.3 80 20 121/59 (79) 99 09/30/18 00:00 Nasal Cannula 2.0 09/29/18 23:30 78 09/29/18 20:00 79 09/29/18 20:00 98.3 77 20 121/61 (81) 100 09/29/18 20:00 Nasal Cannula 2.0 09/29/18 16:00 72 09/29/18 16:00 Nasal Cannula 2.0 09/29/18 16:00 98.2 72 24 93/58 (70) 100 I&O Intake and Output 09/29/18 09/30/18 19:00 07:00 Intake Total 530 ml 210 ml Output Total 100 ml 100 ml Balance 430 ml 110 ml Intake Oral 400 ml Free Water 50 ml 50 ml Tube Feeding 80 ml 160 ml Output Urine Total 100 ml 100 ml Dressing: other Wound: other Drains: other Cardiovascular: RSR Respiratory: clear Abdomen: soft, present bowel sounds, non-distended Extremities: other Laboratory Tests Test 09/30/18 04:55 White Blood Count 10.3 K/UL (4.8-10.8) Red Blood Count 2.58 M/UL (4.20-5.40) L Hemoglobin 7.8 G/DL (12.0-16.0) L Hematocrit 26.9 % (37.0-47.0) L Mean Corpuscular Volume 104 FL (80-99) H Mean Corpuscular Hemoglobin 30.4 PG (27.0-31.0) Mean Corpuscular Hemoglobin Concent 29.2 G/DL (32.0-36.0) L Red Cell Distribution Width 14.4 % (11.6-14.8) Platelet Count 166 K/UL (150-450) Mean Platelet Volume 5.4 FL (6.5-10.1) L Neutrophils (%) (Auto) % (45.0-75.0) Lymphocytes (%) (Auto) % (20.0-45.0) Monocytes (%) (Auto) % (1.0-10.0) Eosinophils (%) (Auto) % (0.0-3.0) Basophils (%) (Auto) % (0.0-2.0) Differential Total Cells Counted 100 Neutrophils % (Manual) 76 % (45-75) H Lymphocytes % (Manual) 19 % (20-45) L Monocytes % (Manual) 2 % (1-10) Eosinophils % (Manual) 3 % (0-3) Basophils % (Manual) 0 % (0-2) Band Neutrophils 0 % (0-8) Platelet Estimate Adequate Platelet Morphology Normal Macrocytosis 1+ Tear Drop Cells Rare Ovalocytes 1+ Amanda Cells Occasional Sodium Level 137 MMOL/L (136-145) Potassium Level 3.9 MMOL/L (3.5-5.1) Chloride Level 102 MMOL/L (98-107) Carbon Dioxide Level 27 MMOL/L (21-32) Anion Gap 8 mmol/L (5-15) Blood Urea Nitrogen 49 mg/dL (7-18) H Creatinine 4.1 MG/DL (0.55-1.30) H Estimat Glomerular Filtration Rate 13.2 mL/min (>60) Glucose Level 95 MG/DL (74-106) Calcium Level 9.1 MG/DL (8.5-10.1) Phosphorus Level 3.1 MG/DL (2.5-4.9) Plan Problems: (1) Sacral decubitus ulcer Assessment & Plan: Pt presents on admission with Unstageable pressure injury Sacrum. Wound indurated with dark center but unable to fully assess base of wound secondary to shape and epibole along borders (L)3.8cm x (W)1cm . Pt also verbalized tenderness when minimally palpated. An area of hyperpigmentation from previous wound L buttocks. Both heels are dry, Blanchable with scattered brown pigmentations. Tx Plan: Apply Moisture Barrier to Sacrum .Cover with Optifoam drsg .Change every 3 days and prn. Apply Cavilon Skin Barrier to both heels.Cover with Optifoam drsg .Change every 7 days and prn. APM/JOHN mattress. Reposition at least every 2 hours or as tolerated. Off-load heels with pillow. (2) Failure to thrive in adult Assessment & Plan: recommend feeding access as she is not taking enough po intake to meet caloric needs wounds need nutritional optimization to heal okay to use peg nutritional consult cont feeds thank you (3) Severe malnutrition Assessment & Plan: DAILY ESTIMATED NEEDS: Needs based on ESRD+HD, wound/ 63.6kg 25-30 kcals/kg 2371-8711 total kcals 1.25-1.8 g protein/kg 79-114 g total protein 20-22 mL/kg 5613-5517 total fluid mLs NUTRITION DIAGNOSIS: * Increased kcal/prot needs R/T wound healing, renal dysfunction as evidenced by unstageable wound @ sacrum, ESRD dx, on HD. * Swallowing difficulty R/T dysphagia as evidenced by s/p PEG placement, on GT feeding. CURRENT TF:Nepro @ 40ml/hr x 22 hrs ENTERAL NUTRITION RECOMMENDATIONS: Nepro @ 45ml/hr x 22 hrs to provide 990ml, 1782kcal, 80g prot 720ml free water * Increase goal rate to 45ml/hr x 22 hrs * Hold 1 hr before and after Synthroid med * HOB over 30 degrees/ water flush per MD ADDITIONAL RECOMMENDATIONS: * Re-calibrated bedscale wt for accurate CBW- w/ added SPR mattress * Wound healing: Add Orion 1pkt BID * Monitor BGs for need for hypoglycemic agents- h/o DM * Monitor lytes closely, replete as needed Herson Walter Sep 30, 2018 14:21
--- NOTE | 2018-09-30 14:47 | Nephrology Progress Note ---
Assessment/Plan Plan VSS. Hemodynamically stable. Reason for hypotension unclear + resolved. DC to SNF. Subjective Subjective In [facility]. "frozen expression" Objective Objective Last 24 Hour Vital Signs Date Time Temp Pulse Resp B/P (MAP) Pulse Ox O2 Delivery O2 Flow Rate FiO2 09/30/18 08:00 98.0 71 20 116/62 (80) 100 09/30/18 08:00 77 09/30/18 08:00 Nasal Cannula 2.0 09/30/18 04:00 97.7 69 20 120/58 (78) 100 09/30/18 04:00 Nasal Cannula 2.0 09/30/18 03:25 72 09/30/18 00:00 98.3 80 20 121/59 (79) 99 09/30/18 00:00 Nasal Cannula 2.0 09/29/18 23:30 78 09/29/18 20:00 79 09/29/18 20:00 98.3 77 20 121/61 (81) 100 09/29/18 20:00 Nasal Cannula 2.0 09/29/18 16:00 72 09/29/18 16:00 Nasal Cannula 2.0 09/29/18 16:00 98.2 72 24 93/58 (70) 100 Intake and Output 09/29/18 09/30/18 19:00 07:00 Intake Total 530 ml 210 ml Output Total 100 ml 100 ml Balance 430 ml 110 ml Intake Oral 400 ml Free Water 50 ml 50 ml Tube Feeding 80 ml 160 ml Output Urine Total 100 ml 100 ml Laboratory Tests 09/30/18 04:55: White Blood Count 10.3, Red Blood Count 2.58L, Hemoglobin 7.8L, Hematocrit 26.9L , Mean Corpuscular Volume 104H, Mean Corpuscular Hemoglobin 30.4, Mean Corpuscular Hemoglobin Concent 29.2L, Red Cell Distribution Width 14.4, Platelet Count 166, Mean Platelet Volume 5.4L, Neutrophils (%) (Auto) , Lymphocytes (%) (Auto) , Monocytes (%) (Auto) , Eosinophils (%) (Auto) , Basophils (%) (Auto) , Differential Total Cells Counted 100, Neutrophils % ( Manual) 76H, Lymphocytes % (Manual) 19L, Monocytes % (Manual) 2, Eosinophils % ( Manual) 3, Basophils % (Manual) 0, Band Neutrophils 0, Platelet Estimate Adequate, Platelet Morphology Normal, Macrocytosis 1+, Tear Drop Cells Rare, Ovalocytes 1+, Amanda Cells Occasional, Sodium Level 137, Potassium Level 3.9, Chloride Level 102, Carbon Dioxide Level 27, Anion Gap 8, Blood Urea Nitrogen 49H, Creatinine 4.1H, Estimat Glomerular Filtration Rate 13.2, Glucose Level 95 , Calcium Level 9.1, Phosphorus Level 3.1 Height (Feet): 5 Height (Inches): 5.00 Weight (Pounds): 159 Objective CV RR Lungs CTA LIJ PermCath PARKER AVF + bruit Abd SNT BS +. New PEG in. E no CCE Mely Rincon MD Sep 30, 2018 14:47
--- NOTE | 2018-09-30 15:09 | NUR ---
*-* DISCHARGE PLANNED *-* PATIENT IS DISCHARGED TO: [facility]# [id number] SKILLED T:[phone] FOR NURSE TO NURSE REPORT [facility] HAS BEEN ARRANGED FOR ASSISTANT SURVEYOR AT 1700 S/W HENNY [id number]
--- NOTE | 2018-09-30 15:30 | NUR ---
NURSE NOTES: Report given to HARRY Boyer at [facility]. Pt is going to room 215-B, ambulance strip picker time at 1700.
[2018-09-30] MEDS ORDERED: NS 275ml ONE ×2 (15:56→17:28)
[2018-09-30 16:00] VITALS: BP 99/65
[2018-09-30] MEDS ORDERED: Tubing IV Secondary IV ONE (17:28)
--- NOTE | 2018-09-30 17:30 | NUR ---
NURSE NOTES: Pt discharged via ambulance. VSS. no belongings.
--- NOTE | 2018-10-01 14:23 | Discharge Summary ---
Discharge Summary Discharge Summary _ DATE OF ADMISSION: 09/22/2018 DATE OF DISCHARGE: 09/30/2018 DISCHARGED BY: Dr. Mely Rincon CONSULTANTS: Dr. Robinson Palmer [facility] HOSPITAL COURSE: Patient is a 63-year-old -[place] female, from [facility], who for the last several weeks, had been losing more than 10 pounds and developed hypoproteinemia. She has medical history significant for end-stage renal failure, type 2 diabetes mellitus, hypothyroidism, psychosis, hypertension, seizure disorder, encephalopathy and hypertensive cardio vascular disease. On evaluation at ED, vital signs were stable. Labs were unremarkable. Chest x- ray did not show any acute disease. Due to failure to thrive and failed attempts to increase her caloric and protein intake, she was admitted for GI evaluation for gastrostomy tube. GI was consulted. Patient was placed on calorie count. Speech therapist was consulted. Psychiatric evaluation was done. Patient was paranoid, uncooperative and was yelling. Patient was delusional and with history of schizophrenia. She was resumed on psych meds. Patient was assessed to lack the capacity to make her own decisions. She was eventually given Risperdal nightly. She was continued on inpatient hemodialysis. Son agreed with plan of care. Patient underwent EGD with PEG tube placement on 09/25/2018. Surgery was called to evaluate patient wounds. She came in with an unstageable pressure injury to the sacrum. She was given wound care. She was placed on APM /JOHN mattress with frequent repositioning and offloading. On 09/26/2018, there was a rise in WBC. Patient was hypotensive. She was started on IVF and was transferred to [facility]. ID was consulted. Patient was started on vancomycin and cefepime pending culture results. She was started on G-tube feeding. She was given Nepro 40ml/hr x 22 hrs. Blood pressure improved. Leukocytosis resolved. Cultures were negative. Antibiotics were discontinued. She again developed an episode of hypotension with "frozen expression". She had foul-smelling stool. Reason for hypotension was unclear, however resolved. She was eventually discharged back to snf. FINAL DIAGNOSES: Sepsis Sacral decubitus ulcer, unstageable, present on admission Failure to thrive, status post PEG placement 09/25/2018 Severe malnutrition Major depressive disorder Psychotic disorder Encephalopathy due to metabolic factor or toxin DISPOSITION: Patient was discharged to a SNF. DISCHARGE MEDICATIONS: Refer to Discharge Medication List. I have been assigned to complete a discharge summary on this account, I was not involved with the patient's management. Rosio Alvarado NP Oct 01, 2018 14:23
== END 2018-09-30 17:29 | DRG 871 ==
LOC: EDBD 22:00 → EMR 22:23 → 4E 23:24 → EDBEDREQ 09-23 01:13 → 4E 09-25 10:02 → 2W 09-26 15:40
PROC: 5A1D70Z Performance of Urinary Filtration, Intermittent, Less than 6 Hours Per Day (ICD-10-PCS; principal; 2018-09-23)
PROC: 0DB78ZX Excision of Stomach, Pylorus, Via Natural or Artificial Opening Endoscopic, Diagnostic (ICD-10-PCS; 2018-09-25 09:18)
PROC: 0DH63UZ Insertion of Feeding Device into Stomach, Percutaneous Approach (ICD-10-PCS; 2018-09-25 09:18)
DX: A41.9 Sepsis, unspecified organism (principal); E43 Unspecified severe protein-calorie malnutrition; N18.6 End stage renal disease; J69.0 Pneumonitis due to inhalation of food and vomit; I12.0 Hypertensive chronic kidney disease with stage 5 chronic kidney disease or end stage renal disease; G93.49 Other encephalopathy; F33.1 Major depressive disorder, recurrent, moderate; E86.0 Dehydration; Z68.23 Body mass index [BMI] 23.0-23.9, adult; R62.7 Adult failure to thrive; Z99.2 Dependence on renal dialysis; E03.9 Hypothyroidism, unspecified; E11.22 Type 2 diabetes mellitus with diabetic chronic kidney disease; N18.9 Chronic kidney disease, unspecified; L89.150 Pressure ulcer of sacral region, unstageable; F29 Unspecified psychosis not due to a substance or known physiological condition; K29.70 Gastritis, unspecified, without bleeding
CPT/HCPCS: 36415; 71045; 80048; 80053; 80202; 82270; 82378; 82607; 82728; 82746; 82962; 83540; 83550; 84100; 84439; 84443; 84484; 85007; 85025; 85044; 85610; 85730; 87040; 87070; 87081; 87205; 93005; 94003; 94150; 99285; J1815; J2765

== ENCOUNTER 2020-07-17 04:56 | Inpatient (IN) | payer MEDICARE, MEDICAID ==
[2020-07-17] VITALS (8 sets, daily range): BP systolic 102–128; BP diastolic 61–102
[~2020-07-17] VITALS: Ht 167.6 cm; Wt 72.6 kg
[~2020-07-17 04:56] MED LIST changes: +COLACE100 MG/10 GT; +DEPAKOTE SPRIN125 M1 GT; +ELIQUIS2.5 MG ORAL; +HIBICLENS118 ML TOPIC; +LACTULOSE20 GM/301 GT; -LACTULOSE20 GM/301 ORAL; +LEXAPRO10 MG ORAL; +LIPITOR20 MG ORAL; +NOVOLOG100 UNITS1 SUBQ; +RISPERDAL2 MG ORAL; +SYNTHROID100 MCG ORAL; +VITAMIN D1000 UNI1 ORAL
[2020-07-17] MEDS ORDERED: LEVETIRACE500 MG/100 IV (05:10)
[2020-07-17] MEDS ORDERED: BISACODYL5 MG ORAL (05:10)
[2020-07-17] MEDS ORDERED: VALPROIC A250 MG/5 M GT (05:10)
[2020-07-17] MEDS ORDERED: MIDODRINE HCL5 MG GT (05:10)
[2020-07-17] MEDS ORDERED: ONDANSETRON4 MG/2 M2 IVP (05:10)
[2020-07-17] MEDS ORDERED: OMEPRAZOLE20 M3 GT (05:10)
[2020-07-17] MEDS ORDERED: METOCLOPRAM5 MG/1 M2 IV (05:10)
[2020-07-17] MEDS ORDERED: PRO-STAT LIQUID30 ML GT (05:10)
[2020-07-17] MEDS ORDERED: NEPHROVITE1 TAB GT (05:10)
--- NOTE | 2020-07-17 05:36 | Emergency Room Report ---
History of Present Illness General Chief Complaint: Dyspnea/Respdistress Source: Patient (Marko Jones MD) Present Illness HPI 65-year-old female presents for evaluation. Shortness of breath. Coming from snf facility. Covid test yesterday positive. O2 sats low at snf facility on room air. Placed on oxygen with symptoms improved. Febrile. Denies chest pain. No other aggravating relieving factors. No other associated symptoms (Marko Jones MD) Allergies: Coded Allergies: PENICILLINS (Unverified Allergy, Unknown, 04/23/18) COVID-19 Screening Contact w/high risk pt: Yes Experienced COVID-19 symptoms?: Yes COVID-19 Testing performed FOREIGN CORRESPONDENT: Yes COVID-19 Screening: Positive COVID-19 COVID-19 Testing Source: 07/16 (Marko Jones MD) Patient History Past Medical History: HTN, asthma, renal disease, dialysis Pertinent Family History: none Social History: Denies: smoking, alcohol use, drug use Now: No Immunizations: UTD Reviewed Nursing Documentation: PMH: Agreed; PSxH: Agreed (Marko Jones MD) Nursing Documentation-PMH Past Medical History: No History, Except For Hx Cardiac Problems: Yes Hx Hypertension: Yes Hx Pacemaker: No Hx Asthma: Yes Hx COPD: No Hx Diabetes: Yes Hx Cancer: No Hx Gastrointestinal Problems: Yes Hx Dialysis: Yes - AV fistula (RIGHT arm) - M, W, F; ESRD Hx Neurological Problems: Yes Hx Cerebrovascular Accident: No Hx Dementia: Yes Hx Seizures: Yes Hx Weakness: Yes (Marko Jones MD) Review of Systems All Other Systems: negative except mentioned in HPI (Marko Jones MD) Physical Exam Vital Signs Date Time Temp Pulse Resp B/P (MAP) Pulse Ox O2 Delivery O2 Flow Rate FiO2 07/17/20 04:58 99.0 100 16 134/77 (96) 98 Room Air Sp02 EP Interpretation: reviewed, normal General Appearance: no apparent distress, alert, GCS 15, non-toxic Head: normocephalic, atraumatic Eyes: bilateral eye normal inspection, bilateral eye PERRL ENT: hearing grossly normal, normal pharynx, no angioedema, normal voice Neck: full range of motion, supple/symm/no masses Respiratory: chest non-tender, lungs clear, normal breath sounds, speaking full sentences Cardiovascular #1: regular rate, rhythm, no edema Cardiovascular #2: 2+ carotid (R), 2+ carotid (L), 2+ radial (R), 2+ radial (L), 2+ dorsalis pedis (R), 2+ dorsalis pedis (L) Gastrointestinal: normal bowel sounds, non tender, soft, non-distended, no guarding, no rebound Rectal: deferred Genitourinary: normal inspection, no CVA tenderness Musculoskeletal: back normal, normal range of motion, gait/station normal, non- tender Neurologic: alert, motor strength/tone normal, oriented x3, sensory intact, responsive, speech normal Psychiatric: judgement/insight normal, memory normal, mood/affect normal, no suicidal/homicidal ideation Reflexes: 3+ bicep (R), 3+ bicep (L), 3+ tricep (R), 3+ tricep (L), 3+ knee (R), 3+ knee (L) Skin: other - see nursing notes Lymphatic: no adenopathy (Marko Jones MD) Medical Decision Making Diagnostic Impression: Primary Impression: COVID-19 Additional Impressions: ESRD (end stage renal disease) on dialysis Respiratory distress UTI (urinary tract infection) ER Course Assumed care of the patient from the previous provider at approximately 0600. Please refer to initial note for full history and physical exam. Briefly, 65-year-old female history of ESRD presents for respiratory distress and hypoxia. Tested positive for COVID-19 yesterday. Bilateral airspace disease on chest x-ray. Received antibiotics. Received steroids. Saturating well on 4 L nasal cannula. Admitted to her PMD, Dr. Rincon. (Fareed Layton MD) EKG Diagnostic Results Troponin ordered: Yes Rate: normal Rhythm: NSR ST Segments: no acute changes ASA given to the pt in ED: No (Marko Jones MD) Rhythm Strip Diag. Results EP Interpretation: yes Rhythm: NSR, no PVC's, no ectopy (Marko Jones MD) Last Vital Signs Date Time Temp Pulse Resp B/P (MAP) Pulse Ox O2 Delivery O2 Flow Rate FiO2 07/17/20 04:58 99.0 100 16 134/77 (96) 98 Room Air (Marko Jones MD) Disposition: ADMITTED INPATIENT Condition: Serious Referrals: Mely Rincon MD (PCP) Marko Jones MD Jul 17, 2020 05:36 Fareed Layton MD Jul 17, 2020 08:08
[2020-07-17] MEDS ORDERED: Acetaminophen 650 MG SUPP RECTAL ONE (05:45)
[2020-07-17 06:40] LABS: BASOPHILS % (AUTO) 0.5 % (0.0-2.0); EOSINOPHILS % (AUTO) 4.3 % (0.0-3.0); HEMATOCRIT 25.3 % (37.0-47.0); HEMOGLOBIN 8.3 G/DL (12.0-16.0); MEAN CORPUSCULAR VOLUME 94 FL (80-99); MONOCYTES % (AUTO) 6.4 % (1.0-10.0); NEUTROPHILS % (AUTO) 77.7 % (45.0-75.0); PLATELET COUNT 210 K/UL (150-450); RED CELL DISTRIBUTION WIDTH 16.3 % (11.6-14.8); WHITE BLOOD COUNT 9.9 K/UL (4.8-10.8)
[2020-07-17] MEDS ORDERED: Levofloxacin 750mg tab ORAL ONE (06:45)
--- NOTE | 2020-07-17 06:53 | Diagnostic Imaging Report ---
EXAM: XR Chest, 1 View CLINICAL HISTORY: SOB TECHNIQUE: Frontal view of the chest. COMPARISON: 09/26/18. FINDINGS: Lungs: Low lung volumes limit evaluation. Patchy bilateral airspace disease. More focal rounded opacity in the right suprahilar region. Follow-up to clearing recommended to exclude underlying mass Pleural space: Blunting of the right costophrenic angle which may reflect tiny effusion. No pneumothorax. Heart: Cardiovascular silhouette likely upper limits of normal accentuated by low lung volume. Mediastinum: Tortuous thoracic aorta is again seen. Bones/joints: Unremarkable. Vasculature: Stent graft in the left axillary region and subclavian region. Tubes, lines and devices: Interval removal of right-sided double-lumen central venous catheter. Overlying chest leads obscure portion of the chest. IMPRESSION: 1. Bilateral patchy airspace disease as described. 2. Suspect tiny right effusion. 3. Low lung volumes limit evaluation.
[2020-07-17 07:00] LABS: CALCIUM 9.4 MG/DL (8.5-10.1); CREATININE 6.8 MG/DL (0.55-1.30)
[2020-07-17 07:06] LABS: ALBUMIN 2.5 G/DL (3.4-5.0); ALBUMIN/GLOBULIN RATIO 0.5 (1.0-2.7); BILIRUBIN,TOTAL 0.3 MG/DL (0.2-1.0)
[2020-07-17 07:53] LABS: APPEARANCE,URINE SLIGHTLY CLOUDY; BILIRUBIN, URINE 1+ (NEGATIVE); GLUCOSE, URINE (UA) NEGATIVE (NEGATIVE); KETONES,URINE NEGATIVE (NEGATIVE); LEUKOCYTE ESTERASE ,URINE 1+ (NEGATIVE); NITRITE,URINE NEGATIVE (NEGATIVE); PH,URINE 5 (4.5-8.0); PROTEIN,URINE 3+ (NEGATIVE); UROBILINOGEN,URINE NORMAL MG/DL (0.0-1.0)
[2020-07-17 07:58] LABS: INR 0.9 (0.9-1.1)
[2020-07-17 08:01] LABS: COLOR,URINE YELLOW
[2020-07-17] MEDS ORDERED: dexAMETHasone 10mg/ml Inj IV ONE (08:15)
--- NOTE | 2020-07-17 09:45 | History and Physical Report ---
DATE OF ADMISSION: 07/17/2020 CHIEF COMPLAINT: Shortness of breath. HISTORY OF PRESENT ILLNESS: This is a 65-year-old female from [facility], who has developed COVID-19 during the last two weeks. The nursing staff decided to send the patient to the hospital via 911 due to shortness of breath. The patient herself is nonverbal due to severe dementia. The patient looks to me at her baseline in the ED. PAST MEDICAL HISTORY: 1. End-stage renal failure due to diabetic nephropathy. 2. Advanced dementia. 3. Hypertensive cardiovascular disease. 4. Psychosis. 5. COPD. 6. Anemia of chronic kidney disease. 7. Recurrent septicemia. 8. Hypothyroidism. MEDICATIONS: Zofran p.r.n., Pro-Stat liquid, zinc sulfate, Tylenol p.r.n., Synthroid, melatonin, Reglan, midodrine, omeprazole, and Celexa. ALLERGIES: No known drug allergies. FAMILY HISTORY: Unable to obtain. The patient is confused. SOCIAL HISTORY: Unable to obtain. The patient is confused. REVIEW OF SYSTEMS: Unable to obtain. The patient is confused. PHYSICAL EXAMINATION: GENERAL: This is an elderly female, who is in no acute distress. VITAL SIGNS: Blood pressure 104/61, pulse 88 and regular, respirations 20. HEENT: The head is normocephalic and atraumatic. Pupils are equal, round, and reactive to light. NECK: Supple. Trachea midline. There was no lymphadenopathy or thyromegaly. LUNGS: Few bilateral rhonchi. HEART: Regular rate and rhythm without rubs, murmurs, or gallops. ABDOMEN: Soft and nontender. Bowel sounds were active. She has a G-tube. EXTREMITIES: No clubbing, cyanosis, or edema. She has a left upper arm AV fistula. NEUROLOGIC: She is alert, but nonverbal. LABORATORY AND ANCILLARY DATA: CBC, hematocrit 25.3, otherwise within normal limits. Chemistry, BUN 77, creatinine 6.8. Ferritin 1942. Lipase is 1301. IMAGING REPORT: Chest x-ray, bilateral patchy airspace disease, suspect tiny right effusion. ASSESSMENT: 1. Bilateral COVID-19 pneumonia with hypoxemia. 2. End-stage renal failure due to diabetic nephropathy. 3. Advanced dementia. 4. Hypertensive cardiovascular disease. 5. Psychosis. 6. COPD. 7. Anemia of chronic kidney disease. 8. Recurrent septicemia. 9. Hypothyroidism. PLAN: 1. Admit to telemetry. 2. ID consult 3. Continue skilled nursing medications. 4. Hemodialysis Friday, Friday, and Friday. 5. Discharge as soon as feasible back to skilled nursing. Mely Rincon M.D. DR: GEOVANNA JOB#: [id number] CC: [email or web address]
--- NOTE | 2020-07-17 11:15 | Consultation ---
DATE OF CONSULTATION: 07/17/2020 PULMONARY CONSULTATION CONSULTING PHYSICIAN: Sreekanth Preciado M.D. REASON FOR CONSULTATION: COVID pneumonia. HISTORY OF PRESENT ILLNESS: This is a 65-year-old female presents from a shelter facility. The patient's COVID tested was noted to be positive. The patient also with low oxygen saturation. The patient now admitted for further care and management. The patient is seen in the emergency room. The patient's care discussed and reviewed with the primary admitting physician. The patient's history is somewhat limited. The patient is a dialysis patient as well, care noted and reviewed. PAST MEDICAL HISTORY: Notable for hypertension, asthma, end-stage renal disease, on dialysis. MEDICATIONS: Reviewed. ALLERGIES: Reviewed. SOCIAL HISTORY: correction patient. Nonsmoker and nondrinker. REVIEW OF SYSTEMS: Otherwise as above. The patient does have an AV fistula. The patient with dementia, seizures and diffuse weakness. FAMILY HISTORY: Not available. PHYSICAL EXAMINATION: GENERAL: Chronic ill-appearing female. VITAL SIGNS: Reviewed. Respiratory rate 25, blood pressure 108/62, T-max 101.6, sats 99% on 4 liters. HEENT: Overall negative. Remainder of the exam deferred as the patient has COVID. LABORATORY AND DIAGNOSTIC DATA: Lab data otherwise reviewed. Hemoglobin 8.3, platelets of 210. Chemistries noted. BUN noted, creatinine 6.8. C-reactive protein 19.2, albumin 2.5. The patient's x-ray with patchy airspace disease. Small right pleural effusion. IMPRESSION: 1. Acute hypoxemic respiratory failure. Multifocal infiltrates. Small pleural effusion. 2. End-stage renal disease. 3. Anemia of chronic disease. 4. Elevated C-reactive protein. 5. Dementia. 6. Chronic encephalopathy. 7. Chronic debility. RECOMMENDATION: Admit. Start the patient on IV Decadron. ID for IV remdesivir. DVT prophylaxis. Hemodialysis with ultrafiltration. Monitor for worsening respiratory distress, oxygen therapy, and we will monitor clinically for changes. Sreekanth Preciado M.D. : LUTHER JOB#: [id number] CC: MIKAYLA
--- NOTE | 2020-07-17 13:45 | Consultation ---
DATE OF CONSULTATION: 07/17/2020 INFECTIOUS DISEASES CONSULTATION CONSULTING PHYSICIAN: Tha Dalal MD. REFERRING PHYSICIAN: Mely Rincon MD. REASON FOR CONSULTATION: COVID-19 pneumonia. HISTORY OF PRESENTING ILLNESS: This is a 65-year-old lady, who came in from [facility] with COVID-19. An Infectious Diseases consultation has been obtained for antibiotics. PAST MEDICAL HISTORY: 1. History of renal failure due to diabetic nephropathy. 2. Diabetes. 3. Dementia. 4. Hypertension. 5. Psychosis. 6. COPD. 7. Hypothyroidism. SOCIAL HISTORY: Unknown. FAMILY HISTORY: Unknown. REVIEW OF SYSTEMS: Unable to obtain currently. MEDICATIONS: She has received dexamethasone in the ER, Levaquin, Tylenol. ALLERGIES: To penicillin noted. PHYSICAL EXAMINATION: VITAL SIGNS: Temperature was 99.2, T-max of 101.6, pulse of 73, respiratory rate of 18, blood pressure 104/62, O2 saturation of 100% on 4 liters of nasal cannula. Examination deferred due to COVID-19. LABORATORY AND DIAGNOSTIC DATA: White count 9.9, hemoglobin 8.3, hematocrit 25.3, MCV 94, platelet count of 210, neutrophils of 77%. Sodium 137, potassium 4, chloride 98, bicarb 28, BUN 77, creatinine 6.8, glucose 112, calcium 9.4, ferritin 1942. Total bilirubin 0.3. AST 73, ALT 56, alkaline phosphatase 67, LDH 345. C-reactive protein of 19.2. Total protein 7.4, albumin 2.5, lipase 1301. UA showing 5 to 10 white cells. Chest x-ray is showing bibasilar patchy airspace disease, tiny right-sided pleural effusion. ASSESSMENT: This is a 65-year-old lady with history of hypertension, diabetes, renal failure, on dialysis, dementia, psychosis, who comes in with shortness of breath and was found to have. 1. COVID-19 pneumonia. She is on 4 liters of oxygen with 100% O2 saturation. 2. Diabetes. 3. Hypertension. 4. Renal failure, on dialysis. PLAN: 1. We will start the patient on ivermectin. Benefits outweigh the risks. 2. She does not qualify for remdesivir because of renal failure. 3. Continue dexamethasone, day 1. 4. Continue isolation. 5. We will follow up the patient clinically. I would like to thank, Dr. Rincon, for this consultation. Tha Dalal M.D. DR: JACK JOB#: [id number] CC: Mely Rincon MD.; Fax#: [phone]
[2020-07-17] MEDS ORDERED: Acetaminophen 650mg/20.3ml GT PRN ×2 (15:15)
[2020-07-17] MEDS: Docusate 100mg/10ml Liq GT SCH (17:36)
[2020-07-17] MEDS: Metoclopramide 10mg/10ml Liq GT SCH (17:37)
[2020-07-17] MEDS ORDERED: Heparin Sod 1000 units/ml 10ml IV PRN (18:30)
[2020-07-17] MEDS: Atorvastatin 20mg tab GT SCH (21:42)
[2020-07-17] MEDS: levETIRAcetam 500mg/5ml Liquid GT SCH (21:43)
[2020-07-17] MEDS: Heparin 5000 units/ml inj SUBQ SCH (21:49)
[2020-07-18] VITALS: BP 113/65
[2020-07-18 04:00] VITALS: BP 117/65
[2020-07-18] MEDS ORDERED: Heparin Sod 1000 units/ml 10ml IV PRN (06:00)
[2020-07-18] MEDS: Heparin 5000 units/ml inj SUBQ SCH ×3 (06:17→21:10)
[2020-07-18 08:00] VITALS: BP 93/65
[2020-07-18] MEDS: Lactulose 10gm/15ml UDC GT SCH (08:39)
[2020-07-18] MEDS: levETIRAcetam 500mg/5ml Liquid GT SCH ×2 (08:39→21:11)
[2020-07-18] MEDS: Docusate 100mg/10ml Liq GT SCH ×2 (08:39→18:53)
[2020-07-18] MEDS: Zinc Sulfate 220mg GT SCH (08:40)
[2020-07-18] MEDS: Valproic Acid 250mg/5ml Liquid GT SCH (08:40)
[2020-07-18] MEDS: Metoclopramide 10mg/10ml Liq GT SCH ×3 (08:40→18:53)
[2020-07-18] MEDS: Nephrovite tab (Rena-Vite) GT SCH (08:40)
--- NOTE | 2020-07-18 10:24 | Pulmonology Progress Note ---
Subjective ROS Limited/Unobtainable: Yes Allergies: Coded Allergies: PENICILLINS (Unverified Allergy, Unknown, 04/23/18) Subjective care noted reviewed care on low flow oxygen Objective Last 24 Hour Vital Signs Date Time Temp Pulse Resp B/P (MAP) Pulse Ox O2 Delivery O2 Flow Rate FiO2 07/18/20 04:00 98.6 91 20 117/65 (82) 97 07/18/20 04:00 90 07/18/20 00:00 97.7 96 20 113/65 (81) 96 07/18/20 00:00 96 07/17/20 21:00 Nasal Cannula 3.0 07/17/20 20:00 99.1 108 17 123/70 (87) 96 07/17/20 20:00 108 07/17/20 17:46 73 17 105/68 (80) 100 07/17/20 16:00 76 07/17/20 16:00 98.0 76 18 102/65 (77) 97 07/17/20 14:36 87 07/17/20 13:48 Nasal Cannula 4.0 07/17/20 13:30 97.7 73 19 113/71 (85) 100 07/17/20 13:09 99.2 73 18 104/62 100 Nasal Cannula 4.0 07/17/20 10:52 99.2 73 18 104/62 100 Nasal Cannula 4.0 Intake and Output 07/17/20 07/18/20 19:00 07:00 Intake Total 305 ml 75 ml Output Total 500 ml Balance 305 ml -425 ml Intake Oral 0 ml Free Water 260 ml 30 ml Tube Feeding 45 ml 45 ml Output Hemodialysis UF 500 ml # Voids 1 Objective deferred due to possible COVID Microbiology Date/Time Source Procedure Growth Status 07/17/20 05:00 Rectal Mucosa Received Current Medications Medications (Trade) Dose Ordered Sig/Kaleigh Route PRN Reason Start Time Stop Time Status Last Admin Dose Admin Acetaminophen (Tylenol) 650 mg DAILYPRN PRN GT Mild Pain (Pain Scale 1-3) 07/17/20 15:15 08/16/20 15:14 Acetaminophen (Tylenol) 650 mg Q4H PRN GT Temp >100.5 07/17/20 15:15 08/16/20 15:14 Atorvastatin Calcium (Lipitor) 40 mg BEDTIME GT 07/17/20 21:00 10/15/20 20:59 07/17/20 21:42 Bisacodyl (Dulcolax) 10 mg DAILYPRN PRN RECTAL Constipation 07/17/20 15:15 10/15/20 15:14 Dexamethasone (Decadron) 6 mg DAILY GT 07/18/20 09:00 07/26/20 09:01 07/18/20 08:40 Docusate Sodium (Colace) 100 mg TWICE A DAY GT 07/17/20 18:00 08/16/20 17:59 07/18/20 08:39 Escitalopram Oxalate (Lexapro) 10 mg EVERY 12 HOURS GT 07/17/20 21:00 08/16/20 20:59 07/18/20 08:40 Heparin Sodium (Porcine) (Heparin 5000 units/ml) 5,000 units EVERY 8 HOURS SUBQ 07/17/20 22:00 08/31/20 21:59 07/18/20 06:17 Lactulose (Cephulac) 20 gm DAILY GT 07/18/20 09:00 08/17/20 08:59 07/18/20 08:39 Levetiracetam (Keppra) 500 mg Q12HR GT 07/17/20 21:00 08/31/20 20:59 07/18/20 08:39 Levothyroxine Sodium (Synthroid) 100 mcg DAILY@0630 GT 07/18/20 06:30 08/17/20 06:29 07/18/20 06:17 Metoclopramide HCl (Reglan) 5 mg TID GT 07/17/20 18:00 08/16/20 17:59 07/18/20 08:40 Midodrine (Pro-Amatine) 5 mg TID GT 07/17/20 18:00 10/15/20 17:59 07/18/20 08:40 Ondansetron HCl (Zofran) 4 mg Q6H PRN GT Nausea & Vomiting 07/17/20 15:15 08/16/20 15:14 Risperidone (RisperDAL) 2 mg BEDTIME GT 07/17/20 21:00 08/31/20 20:59 07/17/20 21:42 Valproic Acid (Depakene) 250 mg DAILY GT 07/18/20 09:00 09/01/20 08:59 07/18/20 08:40 Vitamin B Complex/ Vit C/Folic Acid (Nephrovite) 1 tab DAILY GT 07/18/20 09:00 08/17/20 08:59 07/18/20 08:40 Zinc Sulfate (Zinc Sulfate) 220 mg DAILY GT 07/18/20 09:00 10/16/20 08:59 07/18/20 08:40 Assessment/Plan Assessment/Plan IMPRESSION: 1. Acute hypoxemic respiratory failure. Multifocal infiltrates. Small pleural effusion. 2. End-stage renal disease. 3. Anemia of chronic disease. 4. Elevated C-reactive protein. 5. Dementia. 6. Chronic encephalopathy. 7. Chronic debility. RECOMMENDATION: Admitted and care noted. IV Decadron. ID follow up for remdesivir. DVT prophylaxis. Hemodialysis with ultrafiltration. Monitor for worsening respiratory distress, oxygen therapy, and we will monitor clinically for changes. impression, plan, and exam edited and reviewed in detail care discussed with Sreekanth Yates MD Jul 18, 2020 10:24
[2020-07-18 12:00] VITALS: BP 92/53
--- NOTE | 2020-07-18 13:48 | Nephrology Progress Note ---
Assessment/Plan Plan Covid 19 Pneumonia Remdesevir + Dexa per ID. On O2 3L/min. Stilll needs Hospital stay. ESRD HD MWF. Subjective Subjective More alert. On O2 3L/min Objective Objective Last 24 Hour Vital Signs Date Time Temp Pulse Resp B/P (MAP) Pulse Ox O2 Delivery O2 Flow Rate FiO2 07/18/20 08:00 78 07/18/20 04:00 98.6 91 20 117/65 (82) 97 07/18/20 04:00 90 07/18/20 00:00 97.7 96 20 113/65 (81) 96 07/18/20 00:00 96 07/17/20 21:00 Nasal Cannula 3.0 07/17/20 20:00 99.1 108 17 123/70 (87) 96 07/17/20 20:00 108 07/17/20 17:46 73 17 105/68 (80) 100 07/17/20 16:00 76 07/17/20 16:00 98.0 76 18 102/65 (77) 97 07/17/20 14:36 87 07/17/20 13:48 Nasal Cannula 4.0 Intake and Output 07/17/20 07/18/20 19:00 07:00 Intake Total 305 ml 75 ml Output Total 500 ml Balance 305 ml -425 ml Intake Oral 0 ml Free Water 260 ml 30 ml Tube Feeding 45 ml 45 ml Output Hemodialysis UF 500 ml # Voids 1 Height (Feet): 5 Height (Inches): 6.00 Weight (Pounds): 160 Objective CV RR Lungs few B ronchi Abd SNT. BS + E No CCE Mely Rincon MD Jul 18, 2020 13:47
[2020-07-18 16:00] VITALS: BP 92/72
[2020-07-18 20:00] VITALS: BP 102/53
[2020-07-18] MEDS: Atorvastatin 20mg tab GT SCH (21:11)
[2020-07-19] VITALS: BP 93/55
[2020-07-19 04:00] VITALS: BP 94/48
[2020-07-19] MEDS: Heparin 5000 units/ml inj SUBQ SCH ×3 (05:36→22:00)
[2020-07-19 05:50] LABS: HEMATOCRIT 21.5 % (37.0-47.0); HEMOGLOBIN 7.4 G/DL (12.0-16.0); MEAN CORPUSCULAR VOLUME 90 FL (80-99); PLATELET COUNT 208 K/UL (150-450); RED BLOOD COUNT 2.39 M/UL (4.20-5.40); RED CELL DISTRIBUTION WIDTH 16.7 % (11.6-14.8); WHITE BLOOD COUNT 11.4 K/UL (4.8-10.8)
[2020-07-19] MEDS ORDERED: Heparin Sod 1000 units/ml 10ml IV PRN (06:00)
[2020-07-19 06:16] LABS: CALCIUM 9.6 MG/DL (8.5-10.1); CREATININE 5.9 MG/DL (0.55-1.30); PHOSPHORUS 2.1 MG/DL (2.5-4.9); POTASSIUM 3.3 MMOL/L (3.5-5.1)
[2020-07-19 08:00] VITALS: BP 98/51
[2020-07-19] MEDS ORDERED: ACETAMINOP160 MG/51 GT (09:37)
[2020-07-19] MEDS ORDERED: ATORVASTATIN CA40 MG GT (09:40)
[2020-07-19] MEDS ORDERED: COLACE100 MG/10 GT (09:40)
[2020-07-19] MEDS ORDERED: BISACODYL10 M1 RC (09:40)
[2020-07-19] MEDS ORDERED: ONDANSETRON4 MG/5 M1 GT (09:45)
[2020-07-19] MEDS ORDERED: RISPERIDONE1 MG/1 ML GT (09:45)
[2020-07-19] MEDS ORDERED: WHITE PETROLE16.8 GM TP (09:49)
[2020-07-19] MEDS ORDERED: ZINC50 M2 GT (09:49)
[2020-07-19] MEDS ORDERED: METOCLOPRA10 MG/10 M GT (09:52)
[2020-07-19] MEDS ORDERED: HEPARIN SO5000 UNIT2 SUBQ (09:52)
[2020-07-19] MEDS: Docusate 100mg/10ml Liq GT SCH ×2 (10:01→18:00)
[2020-07-19] MEDS: Lactulose 10gm/15ml UDC GT SCH (10:01)
[2020-07-19] MEDS: Metoclopramide 10mg/10ml Liq GT SCH ×3 (10:01→18:00)
[2020-07-19] MEDS: levETIRAcetam 500mg/5ml Liquid GT SCH ×2 (10:01→22:25)
[2020-07-19] MEDS: Valproic Acid 250mg/5ml Liquid GT SCH (10:01)
[2020-07-19] MEDS: Nephrovite tab (Rena-Vite) GT SCH (10:02)
[2020-07-19] MEDS ORDERED: TIROSINT S GT (10:02)
[2020-07-19] MEDS: Zinc Sulfate 220mg GT SCH (10:02)
[2020-07-19] MEDS ORDERED: LEVETIRACE500 MG/51 GT (10:02)
[2020-07-19] MEDS ORDERED: ESCITALOPRA5 MG/5 ML GT (10:02)
--- NOTE | 2020-07-19 10:58 | Infectious Diseases Prog Note ---
Assessment/Plan Assessment/Plan antibiotics : none A 1. COVID-19 pneumonia. on 3 liters O2, with saturation of 96 % s/p ivermectin 2. Renal failure, on dialysis. 3. Schizophrenia. 4. Hypertension. P 1. Continue Decadron day #3. 2. Continue isolation. 3. We will follow up the patient clinically. Subjective ROS Limited/Unobtainable: Yes Allergies: Coded Allergies: PENICILLINS (Unverified Allergy, Unknown, 04/23/18) Objective Last 24 Hour Vital Signs Date Time Temp Pulse Resp B/P (MAP) Pulse Ox O2 Delivery O2 Flow Rate FiO2 07/19/20 08:00 97.7 68 20 98/51 (67) 100 07/19/20 08:00 68 07/19/20 04:00 71 07/19/20 04:00 96.8 75 20 94/48 (63) 100 65 07/19/20 00:00 81 07/19/20 00:00 97.9 75 20 93/55 (68) 93 80 07/18/20 21:00 Nasal Cannula 3.0 07/18/20 20:00 76 07/18/20 20:00 97.5 75 28 102/53 (69) 93 79 07/18/20 16:00 97.9 75 20 92/72 (79) 95 07/18/20 16:00 79 07/18/20 12:00 84 07/18/20 12:00 97.7 78 20 92/53 (66) 96 Height (Feet): 5 Height (Inches): 6.00 Weight (Pounds): 160 Microbiology Date/Time Source Procedure Growth Status 07/17/20 12:25 Nasopharynx Coronavirus COVID-19 PCR ([facility]) - Final Complete 07/17/20 05:00 Rectum - Final NO CARBAPENEM-RESISTANT ENTEROBACTERI... Complete 07/17/20 05:00 Rectal Mucosa Received Laboratory Tests Test 07/19/20 04:50 White Blood Count 11.4 K/UL (4.8-10.8) H Red Blood Count 2.39 M/UL (4.20-5.40) L Hemoglobin 7.4 G/DL (12.0-16.0) L Hematocrit 21.5 % (37.0-47.0) L Mean Corpuscular Volume 90 FL (80-99) Mean Corpuscular Hemoglobin 30.9 PG (27.0-31.0) Mean Corpuscular Hemoglobin Concent 34.3 G/DL (32.0-36.0) Red Cell Distribution Width 16.7 % (11.6-14.8) H Platelet Count 208 K/UL (150-450) Mean Platelet Volume 6.0 FL (6.5-10.1) L Neutrophils (%) (Auto) % (45.0-75.0) Lymphocytes (%) (Auto) % (20.0-45.0) Monocytes (%) (Auto) % (1.0-10.0) Eosinophils (%) (Auto) % (0.0-3.0) Basophils (%) (Auto) % (0.0-2.0) Differential Total Cells Counted 100 Neutrophils % (Manual) 76 % (45-75) H Lymphocytes % (Manual) 15 % (20-45) L Monocytes % (Manual) 9 % (1-10) Eosinophils % (Manual) 0 % (0-3) Basophils % (Manual) 0 % (0-2) Band Neutrophils 0 % (0-8) Platelet Estimate Adequate Platelet Morphology Normal Polychromasia 1+ Hypochromasia 1+ Anisocytosis 1+ Sodium Level 136 MMOL/L (136-145) Potassium Level 3.3 MMOL/L (3.5-5.1) L Chloride Level 97 MMOL/L (98-107) L Carbon Dioxide Level 29 MMOL/L (21-32) Anion Gap 10 mmol/L (5-15) Blood Urea Nitrogen 76 mg/dL (7-18) H Creatinine 5.9 MG/DL (0.55-1.30) H Estimat Glomerular Filtration Rate 8.6 mL/min (>60) Glucose Level 111 MG/DL (74-106) H Calcium Level 9.6 MG/DL (8.5-10.1) Phosphorus Level 2.1 MG/DL (2.5-4.9) L Current Medications Medications (Trade) Dose Ordered Sig/Kaleigh Route PRN Reason Start Time Stop Time Status Last Admin Dose Admin Acetaminophen (Tylenol) 650 mg DAILYPRN PRN GT Mild Pain (Pain Scale 1-3) 07/17/20 15:15 08/16/20 15:14 Acetaminophen (Tylenol) 650 mg Q4H PRN GT Temp >100.5 07/17/20 15:15 08/16/20 15:14 Atorvastatin Calcium (Lipitor) 40 mg BEDTIME GT 07/17/20 21:00 10/15/20 20:59 07/18/20 21:11 Bisacodyl (Dulcolax) 10 mg DAILYPRN PRN RECTAL Constipation 07/17/20 15:15 10/15/20 15:14 Dexamethasone (Decadron) 6 mg DAILY GT 07/18/20 09:00 07/26/20 09:01 07/19/20 10:02 Docusate Sodium (Colace) 100 mg TWICE A DAY GT 07/17/20 18:00 08/16/20 17:59 07/19/20 10:01 Escitalopram Oxalate (Lexapro) 10 mg EVERY 12 HOURS GT 07/17/20 21:00 08/16/20 20:59 07/19/20 10:02 Heparin Sodium (Porcine) (Heparin 5000 units/ml) 5,000 units EVERY 8 HOURS SUBQ 07/17/20 22:00 08/31/20 21:59 07/18/20 21:10 Heparin Sodium (Porcine) (Heparin Sod 1000 units/ml 10ml) 2,000 unit ONCE PRN IV HD USE 07/19/20 06:00 07/19/20 23:59 Lactulose (Cephulac) 20 gm DAILY GT 07/18/20 09:00 08/17/20 08:59 07/19/20 10:01 Levetiracetam (Keppra) 500 mg Q12HR GT 07/17/20 21:00 08/31/20 20:59 07/19/20 10:01 Levothyroxine Sodium (Synthroid) 100 mcg DAILY@0630 GT 07/18/20 06:30 08/17/20 06:29 07/19/20 05:38 Metoclopramide HCl (Reglan) 5 mg TID GT 07/17/20 18:00 08/16/20 17:59 07/19/20 10:01 Midodrine (Pro-Amatine) 5 mg TID GT 07/17/20 18:00 10/15/20 17:59 07/19/20 10:01 Ondansetron HCl (Zofran) 4 mg Q6H PRN GT Nausea & Vomiting 07/17/20 15:15 08/16/20 15:14 Risperidone (RisperDAL) 2 mg BEDTIME GT 07/17/20 21:00 08/31/20 20:59 07/18/20 21:11 Sodium Chloride 1,000 ml @ 500 mls/hr Q2H PRN IVLG sbp<90 during hd 07/19/20 06:00 07/19/20 23:59 Valproic Acid (Depakene) 250 mg DAILY GT 07/18/20 09:00 09/01/20 08:59 07/19/20 10:01 Vitamin B Complex/ Vit C/Folic Acid (Nephrovite) 1 tab DAILY GT 07/18/20 09:00 08/17/20 08:59 07/19/20 10:02 Zinc Sulfate (Zinc Sulfate) 220 mg DAILY GT 07/18/20 09:00 10/16/20 08:59 07/19/20 10:02 Tha Dalal MD Jul 19, 2020 10:58
[2020-07-19 12:00] VITALS: BP 109/57
--- NOTE | 2020-07-19 15:00 | Consultation ---
History of Present Illness General Date patient seen: Jul 19, 2020 Reason for Hospitalization: Dyspnea/Respdistress Present Illness HPI 65-year-old female presents for evaluation. Shortness of breath. Coming from long term facility. Covid test recently positive. O2 sats low at long term facility on room air. Placed on oxygen with symptoms improved. Febrile. Denies chest pain. No other aggravating relieving factors. No other associated symptoms. Patient mated for the care management on admission identified to have bilateral heel and sacral injuries. Labs abnormal. Imaging noted. Surgery called to evaluate assist with care. Patient seen, patient evaluated, chart reviewed. Allergies: Coded Allergies: PENICILLINS (Unverified Allergy, Unknown, 04/23/18) COVID-19 Screening Contact w/high risk pt: Yes Experienced COVID-19 symptoms?: Yes Coronavirus symptoms experienc: Fever (T>100.4F or >38C), Shortness of Breath Medication History Scheduled Amino Acids/Protein Hydrolys (Pro-Stat Liquid), 30 ML GT TWICE A DAY, (Reported) Atorvastatin Calcium* (Atorvastatin Calcium*), 40 MG GT BEDTIME, (Reported) Docusate Sodium (Docusate Sodium), 25 ML GT TWICE A DAY, (Reported) Escitalopram Oxalate (Escitalopram Oxalate), 10 MG GT DAILY, (Reported) Heparin Sod (Porcine) (Heparin Sodium*), 5,000 UNITS SUBQ EVERY 8 HOURS, (Reported) Lactulose (Lactulose*), 30 MG GT DAILY, (Reported) Levetiracetam (Levetiracetam), 500 MG GT DAILY, (Reported) Levothyroxine Sodium (Tirosint-Birdie), 100 MCG GT DAILY, (Reported) Metoclopramide Hcl* (Metoclopramide Hcl*), 5 MG GT EVERY 8 HOURS, (Reported) Midodrine* (Proamatine*), 5 MG GT THREE TIMES A DAY, (Reported) Omeprazole (Omeprazole), 20 MG GT DAILY, (Reported) Risperidone (Risperidone), 2 MG GT BEDTIME, (Reported) Valproate Sodium (Valproic Acid), 250 MG GT ONCE DAILY, (Reported) Vitamin B Cmplx/Vit C/Folic AC (Nephro-Edita Tablet), 0.8 MG GT DAILY, (Reported) Zinc Amino Acid Chelate (Zinc), 50 MG GT DAILY, (Reported) Scheduled PRN Acetaminophen* (Acetaminophen*), 650 MG GT Q6H PRN for Mild Pain/Temp > 100.5, (Reported) Bisacodyl (Bisacodyl), 10 MG RC DAILY PRN for Constipation, (Reported) Ondansetron Hcl (Ondansetron Hcl), 4 MG GT Q6HR PRN for Nausea & Vomiting, (Reported) Discontinued Medications Acetaminophen* (Acetaminophen 325MG Tablet*), 650 MG ORAL EVERY 6 HOURS PRN for Mild Pain/Temp > 100.5 Discontinued Reason: Therapy completed Acetaminophen* (Acetaminophen 325MG Tablet*), 650 MG ORAL Q6H PRN Discontinued Reason: Therapy completed Amlodipine Besylate (Norvasc), 5 MG ORAL DAILY Discontinued Reason: Therapy completed Amlodipine Besylate* (Amlodipine Besylate*), 10 MG ORAL DAILY, (Reported) Discontinued Reason: Therapy completed Apixaban (Eliquis*), 2.5 MG PO EVERY 12 HOURS, (Reported) Discontinued Reason: Therapy completed Apixaban (Eliquis*), 2.5 MG ORAL EVERY 12 HOURS Discontinued Reason: Therapy completed Aripiprazole* (Abilify*), 30 MG ORAL DAILY Discontinued Reason: Therapy completed Atorvastatin Calcium* (Lipitor*), 40 MG ORAL BEDTIME Discontinued Reason: Therapy completed Atorvastatin Calcium* (Lipitor*), 40 MG ORAL BEDTIME Discontinued Reason: Therapy completed Bisacodyl* (Dulcolax*), 10 MG ORAL DAILY, (Reported) Discontinued Reason: Therapy completed Carbamazepine (Tegretol*), 200 MG ORAL FOUR TIMES A DAY Discontinued Reason: Therapy completed Carbamazepine* (Carbamazepine*), 300 MG ORAL DAILY, (Reported) Discontinued Reason: Therapy completed Chlorhexidine Gluconate* (Hibiclens*), 1 APPLIC TOPIC DAILY@1999 Discontinued Reason: Therapy completed Cholecalciferol (Vitamin D3)* (Vitamin D*), 1,000 INTLU ORAL DAILY Discontinued Reason: Therapy completed Dextrose (Dex4 Glucose), 15 GM PO for Hypoglycemia, (Reported) Discontinued Reason: Therapy completed Diphenhydramine Hcl* (Benadryl*), 25 MG ORAL Q6H PRN for Itching Discontinued Reason: Therapy completed Divalproex Sodium (Depakote), 500 MG PO DAILY, (Reported) Discontinued Reason: Therapy completed Divalproex Sodium (Divalproex Sodium), 500 MG GT DAILY Discontinued Reason: Therapy completed Docusate Sodium (Docusate Sodium), 250 MG GT TWICE A DAY Discontinued Reason: Therapy completed Docusate Sodium* (Colace*), 100 MG ORAL THREE TIMES A DAY Discontinued Reason: Therapy completed Docusate Sodium* (Docusate Sodium*), 250 MG ORAL TWICE A DAY, (Reported) Discontinued Reason: Therapy completed Enoxaparin* (Lovenox*), 30 MG SUBQ Q24H Discontinued Reason: Therapy completed Escitalopram Oxalate* (Lexapro*), 10 MG ORAL DAILY Discontinued Reason: Therapy completed Glucagon,Human Recombinant (Glucagen), 1 MG IJ for Hypoglycemia, (Reported) Discontinued Reason: Therapy completed Hydrocodone Bit/Acetaminophen 5-325* ([place] 5-325*), 1 TAB ORAL Q4H PRN for Moderate Pain (Pain Scale 4-6) Discontinued Reason: Therapy completed Insulin Aspart (Novolog Flexpen), 0 UNITS SUBQ BEFORE MEALS AND HS Discontinued Reason: Therapy completed Lactulose (Lactulose), 30 GM PO DAILY, (Reported) Discontinued Reason: Therapy completed Levetiracetam In Nacl (Iso-Os) (Levetiracetam-Nacl 500 Mg/100), 500 MG IV, (Reported) Discontinued Reason: Therapy completed Levothyroxine Sodium* (Levothyroxine Sodium*), 100 MCG ORAL DAILY@0630 Discontinued Reason: Therapy completed Levothyroxine Sodium* (Synthroid*), 100 MCG ORAL DAILY@0630 Discontinued Reason: Therapy completed METOCLOPRAMIDE HCl* (METOCLOPRAMIDE HCl*), 5 MG IV EVERY 6 HOURS, (Reported) Discontinued Reason: Prescription changed Magnesium Hydroxide* (Milk Of Magnesia*), 5 ML ORAL Q8HR PRN for Constipation, (Reported) Discontinued Reason: Therapy completed Melatonin/Pyridoxine HCl (B6) (Melatonin 3 mg Tablet), 1 EACH PO HS PRN for Insomnia, (Reported) Discontinued Reason: Therapy completed Ondansetron* (Zofran 4 Mg/2 Ml Vial*), 4 MG IVP Q6H, (Reported) Discontinued Reason: Prescription changed Oxycodone Hcl Er* (Oxycontin*), 20 MG ORAL EVERY 12 HOURS Discontinued Reason: Therapy completed Petrolatum,White (White Petroleum), 1 APPLIC TP, (Reported) Discontinued Reason: Therapy completed Quetiapine Fumarate* (Seroquel*), 50 MG ORAL DAILY Discontinued Reason: Therapy completed Risperidone* (Risperdal*), 2 MG ORAL BEDTIME Discontinued Reason: Therapy completed Sennosides (Jelena-Flora), 2 TAB PO TWICE A DAY, (Reported) Discontinued Reason: Therapy completed Sevelamer Carbonate (Renvela), 800 MG ORAL THREE TIMES A DAY, (Reported) Discontinued Reason: Therapy completed Trazodone Hcl (Desyrel), 150 MG ORAL BID Discontinued Reason: Therapy completed Vitamin B Complex & Vit C No.3 (B Complex With Vitamin C), 1 TAB ORAL DAILY, (Reported) Discontinued Reason: Therapy completed [Insulin Lispro Soln], Unknown Dose SUBQ, (Reported) Discontinued Reason: Therapy completed [Insulin asparte ss], (Reported) Discontinued Reason: Therapy completed [Nephro Aid], 1 TAB PO DAILY, (Reported) Discontinued Reason: Therapy completed Patient History History Provided By: Patient, Medical Record, PMD Healthcare decision maker Resuscitation status Advanced Directive on File Past Medical/Surgical History Past Medical/Surgical History: (1) Dehydration (2) Altered mental status (3) Severe malnutrition (4) Encephalopathy due to metabolic factor or toxin (5) Multiple injuries due to trauma (6) Psychotic disorder (7) MDD (major depressive disorder), recurrent episode, moderate (8) Abscess (9) Fracture of left ankle (10) Sacral decubitus ulcer (11) Respiratory distress (12) UTI (urinary tract infection) (13) ESRD (end stage renal disease) on dialysis (14) COVID-19 Review of Systems Review of Symptoms General ROS: no weight loss or fever Psychological ROS: no depression or mood changes, no memory loss Ophthalmic ROS: no visual changes or eye irritation ENT ROS: no nasal congestion, hearing loss, dizziness Allergy and Immunology ROS: no allergic symptoms or urticaria Hematological and Lymphatic ROS: no swollen glands, unusual bleeding or bruising Endocrine ROS: no polyuria, polydipsia, weight changes, temperature intolerance Respiratory ROS: no cough, shortness of breath, or wheezing Cardiovascular ROS: no chest pain or dyspnea on exertion Gastrointestinal ROS: denies abdominal pain, bright red blood in stool. Musculoskeletal ROS: no myalgias or arthralgias Neurological ROS: no TIA or stroke symptoms Dermatological ROS: no new or changing skin lesions, rashes or pruritis Physical Exam Physical Exam General appearance: alert, cooperative, no distress, appears stated age Head: Normocephalic, without obvious abnormality, atraumatic Eyes: conjunctivae/corneas clear. PERRL, EOM's intact. Fundi benign Throat: Lips, mucosa, and tongue normal. Teeth and gums normal Neck: supple, symmetrical, trachea midline, no adenopathy, thyroid: not enlarged, symmetric, no tenderness/mass/nodules, no carotid bruit and no JVD Lungs: clear to auscultation bilaterally Heart: regular rate and rhythm, S1, S2 normal, no murmur, click, rub or gallop Abdomen: soft, non-tender. Bowel sounds normal. No masses, no organomegaly Extremities: extremities see below Pulses: 2+ and symmetric Skin: Skin color, texture, turgor normal. No rashes or lesions Neurologic: Grossly normal Last 24 Hour Vital Signs Date Time Temp Pulse Resp B/P (MAP) Pulse Ox O2 Delivery O2 Flow Rate FiO2 07/19/20 12:00 71 07/19/20 12:00 97.7 77 19 109/57 (74) 99 07/19/20 09:00 Nasal Cannula 3.0 07/19/20 08:00 97.7 68 20 98/51 (67) 100 07/19/20 08:00 68 07/19/20 04:00 71 07/19/20 04:00 96.8 75 20 94/48 (63) 100 65 07/19/20 00:00 81 07/19/20 00:00 97.9 75 20 93/55 (68) 93 80 07/18/20 21:00 Nasal Cannula 3.0 07/18/20 20:00 76 07/18/20 20:00 97.5 75 28 102/53 (69) 93 79 07/18/20 16:00 97.9 75 20 92/72 (79) 95 07/18/20 16:00 79 Intake and Output 07/18/20 07/19/20 19:00 07:00 Intake Total 450 ml 225 ml Balance 450 ml 225 ml Free Water 180 ml 180 ml Tube Feeding 270 ml 45 ml Laboratory Tests Test 07/19/20 04:50 White Blood Count 11.4 K/UL (4.8-10.8) H Red Blood Count 2.39 M/UL (4.20-5.40) L Hemoglobin 7.4 G/DL (12.0-16.0) L Hematocrit 21.5 % (37.0-47.0) L Mean Corpuscular Volume 90 FL (80-99) Mean Corpuscular Hemoglobin 30.9 PG (27.0-31.0) Mean Corpuscular Hemoglobin Concent 34.3 G/DL (32.0-36.0) Red Cell Distribution Width 16.7 % (11.6-14.8) H Platelet Count 208 K/UL (150-450) Mean Platelet Volume 6.0 FL (6.5-10.1) L Neutrophils (%) (Auto) % (45.0-75.0) Lymphocytes (%) (Auto) % (20.0-45.0) Monocytes (%) (Auto) % (1.0-10.0) Eosinophils (%) (Auto) % (0.0-3.0) Basophils (%) (Auto) % (0.0-2.0) Differential Total Cells Counted 100 Neutrophils % (Manual) 76 % (45-75) H Lymphocytes % (Manual) 15 % (20-45) L Monocytes % (Manual) 9 % (1-10) Eosinophils % (Manual) 0 % (0-3) Basophils % (Manual) 0 % (0-2) Band Neutrophils 0 % (0-8) Platelet Estimate Adequate Platelet Morphology Normal Polychromasia 1+ Hypochromasia 1+ Anisocytosis 1+ Sodium Level 136 MMOL/L (136-145) Potassium Level 3.3 MMOL/L (3.5-5.1) L Chloride Level 97 MMOL/L (98-107) L Carbon Dioxide Level 29 MMOL/L (21-32) Anion Gap 10 mmol/L (5-15) Blood Urea Nitrogen 76 mg/dL (7-18) H Creatinine 5.9 MG/DL (0.55-1.30) H Estimat Glomerular Filtration Rate 8.6 mL/min (>60) Glucose Level 111 MG/DL (74-106) H Calcium Level 9.6 MG/DL (8.5-10.1) Phosphorus Level 2.1 MG/DL (2.5-4.9) L Height (Feet): 5 Height (Inches): 6.00 Weight (Pounds): 160 Medications Current Medications Medications (Trade) Dose Ordered Sig/Kaleigh Route PRN Reason Start Time Stop Time Status Last Admin Dose Admin Acetaminophen (Tylenol) 650 mg DAILYPRN PRN GT Mild Pain (Pain Scale 1-3) 07/17/20 15:15 08/16/20 15:14 Acetaminophen (Tylenol) 650 mg Q4H PRN GT Temp >100.5 07/17/20 15:15 08/16/20 15:14 Atorvastatin Calcium (Lipitor) 40 mg BEDTIME GT 07/17/20 21:00 10/15/20 20:59 07/18/20 21:11 Bisacodyl (Dulcolax) 10 mg DAILYPRN PRN RECTAL Constipation 07/17/20 15:15 10/15/20 15:14 Dexamethasone (Decadron) 6 mg DAILY GT 07/18/20 09:00 07/26/20 09:01 07/19/20 10:02 Docusate Sodium (Colace) 100 mg TWICE A DAY GT 07/17/20 18:00 08/16/20 17:59 07/19/20 10:01 Escitalopram Oxalate (Lexapro) 10 mg EVERY 12 HOURS GT 07/17/20 21:00 08/16/20 20:59 07/19/20 10:02 Heparin Sodium (Porcine) (Heparin 5000 units/ml) 5,000 units EVERY 8 HOURS SUBQ 07/17/20 22:00 08/31/20 21:59 07/18/20 21:10 Heparin Sodium (Porcine) (Heparin Sod 1000 units/ml 10ml) 2,000 unit ONCE PRN IV HD USE 07/19/20 06:00 07/19/20 23:59 Lactulose (Cephulac) 20 gm DAILY GT 07/18/20 09:00 08/17/20 08:59 07/19/20 10:01 Levetiracetam (Keppra) 500 mg Q12HR GT 07/17/20 21:00 08/31/20 20:59 07/19/20 10:01 Levothyroxine Sodium (Synthroid) 100 mcg DAILY@0630 GT 07/18/20 06:30 08/17/20 06:29 07/19/20 05:38 Metoclopramide HCl (Reglan) 5 mg TID GT 07/17/20 18:00 08/16/20 17:59 07/19/20 12:24 Midodrine (Pro-Amatine) 5 mg TID GT 07/17/20 18:00 10/15/20 17:59 07/19/20 12:24 Ondansetron HCl (Zofran) 4 mg Q6H PRN GT Nausea & Vomiting 07/17/20 15:15 08/16/20 15:14 Risperidone (RisperDAL) 2 mg BEDTIME GT 07/17/20 21:00 08/31/20 20:59 07/18/20 21:11 Sodium Chloride 1,000 ml @ 500 mls/hr Q2H PRN IVLG sbp<90 during hd 07/19/20 06:00 07/19/20 23:59 Valproic Acid (Depakene) 250 mg DAILY GT 07/18/20 09:00 09/01/20 08:59 07/19/20 10:01 Vitamin B Complex/ Vit C/Folic Acid (Nephrovite) 1 tab DAILY GT 07/18/20 09:00 08/17/20 08:59 07/19/20 10:02 Zinc Sulfate (Zinc Sulfate) 220 mg DAILY GT 07/18/20 09:00 10/16/20 08:59 07/19/20 10:02 Assessment/Plan Problem List: (1) Respiratory distress ICD Codes: R06.03 - Acute respiratory distress SNOMED: 857158951 (2) UTI (urinary tract infection) ICD Codes: N39.0 - Urinary tract infection, site not specified SNOMED: 55949494 (3) ESRD (end stage renal disease) on dialysis ICD Codes: N18.6 - End stage renal disease; Z99.2 - Dependence on renal dialysis SNOMED: 842604305 (4) Dehydration ICD Codes: E86.0 - Dehydration SNOMED: 68896962 (5) Abscess ICD Codes: L02.91 - Cutaneous abscess, unspecified SNOMED: 833578930 (6) Psychotic disorder ICD Codes: F29 - Unspecified psychosis not due to a substance or known physiological condition SNOMED: 93607094 (7) Altered mental status ICD Codes: R41.82 - Altered mental status, unspecified SNOMED: 774869334 (8) Severe malnutrition Assessment & Plan: DAILY ESTIMATED NEEDS: Needs based on ESRD+HD, wound, 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 * Swallowing difficulty R/T dysphagia as evidenced by PEG dep. CURRENT TF:Nepro @ 45ml/hr x 18 hrs ENTERAL NUTRITION RECOMMENDATIONS: Nepro @ 45ml/hr x 22 hrs + Prosource 1pkt BID to provide 990ml, 1782kcal, 80+22g prot, 715ml free water * Rec 45ml/hr x 22 hrs to better meet est needs * Hold 1 hr before and after Synthroid med * Add Prosource 1pkt BID for additional 22g prot * HOB over 30 degrees/ water flush per MD ADDITIONAL RECOMMENDATIONS: * Per SNF: HT=68" and [id number]=[id number] (07/04/20) * F/up w/ WC eval: Continue Nephrovite, add Orion BID * Monitor BGs, need for hypoglycemics: h/o DM + Decadron * Monitor lytes and renal fxn * Trend lipase and TF tolerance (lipase 1301 on 07/17) ICD Codes: E43 - Unspecified severe protein-calorie malnutrition SNOMED: 35162822 (9) Sacral decubitus ulcer Assessment & Plan: Pt presents on admission with DTI / Unstageable pressure injury Sacrum. Wound indurated with dark center with epibole along borders Pt also verbalized tenderness when minimally palpated. An area of hyperpigmentation from previous wound L buttocks. Both heels are dry with DTI. Tx Plan: Apply Moisture Barrier to Sacrum .Cover with Optifoam drsg .Change every 3 days and prn. Apply Cavilon Skin Barrier to both heels.Cover with Optifoam drsg .Change every 7 days and prn. APM/JOHN mattress. Reposition at least every 2 hours or as tolerated. Off-load heels with pillow. Nutritional optimization ICD Codes: L89.159 - Pressure ulcer of sacral region, unspecified stage SNOMED: 427512068 (10) Fracture of left ankle ICD Codes: S82.892A - Fracture of left ankle SNOMED: 89425770 (11) MDD (major depressive disorder), recurrent episode, moderate ICD Codes: F33.1 - Major depressive disorder, recurrent, moderate SNOMED: 48547557, 598152408 (12) Encephalopathy due to metabolic factor or toxin SNOMED: 993056686 (13) Multiple injuries due to trauma ICD Codes: T07 - Unspecified multiple injuries SNOMED: 489310145 (14) COVID-19 ICD Codes: U07.1 - COVID-19 SNOMED: 036268902 [facility] Hospital declaration INPATIENT level of care is warranted for this patient because patient is a 89 year old with who presents with suspicion of . I have a high level of concern because . Patient is at high risk for . Plan of care/treatment include . Patient care is expected to be greater than 2 midnights. OBSERVATION level of care is warranted for this patient. Patient is a 89 year old with who presents with . Patient will be admitted for 1 midnight, but if additional night(s) is/are necessary, patient will be converted to inpatient status for the entire hospitalization Disposition: Once the patient is stable to leave the hospital, I anticipate the patient will likely be discharged to the following environment: Estimated discharge date: I spent 70 minutes on this patient's case, and minutes was dedicated to counseling and/or care coordination. MIPS ([employer]-based Incentive Payment System) Applicable CPT: 19647, 84204 CHECK ALL THAT ARE MET: Measure #5 (CHF): All ages. Prescribe JEANNETTE/ARB upon discharge for patients with left ventricular systolic dysfunction. If not, the reason is clearly documented in the medical chart. Measure #8 (CHF): All ages. Prescribe a beta ashley upon discharge for patients with left ventricular systolic dysfunction. If not, the reason is clearly documented in the medical chart. Measure #47 Advance care plan or surrogate decision maker documented in the medical record. Measure #130 The provider has documented, updated, or reviewed the patients current medication list and has documented it in the patients note. Measure #374 (All): Send report to referring provider. Measure #407(Sepsis due to MSSA bacteremia): Age 18+ Patient treated with a beta-lactam antibiotic (Nafcillin, Oxacillin or Cefazolin) as definitive therapy. MEDICAL COMPLEXITY High complexity medical decision making (need 2/3 categories) Problem - need 4 points Acute/new problem with new plan for workup (4 points, 1 max) Acute/new problem without additional workup (3 points, 1 max) Unstable chronic problem actively being managed (2 point each, 2 max) Stable chronic problem actively being managed (1 point each, 2 max) Self-limited/transient process (constipation, muscle ache, etc) (1 point each, 2 max) Data - need 4 points Reviewed labs/imaging studies (1 points, 2 max) Independent review of imaging (EKG, xrays, etc) (2 points, 2 max) Discussed case with consult/other MD/RN (2 points, 2 max) High Risk - qualify if have one of the following: Severe exacerbation of acute problem, acute mental status change, IV narcotics, monitoring drug levels (vancomycin, INR, tacrolimus etc) Herson Walter Jul 19, 2020 15:00
--- NOTE | 2020-07-19 15:01 | Pulmonology Progress Note ---
Subjective ROS Limited/Unobtainable: Yes Allergies: Coded Allergies: PENICILLINS (Unverified Allergy, Unknown, 04/23/18) Subjective care noted reviewed care on low flow oxygen Objective Last 24 Hour Vital Signs Date Time Temp Pulse Resp B/P (MAP) Pulse Ox O2 Delivery O2 Flow Rate FiO2 07/19/20 12:00 71 07/19/20 12:00 97.7 77 19 109/57 (74) 99 07/19/20 09:00 Nasal Cannula 3.0 07/19/20 08:00 97.7 68 20 98/51 (67) 100 07/19/20 08:00 68 07/19/20 04:00 71 07/19/20 04:00 96.8 75 20 94/48 (63) 100 65 07/19/20 00:00 81 07/19/20 00:00 97.9 75 20 93/55 (68) 93 80 07/18/20 21:00 Nasal Cannula 3.0 07/18/20 20:00 76 07/18/20 20:00 97.5 75 28 102/53 (69) 93 79 07/18/20 16:00 97.9 75 20 92/72 (79) 95 07/18/20 16:00 79 Intake and Output 07/18/20 07/19/20 19:00 07:00 Intake Total 450 ml 225 ml Balance 450 ml 225 ml Free Water 180 ml 180 ml Tube Feeding 270 ml 45 ml Objective deferred due to possible COVID Microbiology Date/Time Source Procedure Growth Status 07/17/20 12:25 Nasopharynx Coronavirus COVID-19 PCR ([facility]) - Final Complete 07/17/20 05:00 Rectum - Final NO CARBAPENEM-RESISTANT ENTEROBACTERI... Complete 07/17/20 05:00 Rectal Mucosa Received Laboratory Tests 07/19/20 04:50: White Blood Count 11.4H, Red Blood Count 2.39L, Hemoglobin 7.4L, Hematocrit 21.5L, Mean Corpuscular Volume 90, Mean Corpuscular Hemoglobin 30.9, Mean Corpuscular Hemoglobin Concent 34.3, Red Cell Distribution Width 16.7H, Platelet Count 208, Mean Platelet Volume 6.0L, Neutrophils (%) (Auto) , Lymphocytes (%) (Auto) , Monocytes (%) (Auto) , Eosinophils (%) (Auto) , Basophils (%) (Auto) , Differential Total Cells Counted 100, Neutrophils % (Manual) 76H, Lymphocytes % (Manual) 15L, Monocytes % (Manual) 9, Eosinophils % (Manual) 0, Basophils % (Manual) 0, Band Neutrophils 0, Platelet Estimate Adequate, Platelet Morphology Normal, Polychromasia 1+, Hypochromasia 1+, Anisocytosis 1+, Sodium Level 136, Potassium Level 3.3L, Chloride Level 97L, Carbon Dioxide Level 29, Anion Gap 10, Blood Urea Nitrogen 76H, Creatinine 5.9H, Estimat Glomerular Filtration Rate 8.6, Glucose Level 111H, Calcium Level 9.6, Phosphorus Level 2.1L Current Medications Medications (Trade) Dose Ordered Sig/Kaleigh Route PRN Reason Start Time Stop Time Status Last Admin Dose Admin Acetaminophen (Tylenol) 650 mg DAILYPRN PRN GT Mild Pain (Pain Scale 1-3) 07/17/20 15:15 08/16/20 15:14 Acetaminophen (Tylenol) 650 mg Q4H PRN GT Temp >100.5 07/17/20 15:15 08/16/20 15:14 Atorvastatin Calcium (Lipitor) 40 mg BEDTIME GT 07/17/20 21:00 10/15/20 20:59 07/18/20 21:11 Bisacodyl (Dulcolax) 10 mg DAILYPRN PRN RECTAL Constipation 07/17/20 15:15 10/15/20 15:14 Dexamethasone (Decadron) 6 mg DAILY GT 07/18/20 09:00 07/26/20 09:01 07/19/20 10:02 Docusate Sodium (Colace) 100 mg TWICE A DAY GT 07/17/20 18:00 08/16/20 17:59 07/19/20 10:01 Escitalopram Oxalate (Lexapro) 10 mg EVERY 12 HOURS GT 07/17/20 21:00 08/16/20 20:59 07/19/20 10:02 Heparin Sodium (Porcine) (Heparin 5000 units/ml) 5,000 units EVERY 8 HOURS SUBQ 07/17/20 22:00 08/31/20 21:59 07/18/20 21:10 Heparin Sodium (Porcine) (Heparin Sod 1000 units/ml 10ml) 2,000 unit ONCE PRN IV HD USE 07/19/20 06:00 07/19/20 23:59 Lactulose (Cephulac) 20 gm DAILY GT 07/18/20 09:00 08/17/20 08:59 07/19/20 10:01 Levetiracetam (Keppra) 500 mg Q12HR GT 07/17/20 21:00 08/31/20 20:59 07/19/20 10:01 Levothyroxine Sodium (Synthroid) 100 mcg DAILY@0630 GT 07/18/20 06:30 08/17/20 06:29 07/19/20 05:38 Metoclopramide HCl (Reglan) 5 mg TID GT 07/17/20 18:00 08/16/20 17:59 07/19/20 12:24 Midodrine (Pro-Amatine) 5 mg TID GT 07/17/20 18:00 10/15/20 17:59 07/19/20 12:24 Ondansetron HCl (Zofran) 4 mg Q6H PRN GT Nausea & Vomiting 07/17/20 15:15 08/16/20 15:14 Risperidone (RisperDAL) 2 mg BEDTIME GT 07/17/20 21:00 08/31/20 20:59 07/18/20 21:11 Sodium Chloride 1,000 ml @ 500 mls/hr Q2H PRN IVLG sbp<90 during hd 07/19/20 06:00 07/19/20 23:59 Valproic Acid (Depakene) 250 mg DAILY GT 07/18/20 09:00 09/01/20 08:59 07/19/20 10:01 Vitamin B Complex/ Vit C/Folic Acid (Nephrovite) 1 tab DAILY GT 07/18/20 09:00 08/17/20 08:59 07/19/20 10:02 Zinc Sulfate (Zinc Sulfate) 220 mg DAILY GT 07/18/20 09:00 10/16/20 08:59 07/19/20 10:02 Assessment/Plan Assessment/Plan IMPRESSION: 1. Acute hypoxemic respiratory failure. Multifocal infiltrates. Small pleural effusion. 2. End-stage renal disease. 3. Anemia of chronic disease. 4. Elevated C-reactive protein. 5. Dementia. 6. Chronic encephalopathy. 7. Chronic debility. RECOMMENDATION: Admitted and care noted. IV Decadron. ID follow up for remdesivir. DVT prophylaxis. Hemodialysis with ultrafiltration. Monitor for worsening respiratory distress, oxygen therapy, and we will monitor clinically for changes. monitor imaging impression, plan, and exam edited and reviewed in detail care discussed with Sreekanth Yates MD Jul 19, 2020 15:01
[2020-07-19 16:00] VITALS: BP 112/61
--- NOTE | 2020-07-19 16:17 | Nephrology Progress Note ---
Assessment/Plan Plan Covid 19 Pneumonia Remdesevir + Dexa per ID. On O2 3L/min. Stilll needs Hospital stay. To retry HD. ESRD HD MWF. Subjective Subjective More alert. On O2 3L/min. Had HD attempt. BP was low. Objective Objective Last 24 Hour Vital Signs Date Time Temp Pulse Resp B/P (MAP) Pulse Ox O2 Delivery O2 Flow Rate FiO2 07/19/20 12:00 71 07/19/20 12:00 97.7 77 19 109/57 (74) 99 07/19/20 09:00 Nasal Cannula 3.0 07/19/20 08:00 97.7 68 20 98/51 (67) 100 07/19/20 08:00 68 07/19/20 04:00 71 07/19/20 04:00 96.8 75 20 94/48 (63) 100 65 07/19/20 00:00 81 07/19/20 00:00 97.9 75 20 93/55 (68) 93 80 07/18/20 21:00 Nasal Cannula 3.0 07/18/20 20:00 76 07/18/20 20:00 97.5 75 28 102/53 (69) 93 79 Intake and Output 07/18/20 07/19/20 19:00 07:00 Intake Total 450 ml 225 ml Balance 450 ml 225 ml Free Water 180 ml 180 ml Tube Feeding 270 ml 45 ml Laboratory Tests 07/19/20 04:50: White Blood Count 11.4H, Red Blood Count 2.39L, Hemoglobin 7.4L, Hematocrit 21.5L, Mean Corpuscular Volume 90, Mean Corpuscular Hemoglobin 30.9, Mean Corpuscular Hemoglobin Concent 34.3, Red Cell Distribution Width 16.7H, Platelet Count 208, Mean Platelet Volume 6.0L, Neutrophils (%) (Auto) , Lymphocytes (%) (Auto) , Monocytes (%) (Auto) , Eosinophils (%) (Auto) , Basophils (%) (Auto) , Differential Total Cells Counted 100, Neutrophils % (Manual) 76H, Lymphocytes % (Manual) 15L, Monocytes % (Manual) 9, Eosinophils % (Manual) 0, Basophils % (Manual) 0, Band Neutrophils 0, Platelet Estimate Adequate, Platelet Morphology Normal, Polychromasia 1+, Hypochromasia 1+, Anisocytosis 1+, Sodium Level 136, Potassium Level 3.3L, Chloride Level 97L, Carbon Dioxide Level 29, Anion Gap 10, Blood Urea Nitrogen 76H, Creatinine 5.9H, Estimat Glomerular Filtration Rate 8.6, Glucose Level 111H, Calcium Level 9.6, Phosphorus Level 2.1L Height (Feet): 5 Height (Inches): 6.00 Weight (Pounds): 160 Objective CV RR Lungs few B marta Arzate SNT. BS + E No CCE Mely Rincon MD Jul 19, 2020 16:16
[2020-07-19 20:00] VITALS: BP 118/61
[2020-07-19] MEDS: Atorvastatin 20mg tab GT SCH (22:25)
[2020-07-20] VITALS: BP 108/62
[2020-07-20 04:00] VITALS: BP 108/60
[2020-07-20] MEDS: Heparin 5000 units/ml inj SUBQ SCH ×3 (05:00→22:00)
[2020-07-20] MEDS ORDERED: Heparin Sod 1000 units/ml 10ml IV PRN (06:00)
[2020-07-20 08:00] VITALS: BP 102/53
[2020-07-20] MEDS: Lactulose 10gm/15ml UDC GT SCH (09:03)
[2020-07-20] MEDS: levETIRAcetam 500mg/5ml Liquid GT SCH ×2 (09:03→21:00)
[2020-07-20] MEDS: Zinc Sulfate 220mg GT SCH (09:03)
[2020-07-20] MEDS: Nephrovite tab (Rena-Vite) GT SCH (09:03)
[2020-07-20] MEDS: Metoclopramide 10mg/10ml Liq GT SCH ×3 (09:03→17:51)
[2020-07-20] MEDS: Valproic Acid 250mg/5ml Liquid GT SCH (09:03)
[2020-07-20] MEDS: Docusate 100mg/10ml Liq GT SCH ×2 (09:04→17:51)
--- NOTE | 2020-07-20 10:25 | Infectious Diseases Prog Note ---
Assessment/Plan Assessment/Plan A 1. COVID19 pneumonia. s/p ivermectin 2. Renal failure, on dialysis. 3. Schizophrenia. 4. Hypertension. 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 Continue Decadron day #4 2. Continue isolation. 3. We will follow up the patient clinically Subjective ROS Limited/Unobtainable: Yes Allergies: Coded Allergies: PENICILLINS (Unverified Allergy, Unknown, 04/23/18) Objective Last 24 Hour Vital Signs Date Time Temp Pulse Resp B/P (MAP) Pulse Ox O2 Delivery O2 Flow Rate FiO2 07/20/20 09:00 Nasal Cannula 3.0 07/20/20 08:00 97.5 64 18 102/53 (69) 99 07/20/20 08:00 65 07/20/20 04:00 96.6 89 24 108/60 (76) 99 07/20/20 04:00 79 07/20/20 00:00 96.8 94 22 108/62 (77) 100 07/19/20 21:00 Nasal Cannula 3.0 07/19/20 20:00 88 07/19/20 20:00 96.6 89 24 118/61 (80) 100 07/19/20 16:00 97.5 75 20 112/61 (78) 100 07/19/20 16:00 75 07/19/20 12:00 71 07/19/20 12:00 97.7 77 19 109/57 (74) 99 Height (Feet): 5 Height (Inches): 6.00 Weight (Pounds): 160 HEENT: mucous membranes moist Respiratory/Chest: lungs clear, other - oxygen by nasal cannula Cardiovascular: normal rate, other - R arm AV graft Abdomen: soft, non tender Extremities: no edema Neurologic/Psychiatric: other - awake, noncommunicative Microbiology Date/Time Source Procedure Growth Status 07/17/20 12:25 Nasopharynx Coronavirus COVID-19 PCR ([facility]) - Final Complete Current Medications Medications (Trade) Dose Ordered Sig/Kaleigh Route PRN Reason Start Time Stop Time Status Last Admin Dose Admin Acetaminophen (Tylenol) 650 mg DAILYPRN PRN GT Mild Pain (Pain Scale 1-3) 07/17/20 15:15 08/16/20 15:14 Acetaminophen (Tylenol) 650 mg Q4H PRN GT Temp >100.5 07/17/20 15:15 08/16/20 15:14 Albumin Human 100 ml @ 200 mls/hr PRN PRN IV sbp<90 during hd 07/20/20 06:00 07/20/20 23:59 Atorvastatin Calcium (Lipitor) 40 mg BEDTIME GT 07/17/20 21:00 10/15/20 20:59 07/19/20 22:25 Bisacodyl (Dulcolax) 10 mg DAILYPRN PRN RECTAL Constipation 07/17/20 15:15 10/15/20 15:14 Dexamethasone (Decadron) 6 mg DAILY GT 07/18/20 09:00 07/26/20 09:01 07/20/20 09:04 Docusate Sodium (Colace) 100 mg TWICE A DAY GT 07/17/20 18:00 08/16/20 17:59 07/20/20 09:04 Escitalopram Oxalate (Lexapro) 10 mg EVERY 12 HOURS GT 07/17/20 21:00 08/16/20 20:59 07/20/20 09:03 Heparin Sodium (Porcine) (Heparin 5000 units/ml) 5,000 units EVERY 8 HOURS SUBQ 07/17/20 22:00 08/31/20 21:59 07/18/20 21:10 Heparin Sodium (Porcine) (Heparin Sod 1000 units/ml 10ml) 2,000 unit ONCE PRN IV HD 07/20/20 06:00 07/20/20 23:59 Lactulose (Cephulac) 20 gm DAILY GT 07/18/20 09:00 08/17/20 08:59 07/20/20 09:03 Levetiracetam (Keppra) 500 mg Q12HR GT 07/17/20 21:00 08/31/20 20:59 07/20/20 09:03 Levothyroxine Sodium (Synthroid) 100 mcg DAILY@0630 GT 07/18/20 06:30 08/17/20 06:29 07/20/20 05:35 Metoclopramide HCl (Reglan) 5 mg TID GT 07/17/20 18:00 08/16/20 17:59 07/20/20 09:03 Midodrine (Pro-Amatine) 5 mg TID GT 07/17/20 18:00 10/15/20 17:59 07/20/20 09:03 Ondansetron HCl (Zofran) 4 mg Q6H PRN GT Nausea & Vomiting 07/17/20 15:15 08/16/20 15:14 Risperidone (RisperDAL) 2 mg BEDTIME GT 07/17/20 21:00 08/31/20 20:59 07/19/20 22:25 Sodium Chloride 1,000 ml @ 500 mls/hr Q2H PRN IVLG sbp<90 during hd 07/20/20 06:00 07/20/20 23:59 Valproic Acid (Depakene) 250 mg DAILY GT 07/18/20 09:00 09/01/20 08:59 07/20/20 09:03 Vitamin B Complex/ Vit C/Folic Acid (Nephrovite) 1 tab DAILY GT 07/18/20 09:00 08/17/20 08:59 07/20/20 09:03 Zinc Sulfate (Zinc Sulfate) 220 mg DAILY GT 07/18/20 09:00 10/16/20 08:59 07/20/20 09:03 Jose Orona MD Jul 20, 2020 10:25
[2020-07-20 12:00] VITALS: BP 88/53
--- NOTE | 2020-07-20 13:21 | Pulmonology Progress Note ---
Subjective ROS Limited/Unobtainable: Yes Allergies: Coded Allergies: PENICILLINS (Unverified Allergy, Unknown, 04/23/18) Subjective care noted reviewed care on low flow oxygen Objective Last 24 Hour Vital Signs Date Time Temp Pulse Resp B/P (MAP) Pulse Ox O2 Delivery O2 Flow Rate FiO2 07/20/20 12:00 97.5 62 18 88/53 (65) 100 07/20/20 09:00 Nasal Cannula 3.0 07/20/20 08:00 97.5 64 18 102/53 (69) 99 07/20/20 08:00 65 07/20/20 04:00 96.6 89 24 108/60 (76) 99 07/20/20 04:00 79 07/20/20 00:00 96.8 94 22 108/62 (77) 100 07/19/20 21:00 Nasal Cannula 3.0 07/19/20 20:00 88 07/19/20 20:00 96.6 89 24 118/61 (80) 100 07/19/20 16:00 97.5 75 20 112/61 (78) 100 07/19/20 16:00 75 Intake and Output 07/19/20 07/20/20 19:00 07:00 Intake Total 525 ml 510 ml Balance 525 ml 510 ml Free Water 300 ml 150 ml Tube Feeding 225 ml 360 ml # Voids 1 Objective deferred due to possible COVID Current Medications Medications (Trade) Dose Ordered Sig/Kaleigh Route PRN Reason Start Time Stop Time Status Last Admin Dose Admin Acetaminophen (Tylenol) 650 mg DAILYPRN PRN GT Mild Pain (Pain Scale 1-3) 07/17/20 15:15 08/16/20 15:14 Acetaminophen (Tylenol) 650 mg Q4H PRN GT Temp >100.5 07/17/20 15:15 08/16/20 15:14 Albumin Human 100 ml @ 200 mls/hr PRN PRN IV sbp<90 during hd 07/20/20 06:00 07/20/20 23:59 Atorvastatin Calcium (Lipitor) 40 mg BEDTIME GT 07/17/20 21:00 10/15/20 20:59 07/19/20 22:25 Bisacodyl (Dulcolax) 10 mg DAILYPRN PRN RECTAL Constipation 07/17/20 15:15 10/15/20 15:14 Dexamethasone (Decadron) 6 mg DAILY GT 07/18/20 09:00 07/26/20 09:01 07/20/20 09:04 Docusate Sodium (Colace) 100 mg TWICE A DAY GT 07/17/20 18:00 08/16/20 17:59 07/20/20 09:04 Escitalopram Oxalate (Lexapro) 10 mg EVERY 12 HOURS GT 07/17/20 21:00 08/16/20 20:59 07/20/20 09:03 Heparin Sodium (Porcine) (Heparin 5000 units/ml) 5,000 units EVERY 8 HOURS SUBQ 07/17/20 22:00 08/31/20 21:59 07/18/20 21:10 Heparin Sodium (Porcine) (Heparin Sod 1000 units/ml 10ml) 2,000 unit ONCE PRN IV HD 07/20/20 06:00 07/20/20 23:59 Lactulose (Cephulac) 20 gm DAILY GT 07/18/20 09:00 08/17/20 08:59 07/20/20 09:03 Levetiracetam (Keppra) 500 mg Q12HR GT 07/17/20 21:00 08/31/20 20:59 07/20/20 09:03 Levothyroxine Sodium (Synthroid) 100 mcg DAILY@0630 GT 07/18/20 06:30 08/17/20 06:29 07/20/20 05:35 Metoclopramide HCl (Reglan) 5 mg TID GT 07/17/20 18:00 08/16/20 17:59 07/20/20 09:03 Midodrine (Pro-Amatine) 5 mg TID GT 07/17/20 18:00 10/15/20 17:59 07/20/20 09:03 Ondansetron HCl (Zofran) 4 mg Q6H PRN GT Nausea & Vomiting 07/17/20 15:15 08/16/20 15:14 Risperidone (RisperDAL) 2 mg BEDTIME GT 07/17/20 21:00 08/31/20 20:59 07/19/20 22:25 Sodium Chloride 1,000 ml @ 500 mls/hr Q2H PRN IVLG sbp<90 during hd 07/20/20 06:00 07/20/20 23:59 Valproic Acid (Depakene) 250 mg DAILY GT 07/18/20 09:00 09/01/20 08:59 07/20/20 09:03 Vitamin B Complex/ Vit C/Folic Acid (Nephrovite) 1 tab DAILY GT 07/18/20 09:00 08/17/20 08:59 07/20/20 09:03 Zinc Sulfate (Zinc Sulfate) 220 mg DAILY GT 07/18/20 09:00 10/16/20 08:59 07/20/20 09:03 Assessment/Plan Assessment/Plan IMPRESSION: 1. Acute hypoxemic respiratory failure. Multifocal infiltrates. Small pleural effusion. 2. End-stage renal disease. 3. Anemia of chronic disease. 4. Elevated C-reactive protein. 5. Dementia. 6. Chronic encephalopathy. 7. Chronic debility. RECOMMENDATION: Admitted and care noted. IV Decadron. ID follow up for remdesivir. DVT prophylaxis. Hemodialysis with ultrafiltration. Monitor for worsening respiratory distress, oxygen therapy, and we will monitor clinically for changes. monitor imaging impression, plan, and exam edited and reviewed in detail care discussed with Sreekanth Yates MD Jul 20, 2020 13:21
--- NOTE | 2020-07-20 14:36 | Surgery Progress Note ---
Surgery Progress Note Subjective Additional Comments no acute events comfortable stable labs noted exm unchanged Objective Last 24 Hour Vital Signs Date Time Temp Pulse Resp B/P (MAP) Pulse Ox O2 Delivery O2 Flow Rate FiO2 07/20/20 12:00 97.5 62 18 88/53 (65) 100 07/20/20 09:00 Nasal Cannula 3.0 07/20/20 08:00 97.5 64 18 102/53 (69) 99 07/20/20 08:00 65 07/20/20 04:00 96.6 89 24 108/60 (76) 99 07/20/20 04:00 79 07/20/20 00:00 96.8 94 22 108/62 (77) 100 07/19/20 21:00 Nasal Cannula 3.0 07/19/20 20:00 88 07/19/20 20:00 96.6 89 24 118/61 (80) 100 07/19/20 16:00 97.5 75 20 112/61 (78) 100 07/19/20 16:00 75 I&O Intake and Output 07/19/20 07/20/20 19:00 07:00 Intake Total 525 ml 510 ml Balance 525 ml 510 ml Free Water 300 ml 150 ml Tube Feeding 225 ml 360 ml # Voids 1 Dressing: dry Cardiovascular: RSR Respiratory: decreased breath sounds Abdomen: non-tender, present bowel sounds Extremities: no tenderness, no cyanosis, other Plan Problems: (1) Respiratory distress (2) UTI (urinary tract infection) (3) ESRD (end stage renal disease) on dialysis (4) Dehydration (5) Abscess (6) Psychotic disorder (7) Altered mental status (8) Severe malnutrition Assessment & Plan: DAILY ESTIMATED NEEDS: Needs based on ESRD+HD, wound, JIGMAN TF/ 75kg 22-30 kcals/kg [id number] total kcals 1.25-1.8 g protein/kg 94-135 g total protein 20-22 mL/kg 2001-9985 total fluid mLs NUTRITION DIAGNOSIS: * Increased kcal/prot needs R/T wound healing, renal dysfunction as evidenced by admitted w/ wounds @ sacrum and BL heels per photos, pending eval, ESRD dx, on HD. * Swallowing difficulty R/T dysphagia as evidenced by PEG dep. CURRENT TF:Nepro @ 45ml/hr x 18 hrs ENTERAL NUTRITION RECOMMENDATIONS: Nepro @ 45ml/hr x 22 hrs + Prosource 1pkt BID to provide 990ml, 1782kcal, 80+22g prot, 715ml free water * Rec 45ml/hr x 22 hrs to better meet est needs * Hold 1 hr before and after Synthroid med * Add Prosource 1pkt BID for additional 22g prot * HOB over 30 degrees/ water flush per MD ADDITIONAL RECOMMENDATIONS: * Per SNF: HT=68" and th=154kap (07/04/20) * F/up w/ WC eval: Continue Nephrovite, add Orion BID * Monitor BGs, need for hypoglycemics: h/o DM + Decadron * Monitor lytes and renal fxn * Trend lipase and TF tolerance (lipase 1301 on 07/17) (9) Sacral decubitus ulcer Assessment & Plan: Pt presented on admission with Multiple Pressure Injuries.reabsorbing DTPI Sacrum(L)11cm x (W)14cm. Base of Pressure Injury is black-dry with surrounding Non-Blanchable erythema. Unstageable Pressure Injury L Heel (L)3.8cm x (W)5cm. Base of wound is 100% necrotic. Edges are adherent to base of wound. Periwound is fluctuant but blanchable. Unstageable Pressure Injury R heel (L)4.5cm x (W)7cm. Base of Pressure Injury is 100% necrotic,edges are adherent to base of wound. Periwound is fluctuant but blanchable. Tx Plan: Apply Moisture Barrier to Sacrum .Cover with Optifoam drsg .Change every 3 days and prn. Apply Cavilon Skin Barrier to both heels.Cover with Optifoam drsg .Change every 7 days and prn. APM/JOHN mattress. Reposition at least every 2 hours or as tolerated. Off-load heels with pillow. Nutritional optimization (10) Fracture of left ankle (11) MDD (major depressive disorder), recurrent episode, moderate (12) Encephalopathy due to metabolic factor or toxin (13) Multiple injuries due to trauma (14) COVID-19 Herson Walter Jul 20, 2020 14:36
[2020-07-20 16:00] VITALS: BP 121/74
--- NOTE | 2020-07-20 16:06 | Nephrology Progress Note ---
Assessment/Plan Plan Covid 19 Pneumonia Remdesevir + Dexa per ID. On O2 3L/min. Stilll needs Hospital stay. To retry HD. ESRD HD TTS. Subjective Subjective More alert. On O2 3L/min. Had HD attempt. BP was low. Objective Objective Last 24 Hour Vital Signs Date Time Temp Pulse Resp B/P (MAP) Pulse Ox O2 Delivery O2 Flow Rate FiO2 07/20/20 12:00 84 07/20/20 12:00 97.5 62 18 88/53 (65) 100 07/20/20 09:00 Nasal Cannula 3.0 07/20/20 08:00 97.5 64 18 102/53 (69) 99 07/20/20 08:00 65 07/20/20 04:00 96.6 89 24 108/60 (76) 99 07/20/20 04:00 79 07/20/20 00:00 96.8 94 22 108/62 (77) 100 07/19/20 21:00 Nasal Cannula 3.0 07/19/20 20:00 88 07/19/20 20:00 96.6 89 24 118/61 (80) 100 Intake and Output 07/19/20 07/20/20 19:00 07:00 Intake Total 525 ml 510 ml Balance 525 ml 510 ml Free Water 300 ml 150 ml Tube Feeding 225 ml 360 ml # Voids 1 Height (Feet): 5 Height (Inches): 6.00 Weight (Pounds): 160 Objective CV RR Lungs few B ronchi Abd SNT. BS + E No CCE Mely Rincon MD Jul 20, 2020 16:06
[2020-07-20 20:00] VITALS: BP 98/68
[2020-07-20] MEDS: Atorvastatin 20mg tab GT SCH (21:00)
[2020-07-21] VITALS: BP 96/64
[2020-07-21 04:00] VITALS: BP 97/65
[2020-07-21] MEDS: Heparin 5000 units/ml inj SUBQ SCH ×3 (06:22→21:30)
[2020-07-21 08:00] VITALS: BP 99/67
--- NOTE | 2020-07-21 09:32 | Pulmonology Progress Note ---
Subjective ROS Limited/Unobtainable: Yes Allergies: Coded Allergies: PENICILLINS (Unverified Allergy, Unknown, 04/23/18) Subjective care noted reviewed care on low flow oxygen COVID swab Objective Last 24 Hour Vital Signs Date Time Temp Pulse Resp B/P (MAP) Pulse Ox O2 Delivery O2 Flow Rate FiO2 07/21/20 08:00 98.5 87 22 99/67 (78) 96 07/21/20 04:00 74 07/21/20 04:00 98.0 69 22 97/65 (76) 100 07/21/20 00:00 74 07/21/20 00:00 97.9 72 22 96/64 (75) 100 07/20/20 21:00 Nasal Cannula 3.0 07/20/20 20:00 97.8 70 17 98/68 (78) 100 07/20/20 20:00 74 07/20/20 16:00 78 07/20/20 16:00 97.7 83 18 121/74 (90) 100 07/20/20 12:00 84 07/20/20 12:00 97.5 62 18 88/53 (65) 100 Intake and Output 07/20/20 07/21/20 19:00 07:00 Intake Total 540 ml 245 ml Output Total 2500 ml Balance -1960 ml 245 ml Free Water 120 ml 200 ml Tube Feeding 360 ml 45 ml Blood Product 60 ml Output Hemodialysis UF 2500 ml # Voids 2 Objective deferred due to possible COVID Current Medications Medications (Trade) Dose Ordered Sig/Kaleigh Route PRN Reason Start Time Stop Time Status Last Admin Dose Admin Acetaminophen (Tylenol) 650 mg DAILYPRN PRN GT Mild Pain (Pain Scale 1-3) 07/17/20 15:15 08/16/20 15:14 Acetaminophen (Tylenol) 650 mg Q4H PRN GT Temp >100.5 07/17/20 15:15 08/16/20 15:14 Atorvastatin Calcium (Lipitor) 40 mg BEDTIME GT 07/17/20 21:00 10/15/20 20:59 07/20/20 21:00 Bisacodyl (Dulcolax) 10 mg DAILYPRN PRN RECTAL Constipation 07/17/20 15:15 10/15/20 15:14 Dexamethasone (Decadron) 6 mg DAILY GT 07/18/20 09:00 07/26/20 09:01 07/20/20 09:04 Docusate Sodium (Colace) 100 mg TWICE A DAY GT 07/17/20 18:00 08/16/20 17:59 07/20/20 17:51 Escitalopram Oxalate (Lexapro) 10 mg EVERY 12 HOURS GT 07/17/20 21:00 08/16/20 20:59 07/20/20 21:00 Heparin Sodium (Porcine) (Heparin 5000 units/ml) 5,000 units EVERY 8 HOURS SUBQ 07/17/20 22:00 08/31/20 21:59 07/21/20 06:22 Lactulose (Cephulac) 20 gm DAILY GT 07/18/20 09:00 08/17/20 08:59 07/20/20 09:03 Levetiracetam (Keppra) 500 mg Q12HR GT 07/17/20 21:00 08/31/20 20:59 07/20/20 21:00 Levothyroxine Sodium (Synthroid) 100 mcg DAILY@0630 GT 07/18/20 06:30 08/17/20 06:29 07/21/20 05:40 Metoclopramide HCl (Reglan) 5 mg TID GT 07/17/20 18:00 08/16/20 17:59 07/20/20 17:51 Midodrine (Pro-Amatine) 5 mg TID GT 07/17/20 18:00 10/15/20 17:59 07/20/20 17:51 Ondansetron HCl (Zofran) 4 mg Q6H PRN GT Nausea & Vomiting 07/17/20 15:15 08/16/20 15:14 Risperidone (RisperDAL) 2 mg BEDTIME GT 07/17/20 21:00 08/31/20 20:59 07/20/20 21:00 Valproic Acid (Depakene) 250 mg DAILY GT 07/18/20 09:00 09/01/20 08:59 07/20/20 09:03 Vitamin B Complex/ Vit C/Folic Acid (Nephrovite) 1 tab DAILY GT 07/18/20 09:00 08/17/20 08:59 07/20/20 09:03 Zinc Sulfate (Zinc Sulfate) 220 mg DAILY GT 07/18/20 09:00 10/16/20 08:59 07/20/20 09:03 Assessment/Plan Assessment/Plan IMPRESSION: 1. Acute hypoxemic respiratory failure. Multifocal infiltrates. Small pleural effusion. 2. End-stage renal disease. 3. Anemia of chronic disease. 4. Elevated C-reactive protein. 5. Dementia. 6. Chronic encephalopathy. 7. Chronic debility. 8. COVID+ RECOMMENDATION: Admitted and care noted. IV Decadron. ID follow up for remdesivir. DVT prophylaxis. Hemodialysis with ultrafiltration. Monitor for worsening respiratory distress, oxygen therapy, and we will monitor clinically for changes. monitor imaging impression, plan, and exam edited and reviewed in detail care discussed with Sreekanth Yates MD Jul 21, 2020 09:32
[2020-07-21] MEDS: Docusate 100mg/10ml Liq GT SCH ×2 (09:53→17:56)
[2020-07-21] MEDS: levETIRAcetam 500mg/5ml Liquid GT SCH ×2 (09:53→21:28)
[2020-07-21] MEDS: Valproic Acid 250mg/5ml Liquid GT SCH (09:53)
[2020-07-21] MEDS: Lactulose 10gm/15ml UDC GT SCH (09:53)
[2020-07-21] MEDS: Zinc Sulfate 220mg GT SCH (09:54)
[2020-07-21] MEDS: Nephrovite tab (Rena-Vite) GT SCH (09:54)
[2020-07-21] MEDS: Metoclopramide 10mg/10ml Liq GT SCH ×3 (09:54→17:56)
--- NOTE | 2020-07-21 10:36 | Infectious Diseases Prog Note ---
Assessment/Plan Assessment/Plan antibiotics : none A 1. COVID-19 pneumonia. on 3 liters O2, with saturation of 100 % s/p ivermectin 2. Renal failure, on dialysis. 3. Schizophrenia. 4. Hypertension. P 1. Continue Decadron day # 5. 2. Continue isolation. 3. We will follow up the patient clinically. Subjective ROS Limited/Unobtainable: Yes Allergies: Coded Allergies: PENICILLINS (Unverified Allergy, Unknown, 04/23/18) Objective Last 24 Hour Vital Signs Date Time Temp Pulse Resp B/P (MAP) Pulse Ox O2 Delivery O2 Flow Rate FiO2 07/21/20 08:00 88 07/21/20 08:00 98.5 87 22 99/67 (78) 96 07/21/20 04:00 74 07/21/20 04:00 98.0 69 22 97/65 (76) 100 07/21/20 00:00 74 07/21/20 00:00 97.9 72 22 96/64 (75) 100 07/20/20 21:00 Nasal Cannula 3.0 07/20/20 20:00 97.8 70 17 98/68 (78) 100 07/20/20 20:00 74 07/20/20 16:00 78 07/20/20 16:00 97.7 83 18 121/74 (90) 100 07/20/20 12:00 84 07/20/20 12:00 97.5 62 18 88/53 (65) 100 Height (Feet): 5 Height (Inches): 6.00 Weight (Pounds): 160 Current Medications Medications (Trade) Dose Ordered Sig/Kaleigh Route PRN Reason Start Time Stop Time Status Last Admin Dose Admin Acetaminophen (Tylenol) 650 mg DAILYPRN PRN GT Mild Pain (Pain Scale 1-3) 07/17/20 15:15 08/16/20 15:14 Acetaminophen (Tylenol) 650 mg Q4H PRN GT Temp >100.5 07/17/20 15:15 08/16/20 15:14 Atorvastatin Calcium (Lipitor) 40 mg BEDTIME GT 07/17/20 21:00 10/15/20 20:59 07/20/20 21:00 Bisacodyl (Dulcolax) 10 mg DAILYPRN PRN RECTAL Constipation 07/17/20 15:15 10/15/20 15:14 Dexamethasone (Decadron) 6 mg DAILY GT 07/18/20 09:00 07/26/20 09:01 07/21/20 09:54 Docusate Sodium (Colace) 100 mg TWICE A DAY GT 07/17/20 18:00 08/16/20 17:59 07/21/20 09:53 Escitalopram Oxalate (Lexapro) 10 mg EVERY 12 HOURS GT 07/17/20 21:00 08/16/20 20:59 07/21/20 09:54 Heparin Sodium (Porcine) (Heparin 5000 units/ml) 5,000 units EVERY 8 HOURS SUBQ 07/17/20 22:00 08/31/20 21:59 07/21/20 06:22 Lactulose (Cephulac) 20 gm DAILY GT 07/18/20 09:00 08/17/20 08:59 07/21/20 09:53 Levetiracetam (Keppra) 500 mg Q12HR GT 07/17/20 21:00 08/31/20 20:59 07/21/20 09:53 Levothyroxine Sodium (Synthroid) 100 mcg DAILY@0630 GT 07/18/20 06:30 08/17/20 06:29 07/21/20 05:40 Metoclopramide HCl (Reglan) 5 mg TID GT 07/17/20 18:00 08/16/20 17:59 07/21/20 09:54 Midodrine (Pro-Amatine) 5 mg TID GT 07/17/20 18:00 10/15/20 17:59 07/21/20 09:54 Ondansetron HCl (Zofran) 4 mg Q6H PRN GT Nausea & Vomiting 07/17/20 15:15 08/16/20 15:14 Risperidone (RisperDAL) 2 mg BEDTIME GT 07/17/20 21:00 08/31/20 20:59 07/20/20 21:00 Valproic Acid (Depakene) 250 mg DAILY GT 07/18/20 09:00 09/01/20 08:59 07/21/20 09:53 Vitamin B Complex/ Vit C/Folic Acid (Nephrovite) 1 tab DAILY GT 07/18/20 09:00 08/17/20 08:59 07/21/20 09:54 Zinc Sulfate (Zinc Sulfate) 220 mg DAILY GT 07/18/20 09:00 10/16/20 08:59 07/21/20 09:54 Tha Dalal MD Jul 21, 2020 10:36
[2020-07-21 12:00] VITALS: BP 101/65
--- NOTE | 2020-07-21 12:41 | Surgery Progress Note ---
Surgery Progress Note Subjective Additional Comments no acute events on Tx remdes Objective Last 24 Hour Vital Signs Date Time Temp Pulse Resp B/P (MAP) Pulse Ox O2 Delivery O2 Flow Rate FiO2 07/21/20 12:00 98.2 77 20 101/65 (77) 97 07/21/20 09:00 Nasal Cannula 3.0 07/21/20 08:00 88 07/21/20 08:00 98.5 87 22 99/67 (78) 96 07/21/20 04:00 74 07/21/20 04:00 98.0 69 22 97/65 (76) 100 07/21/20 00:00 74 07/21/20 00:00 97.9 72 22 96/64 (75) 100 07/20/20 21:00 Nasal Cannula 3.0 07/20/20 20:00 97.8 70 17 98/68 (78) 100 07/20/20 20:00 74 07/20/20 16:00 78 07/20/20 16:00 97.7 83 18 121/74 (90) 100 I&O Intake and Output 07/20/20 07/21/20 19:00 07:00 Intake Total 540 ml 245 ml Output Total 2500 ml Balance -1960 ml 245 ml Free Water 120 ml 200 ml Tube Feeding 360 ml 45 ml Blood Product 60 ml Output Hemodialysis UF 2500 ml # Voids 2 Dressing: saturated Cardiovascular: RSR Respiratory: decreased breath sounds Abdomen: non-tender, present bowel sounds Extremities: edema, no tenderness, no cyanosis, other Plan Problems: (1) Respiratory distress (2) UTI (urinary tract infection) (3) ESRD (end stage renal disease) on dialysis (4) Dehydration (5) Abscess (6) Psychotic disorder (7) Altered mental status (8) Severe malnutrition Assessment & Plan: DAILY ESTIMATED NEEDS: Needs based on ESRD+HD, wound, [employer] TF/ 75kg 22-30 kcals/kg 8062-9380 total kcals 1.25-1.8 g protein/kg 94-135 g total protein 20-22 mL/kg 5022-8383 total fluid mLs NUTRITION DIAGNOSIS: * Increased kcal/prot needs R/T wound healing, renal dysfunction as evidenced by admitted w/ wounds @ sacrum and BL heels per photos, pending eval, ESRD dx, on HD. * Swallowing difficulty R/T dysphagia as evidenced by PEG dep. CURRENT TF:Nepro @ 45ml/hr x 18 hrs ENTERAL NUTRITION RECOMMENDATIONS: Nepro @ 45ml/hr x 22 hrs + Prosource 1pkt BID to provide 990ml, 1782kcal, 80+22g prot, 715ml free water * Rec 45ml/hr x 22 hrs to better meet est needs * Hold 1 hr before and after Synthroid med * Add Prosource 1pkt BID for additional 22g prot * HOB over 30 degrees/ water flush per MD ADDITIONAL RECOMMENDATIONS: * Per SNF: HT=68" and hu=285rpw (07/04/20) * F/up w/ WC eval: Continue Nephrovite, add Orion BID * Monitor BGs, need for hypoglycemics: h/o DM + Decadron * Monitor lytes and renal fxn * Trend lipase and TF tolerance (lipase 1301 on 07/17) (9) Sacral decubitus ulcer Assessment & Plan: Pt presented on admission with Multiple Pressure Injuries.reabsorbing DTPI Sacrum(L)11cm x (W)14cm. Base of Pressure Injury is black-dry with surrounding Non-Blanchable erythema. Unstageable Pressure Injury L Heel (L)3.8cm x (W)5cm. Base of wound is 100% necrotic. Edges are adherent to base of wound. Periwound is fluctuant but blan chable. Unstageable Pressure Injury R heel (L)4.5cm x (W)7cm. Base of Pressure Injury is 100% necrotic,edges are adherent to base of wound. Periwound is fluctuant but blanchable. Tx Plan: Apply Moisture Barrier to Sacrum .Cover with Optifoam drsg .Change every 3 days and prn. Apply Cavilon Skin Barrier to both heels.Cover with Optifoam drsg .Change every 7 days and prn. APM/JOHN mattress. Reposition at least every 2 hours or as tolerated. Off-load heels with pillow. Nutritional optimization (10) Fracture of left ankle (11) MDD (major depressive disorder), recurrent episode, moderate (12) Encephalopathy due to metabolic factor or toxin (13) Multiple injuries due to trauma (14) COVID-19 Herson Walter Jul 21, 2020 12:41
--- NOTE | 2020-07-21 13:56 | Nephrology Progress Note ---
Assessment/Plan Plan Covid 19 Pneumonia Remdesevir + Dexa per ID. On O2 3L/min. Stilll needs Hospital stay. To retry HD. ESRD HD TTS. Subjective Subjective More alert. On O2 3L/min. Objective Objective Last 24 Hour Vital Signs Date Time Temp Pulse Resp B/P (MAP) Pulse Ox O2 Delivery O2 Flow Rate FiO2 07/21/20 12:00 98.2 77 20 101/65 (77) 97 07/21/20 12:00 77 07/21/20 09:00 Nasal Cannula 3.0 07/21/20 08:00 88 07/21/20 08:00 98.5 87 22 99/67 (78) 96 07/21/20 04:00 74 07/21/20 04:00 98.0 69 22 97/65 (76) 100 07/21/20 00:00 74 07/21/20 00:00 97.9 72 22 96/64 (75) 100 07/20/20 21:00 Nasal Cannula 3.0 07/20/20 20:00 97.8 70 17 98/68 (78) 100 07/20/20 20:00 74 07/20/20 16:00 78 07/20/20 16:00 97.7 83 18 121/74 (90) 100 Intake and Output 07/20/20 07/21/20 19:00 07:00 Intake Total 540 ml 245 ml Output Total 2500 ml Balance -1960 ml 245 ml Free Water 120 ml 200 ml Tube Feeding 360 ml 45 ml Blood Product 60 ml Output Hemodialysis UF 2500 ml # Voids 2 Height (Feet): 5 Height (Inches): 6.00 Weight (Pounds): 160 Objective CV RR Lungs few B ronchi Abd SNT. BS + E No CCE Mely Rincon MD Jul 21, 2020 13:56
[2020-07-21 16:00] VITALS: BP 99/60
[2020-07-21 20:00] VITALS: BP 103/55
[2020-07-21] MEDS ORDERED: Epoetin Alfa-EPBX (NON ESRD)10,000 unit/ml vial SUBQ SCH (21:00)
[2020-07-21] MEDS: Atorvastatin 20mg tab GT SCH (21:29)
[2020-07-22] VITALS: BP 98/64
[2020-07-22 04:00] VITALS: BP 97/52
[2020-07-22] MEDS ORDERED: Heparin Sod 1000 units/ml 10ml IV PRN (06:00)
[2020-07-22] MEDS: Heparin 5000 units/ml inj SUBQ SCH ×3 (06:00→22:00)
[2020-07-22 08:00] VITALS: BP 98/53
[2020-07-22] MEDS: Nephrovite tab (Rena-Vite) GT SCH (08:42)
[2020-07-22] MEDS: Metoclopramide 10mg/10ml Liq GT SCH ×3 (08:43→17:13)
[2020-07-22] MEDS: Docusate 100mg/10ml Liq GT SCH ×2 (08:43→17:13)
[2020-07-22] MEDS: Valproic Acid 250mg/5ml Liquid GT SCH (08:43)
[2020-07-22] MEDS: Zinc Sulfate 220mg GT SCH (08:43)
[2020-07-22] MEDS: Lactulose 10gm/15ml UDC GT SCH (08:43)
[2020-07-22] MEDS: levETIRAcetam 500mg/5ml Liquid GT SCH ×2 (08:43→20:18)
[2020-07-22 12:00] VITALS: BP 112/58
[2020-07-22 13:08] LABS: HEMATOCRIT 29.9 % (37.0-47.0); HEMOGLOBIN 9.8 G/DL (12.0-16.0); MEAN CORPUSCULAR VOLUME 96 FL (80-99); PLATELET COUNT 243 K/UL (150-450); RED BLOOD COUNT 3.11 M/UL (4.20-5.40); RED CELL DISTRIBUTION WIDTH 16.3 % (11.6-14.8); WHITE BLOOD COUNT 12.2 K/UL (4.8-10.8)
--- NOTE | 2020-07-22 13:30 | Nephrology Progress Note ---
Assessment/Plan Problem List: (1) ESRD (end stage renal disease) on dialysis (2) COVID-19 (3) Psychotic disorder (4) Respiratory distress (5) Pneumonia due to COVID-19 virus Plan HD 07/22 dexamethasone, remdesivir Subjective ROS Limited/Unobtainable: Yes Objective Objective Last 24 Hour Vital Signs Date Time Temp Pulse Resp B/P (MAP) Pulse Ox O2 Delivery O2 Flow Rate FiO2 07/22/20 12:00 99.7 80 20 112/58 (76) 95 07/22/20 12:00 86 07/22/20 09:00 Nasal Cannula 3.0 07/22/20 08:00 98.2 74 20 98/53 (68) 95 07/22/20 08:00 67 07/22/20 04:00 74 07/22/20 04:00 97.7 79 17 97/52 (67) 97 07/22/20 00:00 84 07/22/20 00:00 97.5 86 17 98/64 (75) 96 07/21/20 21:00 Nasal Cannula 3.0 07/21/20 20:00 79 07/21/20 20:00 97.7 81 19 103/55 (71) 95 07/21/20 16:00 98.0 83 18 99/60 (73) 96 07/21/20 16:00 87 Intake and Output 07/21/20 07/22/20 19:00 07:00 Intake Total 45 ml 695 ml Balance 45 ml 695 ml Free Water 200 ml Tube Feeding 45 ml 495 ml # Voids 1 Laboratory Tests 07/22/20 13:01: White Blood Count 12.2H, Red Blood Count 3.11L, Hemoglobin 9.8L, Hematocrit 29.9L, Mean Corpuscular Volume 96, Mean Corpuscular Hemoglobin 31.5H, Mean Corpuscular Hemoglobin Concent 32.7, Red Cell Distribution Width 16.3H, Platelet Count 243, Mean Platelet Volume 5.7L, Neutrophils (%) (Auto) , Lymphocytes (%) (Auto) , Monocytes (%) (Auto) , Eosinophils (%) (Auto) , Basophils (%) (Auto) , Neutrophils % (Manual) [Pending], Lymphocytes % (Manual) [Pending], Platelet Estimate [Pending], Platelet Morphology [Pending], Sodium Level [Pending], Potassium Level [Pending], Chloride Level [Pending], Carbon Dioxide Level [Pending], Blood Urea Nitrogen [Pending], Creatinine [Pending], Estimat Glomerular Filtration Rate [Pending], Glucose Level [Pending], Calcium Level [Pending] Height (Feet): 5 Height (Inches): 6.00 Weight (Pounds): 160 General Appearance: no apparent distress, lethargic, confused EENT: normal ENT inspection Neck: normal alignment Cardiovascular: normal rate, regular rhythm Respiratory/Chest: lungs clear Abdomen: non tender, other - GT Extremities: no edema Neurologic: disoriented Vince Lyle MD Jul 22, 2020 13:30
[2020-07-22 13:37] LABS: CALCIUM 10.5 MG/DL (8.5-10.1); CREATININE 5.8 MG/DL (0.55-1.30); POTASSIUM 3.1 MMOL/L (3.5-5.1)
[2020-07-22 16:00] VITALS: BP 122/70
[2020-07-22] MEDS: NovoLOG Insulin Flexpen SUBQ SCH ×2 (16:43→21:00)
--- NOTE | 2020-07-22 18:02 | Surgery Progress Note ---
Surgery Progress Note Subjective Additional Comments on tx tolerating tf leukocytosis likely med related no n/v/f/c Objective Last 24 Hour Vital Signs Date Time Temp Pulse Resp B/P (MAP) Pulse Ox O2 Delivery O2 Flow Rate FiO2 07/22/20 16:00 97.5 94 22 122/70 (87) 96 07/22/20 16:00 81 07/22/20 12:00 99.7 80 20 112/58 (76) 95 07/22/20 12:00 86 07/22/20 09:00 Nasal Cannula 3.0 07/22/20 08:00 98.2 74 20 98/53 (68) 95 07/22/20 08:00 67 07/22/20 04:00 74 07/22/20 04:00 97.7 79 17 97/52 (67) 97 07/22/20 00:00 84 07/22/20 00:00 97.5 86 17 98/64 (75) 96 07/21/20 21:00 Nasal Cannula 3.0 07/21/20 20:00 79 07/21/20 20:00 97.7 81 19 103/55 (71) 95 I&O Intake and Output 07/21/20 07/22/20 19:00 07:00 Intake Total 45 ml 695 ml Balance 45 ml 695 ml Free Water 200 ml Tube Feeding 45 ml 495 ml # Voids 1 Cardiovascular: RSR Respiratory: decreased breath sounds Abdomen: soft, flat, non-tender, present bowel sounds, other, non-distended Extremities: edema, no tenderness, no cyanosis Laboratory Tests Test 07/22/20 13:01 White Blood Count 12.2 K/UL (4.8-10.8) H Red Blood Count 3.11 M/UL (4.20-5.40) L Hemoglobin 9.8 G/DL (12.0-16.0) L Hematocrit 29.9 % (37.0-47.0) L Mean Corpuscular Volume 96 FL (80-99) Mean Corpuscular Hemoglobin 31.5 PG (27.0-31.0) H Mean Corpuscular Hemoglobin Concent 32.7 G/DL (32.0-36.0) Red Cell Distribution Width 16.3 % (11.6-14.8) H Platelet Count 243 K/UL (150-450) Mean Platelet Volume 5.7 FL (6.5-10.1) L Neutrophils (%) (Auto) % (45.0-75.0) Lymphocytes (%) (Auto) % (20.0-45.0) Monocytes (%) (Auto) % (1.0-10.0) Eosinophils (%) (Auto) % (0.0-3.0) Basophils (%) (Auto) % (0.0-2.0) Differential Total Cells Counted 100 Neutrophils % (Manual) 73 % (45-75) Lymphocytes % (Manual) 14 % (20-45) L Monocytes % (Manual) 6 % (1-10) Eosinophils % (Manual) 0 % (0-3) Basophils % (Manual) 0 % (0-2) Metamyelocytes % 2 % (0-0) H Myelocytes % 2 % (0-0) H Band Neutrophils 3 % (0-8) Nucleated Red Blood Cells 1 /100 WBC Platelet Estimate Adequate Platelet Morphology Normal Polychromasia 1+ Hypochromasia 1+ Anisocytosis 1+ Sodium Level 138 MMOL/L (136-145) Potassium Level 3.1 MMOL/L (3.5-5.1) L Chloride Level 97 MMOL/L (98-107) L Carbon Dioxide Level 32 MMOL/L (21-32) Anion Gap 9 mmol/L (5-15) Blood Urea Nitrogen 77 mg/dL (7-18) H Creatinine 5.8 MG/DL (0.55-1.30) H Estimat Glomerular Filtration Rate 8.8 mL/min (>60) Glucose Level 136 MG/DL (74-106) H Calcium Level 10.5 MG/DL (8.5-10.1) H Plan Problems: (1) Respiratory distress (2) UTI (urinary tract infection) (3) ESRD (end stage renal disease) on dialysis (4) Dehydration (5) Abscess (6) Psychotic disorder (7) Altered mental status (8) Severe malnutrition Assessment & Plan: DAILY ESTIMATED NEEDS: Needs based on ESRD+HD, wound, [employer] TF/ 75kg 22-30 kcals/kg 8487-5366 total kcals 1.25-1.8 g protein/kg 94-135 g total protein 20-22 mL/kg 7560-0388 total fluid mLs NUTRITION DIAGNOSIS: * Increased kcal/prot needs R/T wound healing, renal dysfunction as evidenced by admitted w/ wounds @ sacrum and BL heels per photos, pending eval, ESRD dx, on HD. * Swallowing difficulty R/T dysphagia as evidenced by PEG dep. CURRENT TF:Nepro @ 45ml/hr x 18 hrs ENTERAL NUTRITION RECOMMENDATIONS: Nepro @ 45ml/hr x 22 hrs + Prosource 1pkt BID to provide 990ml, 1782kcal, 80+22g prot, 715ml free water * Rec 45ml/hr x 22 hrs to better meet est needs * Hold 1 hr before and after Synthroid med * Add Prosource 1pkt BID for additional 22g prot * HOB over 30 degrees/ water flush per MD ADDITIONAL RECOMMENDATIONS: * Per SNF: HT=68" and of=299lmh (07/04/20) * F/up w/ WC eval: Continue Nephrovite, add Orion BID * Monitor BGs, need for hypoglycemics: h/o DM + Decadron * Monitor lytes and renal fxn * Trend lipase and TF tolerance (lipase 1301 on 07/17) (9) Sacral decubitus ulcer Assessment & Plan: Pt presented on admission with Multiple Pressure In juries.reabsorbing DTPI Sacrum(L)11cm x (W)14cm. Base of Pressure Injury is black-dry with surrounding Non-Blanchable erythema. Unstageable Pressure Injury L Heel (L)3.8cm x (W)5cm. Base of wound is 100% necrotic. Edges are adherent to base of wound. Periwound is fluctuant but blanchable. Unstageable Pressure Injury R heel (L)4.5cm x (W)7cm. Base of Pressure Injury is 100% necrotic,edges are adherent to base of wound. Periwound is fluctuant but blanchable. Tx Plan: Apply Moisture Barrier to Sacrum .Cover with Optifoam drsg .Change every 3 days and prn. Apply Cavilon Skin Barrier to both heels.Cover with Optifoam drsg .Change every 7 days and prn. APM/JOHN mattress. Reposition at least every 2 hours or as tolerated. Off-load heels with pillow. Nutritional optimization (10) Fracture of left ankle (11) MDD (major depressive disorder), recurrent episode, moderate (12) Encephalopathy due to metabolic factor or toxin (13) Multiple injuries due to trauma (14) COVID-19 Assessment & Plan: +on tx Herson Walter Jul 22, 2020 18:02
--- NOTE | 2020-07-22 18:32 | Pulmonology Progress Note ---
Subjective ROS Limited/Unobtainable: Yes Allergies: Coded Allergies: PENICILLINS (Unverified Allergy, Unknown, 04/23/18) Subjective care noted reviewed care on low flow oxygen COVID + Objective Last 24 Hour Vital Signs Date Time Temp Pulse Resp B/P (MAP) Pulse Ox O2 Delivery O2 Flow Rate FiO2 07/22/20 16:00 97.5 94 22 122/70 (87) 96 07/22/20 16:00 81 07/22/20 12:00 99.7 80 20 112/58 (76) 95 07/22/20 12:00 86 07/22/20 09:00 Nasal Cannula 3.0 07/22/20 08:00 98.2 74 20 98/53 (68) 95 07/22/20 08:00 67 07/22/20 04:00 74 07/22/20 04:00 97.7 79 17 97/52 (67) 97 07/22/20 00:00 84 07/22/20 00:00 97.5 86 17 98/64 (75) 96 07/21/20 21:00 Nasal Cannula 3.0 07/21/20 20:00 79 07/21/20 20:00 97.7 81 19 103/55 (71) 95 Intake and Output 07/21/20 07/22/20 19:00 07:00 Intake Total 45 ml 695 ml Balance 45 ml 695 ml Free Water 200 ml Tube Feeding 45 ml 495 ml # Voids 1 Objective deferred due to possible COVID Laboratory Tests 07/22/20 13:01: White Blood Count 12.2H, Red Blood Count 3.11L, Hemoglobin 9.8L, Hematocrit 29.9L, Mean Corpuscular Volume 96, Mean Corpuscular Hemoglobin 31.5H, Mean Corpuscular Hemoglobin Concent 32.7, Red Cell Distribution Width 16.3H, Platelet Count 243, Mean Platelet Volume 5.7L, Neutrophils (%) (Auto) , Lymphocytes (%) (Auto) , Monocytes (%) (Auto) , Eosinophils (%) (Auto) , Basophils (%) (Auto) , Differential Total Cells Counted 100, Neutrophils % (Manual) 73, Lymphocytes % (Manual) 14L, Monocytes % (Manual) 6, Eosinophils % (Manual) 0, Basophils % (Manual) 0, Metamyelocytes % 2H, Myelocytes % 2H, Band Neutrophils 3, Nucleated Red Blood Cells 1, Platelet Estimate Adequate, Platelet Morphology Normal, Polychromasia 1+, Hypochromasia 1+, Anisocytosis 1+, Sodium Level 138, Potassium Level 3.1L, Chloride Level 97L, Carbon Dioxide Level 32, Anion Gap 9, Blood Urea Nitrogen 77H, Creatinine 5.8H, Estimat Glomerular Filtration Rate 8.8, Glucose Level 136H, Calcium Level 10.5H Current Medications Medications (Trade) Dose Ordered Sig/Kaleigh Route PRN Reason Start Time Stop Time Status Last Admin Dose Admin Acetaminophen (Tylenol) 650 mg DAILYPRN PRN GT Mild Pain (Pain Scale 1-3) 07/17/20 15:15 08/16/20 15:14 Acetaminophen (Tylenol) 650 mg Q4H PRN GT Temp >100.5 07/17/20 15:15 08/16/20 15:14 Atorvastatin Calcium (Lipitor) 40 mg BEDTIME GT 07/17/20 21:00 10/15/20 20:59 07/21/20 21:29 Bisacodyl (Dulcolax) 10 mg DAILYPRN PRN RECTAL Constipation 07/17/20 15:15 10/15/20 15:14 Dexamethasone (Decadron) 6 mg DAILY GT 07/18/20 09:00 07/26/20 09:01 07/22/20 08:43 Dextrose (Dextrose 50%) 25 ml Q30M PRN IV Hypoglycemia 07/22/20 13:30 10/20/20 13:29 Dextrose (Dextrose 50%) 50 ml Q30M PRN IV Hypoglycemia 07/22/20 13:30 10/20/20 13:29 Docusate Sodium (Colace) 100 mg TWICE A DAY GT 07/17/20 18:00 08/16/20 17:59 07/22/20 17:13 Epoetin Allan (Epoetin Allan-EPBX(NON ESRD)) 10,000 unit FRI-FRI-FRI SUBQ 07/21/20 21:00 10/19/20 20:59 07/21/20 21:28 Escitalopram Oxalate (Lexapro) 10 mg EVERY 12 HOURS GT 07/17/20 21:00 08/16/20 20:59 07/22/20 08:42 Heparin Sodium (Porcine) (Heparin 5000 units/ml) 5,000 units EVERY 8 HOURS SUBQ 07/17/20 22:00 08/31/20 21:59 07/21/20 21:30 Heparin Sodium (Porcine) (Heparin Sod 1000 units/ml 10ml) 2,000 unit ONCE PRN IV DIALYSIS 07/22/20 06:00 07/22/20 23:59 Insulin Aspart (NovoLOG) BEFORE MEALS AND HS SUBQ 07/22/20 16:30 10/20/20 16:29 07/22/20 16:43 Lactulose (Cephulac) 20 gm DAILY GT 07/18/20 09:00 08/17/20 08:59 07/22/20 08:43 Levetiracetam (Keppra) 500 mg Q12HR GT 07/17/20 21:00 08/31/20 20:59 07/22/20 08:43 Levothyroxine Sodium (Synthroid) 100 mcg DAILY@0630 GT 07/18/20 06:30 08/17/20 06:29 07/22/20 06:26 Metoclopramide HCl (Reglan) 5 mg TID GT 07/17/20 18:00 08/16/20 17:59 07/22/20 17:13 Midodrine (Pro-Amatine) 5 mg TID GT 07/17/20 18:00 10/15/20 17:59 07/22/20 17:13 Ondansetron HCl (Zofran) 4 mg Q6H PRN GT Nausea & Vomiting 07/17/20 15:15 08/16/20 15:14 Risperidone (RisperDAL) 2 mg BEDTIME GT 07/17/20 21:00 08/31/20 20:59 07/21/20 21:28 Sodium Chloride 1,000 ml @ 500 mls/hr Q2H PRN IVLG sbp<90 during hd 07/22/20 06:00 07/22/20 23:59 Valproic Acid (Depakene) 250 mg DAILY GT 07/18/20 09:00 09/01/20 08:59 07/22/20 08:43 Vitamin B Complex/ Vit C/Folic Acid (Nephrovite) 1 tab DAILY GT 07/18/20 09:00 08/17/20 08:59 07/22/20 08:42 Zinc Sulfate (Zinc Sulfate) 220 mg DAILY GT 07/18/20 09:00 10/16/20 08:59 07/22/20 08:43 Assessment/Plan Assessment/Plan IMPRESSION: 1. Acute hypoxemic respiratory failure. Multifocal infiltrates. Small pleural effusion. 2. End-stage renal disease. 3. Anemia of chronic disease. 4. Elevated C-reactive protein. 5. Dementia. 6. Chronic encephalopathy. 7. Chronic debility. 8. COVID+ RECOMMENDATION: care noted. IV Decadron. ID follow up. DVT prophylaxis. Hemodialysis with ultrafiltration. Monitor for worsening respiratory distress, oxygen therapy, and we will monitor clinically for changes. monitor imaging impression, plan, and exam edited and reviewed in detail care discussed with Sreekanth Yates MD Jul 22, 2020 18:32
[2020-07-22 20:00] VITALS: BP 128/86
[2020-07-22] MEDS: Atorvastatin 20mg tab GT SCH (20:18)
[2020-07-23] VITALS: BP 120/60
[2020-07-23 04:00] VITALS: BP 108/70
[2020-07-23] MEDS: Heparin 5000 units/ml inj SUBQ SCH ×3 (06:16→22:25)
--- NOTE | 2020-07-23 06:21 | Pulmonology Progress Note ---
Subjective ROS Limited/Unobtainable: Yes Allergies: Coded Allergies: PENICILLINS (Unverified Allergy, Unknown, 04/23/18) Subjective care noted reviewed care on low flow oxygen at present COVID + Objective Last 24 Hour Vital Signs Date Time Temp Pulse Resp B/P (MAP) Pulse Ox O2 Delivery O2 Flow Rate FiO2 07/23/20 04:00 82 07/23/20 00:00 97.5 87 18 120/60 (80) 100 07/23/20 00:00 86 07/22/20 21:00 Nasal Cannula 3.0 07/22/20 20:00 95 07/22/20 20:00 96.6 80 18 128/86 (100) 100 07/22/20 16:00 97.5 94 22 122/70 (87) 96 07/22/20 16:00 81 07/22/20 12:00 99.7 80 20 112/58 (76) 95 07/22/20 12:00 86 07/22/20 09:00 Nasal Cannula 3.0 07/22/20 08:00 98.2 74 20 98/53 (68) 95 07/22/20 08:00 67 Intake and Output 07/22/20 07/23/20 19:00 07:00 # Voids 1 Objective deferred due to possible COVID Laboratory Tests 07/22/20 13:01: White Blood Count 12.2H, Red Blood Count 3.11L, Hemoglobin 9.8L, Hematocrit 29.9L, Mean Corpuscular Volume 96, Mean Corpuscular Hemoglobin 31.5H, Mean Corpuscular Hemoglobin Concent 32.7, Red Cell Distribution Width 16.3H, Platelet Count 243, Mean Platelet Volume 5.7L, Neutrophils (%) (Auto) , Lymphocytes (%) (Auto) , Monocytes (%) (Auto) , Eosinophils (%) (Auto) , Basophils (%) (Auto) , Differential Total Cells Counted 100, Neutrophils % (Manual) 73, Lymphocytes % (Manual) 14L, Monocytes % (Manual) 6, Eosinophils % (Manual) 0, Basophils % (Manual) 0, Metamyelocytes % 2H, Myelocytes % 2H, Band Neutrophils 3, Nucleated Red Blood Cells 1, Platelet Estimate Adequate, Platelet Morphology Normal, Polychromasia 1+, Hypochromasia 1+, Anisocytosis 1+, Sodium Level 138, Potassium Level 3.1L, Chloride Level 97L, Carbon Dioxide Level 32, Anion Gap 9, Blood Urea Nitrogen 77H, Creatinine 5.8H, Estimat Glomerular Filtration Rate 8.8, Glucose Level 136H, Calcium Level 10.5H Current Medications Medications (Trade) Dose Ordered Sig/Kaleigh Route PRN Reason Start Time Stop Time Status Last Admin Dose Admin Acetaminophen (Tylenol) 650 mg DAILYPRN PRN GT Mild Pain (Pain Scale 1-3) 07/17/20 15:15 08/16/20 15:14 Acetaminophen (Tylenol) 650 mg Q4H PRN GT Temp >100.5 07/17/20 15:15 08/16/20 15:14 Atorvastatin Calcium (Lipitor) 40 mg BEDTIME GT 07/17/20 21:00 10/15/20 20:59 07/22/20 20:18 Bisacodyl (Dulcolax) 10 mg DAILYPRN PRN RECTAL Constipation 07/17/20 15:15 10/15/20 15:14 Dexamethasone (Decadron) 6 mg DAILY GT 07/18/20 09:00 07/26/20 09:01 07/22/20 08:43 Dextrose (Dextrose 50%) 25 ml Q30M PRN IV Hypoglycemia 07/22/20 13:30 10/20/20 13:29 Dextrose (Dextrose 50%) 50 ml Q30M PRN IV Hypoglycemia 07/22/20 13:30 10/20/20 13:29 Docusate Sodium (Colace) 100 mg TWICE A DAY GT 07/17/20 18:00 08/16/20 17:59 07/22/20 17:13 Epoetin Allan (Epoetin Allan-EPBX(NON ESRD)) 10,000 unit FRI-FRI-FRI SUBQ 07/21/20 21:00 10/19/20 20:59 07/21/20 21:28 Escitalopram Oxalate (Lexapro) 10 mg EVERY 12 HOURS GT 07/17/20 21:00 08/16/20 20:59 07/22/20 20:18 Heparin Sodium (Porcine) (Heparin 5000 units/ml) 5,000 units EVERY 8 HOURS SUBQ 07/17/20 22:00 08/31/20 21:59 07/23/20 06:16 Insulin Aspart (NovoLOG) BEFORE MEALS AND HS SUBQ 07/22/20 16:30 10/20/20 16:29 07/22/20 16:43 Lactulose (Cephulac) 20 gm DAILY GT 07/18/20 09:00 08/17/20 08:59 07/22/20 08:43 Levetiracetam (Keppra) 500 mg Q12HR GT 07/17/20 21:00 08/31/20 20:59 07/22/20 20:18 Levothyroxine Sodium (Synthroid) 100 mcg DAILY@0630 GT 07/18/20 06:30 08/17/20 06:29 07/23/20 06:13 Metoclopramide HCl (Reglan) 5 mg TID GT 07/17/20 18:00 08/16/20 17:59 07/22/20 17:13 Midodrine (Pro-Amatine) 5 mg TID GT 07/17/20 18:00 10/15/20 17:59 07/22/20 17:13 Ondansetron HCl (Zofran) 4 mg Q6H PRN GT Nausea & Vomiting 07/17/20 15:15 08/16/20 15:14 07/22/20 21:56 Risperidone (RisperDAL) 2 mg BEDTIME GT 07/17/20 21:00 08/31/20 20:59 07/22/20 20:18 Valproic Acid (Depakene) 250 mg DAILY GT 07/18/20 09:00 09/01/20 08:59 07/22/20 08:43 Vitamin B Complex/ Vit C/Folic Acid (Nephrovite) 1 tab DAILY GT 07/18/20 09:00 08/17/20 08:59 07/22/20 08:42 Zinc Sulfate (Zinc Sulfate) 220 mg DAILY GT 07/18/20 09:00 10/16/20 08:59 07/22/20 08:43 Assessment/Plan Assessment/Plan IMPRESSION: 1. Acute hypoxemic respiratory failure. Multifocal infiltrates. Small pleural effusion. 2. End-stage renal disease. 3. Anemia of chronic disease. 4. Elevated C-reactive protein. 5. Dementia. 6. Chronic encephalopathy. 7. Chronic debility. 8. COVID+ RECOMMENDATION: care noted. IV Decadron- to complete. ID follow up noted. DVT prophylaxis. Hemodialysis with ultrafiltration. Monitor for worsening respiratory distress, oxygen therapy, and we will monitor clinically for changes. monitor imaging for clearing hope to transfer to lower level of care impression, plan, and exam edited and reviewed in detail care discussed with Sreekanth Yates MD Jul 23, 2020 06:21
[2020-07-23] MEDS: NovoLOG Insulin Flexpen SUBQ SCH ×4 (06:30→21:00)
[2020-07-23 08:00] VITALS: BP 106/65
[2020-07-23] MEDS: Zinc Sulfate 220mg GT SCH (09:32)
[2020-07-23] MEDS: Nephrovite tab (Rena-Vite) GT SCH (09:32)
[2020-07-23] MEDS: levETIRAcetam 500mg/5ml Liquid GT SCH ×2 (09:33→20:25)
[2020-07-23] MEDS: Lactulose 10gm/15ml UDC GT SCH (09:33)
[2020-07-23] MEDS: Docusate 100mg/10ml Liq GT SCH ×2 (09:33→17:31)
[2020-07-23] MEDS: Metoclopramide 10mg/10ml Liq GT SCH ×3 (09:33→17:32)
[2020-07-23] MEDS: Valproic Acid 250mg/5ml Liquid GT SCH (09:34)
[2020-07-23 12:00] VITALS: BP 96/61
--- NOTE | 2020-07-23 12:01 | Surgery Progress Note ---
Surgery Progress Note Subjective Symptoms: improved, tolerating diet, passing flatus, BM Objective Last 24 Hour Vital Signs Date Time Temp Pulse Resp B/P (MAP) Pulse Ox O2 Delivery O2 Flow Rate FiO2 07/23/20 09:00 Nasal Cannula 3.0 07/23/20 08:00 76 07/23/20 08:00 97.5 94 18 106/65 (79) 94 07/23/20 04:00 97.7 96 18 108/70 (83) 100 07/23/20 04:00 82 07/23/20 00:00 97.5 87 18 120/60 (80) 100 07/23/20 00:00 86 07/22/20 21:00 Nasal Cannula 3.0 07/22/20 20:00 95 07/22/20 20:00 96.6 80 18 128/86 (100) 100 07/22/20 16:00 97.5 94 22 122/70 (87) 96 07/22/20 16:00 81 I&O Intake and Output 07/22/20 07/23/20 19:00 07:00 Intake Total 360 ml Output Total 150 ml Balance 210 ml Tube Feeding 360 ml Output Emesis 150 ml # Voids 1 Dressing: saturated Cardiovascular: RSR Respiratory: decreased breath sounds Abdomen: soft, non-tender, present bowel sounds, non-distended Extremities: no edema, no tenderness Laboratory Tests Test 07/22/20 13:01 White Blood Count 12.2 K/UL (4.8-10.8) H Red Blood Count 3.11 M/UL (4.20-5.40) L Hemoglobin 9.8 G/DL (12.0-16.0) L Hematocrit 29.9 % (37.0-47.0) L Mean Corpuscular Volume 96 FL (80-99) Mean Corpuscular Hemoglobin 31.5 PG (27.0-31.0) H Mean Corpuscular Hemoglobin Concent 32.7 G/DL (32.0-36.0) Red Cell Distribution Width 16.3 % (11.6-14.8) H Platelet Count 243 K/UL (150-450) Mean Platelet Volume 5.7 FL (6.5-10.1) L Neutrophils (%) (Auto) % (45.0-75.0) Lymphocytes (%) (Auto) % (20.0-45.0) Monocytes (%) (Auto) % (1.0-10.0) Eosinophils (%) (Auto) % (0.0-3.0) Basophils (%) (Auto) % (0.0-2.0) Differential Total Cells Counted 100 Neutrophils % (Manual) 73 % (45-75) Lymphocytes % (Manual) 14 % (20-45) L Monocytes % (Manual) 6 % (1-10) Eosinophils % (Manual) 0 % (0-3) Basophils % (Manual) 0 % (0-2) Metamyelocytes % 2 % (0-0) H Myelocytes % 2 % (0-0) H Band Neutrophils 3 % (0-8) Nucleated Red Blood Cells 1 /100 WBC Platelet Estimate Adequate Platelet Morphology Normal Polychromasia 1+ Hypochromasia 1+ Anisocytosis 1+ Sodium Level 138 MMOL/L (136-145) Potassium Level 3.1 MMOL/L (3.5-5.1) L Chloride Level 97 MMOL/L (98-107) L Carbon Dioxide Level 32 MMOL/L (21-32) Anion Gap 9 mmol/L (5-15) Blood Urea Nitrogen 77 mg/dL (7-18) H Creatinine 5.8 MG/DL (0.55-1.30) H Estimat Glomerular Filtration Rate 8.8 mL/min (>60) Glucose Level 136 MG/DL (74-106) H Calcium Level 10.5 MG/DL (8.5-10.1) H Plan Problems: (1) Respiratory distress (2) UTI (urinary tract infection) (3) ESRD (end stage renal disease) on dialysis (4) Dehydration (5) Abscess (6) Psychotic disorder (7) Altered mental status (8) Severe malnutrition Assessment & Plan: DAILY ESTIMATED NEEDS: Needs based on ESRD+HD, wound, [employer] TF/ 75kg 22-30 kcals/kg 1009-0587 total kcals 1.25-1.8 g protein/kg 94-135 g total protein 20-22 mL/kg 7179-3564 total fluid mLs NUTRITION DIAGNOSIS: * Increased kcal/prot needs R/T wound healing, renal dysfunction as evidenced by admitted w/ wounds @ sacrum and BL heels per photos, pending eval, ESRD dx, on HD. * Swallowing difficulty R/T dysphagia as evidenced by PEG dep. CURRENT TF:Nepro @ 45ml/hr x 18 hrs ENTERAL NUTRITION RECOMMENDATIONS: Nepro @ 45ml/hr x 22 hrs + Prosource 1pkt BID to provide 990ml, 1782kcal, 80+22g prot, 715ml free water * Rec 45ml/hr x 22 hrs to better meet est needs * Hold 1 hr before and after Synthroid med * Add Prosource 1pkt BID for additional 22g prot * HOB over 30 degrees/ water flush per MD ADDITIONAL RECOMMENDATIONS: * Per SNF: HT=68" and ss=247nvn (07/04/20) * F/up w/ WC eval: Continue Nephrovite, add Orion BID * Monitor BGs, need for hypoglycemics: h/o DM + Decadron * Monitor lytes and renal fxn * Trend lipase and TF tolerance (lipase 1301 on 07/17) (9) Sacral decubitus ulcer Assessment & Plan: Pt presented on admission with Multiple Pressure Injuries.reabsorbing DTPI Sacrum(L)11cm x (W)14cm. Base of Pressure Injury is black-dry with surrounding Non-Blanchable erythema. Unstageable Pressure Injury L Heel (L)3.8cm x (W)5cm. Base of wound is 100% necrotic. Edges are adherent to base of wound. Periwound is fluctuant but blanchable. Unstageable Pressure Injury R heel (L)4.5cm x (W)7cm. Base of Pressure Injury is 100% necrotic,edges are adherent to base of wound. Periwound is fluctuant but blanchable. Tx Plan: Apply Moisture Barrier to Sacrum .Cover with Optifoam drsg .Change every 3 days and prn. Apply Cavilon Skin Barrier to both heels.Cover with Optifoam drsg .Change every 7 days and prn. APM/JOHN mattress. Reposition at least every 2 hours or as tolerated. Off-load heels with pillow. Nutritional optimization (10) Fracture of left ankle (11) MDD (major depressive disorder), recurrent episode, moderate (12) Encephalopathy due to metabolic factor or toxin (13) Multiple injuries due to trauma (14) COVID-19 Assessment & Plan: +on tx Herson Walter Jul 23, 2020 12:00
--- NOTE | 2020-07-23 13:40 | Infectious Diseases Prog Note ---
Assessment/Plan Assessment/Plan A 1. COVID19 pneumonia. s/p ivermectin 2. Renal failure, on dialysis. 3. Schizophrenia. 4. Hypertension. 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 Continue Decadron day #7 2. Continue isolation. 3. We will follow up the patient clinically Subjective ROS Limited/Unobtainable: Yes Constitutional: Reports: no symptoms Allergies: Coded Allergies: PENICILLINS (Unverified Allergy, Unknown, 04/23/18) Objective Last 24 Hour Vital Signs Date Time Temp Pulse Resp B/P (MAP) Pulse Ox O2 Delivery O2 Flow Rate FiO2 07/23/20 12:00 97.5 88 20 96/61 (73) 93 07/23/20 09:00 Nasal Cannula 3.0 07/23/20 08:00 76 07/23/20 08:00 97.5 94 18 106/65 (79) 94 07/23/20 04:00 97.7 96 18 108/70 (83) 100 07/23/20 04:00 82 07/23/20 00:00 97.5 87 18 120/60 (80) 100 07/23/20 00:00 86 07/22/20 21:00 Nasal Cannula 3.0 07/22/20 20:00 95 07/22/20 20:00 96.6 80 18 128/86 (100) 100 07/22/20 16:00 97.5 94 22 122/70 (87) 96 07/22/20 16:00 81 Height (Feet): 5 Height (Inches): 6.00 Weight (Pounds): 160 HEENT: mucous membranes moist Respiratory/Chest: other - oxygen by nasal cannula Cardiovascular: normal rate Abdomen: soft, non tender Neurologic/Psychiatric: alert, responsive Current Medications Medications (Trade) Dose Ordered Sig/Kaleigh Route PRN Reason Start Time Stop Time Status Last Admin Dose Admin Acetaminophen (Tylenol) 650 mg DAILYPRN PRN GT Mild Pain (Pain Scale 1-3) 07/17/20 15:15 08/16/20 15:14 Acetaminophen (Tylenol) 650 mg Q4H PRN GT Temp >100.5 07/17/20 15:15 08/16/20 15:14 Atorvastatin Calcium (Lipitor) 40 mg BEDTIME GT 07/17/20 21:00 10/15/20 20:59 07/22/20 20:18 Bisacodyl (Dulcolax) 10 mg DAILYPRN PRN RECTAL Constipation 07/17/20 15:15 10/15/20 15:14 Dexamethasone (Decadron) 6 mg DAILY GT 07/18/20 09:00 07/26/20 09:01 07/23/20 09:33 Dextrose (Dextrose 50%) 25 ml Q30M PRN IV Hypoglycemia 07/22/20 13:30 10/20/20 13:29 Dextrose (Dextrose 50%) 50 ml Q30M PRN IV Hypoglycemia 07/22/20 13:30 10/20/20 13:29 Docusate Sodium (Colace) 100 mg TWICE A DAY GT 07/17/20 18:00 08/16/20 17:59 07/23/20 09:33 Epoetin Allan (Epoetin Allan-EPBX(NON ESRD)) 10,000 unit FRI-FRI-FRI SUBQ 07/21/20 21:00 10/19/20 20:59 07/21/20 21:28 Escitalopram Oxalate (Lexapro) 10 mg EVERY 12 HOURS GT 07/17/20 21:00 08/16/20 20:59 07/23/20 09:33 Heparin Sodium (Porcine) (Heparin 5000 units/ml) 5,000 units EVERY 8 HOURS SUBQ 07/17/20 22:00 08/31/20 21:59 07/23/20 13:17 Insulin Aspart (NovoLOG) BEFORE MEALS AND HS SUBQ 07/22/20 16:30 10/20/20 16:29 07/22/20 16:43 Lactulose (Cephulac) 20 gm DAILY GT 07/18/20 09:00 08/17/20 08:59 07/23/20 09:33 Levetiracetam (Keppra) 500 mg Q12HR GT 07/17/20 21:00 08/31/20 20:59 07/23/20 09:33 Levothyroxine Sodium (Synthroid) 100 mcg DAILY@0630 GT 07/18/20 06:30 08/17/20 06:29 07/23/20 06:13 Metoclopramide HCl (Reglan) 5 mg TID GT 07/17/20 18:00 08/16/20 17:59 07/23/20 12:42 Midodrine (Pro-Amatine) 5 mg TID GT 07/17/20 18:00 10/15/20 17:59 07/23/20 12:42 Ondansetron HCl (Zofran) 4 mg Q6H PRN GT Nausea & Vomiting 07/17/20 15:15 08/16/20 15:14 07/22/20 21:56 Risperidone (RisperDAL) 2 mg BEDTIME GT 07/17/20 21:00 08/31/20 20:59 07/22/20 20:18 Valproic Acid (Depakene) 250 mg DAILY GT 07/18/20 09:00 09/01/20 08:59 07/23/20 09:34 Vitamin B Complex/ Vit C/Folic Acid (Nephrovite) 1 tab DAILY GT 07/18/20 09:00 08/17/20 08:59 07/23/20 09:32 Zinc Sulfate (Zinc Sulfate) 220 mg DAILY GT 07/18/20 09:00 10/16/20 08:59 07/23/20 09:32 Jose Orona MD Jul 23, 2020 13:40
[2020-07-23 16:00] VITALS: BP 124/79
--- NOTE | 2020-07-23 17:59 | Nephrology Progress Note ---
Assessment/Plan Problem List: (1) ESRD (end stage renal disease) on dialysis (2) COVID-19 (3) Psychotic disorder (4) Respiratory distress (5) Pneumonia due to COVID-19 virus Plan HD 07/22 dexamethasone, remdesivir Subjective ROS Limited/Unobtainable: Yes Objective Objective Last 24 Hour Vital Signs Date Time Temp Pulse Resp B/P (MAP) Pulse Ox O2 Delivery O2 Flow Rate FiO2 07/23/20 16:00 96.3 96 20 124/79 (94) 100 07/23/20 12:00 97.5 88 20 96/61 (73) 93 07/23/20 12:00 82 07/23/20 09:00 Nasal Cannula 3.0 07/23/20 08:00 76 07/23/20 08:00 97.5 94 18 106/65 (79) 94 07/23/20 04:00 97.7 96 18 108/70 (83) 100 07/23/20 04:00 82 07/23/20 00:00 97.5 87 18 120/60 (80) 100 07/23/20 00:00 86 07/22/20 21:00 Nasal Cannula 3.0 07/22/20 20:00 95 07/22/20 20:00 96.6 80 18 128/86 (100) 100 Intake and Output 07/22/20 07/23/20 19:00 07:00 Intake Total 360 ml Output Total 150 ml Balance 210 ml Tube Feeding 360 ml Output Emesis 150 ml # Voids 1 Laboratory Tests 07/23/20 16:25: POC Whole Blood Glucose 123H Height (Feet): 5 Height (Inches): 6.00 Weight (Pounds): 160 General Appearance: lethargic, confused EENT: normal ENT inspection Neck: normal alignment Cardiovascular: regular rhythm Respiratory/Chest: lungs clear Abdomen: non tender Extremities: no edema Neurologic: disoriented Vince Lyle MD Jul 23, 2020 17:59
[2020-07-23 20:00] VITALS: BP 109/71
[2020-07-23] MEDS: Atorvastatin 20mg tab GT SCH (20:25)
[2020-07-24] VITALS: BP 100/64
[2020-07-24 04:00] VITALS: BP 105/56
[2020-07-24] MEDS ORDERED: NovoLOG Insulin Flexpen SUBQ SCH (05:15)
[2020-07-24] MEDS: Heparin 5000 units/ml inj SUBQ SCH ×3 (05:29→21:29)
[2020-07-24 08:00] VITALS: BP 90/47
[2020-07-24] MEDS: Valproic Acid 250mg/5ml Liquid GT SCH (08:54)
[2020-07-24] MEDS: levETIRAcetam 500mg/5ml Liquid GT SCH ×2 (08:54→20:38)
[2020-07-24] MEDS: Lactulose 10gm/15ml UDC GT SCH (08:54)
[2020-07-24] MEDS: Zinc Sulfate 220mg GT SCH (08:54)
[2020-07-24] MEDS: Nephrovite tab (Rena-Vite) GT SCH (08:55)
[2020-07-24] MEDS: Metoclopramide 10mg/10ml Liq GT SCH ×3 (08:55→17:22)
[2020-07-24] MEDS: NovoLOG Insulin Flexpen SUBQ SCH ×3 (09:00→17:40)
[2020-07-24] MEDS: Docusate 100mg/10ml Liq GT SCH ×2 (10:11→17:22)
--- NOTE | 2020-07-24 11:43 | Infectious Diseases Prog Note ---
Assessment/Plan Assessment/Plan antibiotics : none A 1. COVID-19 pneumonia. on 2 liters O2, with saturation of 93 % s/p ivermectin 2. Renal failure, on dialysis. 3. Schizophrenia. 4. Hypertension. P 1. Continue Decadron day # 8. 2. Continue isolation. 3. We will follow up the patient clinically. Subjective ROS Limited/Unobtainable: Yes Allergies: Coded Allergies: PENICILLINS (Unverified Allergy, Unknown, 04/23/18) Objective Last 24 Hour Vital Signs Date Time Temp Pulse Resp B/P (MAP) Pulse Ox O2 Delivery O2 Flow Rate FiO2 07/24/20 09:00 Nasal Cannula 2.0 07/24/20 08:00 67 07/24/20 08:00 97.9 72 20 90/47 (61) 100 07/24/20 04:00 75 07/24/20 04:00 97.2 75 20 105/56 (72) 97 07/24/20 00:00 75 07/24/20 00:00 97.5 75 18 100/64 (76) 97 07/23/20 21:00 Nasal Cannula 2.0 07/23/20 20:00 98.2 68 20 109/71 (84) 100 07/23/20 20:00 68 07/23/20 16:00 96.3 96 20 124/79 (94) 100 07/23/20 16:00 90 07/23/20 12:00 97.5 88 20 96/61 (73) 93 07/23/20 12:00 82 Height (Feet): 5 Height (Inches): 6.00 Weight (Pounds): 160 Laboratory Tests Test 07/23/20 16:25 POC Whole Blood Glucose 123 MG/DL (74-106) H Current Medications Medications (Trade) Dose Ordered Sig/Kaleigh Route PRN Reason Start Time Stop Time Status Last Admin Dose Admin Acetaminophen (Tylenol) 650 mg DAILYPRN PRN GT Mild Pain (Pain Scale 1-3) 07/17/20 15:15 08/16/20 15:14 Acetaminophen (Tylenol) 650 mg Q4H PRN GT Temp >100.5 07/17/20 15:15 08/16/20 15:14 Atorvastatin Calcium (Lipitor) 40 mg BEDTIME GT 07/17/20 21:00 10/15/20 20:59 07/23/20 20:25 Bisacodyl (Dulcolax) 10 mg DAILYPRN PRN RECTAL Constipation 07/17/20 15:15 10/15/20 15:14 Dexamethasone (Decadron) 6 mg DAILY GT 07/18/20 09:00 07/26/20 09:01 07/24/20 08:54 Dextrose (Dextrose 50%) 25 ml Q30M PRN IV Hypoglycemia 07/22/20 13:30 10/20/20 13:29 Dextrose (Dextrose 50%) 50 ml Q30M PRN IV Hypoglycemia 07/22/20 13:30 10/20/20 13:29 Docusate Sodium (Colace) 100 mg TWICE A DAY GT 07/17/20 18:00 08/16/20 17:59 07/24/20 10:11 Epoetin Allan (Epoetin Allan-EPBX(NON ESRD)) 10,000 unit FRI-FRI-FRI SUBQ 07/21/20 21:00 10/19/20 20:59 07/21/20 21:28 Escitalopram Oxalate (Lexapro) 10 mg EVERY 12 HOURS GT 07/17/20 21:00 08/16/20 20:59 07/24/20 08:53 Heparin Sodium (Porcine) (Heparin 5000 units/ml) 5,000 units EVERY 8 HOURS SUBQ 07/17/20 22:00 08/31/20 21:59 07/24/20 05:29 Insulin Aspart (NovoLOG) TID SUBQ 07/24/20 09:00 10/22/20 08:59 Lactulose (Cephulac) 20 gm DAILY GT 07/18/20 09:00 08/17/20 08:59 07/24/20 08:54 Levetiracetam (Keppra) 500 mg Q12HR GT 07/17/20 21:00 08/31/20 20:59 07/24/20 08:54 Levothyroxine Sodium (Synthroid) 100 mcg DAILY@0630 GT 07/18/20 06:30 08/17/20 06:29 07/24/20 05:27 Metoclopramide HCl (Reglan) 5 mg TID GT 07/17/20 18:00 08/16/20 17:59 07/24/20 08:55 Midodrine (Pro-Amatine) 5 mg TID GT 07/17/20 18:00 10/15/20 17:59 07/24/20 08:55 Ondansetron HCl (Zofran) 4 mg Q6H PRN GT Nausea & Vomiting 07/17/20 15:15 08/16/20 15:14 07/22/20 21:56 Risperidone (RisperDAL) 2 mg BEDTIME GT 07/17/20 21:00 08/31/20 20:59 07/23/20 20:25 Valproic Acid (Depakene) 250 mg DAILY GT 07/18/20 09:00 09/01/20 08:59 07/24/20 08:54 Vitamin B Complex/ Vit C/Folic Acid (Nephrovite) 1 tab DAILY GT 07/18/20 09:00 08/17/20 08:59 07/24/20 08:55 Zinc Sulfate (Zinc Sulfate) 220 mg DAILY GT 07/18/20 09:00 10/16/20 08:59 07/24/20 08:54 Tha Dalal MD Jul 24, 2020 11:43
[2020-07-24 12:00] VITALS: BP 93/49
--- NOTE | 2020-07-24 13:17 | Nephrology Progress Note ---
Assessment/Plan Plan Covid 19 Pneumonia Dexa per ID. On O2 2L/min. Stilll needs Hospital stay. Repeat CXR ESRD HD TTS. Subjective Subjective More alert. On O2 2L/min. Objective Objective Last 24 Hour Vital Signs Date Time Temp Pulse Resp B/P (MAP) Pulse Ox O2 Delivery O2 Flow Rate FiO2 07/24/20 09:00 Nasal Cannula 2.0 07/24/20 08:00 67 07/24/20 08:00 97.9 72 20 90/47 (61) 100 07/24/20 04:00 75 07/24/20 04:00 97.2 75 20 105/56 (72) 97 07/24/20 00:00 75 07/24/20 00:00 97.5 75 18 100/64 (76) 97 07/23/20 21:00 Nasal Cannula 2.0 07/23/20 20:00 98.2 68 20 109/71 (84) 100 07/23/20 20:00 68 07/23/20 16:00 96.3 96 20 124/79 (94) 100 07/23/20 16:00 90 Intake and Output 07/23/20 07/24/20 19:00 07:00 Intake Total 405 ml 45 ml Balance 405 ml 45 ml Tube Feeding 405 ml 45 ml Laboratory Tests 07/23/20 16:25: POC Whole Blood Glucose 123H Height (Feet): 5 Height (Inches): 6.00 Weight (Pounds): 160 Objective CV RR Lungs few B marta Arzate SNT. BS + E No CCE Mely Rincon MD Jul 24, 2020 13:17
[2020-07-24] MEDS ORDERED: Heparin Sod 1000 units/ml 10ml IV PRN (13:20)
[2020-07-24 16:00] VITALS: BP 103/52
--- NOTE | 2020-07-24 17:13 | Surgery Progress Note ---
Surgery Progress Note Subjective Additional Comments tolerating tf no n/v HD scheduled comfortable appearing Objective Last 24 Hour Vital Signs Date Time Temp Pulse Resp B/P (MAP) Pulse Ox O2 Delivery O2 Flow Rate FiO2 07/24/20 16:00 97.9 73 20 103/52 (69) 100 07/24/20 12:00 98.1 78 20 93/49 (64) 100 07/24/20 12:00 78 07/24/20 09:00 Nasal Cannula 2.0 07/24/20 08:00 67 07/24/20 08:00 97.9 72 20 90/47 (61) 100 07/24/20 04:00 75 07/24/20 04:00 97.2 75 20 105/56 (72) 97 07/24/20 00:00 75 07/24/20 00:00 97.5 75 18 100/64 (76) 97 07/23/20 21:00 Nasal Cannula 2.0 07/23/20 20:00 98.2 68 20 109/71 (84) 100 07/23/20 20:00 68 I&O Intake and Output 07/23/20 07/24/20 19:00 07:00 Intake Total 405 ml 45 ml Balance 405 ml 45 ml Tube Feeding 405 ml 45 ml Dressing: saturated Cardiovascular: RSR Respiratory: decreased breath sounds Abdomen: flat, non-tender, present bowel sounds, non-distended Extremities: no edema, no tenderness, no cyanosis Plan Problems: (1) Respiratory distress (2) UTI (urinary tract infection) (3) ESRD (end stage renal disease) on dialysis (4) Dehydration (5) Abscess (6) Psychotic disorder (7) Altered mental status (8) Severe malnutrition Assessment & Plan: DAILY ESTIMATED NEEDS: Needs based on ESRD+HD, wound, [employer]ER TF/ 75kg 22-30 kcals/kg 5988-7977 total kcals 1.25-1.8 g protein/kg 94-135 g total protein 20-22 mL/kg 3455-5433 total fluid mLs NUTRITION DIAGNOSIS: * Increased kcal/prot needs R/T wound healing, renal dysfunction as evidenced by admitted w/ wounds @ sacrum and BL heels per photos, pending eval, ESRD dx, on HD. * Swallowing difficulty R/T dysphagia as evidenced by PEG dep. CURRENT TF:Nepro @ 45ml/hr x 18 hrs ENTERAL NUTRITION RECOMMENDATIONS: Nepro @ 45ml/hr x 22 hrs + Prosource 1pkt BID to provide 990ml, 1782kcal, 80+22g prot, 715ml free water * Rec 45ml/hr x 22 hrs to better meet est needs * Hold 1 hr before and after Synthroid med * Add Prosource 1pkt BID for additional 22g prot * HOB over 30 degrees/ water flush per MD ADDITIONAL RECOMMENDATIONS: * Per SNF: HT=68" and gw=[id number] (07/04/20) * F/up w/ WC eval: Continue Nephrovite, add Orion BID * Monitor BGs, need for hypoglycemics: h/o DM + Decadron * Monitor lytes and renal fxn * Trend lipase and TF tolerance (lipase 1301 on 07/17) (9) Sacral decubitus ulcer Assessment & Plan: Pt presented on admission with Multiple Pressure Injuries.reabsorbing DTPI Sacrum(L)11cm x (W)14cm. Base of Pressure Injury is black-dry with surrounding Non-Blanchable erythema. Unstageable Pressure Injury L Heel (L)3.8cm x (W)5cm. Base of wound is 100% necrotic. Edges are adherent to base of wound. Periwound is fluctuant but blanchable. Unstageable Pressure Injury R heel (L)4.5cm x (W)7cm. Base of Pressure Injury is 100% necrotic,edges are adherent to base of wound. Periwound is fluctuant but blanchable. Tx Plan: Apply Moisture Barrier to Sacrum .Cover with Optifoam drsg .Change every 3 days and prn. Apply Cavilon Skin Barrier to both heels.Cover with Optifoam drsg .Change every 7 days and prn. APM/JOHN mattress. Reposition at least every 2 hours or as tolerated. Off-load heels with pillow. Nutritional optimization (10) Fracture of left ankle (11) MDD (major depressive disorder), recurrent episode, moderate (12) Encephalopathy due to metabolic factor or toxin (13) Multiple injuries due to trauma (14) COVID-19 Assessment & Plan: +on tx Herson Walter Jul 24, 2020 17:13
--- NOTE | 2020-07-24 18:31 | Diagnostic Imaging Report ---
Indication: Shortness of breath Technique: One view of the chest Comparison: 07/17/2020 Findings: Previously demonstrated bilateral airspace consolidation has improved considerably. There is some residual congestion bilaterally, as well as some residual patchy airspace disease in the left mid and lower lung. The heart remains enlarged. Left axillary and subclavian venous stents are again demonstrated. Small bilateral pleural effusions are again demonstrated, appearing somewhat improved Impression: Improved bilateral infiltrates versus edema, with some residual as described. Decreased bilateral pleural effusions
--- NOTE | 2020-07-24 18:33 | Pulmonology Progress Note ---
Subjective ROS Limited/Unobtainable: Yes Constitutional: Reports: no symptoms Allergies: Coded Allergies: PENICILLINS (Unverified Allergy, Unknown, 04/23/18) Objective Last 24 Hour Vital Signs Date Time Temp Pulse Resp B/P (MAP) Pulse Ox O2 Delivery O2 Flow Rate FiO2 07/24/20 16:00 73 07/24/20 16:00 97.9 73 20 103/52 (69) 100 07/24/20 12:00 98.1 78 20 93/49 (64) 100 07/24/20 12:00 78 07/24/20 09:00 Nasal Cannula 2.0 07/24/20 08:00 67 07/24/20 08:00 97.9 72 20 90/47 (61) 100 07/24/20 04:00 75 07/24/20 04:00 97.2 75 20 105/56 (72) 97 07/24/20 00:00 75 07/24/20 00:00 97.5 75 18 100/64 (76) 97 07/23/20 21:00 Nasal Cannula 2.0 07/23/20 20:00 98.2 68 20 109/71 (84) 100 07/23/20 20:00 68 Intake and Output 07/23/20 07/24/20 19:00 07:00 Intake Total 405 ml 45 ml Balance 405 ml 45 ml Tube Feeding 405 ml 45 ml Current Medications Medications (Trade) Dose Ordered Sig/Kaleigh Route PRN Reason Start Time Stop Time Status Last Admin Dose Admin Acetaminophen (Tylenol) 650 mg DAILYPRN PRN GT Mild Pain (Pain Scale 1-3) 07/17/20 15:15 08/16/20 15:14 Acetaminophen (Tylenol) 650 mg Q4H PRN GT Temp >100.5 07/17/20 15:15 08/16/20 15:14 Atorvastatin Calcium (Lipitor) 40 mg BEDTIME GT 07/17/20 21:00 10/15/20 20:59 07/23/20 20:25 Bisacodyl (Dulcolax) 10 mg DAILYPRN PRN RECTAL Constipation 07/17/20 15:15 10/15/20 15:14 Dexamethasone (Decadron) 6 mg DAILY GT 07/18/20 09:00 07/26/20 09:01 07/24/20 08:54 Dextrose (Dextrose 50%) 25 ml Q30M PRN IV Hypoglycemia 07/22/20 13:30 10/20/20 13:29 Dextrose (Dextrose 50%) 50 ml Q30M PRN IV Hypoglycemia 07/22/20 13:30 10/20/20 13:29 Docusate Sodium (Colace) 100 mg TWICE A DAY GT 07/17/20 18:00 08/16/20 17:59 07/24/20 17:22 Epoetin Allan (Epoetin Allan(ESRD on dialysis)) 10,000 unit FRI-FRI-FRI SUBQ 07/24/20 21:00 10/19/20 20:59 Escitalopram Oxalate (Lexapro) 10 mg EVERY 12 HOURS GT 07/17/20 21:00 08/16/20 20:59 07/24/20 08:53 Heparin Sodium (Porcine) (Heparin 5000 units/ml) 5,000 units EVERY 8 HOURS SUBQ 07/17/20 22:00 08/31/20 21:59 07/24/20 14:43 Heparin Sodium (Porcine) (Heparin Sod 1000 units/ml 10ml) 2,000 unit ONCE PRN IV HD 07/24/20 13:20 07/25/20 23:59 Insulin Aspart (NovoLOG) TID SUBQ 07/24/20 09:00 10/22/20 08:59 Lactulose (Cephulac) 20 gm DAILY GT 07/18/20 09:00 08/17/20 08:59 07/24/20 08:54 Levetiracetam (Keppra) 500 mg Q12HR GT 07/17/20 21:00 08/31/20 20:59 07/24/20 08:54 Levothyroxine Sodium (Synthroid) 100 mcg DAILY@0630 GT 07/18/20 06:30 08/17/20 06:29 07/24/20 05:27 Metoclopramide HCl (Reglan) 5 mg TID GT 07/17/20 18:00 08/16/20 17:59 07/24/20 17:22 Midodrine (Pro-Amatine) 5 mg TID GT 07/17/20 18:00 10/15/20 17:59 07/24/20 17:22 Ondansetron HCl (Zofran) 4 mg Q6H PRN GT Nausea & Vomiting 07/17/20 15:15 08/16/20 15:14 07/22/20 21:56 Risperidone (RisperDAL) 2 mg BEDTIME GT 07/17/20 21:00 08/31/20 20:59 07/23/20 20:25 Valproic Acid (Depakene) 250 mg DAILY GT 07/18/20 09:00 09/01/20 08:59 07/24/20 08:54 Vitamin B Complex/ Vit C/Folic Acid (Nephrovite) 1 tab DAILY GT 07/18/20 09:00 08/17/20 08:59 07/24/20 08:55 Zinc Sulfate (Zinc Sulfate) 220 mg DAILY GT 07/18/20 09:00 10/16/20 08:59 07/24/20 08:54 Assessment/Plan Assessment/Plan Pulmonary Progress Note Subjective ROS Limited/Unobtainable: Yes Allergies: Coded Allergies: PENICILLINS (Unverified Allergy, Unknown, 04/23/18) Subjective care noted reviewed care on low flow oxygen at present - 2L/min NC COVID + Objective Vital Signs noted Objective deferred due to COVID 19 Laboratory Tests noted Assessment/Plan Assessment/Plan IMPRESSION: 1. Acute hypoxemic respiratory failure. Multifocal infiltrates. Small pleural effusion,[id number] 2. End-stage renal disease. 3. Anemia of chronic disease. 4. Elevated C-reactive protein. 5. Dementia. 6. Chronic encephalopathy. 7. Chronic debility. 8. COVID+ RECOMMENDATION: care noted. IV Decadron- to complete. ID follow up noted. DVT prophylaxis. Hemodialysis with ultrafiltration. Monitor for worsening respiratory distress, oxygen therapy, and we will monitor clinically for changes. monitor imaging for clearing hope to transfer to lower level of care impression, plan, and exam edited and reviewed in detail care discussed with Daryl Hartmann MD Jul 24, 2020 18:33
[2020-07-24 20:00] VITALS: BP 106/50
[2020-07-24] MEDS: Atorvastatin 20mg tab GT SCH (20:38)
[2020-07-24] MEDS: Epoetin Alfa-EPBX(ESRD on dialysis)10,000 unit/ml vial SUBQ SCH (20:39)
[2020-07-25] VITALS: BP 109/54
[2020-07-25 04:00] VITALS: BP 104/55
[2020-07-25 05:11] LABS: BASOPHILS % (AUTO) 0.7 % (0.0-2.0); EOSINOPHILS % (AUTO) 0.1 % (0.0-3.0); HEMATOCRIT 28.8 % (37.0-47.0); HEMOGLOBIN 9.2 G/DL (12.0-16.0); LYMPHOCYTES % (AUTO) 19.2 % (20.0-45.0); MEAN CORPUSCULAR VOLUME 99 FL (80-99); MONOCYTES % (AUTO) 7.7 % (1.0-10.0); NEUTROPHILS % (AUTO) 72.2 % (45.0-75.0); PLATELET COUNT 233 K/UL (150-450); RED BLOOD COUNT 2.91 M/UL (4.20-5.40); RED CELL DISTRIBUTION WIDTH 19.5 % (11.6-14.8); WHITE BLOOD COUNT 10.3 K/UL (4.8-10.8)
[2020-07-25] MEDS: Heparin 5000 units/ml inj SUBQ SCH ×3 (05:30→21:17)
[2020-07-25 05:37] LABS: CALCIUM 9.5 MG/DL (8.5-10.1); PHOSPHORUS 4.1 MG/DL (2.5-4.9); POTASSIUM 3.6 MMOL/L (3.5-5.1)
[2020-07-25 08:00] VITALS: BP 102/53
[2020-07-25] MEDS: Metoclopramide 10mg/10ml Liq GT SCH ×3 (08:03→17:38)
[2020-07-25] MEDS: Valproic Acid 250mg/5ml Liquid GT SCH (08:03)
[2020-07-25] MEDS: Docusate 100mg/10ml Liq GT SCH ×2 (08:03→17:38)
[2020-07-25] MEDS: Nephrovite tab (Rena-Vite) GT SCH (08:04)
[2020-07-25] MEDS: Zinc Sulfate 220mg GT SCH (08:04)
[2020-07-25] MEDS: Lactulose 10gm/15ml UDC GT SCH (08:04)
[2020-07-25] MEDS: levETIRAcetam 500mg/5ml Liquid GT SCH ×2 (08:04→20:35)
[2020-07-25] MEDS: NovoLOG Insulin Flexpen SUBQ SCH ×3 (09:00→17:42)
--- NOTE | 2020-07-25 10:55 | Infectious Diseases Prog Note ---
Assessment/Plan Assessment/Plan A 1. COVID19 pneumonia. s/p ivermectin 2. Renal failure, on dialysis. 3. Schizophrenia. 4. Hypertension. 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 Discontinue Decadron day #7 2. Continue isolation. 3. We will follow up the patient clinically Subjective ROS Limited/Unobtainable: Yes Constitutional: Denies: fever Respiratory: Reports: no symptoms Allergies: Coded Allergies: PENICILLINS (Unverified Allergy, Unknown, 04/23/18) Objective Last 24 Hour Vital Signs Date Time Temp Pulse Resp B/P (MAP) Pulse Ox O2 Delivery O2 Flow Rate FiO2 07/25/20 09:00 Nasal Cannula 2.0 07/25/20 08:00 97.6 74 20 102/53 (69) 100 07/25/20 08:00 65 07/25/20 04:00 97.9 71 20 104/55 (71) 98 07/25/20 04:00 69 07/25/20 00:00 84 07/25/20 00:00 98.5 72 22 109/54 (72) 100 07/24/20 21:00 Nasal Cannula 2.0 07/24/20 20:00 98.8 63 22 106/50 (68) 100 07/24/20 20:00 78 07/24/20 16:00 73 07/24/20 16:00 97.9 73 20 103/52 (69) 100 07/24/20 12:00 98.1 78 20 93/49 (64) 100 07/24/20 12:00 78 Height (Feet): 5 Height (Inches): 6.00 Weight (Pounds): 160 General Appearance: no acute distress HEENT: mucous membranes moist Respiratory/Chest: no respiratory distress, other - on room air oxygen Cardiovascular: normal rate Abdomen: soft, non tender Extremities: no edema Neurologic/Psychiatric: alert, responsive Laboratory Tests Test 07/25/20 04:30 White Blood Count 10.3 K/UL (4.8-10.8) Red Blood Count 2.91 M/UL (4.20-5.40) L Hemoglobin 9.2 G/DL (12.0-16.0) L Hematocrit 28.8 % (37.0-47.0) L Mean Corpuscular Volume 99 FL (80-99) Mean Corpuscular Hemoglobin 31.5 PG (27.0-31.0) H Mean Corpuscular Hemoglobin Concent 31.8 G/DL (32.0-36.0) L Red Cell Distribution Width 19.5 % (11.6-14.8) H Platelet Count 233 K/UL (150-450) Mean Platelet Volume 5.9 FL (6.5-10.1) L Neutrophils (%) (Auto) 72.2 % (45.0-75.0) Lymphocytes (%) (Auto) 19.2 % (20.0-45.0) L Monocytes (%) (Auto) 7.7 % (1.0-10.0) Eosinophils (%) (Auto) 0.1 % (0.0-3.0) Basophils (%) (Auto) 0.7 % (0.0-2.0) Sodium Level 133 MMOL/L (136-145) L Potassium Level 3.6 MMOL/L (3.5-5.1) Chloride Level 95 MMOL/L (98-107) L Carbon Dioxide Level 29 MMOL/L (21-32) Anion Gap 9 mmol/L (5-15) Blood Urea Nitrogen 67 mg/dL (7-18) H Creatinine 5.0 MG/DL (0.55-1.30) H Estimat Glomerular Filtration Rate 10.4 mL/min (>60) Glucose Level 99 MG/DL (74-106) Calcium Level 9.5 MG/DL (8.5-10.1) Phosphorus Level 4.1 MG/DL (2.5-4.9) Current Medications Medications (Trade) Dose Ordered Sig/Kaleigh Route PRN Reason Start Time Stop Time Status Last Admin Dose Admin Acetaminophen (Tylenol) 650 mg DAILYPRN PRN GT Mild Pain (Pain Scale 1-3) 07/17/20 15:15 08/16/20 15:14 Acetaminophen (Tylenol) 650 mg Q4H PRN GT Temp >100.5 07/17/20 15:15 08/16/20 15:14 Atorvastatin Calcium (Lipitor) 40 mg BEDTIME GT 07/17/20 21:00 10/15/20 20:59 07/24/20 20:38 Bisacodyl (Dulcolax) 10 mg DAILYPRN PRN RECTAL Constipation 07/17/20 15:15 10/15/20 15:14 Dexamethasone (Decadron) 6 mg DAILY GT 07/18/20 09:00 07/26/20 09:01 07/25/20 08:04 Dextrose (Dextrose 50%) 25 ml Q30M PRN IV Hypoglycemia 07/22/20 13:30 10/20/20 13:29 Dextrose (Dextrose 50%) 50 ml Q30M PRN IV Hypoglycemia 07/22/20 13:30 10/20/20 13:29 Docusate Sodium (Colace) 100 mg TWICE A DAY GT 07/17/20 18:00 08/16/20 17:59 07/25/20 08:03 Epoetin Allan (Epoetin Allan(ESRD on dialysis)) 10,000 unit FRI-FRI-FRI SUBQ 07/24/20 21:00 10/19/20 20:59 07/24/20 20:39 Escitalopram Oxalate (Lexapro) 10 mg EVERY 12 HOURS GT 07/17/20 21:00 08/16/20 20:59 07/25/20 08:04 Heparin Sodium (Porcine) (Heparin 5000 units/ml) 5,000 units EVERY 8 HOURS SUBQ 07/17/20 22:00 08/31/20 21:59 07/25/20 05:30 Heparin Sodium (Porcine) (Heparin Sod 1000 units/ml 10ml) 2,000 unit ONCE PRN IV HD 07/24/20 13:20 07/25/20 23:59 Insulin Aspart (NovoLOG) TID SUBQ 07/24/20 09:00 10/22/20 08:59 Lactulose (Cephulac) 20 gm DAILY GT 07/18/20 09:00 08/17/20 08:59 07/25/20 08:04 Levetiracetam (Keppra) 500 mg Q12HR GT 07/17/20 21:00 08/31/20 20:59 07/25/20 08:04 Levothyroxine Sodium (Synthroid) 100 mcg DAILY@0630 GT 07/18/20 06:30 08/17/20 06:29 07/25/20 05:29 Metoclopramide HCl (Reglan) 5 mg TID GT 07/17/20 18:00 08/16/20 17:59 07/25/20 08:03 Midodrine (Pro-Amatine) 5 mg TID GT 07/17/20 18:00 10/15/20 17:59 07/25/20 08:04 Ondansetron HCl (Zofran) 4 mg Q6H PRN GT Nausea & Vomiting 07/17/20 15:15 08/16/20 15:14 07/22/20 21:56 Risperidone (RisperDAL) 2 mg BEDTIME GT 07/17/20 21:00 08/31/20 20:59 07/24/20 20:38 Valproic Acid (Depakene) 250 mg DAILY GT 07/18/20 09:00 09/01/20 08:59 07/25/20 08:03 Vitamin B Complex/ Vit C/Folic Acid (Nephrovite) 1 tab DAILY GT 07/18/20 09:00 08/17/20 08:59 07/25/20 08:04 Zinc Sulfate (Zinc Sulfate) 220 mg DAILY GT 07/18/20 09:00 10/16/20 08:59 07/25/20 08:04 Jose Orona MD Jul 25, 2020 10:55
[2020-07-25 12:00] VITALS: BP 103/63
--- NOTE | 2020-07-25 12:33 | Surgery Progress Note ---
Surgery Progress Note Subjective Additional Comments no n/v/f/c comfortable no complaints labs noted dressings going well Objective Last 24 Hour Vital Signs Date Time Temp Pulse Resp B/P (MAP) Pulse Ox O2 Delivery O2 Flow Rate FiO2 07/25/20 09:00 Nasal Cannula 2.0 07/25/20 08:00 97.6 74 20 102/53 (69) 100 07/25/20 08:00 65 07/25/20 04:00 97.9 71 20 104/55 (71) 98 07/25/20 04:00 69 07/25/20 00:00 84 07/25/20 00:00 98.5 72 22 109/54 (72) 100 07/24/20 21:00 Nasal Cannula 2.0 07/24/20 20:00 98.8 63 22 106/50 (68) 100 07/24/20 20:00 78 07/24/20 16:00 73 07/24/20 16:00 97.9 73 20 103/52 (69) 100 I&O Intake and Output 07/24/20 07/25/20 19:00 07:00 Intake Total 470 ml 695 ml Balance 470 ml 695 ml Free Water 200 ml 200 ml Tube Feeding 270 ml 495 ml # Voids 2 Dressing: saturated Cardiovascular: RSR Respiratory: decreased breath sounds Abdomen: soft, non-tender, present bowel sounds Extremities: no edema, no tenderness, no cyanosis Laboratory Tests Test 07/25/20 04:30 White Blood Count 10.3 K/UL (4.8-10.8) Red Blood Count 2.91 M/UL (4.20-5.40) L Hemoglobin 9.2 G/DL (12.0-16.0) L Hematocrit 28.8 % (37.0-47.0) L Mean Corpuscular Volume 99 FL (80-99) Mean Corpuscular Hemoglobin 31.5 PG (27.0-31.0) H Mean Corpuscular Hemoglobin Concent 31.8 G/DL (32.0-36.0) L Red Cell Distribution Width 19.5 % (11.6-14.8) H Platelet Count 233 K/UL (150-450) Mean Platelet Volume 5.9 FL (6.5-10.1) L Neutrophils (%) (Auto) 72.2 % (45.0-75.0) Lymphocytes (%) (Auto) 19.2 % (20.0-45.0) L Monocytes (%) (Auto) 7.7 % (1.0-10.0) Eosinophils (%) (Auto) 0.1 % (0.0-3.0) Basophils (%) (Auto) 0.7 % (0.0-2.0) Sodium Level 133 MMOL/L (136-145) L Potassium Level 3.6 MMOL/L (3.5-5.1) Chloride Level 95 MMOL/L (98-107) L Carbon Dioxide Level 29 MMOL/L (21-32) Anion Gap 9 mmol/L (5-15) Blood Urea Nitrogen 67 mg/dL (7-18) H Creatinine 5.0 MG/DL (0.55-1.30) H Estimat Glomerular Filtration Rate 10.4 mL/min (>60) Glucose Level 99 MG/DL (74-106) Calcium Level 9.5 MG/DL (8.5-10.1) Phosphorus Level 4.1 MG/DL (2.5-4.9) Plan Problems: (1) Respiratory distress (2) UTI (urinary tract infection) (3) ESRD (end stage renal disease) on dialysis (4) Dehydration (5) Abscess (6) Psychotic disorder (7) Altered mental status (8) Severe malnutrition Assessment & Plan: DAILY ESTIMATED NEEDS: Needs based on ESRD+HD, wound, [employer] TF/ 75kg 22-30 kcals/kg 0704-4057 total kcals 1.25-1.8 g protein/kg 94-135 g total protein 20-22 mL/kg 8795-1495 total fluid mLs NUTRITION DIAGNOSIS: * Increased kcal/prot needs R/T wound healing, renal dysfunction as evidenced by admitted w/ wounds @ sacrum and BL heels per photos, pending eval, ESRD dx, on HD. * Swallowing difficulty R/T dysphagia as evidenced by PEG dep. CURRENT TF:Nepro @ 45ml/hr x 18 hrs ENTERAL NUTRITION RECOMMENDATIONS: Nepro @ 45ml/hr x 22 hrs + Prosource 1pkt BID to provide 990ml, 1782kcal, 80+22g prot, 715ml free water * Rec 45ml/hr x 22 hrs to better meet est needs * Hold 1 hr before and after Synthroid med * Add Prosource 1pkt BID for additional 22g prot * HOB over 30 degrees/ water flush per MD ADDITIONAL RECOMMENDATIONS: * Per SNF: HT=68" and zh=826ctr (07/04/20) * F/up w/ WC eval: Continue Nephrovite, add Orion BID * Monitor BGs, need for hypoglycemics: h/o DM + Decadron * Monitor lytes and renal fxn * Trend lipase and TF tolerance (lipase 1301 on 07/17) (9) Sacral decubitus ulcer Assessment & Plan: Pt presented on admission with Multiple Pressure Injuries.reabsorbing DTPI Sacrum(L)11cm x (W)14cm. Base of Pressure Injury is black-dry with surrounding Non-Blanchable erythema. Unstageable Pressure Injury L Heel (L)3.8cm x (W)5cm. Base of wound is 100% necrotic. Edges are adherent to base of wound. Periwound is fluctuant but blanchable. Unstageable Pressure Injury R heel (L)4.5cm x (W)7cm. Base of Pressure Injury is 100% necrotic,edges are adherent to base of wound. Periwound is fluctuant but blanchable. Tx Plan: Apply Moisture Barrier to Sacrum .Cover with Optifoam drsg .Change every 3 days and prn. Apply Cavilon Skin Barrier to both heels.Cover with Optifoam drsg .Change every 7 days and prn. APM/JOHN mattress. Reposition at least every 2 hours or as tolerated. Off-load heels with pillow. Nutritional optimization (10) Fracture of left ankle (11) MDD (major depressive disorder), recurrent episode, moderate (12) Encephalopathy due to metabolic factor or toxin (13) Multiple injuries due to trauma (14) COVID-19 Assessment & Plan: +on tx SabaHerson Jul 25, 2020 12:33
--- NOTE | 2020-07-25 13:29 | Nephrology Progress Note ---
Assessment/Plan Plan Covid 19 Pneumonia Dexa per ID. On O2 2L/min. Repeat CXR better. DC to SNF. ESRD HD TTS. Subjective Subjective More alert. On O2 2L/min. Objective Objective Last 24 Hour Vital Signs Date Time Temp Pulse Resp B/P (MAP) Pulse Ox O2 Delivery O2 Flow Rate FiO2 07/25/20 12:00 96.6 71 20 103/63 (76) 100 07/25/20 09:00 Nasal Cannula 2.0 07/25/20 08:00 97.6 74 20 102/53 (69) 100 07/25/20 08:00 65 07/25/20 04:00 97.9 71 20 104/55 (71) 98 07/25/20 04:00 69 07/25/20 00:00 84 07/25/20 00:00 98.5 72 22 109/54 (72) 100 07/24/20 21:00 Nasal Cannula 2.0 07/24/20 20:00 98.8 63 22 106/50 (68) 100 07/24/20 20:00 78 07/24/20 16:00 73 07/24/20 16:00 97.9 73 20 103/52 (69) 100 Intake and Output 07/24/20 07/25/20 19:00 07:00 Intake Total 470 ml 695 ml Balance 470 ml 695 ml Free Water 200 ml 200 ml Tube Feeding 270 ml 495 ml # Voids 2 Laboratory Tests 07/25/20 04:30: White Blood Count 10.3, Red Blood Count 2.91L, Hemoglobin 9.2L, Hematocrit 28.8L , Mean Corpuscular Volume 99, Mean Corpuscular Hemoglobin 31.5H, Mean Corpuscular Hemoglobin Concent 31.8L, Red Cell Distribution Width 19.5H, Bárbara telet Count 233, Mean Platelet Volume 5.9L, Neutrophils (%) (Auto) 72.2, Lymphocytes (%) (Auto) 19.2L, Monocytes (%) (Auto) 7.7, Eosinophils (%) (Auto) 0.1, Basophils (%) (Auto) 0.7, Sodium Level 133L, Potassium Level 3.6, Chloride Level 95L, Carbon Dioxide Level 29, Anion Gap 9, Blood Urea Nitrogen 67H, Creatinine 5.0H, Estimat Glomerular Filtration Rate 10.4, Glucose Level 99, Calc ium Level 9.5, Phosphorus Level 4.1 Height (Feet): 5 Height (Inches): 6.00 Weight (Pounds): 160 Objective CV RR Lungs few B marta Arzate SNT. BS + E No CCE Mely Rincon MD Jul 25, 2020 13:29
[2020-07-25 16:00] VITALS: BP 106/71
--- NOTE | 2020-07-25 19:35 | Pulmonology Progress Note ---
Subjective ROS Limited/Unobtainable: No Constitutional: Denies: fever Allergies: Coded Allergies: PENICILLINS (Unverified Allergy, Unknown, 04/23/18) Objective Last 24 Hour Vital Signs Date Time Temp Pulse Resp B/P (MAP) Pulse Ox O2 Delivery O2 Flow Rate FiO2 07/25/20 16:00 97.5 80 19 106/71 (83) 100 07/25/20 16:00 77 07/25/20 12:00 96.6 71 20 103/63 (76) 100 07/25/20 12:00 90 07/25/20 09:00 Nasal Cannula 2.0 07/25/20 08:00 97.6 74 20 102/53 (69) 100 07/25/20 08:00 65 07/25/20 04:00 97.9 71 20 104/55 (71) 98 07/25/20 04:00 69 07/25/20 00:00 84 07/25/20 00:00 98.5 72 22 109/54 (72) 100 07/24/20 21:00 Nasal Cannula 2.0 07/24/20 20:00 98.8 63 22 106/50 (68) 100 07/24/20 20:00 78 Intake and Output 07/24/20 07/25/20 19:00 07:00 Intake Total 470 ml 695 ml Balance 470 ml 695 ml Free Water 200 ml 200 ml Tube Feeding 270 ml 495 ml # Voids 2 Laboratory Tests 07/25/20 04:30: White Blood Count 10.3, Red Blood Count 2.91L, Hemoglobin 9.2L, Hematocrit 28.8L , Mean Corpuscular Volume 99, Mean Corpuscular Hemoglobin 31.5H, Mean Corpuscular Hemoglobin Concent 31.8L, Red Cell Distribution Width 19.5H, Platelet Count 233, Mean Platelet Volume 5.9L, Neutrophils (%) (Auto) 72.2, Lymphocytes (%) (Auto) 19.2L, Monocytes (%) (Auto) 7.7, Eosinophils (%) (Auto) 0.1, Basophils (%) (Auto) 0.7, Sodium Level 133L, Potassium Level 3.6, Chloride Level 95L, Carbon Dioxide Level 29, Anion Gap 9, Blood Urea Nitrogen 67H, Creatinine 5.0H, Estimat Glomerular Filtration Rate 10.4, Glucose Level 99, Calcium Level 9.5, Phosphorus Level 4.1 Current Medications Medications (Trade) Dose Ordered Sig/Kaleigh Route PRN Reason Start Time Stop Time Status Last Admin Dose Admin Acetaminophen (Tylenol) 650 mg DAILYPRN PRN GT Mild Pain (Pain Scale 1-3) 07/17/20 15:15 08/16/20 15:14 Acetaminophen (Tylenol) 650 mg Q4H PRN GT Temp >100.5 07/17/20 15:15 08/16/20 15:14 Atorvastatin Calcium (Lipitor) 40 mg BEDTIME GT 07/17/20 21:00 10/15/20 20:59 07/24/20 20:38 Bisacodyl (Dulcolax) 10 mg DAILYPRN PRN RECTAL Constipation 07/17/20 15:15 10/15/20 15:14 Dextrose (Dextrose 50%) 25 ml Q30M PRN IV Hypoglycemia 07/22/20 13:30 10/20/20 13:29 Dextrose (Dextrose 50%) 50 ml Q30M PRN IV Hypoglycemia 07/22/20 13:30 10/20/20 13:29 Docusate Sodium (Colace) 100 mg TWICE A DAY GT 07/17/20 18:00 08/16/20 17:59 07/25/20 17:38 Epoetin Allan (Epoetin Allan(ESRD on dialysis)) 10,000 unit FRI-FRI-FRI SUBQ 07/24/20 21:00 10/19/20 20:59 07/24/20 20:39 Escitalopram Oxalate (Lexapro) 10 mg EVERY 12 HOURS GT 07/17/20 21:00 08/16/20 20:59 07/25/20 08:04 Heparin Sodium (Porcine) (Heparin 5000 units/ml) 5,000 units EVERY 8 HOURS SUBQ 07/17/20 22:00 08/31/20 21:59 07/25/20 05:30 Heparin Sodium (Porcine) (Heparin Sod 1000 units/ml 10ml) 2,000 unit ONCE PRN IV HD 07/24/20 13:20 07/25/20 23:59 Insulin Aspart (NovoLOG) TID SUBQ 07/24/20 09:00 10/22/20 08:59 Lactulose (Cephulac) 20 gm DAILY GT 07/18/20 09:00 08/17/20 08:59 07/25/20 08:04 Levetiracetam (Keppra) 500 mg Q12HR GT 07/17/20 21:00 08/31/20 20:59 07/25/20 08:04 Levothyroxine Sodium (Synthroid) 100 mcg DAILY@0630 GT 07/18/20 06:30 08/17/20 06:29 07/25/20 05:29 Metoclopramide HCl (Reglan) 5 mg TID GT 07/17/20 18:00 08/16/20 17:59 07/25/20 17:38 Midodrine (Pro-Amatine) 5 mg TID GT 07/17/20 18:00 10/15/20 17:59 07/25/20 17:38 Ondansetron HCl (Zofran) 4 mg Q6H PRN GT Nausea & Vomiting 07/17/20 15:15 08/16/20 15:14 07/22/20 21:56 Risperidone (RisperDAL) 2 mg BEDTIME GT 07/17/20 21:00 08/31/20 20:59 07/24/20 20:38 Valproic Acid (Depakene) 250 mg DAILY GT 07/18/20 09:00 09/01/20 08:59 07/25/20 08:03 Vitamin B Complex/ Vit C/Folic Acid (Nephrovite) 1 tab DAILY GT 07/18/20 09:00 08/17/20 08:59 07/25/20 08:04 Zinc Sulfate (Zinc Sulfate) 220 mg DAILY GT 07/18/20 09:00 10/16/20 08:59 07/25/20 08:04 Assessment/Plan Assessment/Plan Pulmonary Progress Note Subjective ROS Limited/Unobtainable: Yes Allergies: Coded Allergies: PENICILLINS (Unverified Allergy, Unknown, 04/23/18) Subjective care noted reviewed care on low flow oxygen at present - 2L/min NC COVID + Improving infiltrates Objective Vital Signs noted Objective deferred due to COVID 19 Laboratory Tests noted Assessment/Plan Assessment/Plan IMPRESSION: 1. Acute hypoxemic respiratory failure. Multifocal infiltrates. Small pleural effusion,[id number] 2. End-stage renal disease. 3. Anemia of chronic disease. 4. Elevated C-reactive protein. 5. Dementia. 6. Chronic encephalopathy. 7. Chronic debility. 8. COVID+ RECOMMENDATION: care noted. IV Decadron- to complete. ID follow up noted. DVT prophylaxis. Hemodialysis with ultrafiltration. Monitor for worsening respiratory distress, oxygen therapy, and we will monitor clinically for changes. monitor imaging for clearing hope to transfer to lower level of care impression, plan, and exam edited and reviewed in detail care discussed with Daryl Hartmann MD Jul 25, 2020 19:35
[2020-07-25 20:00] VITALS: BP 98/63
[2020-07-25] MEDS: Atorvastatin 20mg tab GT SCH (20:35)
[2020-07-26] VITALS: BP 101/64
[2020-07-26 04:00] VITALS: BP 103/62
[2020-07-26] MEDS: Heparin 5000 units/ml inj SUBQ SCH ×3 (06:02→22:00)
[2020-07-26 08:00] VITALS: BP 88/58
[2020-07-26] MEDS: NovoLOG Insulin Flexpen SUBQ SCH ×3 (09:00→17:49)
[2020-07-26] MEDS: Docusate 100mg/10ml Liq GT SCH ×2 (09:35→17:51)
[2020-07-26] MEDS: Metoclopramide 10mg/10ml Liq GT SCH ×3 (09:35→17:51)
[2020-07-26] MEDS: Zinc Sulfate 220mg GT SCH (09:36)
[2020-07-26] MEDS: Lactulose 10gm/15ml UDC GT SCH (09:36)
[2020-07-26] MEDS: levETIRAcetam 500mg/5ml Liquid GT SCH ×2 (09:36→21:00)
[2020-07-26] MEDS: Nephrovite tab (Rena-Vite) GT SCH (09:36)
[2020-07-26] MEDS: Valproic Acid 250mg/5ml Liquid GT SCH (09:37)
--- NOTE | 2020-07-26 11:05 | Infectious Diseases Prog Note ---
Assessment/Plan Assessment/Plan antibiotics : none A 1. COVID-19 pneumonia. on 2 liters O2, with saturation of 93 % s/p ivermectin 2. Renal failure, on dialysis. 3. Schizophrenia. 4. Hypertension. P 1. Complete Decadron day # 10 2. Continue isolation. 3. We will follow up the patient clinically. Subjective ROS Limited/Unobtainable: Yes Allergies: Coded Allergies: PENICILLINS (Unverified Allergy, Unknown, 04/23/18) Objective Last 24 Hour Vital Signs Date Time Temp Pulse Resp B/P (MAP) Pulse Ox O2 Delivery O2 Flow Rate FiO2 07/26/20 09:00 Nasal Cannula 2.0 07/26/20 08:00 98.3 80 19 88/58 (68) 95 80 07/26/20 04:00 98.6 68 20 103/62 (76) 100 07/26/20 04:00 62 07/26/20 00:00 98.7 71 24 101/64 (76) 100 07/25/20 21:00 Nasal Cannula 2.0 07/25/20 20:00 99.5 74 24 98/63 (75) 100 07/25/20 20:00 74 07/25/20 16:00 97.5 80 19 106/71 (83) 100 07/25/20 16:00 77 07/25/20 12:00 96.6 71 20 103/63 (76) 100 07/25/20 12:00 90 Height (Feet): 5 Height (Inches): 6.00 Weight (Pounds): 160 Current Medications Medications (Trade) Dose Ordered Sig/Kaleigh Route PRN Reason Start Time Stop Time Status Last Admin Dose Admin Acetaminophen (Tylenol) 650 mg DAILYPRN PRN GT Mild Pain (Pain Scale 1-3) 07/17/20 15:15 08/16/20 15:14 Acetaminophen (Tylenol) 650 mg Q4H PRN GT Temp >100.5 07/17/20 15:15 08/16/20 15:14 Atorvastatin Calcium (Lipitor) 40 mg BEDTIME GT 07/17/20 21:00 10/15/20 20:59 07/25/20 20:35 Bisacodyl (Dulcolax) 10 mg DAILYPRN PRN RECTAL Constipation 07/17/20 15:15 10/15/20 15:14 Dextrose (Dextrose 50%) 25 ml Q30M PRN IV Hypoglycemia 07/22/20 13:30 10/20/20 13:29 Dextrose (Dextrose 50%) 50 ml Q30M PRN IV Hypoglycemia 07/22/20 13:30 10/20/20 13:29 Docusate Sodium (Colace) 100 mg TWICE A DAY GT 07/17/20 18:00 08/16/20 17:59 07/26/20 09:35 Epoetin Allan (Epoetin Allan(ESRD on dialysis)) 10,000 unit FRI- SUBQ 07/24/20 21:00 10/19/20 20:59 07/24/20 20:39 Escitalopram Oxalate (Lexapro) 10 mg EVERY 12 HOURS GT 07/17/20 21:00 08/16/20 20:59 07/26/20 09:36 Heparin Sodium (Porcine) (Heparin 5000 units/ml) 5,000 units EVERY 8 HOURS SUBQ 07/17/20 22:00 08/31/20 21:59 07/26/20 06:02 Insulin Aspart (NovoLOG) TID SUBQ 07/24/20 09:00 10/22/20 08:59 Lactulose (Cephulac) 20 gm DAILY GT 07/18/20 09:00 08/17/20 08:59 07/26/20 09:36 Levetiracetam (Keppra) 500 mg Q12HR GT 07/17/20 21:00 08/31/20 20:59 07/26/20 09:36 Levothyroxine Sodium (Synthroid) 100 mcg DAILY@0630 GT 07/18/20 06:30 08/17/20 06:29 07/26/20 06:02 Metoclopramide HCl (Reglan) 5 mg TID GT 07/17/20 18:00 08/16/20 17:59 07/26/20 09:35 Midodrine (Pro-Amatine) 5 mg TID GT 07/17/20 18:00 10/15/20 17:59 07/26/20 09:36 Ondansetron HCl (Zofran) 4 mg Q6H PRN GT Nausea & Vomiting 07/17/20 15:15 08/16/20 15:14 07/22/20 21:56 Risperidone (RisperDAL) 2 mg BEDTIME GT 07/17/20 21:00 08/31/20 20:59 07/25/20 20:35 Valproic Acid (Depakene) 250 mg DAILY GT 07/18/20 09:00 09/01/20 08:59 07/26/20 09:37 Vitamin B Complex/ Vit C/Folic Acid (Nephrovite) 1 tab DAILY GT 07/18/20 09:00 08/17/20 08:59 07/26/20 09:36 Zinc Sulfate (Zinc Sulfate) 220 mg DAILY GT 07/18/20 09:00 10/16/20 08:59 07/26/20 09:36 Tha Dalal MD Jul 26, 2020 11:05
[2020-07-26 12:00] VITALS: BP 92/61
--- NOTE | 2020-07-26 13:29 | Nephrology Progress Note ---
Assessment/Plan Plan Covid 19 Pneumonia Dexa per ID. On O2 2L/min. Repeat CXR better. DC to SNF. ESRD HD TTS. Subjective Subjective More alert. On O2 2L/min. Objective Objective Last 24 Hour Vital Signs Date Time Temp Pulse Resp B/P (MAP) Pulse Ox O2 Delivery O2 Flow Rate FiO2 07/26/20 12:00 97.7 88 21 92/61 (71) 97 88 07/26/20 09:00 Nasal Cannula 2.0 07/26/20 08:00 70 07/26/20 08:00 98.3 80 19 88/58 (68) 95 80 07/26/20 04:00 98.6 68 20 103/62 (76) 100 07/26/20 04:00 62 07/26/20 00:00 98.7 71 24 101/64 (76) 100 07/25/20 21:00 Nasal Cannula 2.0 07/25/20 20:00 99.5 74 24 98/63 (75) 100 07/25/20 20:00 74 07/25/20 16:00 97.5 80 19 106/71 (83) 100 07/25/20 16:00 77 Intake and Output 07/25/20 07/26/20 19:00 07:00 Intake Total 560 ml 460 ml Balance 560 ml 460 ml Free Water 200 ml 100 ml Tube Feeding 360 ml 360 ml # Voids 2 1 Laboratory Tests 07/26/20 13:11: POC Whole Blood Glucose 78 Height (Feet): 5 Height (Inches): 6.00 Weight (Pounds): 160 Objective CV RR Lungs few B ronchi Abd SNT. BS + E No CCE Mely Rincon MD Jul 26, 2020 13:29
--- NOTE | 2020-07-26 15:17 | Pulmonology Progress Note ---
Subjective ROS Limited/Unobtainable: Yes Constitutional: Denies: fever Allergies: Coded Allergies: PENICILLINS (Unverified Allergy, Unknown, 04/23/18) Objective Last 24 Hour Vital Signs Date Time Temp Pulse Resp B/P (MAP) Pulse Ox O2 Delivery O2 Flow Rate FiO2 07/26/20 12:00 97.7 88 21 92/61 (71) 97 88 07/26/20 09:00 Nasal Cannula 2.0 07/26/20 08:00 70 07/26/20 08:00 98.3 80 19 88/58 (68) 95 80 07/26/20 04:00 98.6 68 20 103/62 (76) 100 07/26/20 04:00 62 07/26/20 00:00 98.7 71 24 101/64 (76) 100 07/25/20 21:00 Nasal Cannula 2.0 07/25/20 20:00 99.5 74 24 98/63 (75) 100 07/25/20 20:00 74 07/25/20 16:00 97.5 80 19 106/71 (83) 100 07/25/20 16:00 77 Intake and Output 07/25/20 07/26/20 19:00 07:00 Intake Total 560 ml 460 ml Balance 560 ml 460 ml Free Water 200 ml 100 ml Tube Feeding 360 ml 360 ml # Voids 2 1 Laboratory Tests 07/26/20 13:11: POC Whole Blood Glucose 78 Current Medications Medications (Trade) Dose Ordered Sig/Kaleigh Route PRN Reason Start Time Stop Time Status Last Admin Dose Admin Acetaminophen (Tylenol) 650 mg DAILYPRN PRN GT Mild Pain (Pain Scale 1-3) 07/17/20 15:15 08/16/20 15:14 Acetaminophen (Tylenol) 650 mg Q4H PRN GT Temp >100.5 07/17/20 15:15 08/16/20 15:14 Atorvastatin Calcium (Lipitor) 40 mg BEDTIME GT 07/17/20 21:00 10/15/20 20:59 07/25/20 20:35 Bisacodyl (Dulcolax) 10 mg DAILYPRN PRN RECTAL Constipation 07/17/20 15:15 10/15/20 15:14 07/26/20 13:31 Dextrose (Dextrose 50%) 25 ml Q30M PRN IV Hypoglycemia 07/22/20 13:30 3/19/21 13:29 Dextrose (Dextrose 50%) 50 ml Q30M PRN IV Hypoglycemia 07/22/20 13:30 10/20/20 13:29 Docusate Sodium (Colace) 100 mg TWICE A DAY GT 07/17/20 18:00 08/16/20 17:59 07/26/20 09:35 Epoetin Allan (Epoetin Allan(ESRD on dialysis)) 10,000 unit FRI- SUBQ 07/24/20 21:00 10/19/20 20:59 07/24/20 20:39 Escitalopram Oxalate (Lexapro) 10 mg EVERY 12 HOURS GT 07/17/20 21:00 08/16/20 20:59 07/26/20 09:36 Heparin Sodium (Porcine) (Heparin 5000 units/ml) 5,000 units EVERY 8 HOURS SUBQ 07/17/20 22:00 08/31/20 21:59 07/26/20 13:32 Insulin Aspart (NovoLOG) TID SUBQ 07/24/20 09:00 10/22/20 08:59 Lactulose (Cephulac) 20 gm DAILY GT 07/18/20 09:00 08/17/20 08:59 07/26/20 09:36 Levetiracetam (Keppra) 500 mg Q12HR GT 07/17/20 21:00 08/31/20 20:59 07/26/20 09:36 Levothyroxine Sodium (Synthroid) 100 mcg DAILY@0630 GT 07/18/20 06:30 08/17/20 06:29 07/26/20 06:02 Metoclopramide HCl (Reglan) 5 mg TID GT 07/17/20 18:00 08/16/20 17:59 07/26/20 13:31 Midodrine (Pro-Amatine) 5 mg TID GT 07/17/20 18:00 10/15/20 17:59 07/26/20 13:31 Ondansetron HCl (Zofran) 4 mg Q6H PRN GT Nausea & Vomiting 07/17/20 15:15 08/16/20 15:14 07/22/20 21:56 Risperidone (RisperDAL) 2 mg BEDTIME GT 07/17/20 21:00 08/31/20 20:59 07/25/20 20:35 Valproic Acid (Depakene) 250 mg DAILY GT 07/18/20 09:00 09/01/20 08:59 07/26/20 09:37 Vitamin B Complex/ Vit C/Folic Acid (Nephrovite) 1 tab DAILY GT 07/18/20 09:00 08/17/20 08:59 07/26/20 09:36 Zinc Sulfate (Zinc Sulfate) 220 mg DAILY GT 07/18/20 09:00 10/16/20 08:59 07/26/20 09:36 Assessment/Plan Assessment/Plan Pulmonary Progress Note Subjective ROS Limited/Unobtainable: Yes Allergies: Coded Allergies: PENICILLINS (Unverified Allergy, Unknown, 04/23/18) Subjective care noted reviewed care on low flow oxygen at present - 2L/min NC COVID + Improving infiltrates on CXR Objective Vital Signs noted Objective deferred due to COVID 19 Laboratory Tests noted Assessment/Plan Assessment/Plan IMPRESSION: 1. Acute hypoxemic respiratory failure. Multifocal infiltrates. Small pleural effusion,[id number] 2. End-stage renal disease. 3. Anemia of chronic disease. 4. Elevated C-reactive protein. 5. Dementia. 6. Chronic encephalopathy. 7. Chronic debility. 8. COVID+ RECOMMENDATION: care noted. IV Decadron- to complete. ID follow up noted. DVT prophylaxis. Hemodialysis with ultrafiltration. Monitor for worsening respiratory distress, oxygen therapy, and we will monitor clinically for changes. monitor imaging for clearing hope to transfer to lower level of care impression, plan, and exam edited and reviewed in detail care discussed with Daryl Hartmann MD Jul 26, 2020 15:17
[2020-07-26 16:00] VITALS: BP 120/73
--- NOTE | 2020-07-26 17:27 | Surgery Progress Note ---
Surgery Progress Note Subjective Additional Comments recovering plan d/c no n/v cont local care plan Objective Last 24 Hour Vital Signs Date Time Temp Pulse Resp B/P (MAP) Pulse Ox O2 Delivery O2 Flow Rate FiO2 07/26/20 16:00 98.7 69 21 120/73 (89) 95 69 07/26/20 12:00 97.7 88 21 92/61 (71) 97 88 07/26/20 09:00 Nasal Cannula 2.0 07/26/20 08:00 70 07/26/20 08:00 98.3 80 19 88/58 (68) 95 80 07/26/20 04:00 98.6 68 20 103/62 (76) 100 07/26/20 04:00 62 07/26/20 00:00 98.7 71 24 101/64 (76) 100 07/25/20 21:00 Nasal Cannula 2.0 07/25/20 20:00 99.5 74 24 98/63 (75) 100 07/25/20 20:00 74 I&O Intake and Output 07/25/20 07/26/20 19:00 07:00 Intake Total 560 ml 460 ml Balance 560 ml 460 ml Free Water 200 ml 100 ml Tube Feeding 360 ml 360 ml # Voids 2 1 Dressing: saturated Cardiovascular: RSR Respiratory: decreased breath sounds Abdomen: non-tender, present bowel sounds Extremities: no tenderness, no cyanosis, other Laboratory Tests Test 07/26/20 13:11 POC Whole Blood Glucose 78 MG/DL (74-106) Plan Problems: (1) Respiratory distress (2) UTI (urinary tract infection) (3) ESRD (end stage renal disease) on dialysis (4) Dehydration (5) Abscess (6) Psychotic disorder (7) Altered mental status (8) Severe malnutrition Assessment & Plan: DAILY ESTIMATED NEEDS: Needs based on ESRD+HD, 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 * Swallowing difficulty R/T dysphagia as evidenced by PEG dep. CURRENT TF:Nepro @ 45ml/hr x 18 hrs ENTERAL NUTRITION RECOMMENDATIONS: Nepro @ 45ml/hr x 22 hrs + Prosource 1pkt BID to provide 990ml, 1782kcal, 80+22g prot, 715ml free water * Rec 45ml/hr x 22 hrs to better meet est needs * Hold 1 hr before and after Synthroid med * Add Prosource 1pkt BID for additional 22g prot * HOB over 30 degrees/ water flush per MD ADDITIONAL RECOMMENDATIONS: * Per SNF: HT=68" and al=096mms (07/04/20) * F/up w/ WC eval: Continue Nephrovite, add Orion BID * Monitor BGs, need for hypoglycemics: h/o DM + Decadron * Monitor lytes and renal fxn * Trend lipase and TF tolerance (lipase 1301 on 07/17) (9) Sacral decubitus ulcer Assessment & Plan: Pt presented on admission with Multiple Pressure Injurie s.reabsorbing DTPI Sacrum(L)11cm x (W)14cm. Base of Pressure Injury is black-dry with surrounding Non-Blanchable erythema. Unstageable Pressure Injury L Heel (L)3.8cm x (W)5cm. Base of wound is 100% necrotic. Edges are adherent to base of wound. Periwound is fluctuant but blanchable. Unstageable Pressure Injury R heel (L)4.5cm x (W)7cm. Base of Pressure Injury is 100% necrotic,edges are adherent to base of wound. Periwound is fluctuant but blanchable. Tx Plan: Apply Moisture Barrier to Sacrum .Cover with Optifoam drsg .Change every 3 days and prn. Apply Cavilon Skin Barrier to both heels.Cover with Optifoam drsg .Change every 7 days and prn. APM/JOHN mattress. Reposition at least every 2 hours or as tolerated. Off-load heels with pillow. Nutritional optimization (10) Fracture of left ankle (11) MDD (major depressive disorder), recurrent episode, moderate (12) Encephalopathy due to metabolic factor or toxin (13) Multiple injuries due to trauma (14) COVID-19 Assessment & Plan: +on tx Herson Walter Jul 26, 2020 17:27
[2020-07-26 20:00] VITALS: BP 109/57
[2020-07-26] MEDS: Epoetin Alfa-EPBX(ESRD on dialysis)10,000 unit/ml vial SUBQ SCH (21:00)
[2020-07-26] MEDS: Atorvastatin 20mg tab GT SCH (21:00)
[2020-07-27] VITALS: BP 100/58
[2020-07-27 04:00] VITALS: BP 114/68
[2020-07-27] MEDS: Heparin 5000 units/ml inj SUBQ SCH ×3 (06:07→21:38)
[2020-07-27 08:00] VITALS: BP 96/55
[2020-07-27] MEDS: Nephrovite tab (Rena-Vite) GT SCH (08:42)
[2020-07-27] MEDS: Zinc Sulfate 220mg GT SCH (08:42)
[2020-07-27] MEDS: Lactulose 10gm/15ml UDC GT SCH (08:43)
[2020-07-27] MEDS: Docusate 100mg/10ml Liq GT SCH ×2 (08:43→17:28)
[2020-07-27] MEDS: levETIRAcetam 500mg/5ml Liquid GT SCH ×2 (08:43→21:00)
[2020-07-27] MEDS: Metoclopramide 10mg/10ml Liq GT SCH ×3 (08:44→17:28)
[2020-07-27] MEDS: Valproic Acid 250mg/5ml Liquid GT SCH (08:44)
[2020-07-27] MEDS: NovoLOG Insulin Flexpen SUBQ SCH ×3 (09:00→17:47)
[2020-07-27 12:00] VITALS: BP 92/53
--- NOTE | 2020-07-27 12:40 | Pulmonology Progress Note ---
Subjective ROS Limited/Unobtainable: Yes Constitutional: Denies: fever Allergies: Coded Allergies: PENICILLINS (Unverified Allergy, Unknown, 04/23/18) Objective Last 24 Hour Vital Signs Date Time Temp Pulse Resp B/P (MAP) Pulse Ox O2 Delivery O2 Flow Rate FiO2 07/27/20 12:00 99.0 96 18 92/53 (66) 100 94 07/27/20 09:00 Room Air 07/27/20 08:00 98.0 93 18 96/55 (69) 100 93 07/27/20 04:00 98.0 72 22 114/68 (83) 95 68 07/27/20 00:00 98.3 76 20 100/58 (72) 94 76 07/26/20 21:00 Nasal Cannula 2.0 07/26/20 20:00 98.5 76 20 109/57 (74) 94 76 07/26/20 16:00 98.7 69 21 120/73 (89) 95 69 Intake and Output 07/26/20 07/27/20 19:00 07:00 Intake Total 445 ml Balance 445 ml Free Water 400 ml Tube Feeding 45 ml # Bowel Movements 2 Laboratory Tests 07/26/20 13:11: POC Whole Blood Glucose 78 07/26/20 17:47: POC Whole Blood Glucose 89 Current Medications Medications (Trade) Dose Ordered Sig/Kaleigh Route PRN Reason Start Time Stop Time Status Last Admin Dose Admin Acetaminophen (Tylenol) 650 mg DAILYPRN PRN GT Mild Pain (Pain Scale 1-3) 07/17/20 15:15 08/16/20 15:14 Acetaminophen (Tylenol) 650 mg Q4H PRN GT Temp >100.5 07/17/20 15:15 08/16/20 15:14 Atorvastatin Calcium (Lipitor) 40 mg BEDTIME GT 07/17/20 21:00 10/15/20 20:59 07/26/20 21:00 Bisacodyl (Dulcolax) 10 mg DAILYPRN PRN RECTAL Constipation 07/17/20 15:15 10/15/20 15:14 07/26/20 13:31 Dextrose (Dextrose 50%) 25 ml Q30M PRN IV Hypoglycemia 07/22/20 13:30 10/20/20 13:29 Dextrose (Dextrose 50%) 50 ml Q30M PRN IV Hypoglycemia 07/22/20 13:30 10/20/20 13:29 Docusate Sodium (Colace) 100 mg TWICE A DAY GT 07/17/20 18:00 08/16/20 17:59 07/27/20 08:43 Epoetin Allan (Epoetin Allan(ESRD on dialysis)) 10,000 unit FRI-FRI-FRI SUBQ 07/24/20 21:00 10/19/20 20:59 07/26/20 21:00 Escitalopram Oxalate (Lexapro) 10 mg EVERY 12 HOURS GT 07/17/20 21:00 08/16/20 20:59 07/27/20 08:43 Heparin Sodium (Porcine) (Heparin 5000 units/ml) 5,000 units EVERY 8 HOURS SUBQ 07/17/20 22:00 08/31/20 21:59 07/27/20 06:07 Insulin Aspart (NovoLOG) TID SUBQ 07/24/20 09:00 10/22/20 08:59 Lactulose (Cephulac) 20 gm DAILY GT 07/18/20 09:00 08/17/20 08:59 07/27/20 08:43 Levetiracetam (Keppra) 500 mg Q12HR GT 07/17/20 21:00 08/31/20 20:59 07/27/20 08:43 Levothyroxine Sodium (Synthroid) 100 mcg DAILY@0630 GT 07/18/20 06:30 08/17/20 06:29 07/27/20 06:07 Metoclopramide HCl (Reglan) 5 mg TID GT 07/17/20 18:00 08/16/20 17:59 07/27/20 12:39 Midodrine (Pro-Amatine) 5 mg TID GT 07/17/20 18:00 10/15/20 17:59 07/27/20 12:39 Ondansetron HCl (Zofran) 4 mg Q6H PRN GT Nausea & Vomiting 07/17/20 15:15 08/16/20 15:14 07/22/20 21:56 Risperidone (RisperDAL) 2 mg BEDTIME GT 07/17/20 21:00 08/31/20 20:59 07/26/20 21:00 Valproic Acid (Depakene) 250 mg DAILY GT 07/18/20 09:00 09/01/20 08:59 07/27/20 08:44 Vitamin B Complex/ Vit C/Folic Acid (Nephrovite) 1 tab DAILY GT 07/18/20 09:00 08/17/20 08:59 07/27/20 08:42 Zinc Sulfate (Zinc Sulfate) 220 mg DAILY GT 07/18/20 09:00 10/16/20 08:59 07/27/20 08:42 Assessment/Plan Assessment/Plan Pulmonary Progress Note Subjective ROS Limited/Unobtainable: Yes Allergies: Coded Allergies: PENICILLINS (Unverified Allergy, Unknown, 04/23/18) Subjective care noted reviewed care on RA COVID + Improving infiltrates on CXR Objective Vital Signs noted Objective deferred due to COVID 19 Laboratory Tests noted Assessment/Plan Assessment/Plan IMPRESSION: 1. Acute hypoxemic respiratory failure-improved. Multifocal infiltrates. Small pleural effusion,[id number] 2. End-stage renal disease. 3. Anemia of chronic disease. 4. Elevated C-reactive protein. 5. Dementia. 6. Chronic encephalopathy. 7. Chronic debility. 8. COVID+ RECOMMENDATION: care noted. IV Decadron- to complete. ID follow up noted. DVT prophylaxis. Hemodialysis with ultrafiltration. Monitor for worsening respiratory distress, oxygen therapy, and we will monitor clinically for changes. monitor imaging for clearing hope to transfer to lower level of care impression, plan, and exam edited and reviewed in detail care discussed with Daryl Hartmann MD Jul 27, 2020 12:40
--- NOTE | 2020-07-27 13:19 | Nephrology Progress Note ---
Assessment/Plan Plan Covid 19 Pneumonia Dexa per ID. On O2 2L/min. Repeat CXR better. DC to SNF. ESRD HD TTS. Ordered Stat HD Subjective Subjective More alert. On O2 2L/min. Objective Objective Last 24 Hour Vital Signs Date Time Temp Pulse Resp B/P (MAP) Pulse Ox O2 Delivery O2 Flow Rate FiO2 07/27/20 12:00 99.0 96 18 92/53 (66) 100 94 07/27/20 09:00 Room Air 07/27/20 08:00 98.0 93 18 96/55 (69) 100 93 07/27/20 04:00 98.0 72 22 114/68 (83) 95 68 07/27/20 00:00 98.3 76 20 100/58 (72) 94 76 07/26/20 21:00 Nasal Cannula 2.0 07/26/20 20:00 98.5 76 20 109/57 (74) 94 76 07/26/20 16:00 98.7 69 21 120/73 (89) 95 69 Intake and Output 07/26/20 07/27/20 19:00 07:00 Intake Total 445 ml Balance 445 ml Free Water 400 ml Tube Feeding 45 ml # Bowel Movements 2 Laboratory Tests 07/26/20 17:47: POC Whole Blood Glucose 89 Height (Feet): 5 Height (Inches): 6.00 Weight (Pounds): 160 Objective CV RR Lungs few B ronchi Abd SNT. BS + E No CCE Mely Rincon MD Jul 27, 2020 13:19
[2020-07-27] MEDS ORDERED: Heparin Sod 1000 units/ml 10ml IV PRN (13:20)
--- NOTE | 2020-07-27 14:00 | Surgery Progress Note ---
Surgery Progress Note Subjective Additional Comments doing well no n/v comfortable Objective Last 24 Hour Vital Signs Date Time Temp Pulse Resp B/P (MAP) Pulse Ox O2 Delivery O2 Flow Rate FiO2 07/27/20 12:00 99.0 96 18 92/53 (66) 100 94 07/27/20 09:00 Room Air 07/27/20 08:00 98.0 93 18 96/55 (69) 100 93 07/27/20 04:00 98.0 72 22 114/68 (83) 95 68 07/27/20 00:00 98.3 76 20 100/58 (72) 94 76 07/26/20 21:00 Nasal Cannula 2.0 07/26/20 20:00 98.5 76 20 109/57 (74) 94 76 07/26/20 16:00 98.7 69 21 120/73 (89) 95 69 I&O Intake and Output 07/26/20 07/27/20 19:00 07:00 Intake Total 445 ml Balance 445 ml Free Water 400 ml Tube Feeding 45 ml # Bowel Movements 2 Dressing: saturated Cardiovascular: RSR Respiratory: decreased breath sounds Abdomen: soft, non-tender, present bowel sounds Extremities: no tenderness, no cyanosis Laboratory Tests Test 07/26/20 17:47 POC Whole Blood Glucose 89 MG/DL (74-106) Plan Problems: (1) Respiratory distress (2) UTI (urinary tract infection) (3) ESRD (end stage renal disease) on dialysis (4) Dehydration (5) Abscess (6) Psychotic disorder (7) Altered mental status (8) Severe malnutrition Assessment & Plan: DAILY ESTIMATED NEEDS: Needs based on ESRD+HD, 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 * Swallowing difficulty R/T dysphagia as evidenced by PEG dep. CURRENT TF:Nepro @ 45ml/hr x 18 hrs ENTERAL NUTRITION RECOMMENDATIONS: Nepro @ 45ml/hr x 22 hrs + Prosource 1pkt BID to provide 990ml, 1782kcal, 80+22g prot, 715ml free water * Rec 45ml/hr x 22 hrs to better meet est needs * Hold 1 hr before and after Synthroid med * Add Prosource 1pkt BID for additional 22g prot * HOB over 30 degrees/ water flush per MD ADDITIONAL RECOMMENDATIONS: * Per SNF: HT=68" and tl=100mlw (07/04/20) * F/up w/ WC eval: Continue Nephrovite, add Orion BID * Monitor BGs, need for hypoglycemics: h/o DM + Decadron * Monitor lytes and renal fxn * Trend lipase and TF tolerance (lipase 1301 on 07/17) (9) Sacral decubitus ulcer Assessment & Plan: Pt presented on admission with Multiple Pressure Injuries.reabsorbing DTPI Sacrum(L)11cm x (W)14cm. Base of Pressure Injury is black-dry with surrounding Non-Blanchable erythema. Unstageable Pressure Injury L Heel (L)3.8cm x (W)5cm. Base of wound is 100% necrotic. Edges are adherent to base of wound. Periwound is fluctuant but blanchable. Unstageable Pressure Injury R heel (L)4.5cm x (W)7cm. Base of Pressure Injury is 100% necrotic,edges are adherent to base of wound. Periwound is fluctuant but blanchable. Tx Plan: Apply Moisture Barrier to Sacrum .Cover with Optifoam drsg .Change every 3 days and prn. Apply Cavilon Skin Barrier to both heels.Cover with Optifoam drsg .Change every 7 days and prn. APM/JOHN mattress. Reposition at least every 2 hours or as tolerated. Off-load heels with pillow. Nutritional optimization (10) Fracture of left ankle (11) MDD (major depressive disorder), recurrent episode, moderate (12) Encephalopathy due to metabolic factor or toxin (13) Multiple injuries due to trauma (14) COVID-19 Assessment & Plan: +on tx Herson Walter Jul 27, 2020 14:00
[2020-07-27 16:00] VITALS: BP 85/55
[2020-07-27 20:00] VITALS: BP 137/75
[2020-07-27] MEDS: Atorvastatin 20mg tab GT SCH (21:00)
[2020-07-28] VITALS: BP 128/59
[2020-07-28 04:00] VITALS: BP 132/72
[2020-07-28] MEDS: Heparin 5000 units/ml inj SUBQ SCH (06:00)
[2020-07-28 06:50] LABS: BASOPHILS % (AUTO) 1.2 % (0.0-2.0); EOSINOPHILS % (AUTO) 0.6 % (0.0-3.0); HEMATOCRIT 30.4 % (37.0-47.0); LYMPHOCYTES % (AUTO) 12.1 % (20.0-45.0); MEAN CORPUSCULAR VOLUME 98 FL (80-99); MONOCYTES % (AUTO) 7.3 % (1.0-10.0); NEUTROPHILS % (AUTO) 78.7 % (45.0-75.0); PLATELET COUNT 216 K/UL (150-450); RED BLOOD COUNT 3.12 M/UL (4.20-5.40); RED CELL DISTRIBUTION WIDTH 20.9 % (11.6-14.8); WHITE BLOOD COUNT 11.6 K/UL (4.8-10.8)
[2020-07-28 07:46] LABS: CALCIUM 9.9 MG/DL (8.5-10.1); CREATININE 5.5 MG/DL (0.55-1.30); PHOSPHORUS 3.3 MG/DL (2.5-4.9); POTASSIUM 3.7 MMOL/L (3.5-5.1)
[2020-07-28 08:00] VITALS: BP 156/81
[2020-07-28] MEDS: Lactulose 10gm/15ml UDC GT SCH (08:23)
[2020-07-28] MEDS: Docusate 100mg/10ml Liq GT SCH (08:23)
[2020-07-28] MEDS: levETIRAcetam 500mg/5ml Liquid GT SCH (08:23)
[2020-07-28] MEDS: Valproic Acid 250mg/5ml Liquid GT SCH (08:24)
[2020-07-28] MEDS: Zinc Sulfate 220mg GT SCH (08:24)
[2020-07-28] MEDS: Nephrovite tab (Rena-Vite) GT SCH (08:24)
[2020-07-28] MEDS: Metoclopramide 10mg/10ml Liq GT SCH (08:24)
[2020-07-28] MEDS: NovoLOG Insulin Flexpen SUBQ SCH (09:00)
--- NOTE | 2020-07-28 11:19 | Surgery Progress Note ---
Surgery Progress Note Subjective Additional Comments no acute events Objective Last 24 Hour Vital Signs Date Time Temp Pulse Resp B/P (MAP) Pulse Ox O2 Delivery O2 Flow Rate FiO2 07/28/20 09:00 Room Air 07/28/20 08:00 97.6 76 20 156/81 (106) 98 76 07/28/20 04:00 97.9 89 22 132/72 (92) 96 89 07/28/20 00:00 97.5 94 20 128/59 (82) 96 94 07/27/20 21:00 Room Air 07/27/20 20:00 96.8 96 20 137/75 (95) 98 07/27/20 16:00 98.2 94 18 85/55 (65) 98 94 07/27/20 12:00 99.0 96 18 92/53 (66) 100 94 I&O Intake and Output 07/27/20 07/28/20 19:00 07:00 Intake Total 315 ml Output Total 2000 ml Balance 315 ml -2000 ml Tube Feeding 315 ml Hemodialysis UF 2000 ml # Bowel Movements 1 Cardiovascular: RSR Respiratory: decreased breath sounds Abdomen: soft, non-tender, present bowel sounds Extremities: no cyanosis Laboratory Tests Test 07/28/20 06:00 White Blood Count 11.6 K/UL (4.8-10.8) H Red Blood Count 3.12 M/UL (4.20-5.40) L Hemoglobin 10.0 G/DL (12.0-16.0) L Hematocrit 30.4 % (37.0-47.0) L Mean Corpuscular Volume 98 FL (80-99) Mean Corpuscular Hemoglobin 32.0 PG (27.0-31.0) H Mean Corpuscular Hemoglobin Concent 32.8 G/DL (32.0-36.0) Red Cell Distribution Width 20.9 % (11.6-14.8) H Platelet Count 216 K/UL (150-450) Mean Platelet Volume 6.1 FL (6.5-10.1) L Neutrophils (%) (Auto) 78.7 % (45.0-75.0) H Lymphocytes (%) (Auto) 12.1 % (20.0-45.0) L Monocytes (%) (Auto) 7.3 % (1.0-10.0) Eosinophils (%) (Auto) 0.6 % (0.0-3.0) Basophils (%) (Auto) 1.2 % (0.0-2.0) Sodium Level 134 MMOL/L (136-145) L Potassium Level 3.7 MMOL/L (3.5-5.1) Chloride Level 96 MMOL/L (98-107) L Carbon Dioxide Level 28 MMOL/L (21-32) Anion Gap 10 mmol/L (5-15) Blood Urea Nitrogen 62 mg/dL (7-18) H Creatinine 5.5 MG/DL (0.55-1.30) H Estimat Glomerular Filtration Rate 9.3 mL/min (>60) Glucose Level 109 MG/DL (74-106) H Calcium Level 9.9 MG/DL (8.5-10.1) Phosphorus Level 3.3 MG/DL (2.5-4.9) Plan Problems: (1) Respiratory distress (2) UTI (urinary tract infection) (3) ESRD (end stage renal disease) on dialysis (4) Dehydration (5) Abscess (6) Psychotic disorder (7) Altered mental status (8) Severe malnutrition Assessment & Plan: DAILY ESTIMATED NEEDS: Needs based on ESRD+HD, 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 * Swallowing difficulty R/T dysphagia as evidenced by PEG dep. CURRENT TF:Nepro @ 45ml/hr x 18 hrs ENTERAL NUTRITION RECOMMENDATIONS: Nepro @ 45ml/hr x 22 hrs + Prosource 1pkt BID to provide 990ml, 1782kcal, 80+22g prot, 715ml free water * Rec 45ml/hr x 22 hrs to better meet est needs * Hold 1 hr before and after Synthroid med * Add Prosource 1pkt BID for additional 22g prot * HOB over 30 degrees/ water flush per MD ADDITIONAL RECOMMENDATIONS: * Per SNF: HT=68" and ly=178obv (07/04/20) * F/up w/ WC eval: Continue Nephrovite, add Orion BID * Monitor BGs, need for hypoglycemics: h/o DM + Decadron * Monitor lytes and renal fxn * Trend lipase and TF tolerance (lipase 1301 on 07/17) (9) Sacral decubitus ulcer Assessment & Plan: Pt presented on admission with Multiple Pressure Injuries.reabsorbing DTPI Sacrum(L)11cm x (W)14cm. Base of Pressure Injury is black-dry with surrounding Non-Blanchable erythema. Unstageable Pressure Injury L Heel (L)3.8cm x (W)5cm. Base of wound is 100% necrotic. Edges are adherent to base of wound. Periwound is fluctuant but blanchable. Unstageable Pressure Injury R heel (L)4.5cm x (W)7cm. Base of Pressure Injury is 100% necrotic,edges are adherent to base of wound. Periwound is fluctuant but blanchable. Tx Plan: Apply Moisture Barrier to Sacrum .Cover with Optifoam drsg .Change every 3 days and prn. Apply Cavilon Skin Barrier to both heels.Cover with Optifoam drsg .Change every 7 days and prn. APM/JOHN mattress. Reposition at least every 2 hours or as tolerated. Off-load heels with pillow. Nutritional optimization (10) Fracture of left ankle (11) MDD (major depressive disorder), recurrent episode, moderate (12) Encephalopathy due to metabolic factor or toxin (13) Multiple injuries due to trauma (14) COVID-19 Assessment & Plan: +on tx Herson Walter Jul 28, 2020 11:19
[2020-07-28 12:00] VITALS: BP 146/91
--- NOTE | 2020-07-28 12:19 | Nephrology Progress Note ---
Assessment/Plan Plan Covid 19 Pneumonia Dexa per ID. On O2 2L/min. Repeat CXR better. DC to SNF now. ESRD HD TTS as outpatient. Subjective Subjective More alert. On O2 2L/min. HD run just finished. 2 L. UF net. Objective Objective Last 24 Hour Vital Signs Date Time Temp Pulse Resp B/P (MAP) Pulse Ox O2 Delivery O2 Flow Rate FiO2 07/28/20 12:00 98.1 67 20 146/91 (109) 97 67 07/28/20 09:00 Room Air 07/28/20 08:00 97.6 76 20 156/81 (106) 98 76 07/28/20 04:00 97.9 89 22 132/72 (92) 96 89 07/28/20 00:00 97.5 94 20 128/59 (82) 96 94 07/27/20 21:00 Room Air 07/27/20 20:00 96.8 96 20 137/75 (95) 98 07/27/20 16:00 98.2 94 18 85/55 (65) 98 94 Intake and Output 07/27/20 07/28/20 19:00 07:00 Intake Total 315 ml Output Total 2000 ml Balance 315 ml -2000 ml Tube Feeding 315 ml Hemodialysis UF 2000 ml # Bowel Movements 1 Laboratory Tests 07/28/20 06:00: White Blood Count 11.6H, Red Blood Count 3.12L, Hemoglobin 10.0L, Hematocrit 30.4L, Mean Corpuscular Volume 98, Mean Corpuscular Hemoglobin 32.0H, Mean Corpuscular Hemoglobin Concent 32.8, Red Cell Distribution Width 20.9H, Platelet Count 216, Mean Platelet Volume 6.1L, Neutrophils (%) (Auto) 78.7H, Lymphocytes (%) (Auto) 12.1L, Monocytes (%) (Auto) 7.3, Eosinophils (%) (Auto) 0.6, Basophils (%) (Auto) 1.2, Sodium Level 134L, Potassium Level 3.7, Chloride Level 96L, Carbon Dioxide Level 28, Anion Gap 10, Blood Urea Nitrogen 62H, Creatinine 5.5H, Estimat Glomerular Filtration Rate 9.3, Glucose Level 109H, Calcium Level 9.9, Phosphorus Level 3.3 Height (Feet): 5 Height (Inches): 6.00 Weight (Pounds): 160 Objective CV RR Lungs few B ronchi Abd SNT. BS + E No CCE Mely Rincon MD Jul 28, 2020 12:19
--- NOTE | 2020-07-28 15:23 | Pulmonology Progress Note ---
Subjective ROS Limited/Unobtainable: Yes Constitutional: Denies: fever Allergies: Coded Allergies: PENICILLINS (Unverified Allergy, Unknown, 04/23/18) Objective Last 24 Hour Vital Signs Date Time Temp Pulse Resp B/P (MAP) Pulse Ox O2 Delivery O2 Flow Rate FiO2 07/28/20 12:00 98.1 67 20 146/91 (109) 97 67 07/28/20 09:00 Room Air 07/28/20 08:00 97.6 76 20 156/81 (106) 98 76 07/28/20 04:00 97.9 89 22 132/72 (92) 96 89 07/28/20 00:00 97.5 94 20 128/59 (82) 96 94 07/27/20 21:00 Room Air 07/27/20 20:00 96.8 96 20 137/75 (95) 98 07/27/20 16:00 98.2 94 18 85/55 (65) 98 94 Intake and Output 07/27/20 07/28/20 19:00 07:00 Intake Total 315 ml Output Total 2000 ml Balance 315 ml -2000 ml Tube Feeding 315 ml Hemodialysis UF 2000 ml # Bowel Movements 1 Microbiology Date/Time Source Procedure Growth Status 07/26/20 11:30 Nasal Nares MRSA Culture - Final NO METHICILLIN RESISTANT STAPH AUREUS... Complete Laboratory Tests 07/28/20 06:00: White Blood Count 11.6H, Red Blood Count 3.12L, Hemoglobin 10.0L, Hematocrit 30.4L, Mean Corpuscular Volume 98, Mean Corpuscular Hemoglobin 32.0H, Mean Corpuscular Hemoglobin Concent 32.8, Red Cell Distribution Width 20.9H, Platelet Count 216, Mean Platelet Volume 6.1L, Neutrophils (%) (Auto) 78.7H, Lymphocytes (%) (Auto) 12.1L, Monocytes (%) (Auto) 7.3, Eosinophils (%) (Auto) 0.6, Basophils (%) (Auto) 1.2, Sodium Level 134L, Potassium Level 3.7, Chloride Level 96L, Carbon Dioxide Level 28, Anion Gap 10, Blood Urea Nitrogen 62H, Creatinine 5.5H, Estimat Glomerular Filtration Rate 9.3, Glucose Level 109H, Calcium Level 9.9, Phosphorus Level 3.3 Assessment/Plan Assessment/Plan Pulmonary Progress Note Subjective ROS Limited/Unobtainable: Yes Allergies: Coded Allergies: PENICILLINS (Unverified Allergy, Unknown, 04/23/18) Subjective care noted reviewed care on RA COVID + Improving infiltrates on CXR Objective Vital Signs noted Objective deferred due to COVID 19 Laboratory Tests noted Assessment/Plan Assessment/Plan IMPRESSION: 1. Acute hypoxemic respiratory failure-improved. Multifocal infiltrates. Small pleural effusion,[id number] 2. End-stage renal disease. 3. Anemia of chronic disease. 4. Elevated C-reactive protein. 5. Dementia. 6. Chronic encephalopathy. 7. Chronic debility. 8. COVID+ RECOMMENDATION: care noted. IV Decadron- to complete. ID follow up noted. DVT prophylaxis. Hemodialysis with ultrafiltration. Monitor for worsening respiratory distress, oxygen therapy, and we will monitor clinically for changes. monitor imaging for clearing hope to transfer to lower level of care impression, plan, and exam edited and reviewed in detail care discussed with Daryl Hartmann MD Jul 28, 2020 15:23
--- NOTE | 2020-07-31 08:35 | Discharge Summary ---
Discharge Summary Discharge Summary _ DATE OF ADMISSION: 07/17/2020 DATE OF DISCHARGE: 07/28/2020 DISCHARGED BY: Dr. Bullock REASON FOR ADMISSION: 65 years old female with past medical history of end-stage renal disease due to diabetic nephropathy, advanced dementia, hypertensive cardiovascular disease, COPD, anemia of chronic disease, recurrent septicemia, hypothyroidism, psychosis, resident of [facility], developed COVID-19 infection during the last 2-weeks. Patient was sent for evaluation and further management due to worsening shortnes s of breath. Patient by herself was nonverbal was unable to provide any information. In emergency department chest x-ray showed bilateral patchy airspace disease. Laboratory work-up revealed no leukocytosis, hemoglobin 8 , Troponin negative. EKG revealed sinus rhythm no acute ischemic changes. Patient was tested for COVID-19 by PCR. CRP 19.2, ferritin 1942, LDH 345, D-dimer 1.71. In emergency department patient received empiric antibiotic , steroids , placed on supplemental oxygen and admitted to isolation room to telemetry floor for further management. CONSULTANTS: pulmonary Dr. Preciado ID specialist Dr. Dalal surgery Dr. Walter [facility]SE: Patient admitted to isolation room to monitored floor. Patient was continued on steroids . Patient received a dose of ivermectin as per ID recommendation. Supplemental oxygen provided and titrated to keep pulse oximetry above 92%. MDI albuterol was on board as needed . Anticoagulation provided. Hemodialysis provided with close monitoring of volumes and cardiorenal parameters. Patient was followed-up with chest x-ray , which revealed improved bilateral infiltrates with some residual. As patient clinically improved , she was able to be weaned to oxygen via nasal cannula . Blood sugar was managed with sliding scale of insulin. Hemoglobin and hematocrit were closely monitored with goal to keep hemoglobin above 7. Patient was on Epogen. Prior to discharge hemoglobin 10, hematocrit 30.4. SNF medication continued. Patient clinically stabilized and was ready for discharge. Aspiration precaution maintained. Tube feeding formula and protein supplements provided as per registered dietitian recommendation. Patient presented with multiply pressure injury. Wound care provided as per surgeon recommendation. Continue wound care at the facility. Patient clinically stabilized and was ready for discharge to [facility] facility for continuation of care. FINAL DIAGNOSES: Acute hypoxemic respiratory failure COVID-19 pneumonia End-stage renal disease, on hemodialysis Anemia of chronic disease Chronic encephalopathy Advanced dementia COPD Hypertensive cardiovascular disease Hypothyroidism Severe malnutrition Sacral decubitus ulcer and multiply un-stageable pressure injury, all present on admission DISCHARGE MEDICATIONS: See Medication Reconciliation list. DISCHARGE INSTRUCTIONS: Patient was discharged to the [facility] facility. Follow up with medical doctor at the facility. I have been assigned to dictate discharge summary for this account. I was not involved in the patient's management. Rosa Brambila NP Jul 31, 2020 08:35
== END 2020-07-28 12:46 | DRG 177 ==
LOC: EDBD 04:56 → EMR 05:11 → 2E 05:20 → EDBEDREQ 12:04 → 2E 07-18 10:48
PROC: 5A1D70Z Performance of Urinary Filtration, Intermittent, Less than 6 Hours Per Day (ICD-10-PCS; principal; 2020-07-17)
DX: U07.1 COVID-19 (principal); J12.89 Other viral pneumonia; J96.01 Acute respiratory failure with hypoxia; N18.6 End stage renal disease; E43 Unspecified severe protein-calorie malnutrition; I12.0 Hypertensive chronic kidney disease with stage 5 chronic kidney disease or end stage renal disease; G93.40 Encephalopathy, unspecified; F33.1 Major depressive disorder, recurrent, moderate; F29 Unspecified psychosis not due to a substance or known physiological condition; E03.9 Hypothyroidism, unspecified; J44.9 Chronic obstructive pulmonary disease, unspecified; F03.90 Unspecified dementia, unspecified severity, without behavioral disturbance, psychotic disturbance, mood disturbance, and anxiety; F20.9 Schizophrenia, unspecified; L89.156 Pressure-induced deep tissue damage of sacral region; L89.620 Pressure ulcer of left heel, unstageable; L89.610 Pressure ulcer of right heel, unstageable; D63.8 Anemia in other chronic diseases classified elsewhere
CPT/HCPCS: 36415; 71045; 80048; 80053; 81003; 82728; 82962; 83605; 83615; 83690; 83880; 84100; 84484; 85007; 85025; 85379; 85610; 85730; 86140; 86706; 86850; 86900; 86901; 86920; 87040; 87081; 93005; 96361; 96365; 96375; 99285; J1815; J7030